=== PATIENT | female | born 1990 | race Caucasian/White ===

== ENCOUNTER 2022-05-01 10:31 | Outpatient (CLI) | payer OTHER, SELFPAY ==
--- OUTSIDE RECORDS SUMMARY | 2022-05-01 10:33 | XMS_ITS | Clinical Summary ---
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 Pulse 77 05/08/2019 2:26 PM [employer]CH[employer] ENGINEERING SPECIALIST Temperature 36.7 ??C (98 ??F) 05/08/2019 2:00 PM MECH[employer]ICAL ENGINEERING SPECIALIST Respiratory Rate 18 05/08/2019 2:00 PM MECHANICAL ENGINEERING SPECIALIST Oxygen Saturation 99% 05/08/2019 2:26 PM MECHANICAL ENGINEERING SPECIALIST Inhaled Oxygen Concentration - - Weight 66.5 kg (146 lb 11.2 oz) 05/08/2019 2:00 PM MECHANICAL ENGINEERING SPECIALIST Height 162.6 cm (5' 4) 05/08/2019 2:00 PM MECHANICAL ENGINEERING SPECIALIST Body Mass Index 25.18 05/08/2019 2:00 PM MECHANICAL ENGINEERING SPECIALIST Plan of Treatment Not on file Results Not on filefrom Last 3 Months Insurance Payer Benefit Plan / Subscriber ID Effective Dates Phone Addre ss Type Group FOR LIFE [id number] 2019-Present [address] [place] [address] Care Teams Junior Linux Systems Administrator Relationship Specialty Start Date End Date Clayton Bee MD PCP - General Obstetrics and Gynecology 05/08/19 [address] [place] [id number]
--- OUTSIDE RECORDS SUMMARY | 2022-05-01 10:33 | XMS_ITS | Continuity of Care Document ---
:1990 Author Organization [facility] Care Team Providers Name Role Phone [facility] Unavailable Unavailable Problems Combined list of problems from Department of Defense and Veterans Affairs facilities. It does not include entries that were removed or entered in error. 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 19 Pain in unspecified Active 01/18/20 Condition DoD hip 19 Pain in unspecified Active 01/18/20 Condition DoD shoulder 19 Pain in right Active 11/13/19 Condition DoD shoulder 19 Generalized anxiety Active 10/02/19 Condition DoD disorder 19 Encounter for Inactive 08/25/19 Condition DoD examination and 19 observation for other specified reasons Migraine, Inactive 08/17/19 Condition DoD unspecified, not 19 intractable, without status migrainosus Other sprain of Active 06/16/20 Condition DoD right shoulder 18 joint Anxiety (SCT Active Condition RUDI MARIBELL [id number]) [facility] Cancer cervix Active Condition Feb 20 NEAL screening status 2021 Entered [facility] By: ANITA HARVEY Comment: No hx KATELYNN 2-3 Feb 20, 2022 Entered By: ANITA HARVEY Comment: 03/03/21 Colposcopy KATELYNN 1/ECC neg Feb 20, 2022 Entered By: ANITA HARVEY Comment: 02/13/2022 NILM/HPV neg. Next co-test due in 3 years (02/2025). Closed fracture of Active Condition [place] [facility] clavicle [facility] Constipation Active Condition [place] [facility] Depression (SCT Active Condition ALBE RT MARIBELL [id number]) [facility] Headache (SCT Active Condition RUDI MARIBELL [id number]) [facility] Hip pain Active Condition [facility] Recurrent Active Condition [place] depression [facility] Diagnosis: Active Diagnosis [place] ICD-10-CM F33.8 [facility] Other recurrent depressive disorderswith Provider Comments: Recurrent depression (SCT [id number]) Diagnosis: Active Diagnosis [place] ICD-10-CM F41.9 [facility] Anxiety disorder, unspecifiedwith Provider Comments: Anxiety ([facility] [id number]) Diagnosis: Active Diagnosis [place] ICD-10-CM F32.9 [facility] Major depressive disorder, single episode, unspecifiedwith Provider Comments: Depression ([facility] [id number]) Diagnosis: Active Diagnosis [place] ICD-10-CM Z71.3 [facility] Dietary counseling and surveillancewith Provider Comments: Dietary counseling and surveillance Diagnosis: Active Diagnosis [place] ICD-10-CM K59.09 [facility] Other constipationwith Provider Comments: Other Constipation Diagnosis: Active Diagnosis [place] ICD-10-CM Z71.89 [facility] Other specified counselingwith Provider Comments: Other specified counseling Diagnosis: Active Diagnosis [place] ICD-10-CM F33.8 [facility] Other recurrent depressive disorderswith Provider Comments: Other Recurrent Depressive Disorders Diagnosis: Active Diagnosis [place] ICD-10-CM R53.83 [facility] Other fatiguewith Provider Comments: Other Fatigue Diagnosis: Active Diagnosis [place] ICD-10-CM R87.612 [facility] Low grade intrepith lesion cyto smr crvx (LGSIL)with Provider Comments: Low Grade Squamous Intraepithelial Lesion on Cytologic Smear of Cervix (LGSIL) Diagnosis: Active Diagnosis [place] ICD-10-CM Z71.9 [facility] Counseling, unspecifiedwith Provider Comments: Counseling, unspecified Diagnosis: Active Diagnosis [place] ICD-10-CM S42.002A [facility] Fracture of unsp part of left clavicle, init for clos fxwith Provider Comments: Closed fracture of left clavicle ([facility] [id number]) Medications Combined list of outpatient medications from Department of Defense and Veterans Affairs facilities. Medications provided include 1) outpatient medications from the last 15 months, and 2) patient-reported medications. Medication Details Route Status Patient Prescription Prescription Last Ordering Order Source Instructions Expires Number Dispense Provider Date Date CYMBALTA TAKE ONE Active 06/19/2022 [id number] TRAKALO , 07/18/ [place] (BRAND) 30 CAPSULE 2 KEN A 2021 [place] MG ORAL BY MOUTH [facility] CPDR EVERY DAY FOR MOOD AND ANXIETY CYMBALTA TAKE ONE Discont 03/25/2022 [id number] BROCKB ANK 06/25/ [place] (BRAND) 30 CAPSULE inued 1 , OXANA 2020 [place] MG ORAL BY MOUTH M [facility] CPDR EVERY DAY FOR MOOD AND ANXIETY DOXYCYCLINE Active [id number] CARMELO GÓMEZ / Pharmac MONOHYDRATE 2 D 2021 y Data (DOXYCYCLIN Transac E tion MONOHYDRATE Service ), 100MG, Facilit TABLET, y ORAL, [employer], 250 ea. BOTTLE DULoxetine TAKE ONE Discont 10/18/2022 [id number] TRAK BELKYS, 11/18/ [place] 20 MG ORAL CAPSULE inued 2 KEN A 2021 [place] CPDR BY MOUTH [facility] EVERY DAY FOR MOOD AND ANXIETY DULOXETINE TAKE ONE ORALLY DISCONT 10/18/2022 [id number] T RAKALO,A 10/21/ [place] H[facility] 20MG CAPSULE INUED 2 NDRA A 2021 [place] [facility] CAP,EC BY MOUTH HCS EVERY DAY FOR MOOD AND ANXIETY DULOXETINE TAKE ONE ORALLY DISCONT 06/19/2022 [id number] TRAKALO,A 07/12/ [place] HCL 30MG CAPSULE INUED 2 NDRA A 2021 [place] [facility] CAP,EC BY MOUTH (EDIT) HCS EVERY DAY FOR MOOD AND ANXIETY DULOXETINE TAKE ONE ORALLY DISCONT 03/25/2022 [id number] B ROCKBANK 03/24/ [place] HCL 30MG CAPSULE INUE 1 OXANA 2020 [place] [facility] CAP,EC BY MOUTH HCS EVERY DAY FOR MOOD AND ANXIETY FLUoxetine TAKE ONE Discont 11/06/2022 [id number] TRAK BELKYS, 11/30/ [place] (U/D) 10 MG CAPSULE inued 2 KEN A 2021 [place] ORAL CAP BY MOUTH [facility] EVERY DAY FOR MOOD AND ANXIETY FLUOXETINE TAKE ONE ORALLY DISCONT 11/06/2022 [id number] T RAKALO,A 11/05/ [place] H[facility] 10MG CAPSULE INUED 2 NDRA A 2021 [facility] [facility] CAP BY MOUTH HCS EVERY DAY FOR MOOD AND ANXIETY GABAPENTIN TAKE ONE Discont 11/06/2022 [id number] TRAK BELKYS, 11/30/ [place] (U/D) 100 CAPSULE inued 2 KEN A 2021 [place] MG ORAL CAP BY MOUTH [facility] THREE TIMES A DAY NEEDED FOR ANXIETY AND ANTIDEPR ESSANT DISCONTI NUATION EFFECTS GABAPENTIN TAKE ONE ORALLY DISCONT 11/06/2022 [id number] T RATAMMYLO,A 11/05/ [place] 100MG CAP CAPSULE INUED 2 NDRA A 2021 [facility] BY [facility]OUTH HCS THREE TIMES A DAY NEEDED FOR ANXIETY AND ANTIDEPR ESSANT DISCONTI NUATION EFFECTS hydrOXYzine TAKE ONE Discont 02/19/2022 [id number] DUR AN, 03/26/ [place] pamoate TO TWO inued 1 ANITA 2020 [place] (U/D) 25 MG CAPSULE( [facility] ORAL CAP S) BY MOUTH AT BEDTIME FOR SLEEP/AN XIETY HYDROXYZINE TAKE ONE ORALLY DISCONT 02/19/2022 [id number] HARVEY,ALI 02/18/ [place] PAMOATE TO TWO INUE 1 SA 2020 [place] [facility] 25MG CAP CAPSULE( HCS S) BY MOUTH AT BEDTIME FOR SLEEP/AN XIETY MAGNESIUM TAKE 1 ORALLY 02/01/2022 [id number] MADDAL I,S 01/02/ [place] CITRATE BOTTLE 2 [facility] 2021 [facility] LIQUID,ORAL BY MOUTH HCS ONCE TODAY POLYETHYLEN TAKE 17 ORALLY 02/01/2022 [id number] M ADDALI,S 01/02/ [place] E GLYCOL GRAMS BY 2 [facility] 2021 [facility] 3350 MOUTH [facility] PWDR,ORAL TWICE A DAY FOR 2 DAYS, THEN TAKE 17 GRAMS EVERY MORNING FOR 28 DAYS *MIX IN 4 TO 8 OUNCES OF LIQUID DIRECTED *USE COVER TO MEASURE POWDER* SO-PEG TAKE 17 02/01/2022 [id number] MADDALI, 01/16/ [place] 3350-BOWEL GRAMS BY 2 CALVIN 2021 [place] 2,TWO PART MOUTH [facility] PREP--PO SO TWICE A DAY FOR 2 DAYS, THEN TAKE 17 GRAMS EVERY MORNING FOR 28 DAYS *MIX IN 4 TO 8 OUNCES OF LIQUID DIRECTED *USE COVER TO MEASURE POWDER* TRAZODONE TAKE ORALLY DISCONT 07/31/2022 [id number] TRAPAUL ,A 07/31/ [place] HCL 50MG ONE-HALF INUED 2 NDRA A 2021 [place] [facility] TAB TO ONE HCS TABLET(S ) BY MOUTH AT BEDTIME NEEDED FOR SLEEP Allergies, Adverse Reactions, Alerts Combined list of allergies from Department of Defense and Veterans Affairs facilities. It does not include entries that were removed or entered in error. Substance Category Reaction Severity Reaction Status Date Comments S ource type Reported DOXYCYCLINE Drug Generalize Drug active [place] allergy d aches allergy 2 lis [facility] and pains LATEX GLOVES Propensity Eruption Propensity active [place] to adverse to adverse 9 LI S [facility] reactions reactions HCS to drug to drug (finding) (finding) Immunizations Combined list of available immunizations from the Department of Defense and Veterans Affairs facilities. Immunization Series Date Administered Site Reaction Lot CVX Drug St atus Comments Source Given By Number Code Senior Cytotechnologist INFLUENZA, complet [place] UNSPECIFIED 2020 ed [place] [facility] FORMULATION [facility] S COVID-19 2 complet [place] (MODERNA), 2020 ed [place] [facility] MRNA, LNP-S, H CS PF, 100 MCG OR 50 MCG DOSE COVID-19 1 complet [place] (MODERNA), 2020 ed [place] [facility] MRNA, LNP-S, H CS PF, 100 MCG/0.5 ML DOSE INFLUENZA, complet [employer] SE[employer]ONAL, 2019 ed INJECTABLE anthrax 2 08/27/ [id number] Emergent complet anth rax DoD vaccine 2019 [employer] ed vaccine Operations Dewey (MIP) typhoid Vi 1 03/28/ [id number] Sanofi complet typ hoid DoD capsular 2018 Pasteur (PMC) ed Vi polysaccharid capsul ar e vaccine polysacch aride vaccine anthrax 1 03/28/ [id number] Emergent complet anth rax DoD vaccine 2018 [employer] ed vaccine Operations Toño (MIP) hepatitis A 3 03/28/ [id number] SmithKline complet hepatitis DoD vaccine, 2018 (SKB) ed A adult dosage vaccine , adult dosage Influenza, 1 03/27/ [id number] 150 Seqirus (SEQ) comp let Influenza DoD injectable, 2018 ed , quadrivalent, inject abl preservative e, free quadrival ent, preservat magui free measles, 2 07/24/ [id number] 03 Unknown (UNK) comple t measles, DoD mumps and 2018 ed mumps and rubella virus rubell a vaccine virus vaccine measles, 2 07/23/ [id number] 03 Unknown (UNK) comple t measles, DoD mumps and 2018 ed mumps and rubella virus rubell a vaccine virus vaccine hepatitis A 2 07/10/ [id number] [employer]Kline complet hepatitis DoD and hepatitis 2018 (SKB) ed A and B vaccine hepatitis B vaccine TDAP 01/14/ 115 complet [place] 2017 ed [facility] HEP B, ADULT complet [place] 2016 ed [facility] Influenza, 1 05/09/ [id number] 150 Unknown (UNK) comp let Influenza DoD injectable, 2016 ed , quadrivalent, inject abl preservative e, free quadrival ent, preservat magiu free Adenovirus, 1 09/19/ Unknown, [id number] 143 Cornelius complet Adenoviru DoD type 4 and 2016 Provider 2 Laboratories ed s, type 4 type 7, live, (BRR) and ty pe oral 7, live, oral hepatitis A 1 09/19/ Unknown, [id number] 52 [employer]Kline compl et hepatitis DoD vaccine, 2016 Provider (SKB) ed A adult dosage vaccine , adult dosage Influenza, 1 09/19/ Unknown, [id number] 150 CSL complet In fluenza DoD injectable, 2016 Provider Biotherapies, ed , quadrivalent, Inc. (CSL) i njectabl preservative e, free quadrival ent, preservat magui free poliovirus 1 09/19/ Unknown, [id number] 10 Sanofi complet polioviru DoD vaccine, 2016 Provider Pasteur (PMC) ed s inactivated vaccine, inactivat ed meningococcal 1 09/19/ Unknown, [id number] 32 Sanofi compl et meningoco DoD polysaccharid 2016 Provider Pasteur (PMC) e d ccal e vaccine polysacch (MPSV4) aride vaccine (MPSV4) measles, 1 09/19/ Unknown, [id number] 03 Merck (MSD) compl et measles, DoD mumps and 2016 Provider ed mumps a nd rubella virus rubell a vaccine virus vaccine varicella 1 09/18/ UNK 21 Unknown (UNK) Not v aricella DoD virus vaccine 2016 Given virus vaccine hepatitis B 1 09/18/ UNK 43 Unknown (UNK) Not hepatitis DoD vaccine, 2016 Given B adult dosage vaccine , adult dosage Influenza, 1 05/26/ [id number] 141 Unknown (UNK) comp let Influenza DoD seasonal, 2015 1A ed , injectable seasonal, injectabl e human 3 UNK 62 Unknown (UNK) complet hum an DoD papilloma 2013 ed papilloma virus virus vaccine, vaccine, quadrivalent quadriv al ent HPV, 3 complet [place] QUADRIVALENT 2013 ed [facility] tetanus 1 UNK 115 Unknown (UNK) complet t etanus DoD toxoid, 2010 ed toxoid, reduced reduced diphtheria diphtheri toxoid, and a toxoid , acellular and pertu is acellular vaccine, pertussis adsorbed vaccine, adsorbed human 2 UNK 62 Unknown (UNK) complet hum an DoD papilloma 2009 ed papilloma virus virus vaccine, vaccine, quadrivalent quadriv al ent HPV, 2 complet [place] QUADRIVALENT 2009 ed [facility] human 1 UNK 62 Unknown (UNK) complet hum an DoD papilloma 2008 ed papilloma virus virus vaccine, vaccine, quadrivalent quadriv al ent HPV, 1 complet [place] QUADRIVALENT 2008 ed [facility] Results Combined list of recent chemistry, hematology and other laboratory results from Department of Defense and Veterans Affairs, ranging from 15 months to all on record, depending upon the facility. Order Results Value Reference Date Interpretation Specimen Commen ts Source Name Range HUMAN HUMAN NEGATIVE 02/13 Specimen Type: CERVICAL VAGINAL CYTOLOGIC MATERIAL [place] PAPILLOM PAPILLOMA /2021 Comment: [id number] [facility] A VIRUS 16 Ordering Provi devan: HARVEY,ANITA VIRUS,DN DNA Report Release d Date/Time: Feb 19, 2022 11:51 AM A HIGH [PRESENCE] Reporting La b: [facility]CS RISK IN [address] [place] [address] SPECIMEN Performing Lab : [facility] BY [place] [address] [place] [address] WITH PROBE DETECTION HUMAN HUMAN NEGATIVE 02/13 Specimen Type: CERVICAL VAGINAL CYTOLOGIC MATERIAL [place] PAPILLOM [place] /2021 Comment: [id number] [facility] A VIRUS 18 Ordering Provi devan: HARVEY,ANITA VIRUS,DN DNA Report Release d Date/Time: Feb 19, 2022 11:51 AM A HIGH [PRESENCE] Reporting La b: [facility]CS RISK IN [address] [place] [address] SPECIMEN Performing Lab : [facility] BY [place] [address] [facility] [address] WITH PROBE DETECTION HUMAN HUMAN NEGATIVE 02/13 Specimen Type: CERVICAL VAGINAL CYTOLOGIC MATERIAL [place] PAPILLOM [place] /2021 Comment: C2 IS [facility] A VIRUS Ordering Provid er: ANITA HARVEY VIRUS,DN 16+18+31+3 Report Rele ased Date/Time: Feb 19, 2022 11:51 AM A HIGH 3+35+45+51 Reporting La b: [facility] RISK +52+[address] [facility] [address] [PRESENCE] Performing L ab: [facility] IN [place] [address] [facility] [address] BY PROBE HUMAN INTERPRETA HR-HPV 02/13 Specimen Type : CERVICAL VAGINAL CYTOLOGIC MATERIAL [place] PAPILLOM TION AND is /2021 Comment: [id number] IS [facility] A REVIEW OF undetect Ordering Pro vider: ANITA HARVEY VIRUS,DN LABORATORY able or Report Rele ased Date/Time: Feb 19, 2022 11:51 AM A HIGH RESULTS below Reporting Lab: [facility] RISK preset [address] [facility] [address] threshol Performing Lab : [facility] d. ONE [facility] [address] [facility] [address] HCG, CHORIOGONA NEGATIVE 01/02 Specimen Typ e: URINE [place] QUAL DOTROPIN.B No comment en tered. IS [facility] ETA Ordering Provid er: CALVIN HARRIS SUBUNIT Report Released Date/Time: Jan 02, 2022 09:09 AM ( Reporting La b: [facility] TEST) [address] [facility] [address] [PRESENCE] Performing L ab: [facility] IN URINE [address] [facility] [address] TSH THYROTROPI 1.03 0.35 - 07/23 Specimen Type : PLASMA [place] W/REFLEX N 4.94 No comment ente red. IS [facility] TO FREE [UNITS/VOL Ordering Pro vider: HARVEYANITA T4 UME] IN Report Released Date/Time: Jul 23, 2021 03:00 PM SERUM OR Reporting Lab: [facility] PLASMA [place] [address] Performing Lab: [facility] [place] [address] BASIC CREATININE 0.8 0.5 - 1.0 07/23 Specimen Ty pe: PLASMA [place] METABOLI [MASS/VOLU /2021 No comment e ntered. IS [facility] C ME] IN Ordering Provid er: HARVEY,ANITA PANEL+MG SERUM OR Report Releas ed Date/Time: Jul 23, 2021 03:00 PM PLASMA Reporting Lab: [facility] [place] [address] Performing Lab: [facility] [place] [address] BASIC UREA 20 7 - 20 07/23 Specimen Type: P LASMA [place] METABOLI No comment ent ered. IS [facility] C [MASS/VOLU Ordering Pro vider: HARVEY,ANITA PANEL+MG ME] IN Report Release d Date/Time: Jul 23, 2021 03:00 PM SERUM OR Reporting Lab: [facility] PLASMA [address] [facility] [address] Performing Lab: [facility] [address] [facility] [address] BASIC GLUCOSE 69 74 - 100 07/23 L Specimen Type: PLASMA [place] METABOLI [MASS/VOLU /2021 No comment e ntered. IS [facility] C ME] IN Ordering Provid er: HARVEY,ANITA PANEL+MG SERUM OR Report Releas ed Date/Time: Jul 23, 2021 03:00 PM PLASMA Reporting Lab: [facility] [place] [address] Performing Lab: [facility] [place] [address] BASIC SODIUM 141 136 - 145 07/23 Specimen Type: PLASMA [place] METABOLI [MOLES/VOL /2021 No comment e ntered. IS [facility] C UME] IN Ordering Provid er: HARVEY,ANITA PANEL+MG SERUM OR Report Releas ed Date/Time: Jul 23, 2021 03:00 PM PLASMA Reporting Lab: [facility] [address] [facility] [address] Performing Lab: [facility] [address] [facility] [address] BASIC POTASSIUM 3.9 3.5 - 5.1 07/23 Specimen Typ e: PLASMA [place] METABOLI [MOLES/VOL /2021 No comment e ntered. IS [facility] C UME] IN Ordering Provid er: HARVEY,ANITA PANEL+MG SERUM OR Report Releas ed Date/Time: Jul 23, 2021 03:00 PM PLASMA Reporting Lab: [facility] [address] [place] [address] Performing Lab: [facility] [address] [place] [address] BASIC CHLORIDE 107 98 - 107 07/23 Specimen Type: PLASMA [place] METABOLI [MOLES/VOL /2021 No comment e ntered. IS [facility] C UME] IN Ordering Provid er: HARVEY,ANITA PANEL+MG SERUM OR Report Releas ed Date/Time: Jul 23, 2021 03:00 PM PLASMA Reporting Lab: [facility] [address] [place] [address] Performing Lab: [facility] [address] [place] [address] BASIC CARBON 26 22 - 29 07/23 Specimen Type: P LASMA [place] METABOLI DIOXIDE, /2021 No comment ent ered. IS [facility] C TOTAL Ordering Provid er: HARVEY,ANITA PANEL+MG [MOLES/VOL Report Rele ased Date/Time: Jul 23, 2021 03:00 PM UME] IN Reporting Lab: [facility] SERUM OR [address] [facility] [address] PLASMA Performing Lab: [facility] [place] [address] BASIC CALCIUM 9.2 8.4 - 10.2 07/23 Specimen Type : PLASMA [place] METABOLI [MASS/VOLU /2021 No comment e ntered. IS [facility] C ME] IN Ordering Provid er: HARVEY,ANITA PANEL+MG SERUM OR Report Releas ed Date/Time: Jul 23, 2021 03:00 PM PLASMA Reporting Lab: [facility] [address] [facility] [address] Performing Lab: [facility] [address] [facility] [address] BASIC MAGNESIUM 2.0 1.6 - 2.6 07/23 Specimen Typ e: PLASMA [place] METABOLI [MASS/VOLU /2021 No comment e ntered. IS [facility] C ME] IN Ordering Provid er: HARVEY,ANITA PANEL+MG SERUM OR Report Releas ed Date/Time: Jul 23, 2021 03:00 PM PLASMA Reporting Lab: [facility] [place] [address] Performing Lab: [facility] [address] [facility] [address] BASIC ANION GAP 8 5 - 15 07/23 Specimen Type: PLASMA [place] METABOLI IN SERUM /2021 No comment ent ered. IS [facility] C OR PLASMA Ordering Prov ider: ANITA HARVEY PANEL+MG Report Release d Date/Time: Jul 23, 2021 03:00 PM Reporting Lab: [facility] [address] [facility] [address] Performing Lab: [facility] [address] [facility] [address] BASIC GLOMERULAR 84 60 07/23 Specimen Type : PLASMA [place] METABOLI FILTRATION /2021 No comment e ntered. IS [facility] C RATE/1.73 Ordering Prov ider: ANITA HARVEY PANEL+MG SQ Report Release d Date/Time: Jul 23, 2021 03:00 PM M.PREDICTE Reporting La b: [facility] D [VOLUME [address] [employer] [facility] [address] RATE/AREA] Performing L ab: [facility] IN SERUM, [address] [employer] [facility] [address] PLASMA OR BLOOD BY CREATININE -BASED FORMULA (CKD-EPI) IRON IRON 83 50 - 170 07/23 Specimen Type: SERUM [place] GROUP [MASS/VOLU /2021 No comment en tered. IS [facility] ME] IN Ordering Provid er: ANITA HARVEY SERUM OR Report Release d Date/Time: Jul 23, 2021 03:00 PM PLASMA Reporting Lab: [facility] [address] [facility] [address] Performing Lab: [facility] [address] [facility] [address] IRON IRON 284 250 - 425 07/23 Specimen Type: SERUM [place] GROUP BINDING /2021 No comment enter ed. IS [facility] CAPACITY Ordering Provi devan: ANITA HARVEY [MASS/VOLU Report Relea sed Date/Time: Jul 23, 2021 03:00 PM ME] IN Reporting Lab: [facility] SERUM OR [address] [facility] [address] PLASMA Performing Lab: [facility] [address] [facility] [address] IRON FERRITIN 52.2 4.6 - 07/23 Specimen Type: SERUM [place] GROUP [MASS/VOLU 204.0 /2021 No comment en tered. IS [facility] ME] IN Ordering Provid er: ANITA HARVEY SERUM OR Report Release d Date/Time: Jul 23, 2021 03:00 PM PLASMA Reporting Lab: [facility] [address] [place] [address] Performing Lab: [facility] [address] [place] [address] IRON IRON 29 15 - 50 07/23 Specimen Type: S MAGDA [place] GROUP SATURATION No comment en tered. IS [facility] Ordering Provid er: ANITA HARVEY Report Released Date/Time: Jul 23, 2021 03:00 PM Reporting Lab: [facility] [address] [place] [address] Performing Lab: [facility] [place] [address] IRON TRANSFERRI 227 163 - 382 07/23 Specimen Ty pe: SERUM [place] GROUP N No comment enter ed. IS [facility] [MASS/VOLU Ordering Pro vider: ANITA HARVEY ME] IN Report Released Date/Time: Jul 23, 2021 03:00 PM SERUM OR Reporting Lab: [facility] PLASMA [place] [address] Performing Lab: [facility] [place] [address] CBC LEUKOCYTES 8.15 4.0 - 11.0 07/23 Specimen T ype: BLOOD [place] [#/VOLUME] /2021 No comment en tered. IS [facility] IN BLOOD Ordering Provi devan: ANITA HARVEY BY Report Released Date/Time: Jul 23, 2021 03:00 PM AUTOMATED Reporting Lab : [facility] COUNT [place] [address] Performing Lab: [facility] [address] [facility] [address] CBC ERYTHROCYT 4.15 4.0 - 5.4 07/23 Specimen Ty pe: BLOOD [place] ES No comment enter ed. IS [facility] [#/VOLUME] Ordering Pro vider: ANITA HARVEY IN BLOOD Report Release d Date/Time: Jul 23, 2021 03:00 PM BY Reporting Lab: [facility] AUTOMATED [address] [facility] [address] COUNT Performing Lab: [facility] [address] [facility] [address] CBC HEMOGLOBIN 12.5 11.5 - 16 07/23 Specimen Ty pe: BLOOD [place] [MASS/VOLU /2021 No comment en tered. IS [facility] ME] IN Ordering Provid er: ANITA HARVEY BLOOD Report Released Date/Time: Jul 23, 2021 03:00 PM Reporting Lab: [facility] [place] [address] Performing Lab: [facility] [address] [place] [address] CBC HEMATOCRIT 38.5 34.5 - 48 07/23 Specimen Ty pe: BLOOD [place] [VOLUME /2021 No comment enter ed. [facility] FRACTION] Ordering Prov ider: ANITA HARVEY OF BLOOD Report Release d Date/Time: Jul 23, 2021 03:00 PM BY Reporting Lab: [facility] AUTOMATED [address] [facility] [address] COUNT Performing Lab: [facility] [address] [place] [address] CBC MCV 92.8 80 - 100 07/23 Specimen Type: BLOOD [place] [ENTITIC /2021 No comment ente red. [facility] VOLUME] BY Ordering Pro vider: ANITA HARVEY AUTOMATED Report Releas ed Date/Time: Jul 23, 2021 03:00 PM COUNT Reporting Lab: [facility] [place] [address] Performing Lab: [facility] [address] [place] [address] CBC MCH 30.1 27 - 33 07/23 Specimen Type: B LOOD [place] [ENTITIC /2021 No comment ente red. [facility] MASS] BY Ordering Provi devan: ANITA HARVEY AUTOMATED Report Releas ed Date/Time: Jul 23, 2021 03:00 PM COUNT Reporting Lab: [facility] [address] [place] [address] Performing Lab: [facility] [address] [place] [address] CBC MCHC 32.5 32.0 - 07/23 Specimen Type: B LOOD [place] [MASS/VOLU 37.5 /2021 No comment en tered. [facility] ME] BY Ordering Provid er: ANITA HARVEY AUTOMATED Report Releas ed Date/Time: Jul 23, 2021 03:00 PM COUNT Reporting Lab: [facility] [address] [place] [address] Performing Lab: [facility] [address] [place] [address] CBC PLATELETS 355 150 - 400 07/23 Specimen Typ e: BLOOD [place] [#/VOLUME] /2021 No comment en tered. [facility] IN BLOOD Ordering Provi devan: ANITA HARVEY BY Report Released Date/Time: Jul 23, 2021 03:00 PM AUTOMATED Reporting Lab : [facility] [address] [place] [address] Performing Lab: [facility] [address] [place] [address] CBC PLATELET 10.2 7.4 - 10.4 07/23 Specimen Typ e: BLOOD [place] MEAN /2021 No comment enter ed. [facility] VOLUME Ordering Provid er: ANITA HARVEY [ENTITIC Report Release d Date/Time: Jul 23, 2021 03:00 PM VOLUME] IN Reporting La b: [facility] [place] [address] AUTOMATED Performing La b: [facility] COUNT [address] [place] [address] CBC ERYTHROCYT 13.0 11.5 - 07/23 Specimen Type : BLOOD [place] E 14.5 /2021 No comment enter ed. [facility] DISTRIBUTI Ordering Pro vider: ANITA HARVEY ON WIDTH Report Release d Date/Time: Jul 23, 2021 03:00 PM [RATIO] BY Reporting La b: [facility] [place] [address] COUNT Performing Lab: [facility] [address] [place] [address] C.TRACHO CHLAMYDIA NOT 02/25 Specimen Type : VAGINA [place] MATIS/N. TRACHOMATI DETECTED /2020 No comment entered. [facility] GONORRHE S DNA Ordering Provi devan: ANITA HARVEY A DNA [PRESENCE] Report Relea sed Date/Time: Feb 24, 2021 11:36 AM IN VAGINAL Reporting La b: [facility] [place] [address] FOZIA WITH Performing Lab : [facility] PROBE [address] [place] [address] DETECTION C.TRACHO NEISSERIA NOT 02/25 Specimen Type : VAGINA [place] MATIS/N. GONORRHOEA DETECTED /2020 No comment entered. [facility] GONORRHE E DNA Ordering Provi devan: ANITA HARVEY A DNA [PRESENCE] Report Relea sed Date/Time: Feb 24, 2021 11:36 AM IN VAGINAL Reporting La b: [facility] FLUID BY [address] [place] [address] FOZIA WITH Performing Lab : [facility] PROBE [address] [place] [address] DETECTION C.TRACHO INTERPRETA Infectio 02/25 Specimen Ty pe: VAGINA [place] MATIS/N. TION AND us agent /2020 No comment en tered. [facility] GONORRHE REVIEW OF DNA is Ordering Pro vider: ANITA HARVEY A DNA LABORATORY not Report Relea sed Date/Time: Feb 24, 2021 11:36 AM RESULTS detected Reporting Lab: [facility] by this [address] [place] [address] assay Performing Lab: [facility] [address] [place] [address] T TRICHOMONA NOT 02/25 Specimen Type : VAGINA [place] VAGINALI S DETECTED /2020 No comment ent ered. [facility] S(PCR) VAGINALIS Ordering Prov ider: ANITA HARVEY RRNA Report Released Date/Time: Feb 24, 2021 11:36 AM [PRESENCE] Reporting La b: [facility] IN [address] [place] [address] SPECIMEN Performing Lab : [facility] BY [place] [address] [place] [address] WITH PROBE DETECTION HUMAN HUMAN NEGATIVE 02/18 Specimen Type: CERVICAL VAGINAL CYTOLOGIC MATERIAL [place] PAPILLOM PAPILLOMA /2020 Comment: [id number] [facility] A VIRUS 16 Ordering Provi devan: HARVEYLIANITA VIRUS,DN DNA Report Release d Date/Time: Feb 20, 2021 12:49 PM A HIGH [PRESENCE] Reporting La b: [facility] RISK IN [address] [place] [address] SPECIMEN Performing Lab : [facility] [address] [place] [address] WITH PROBE DETECTION HUMAN HUMAN NEGATIVE 02/18 Specimen Type: CERVICAL VAGINAL CYTOLOGIC MATERIAL [place] PAPILLOM PAPILLOMA /2020 Comment: [id number] [facility] A VIRUS 18 Ordering Provi devan: HARVEYLIANITA VIRUS,DN DNA Report Release d Date/Time: Feb 20, 2021 12:49 PM A HIGH [PRESENCE] Reporting La b: [facility] RISK IN [address] [place] [address] SPECIMEN Performing Lab : [facility] [place] [address] WITH PROBE DETECTION HUMAN HUMAN POSITIVE 02/18 H Specimen Type: CERVICAL VAGINAL CYTOLOGIC MATERIAL [place] PAPILLOM PAPILLOMA /2020 Comment: [facility] A VIRUS Ordering Provid er: ANITA HARVEY VIRUS,DN 16+18+31+3 Report Rele ased Date/Time: Feb 20, 2021 12:49 PM A HIGH 3+35+45+51 Reporting La b: [facility] RISK +52+56 DNA ONE [employer] [facility] [address] [PRESENCE] Performing L ab: [facility] IN CERVIX ONE [facility] [address] BY PROBE HUMAN INTERPRETA Specimen 02/18 Specimen Typ e: CERVICAL VAGINAL CYTOLOGIC MATERIAL [place] PAPILLOM TION AND is /2020 Comment: [id number] [facility] A REVIEW OF positive Ordering Pro vider: ANITA HARVEY VIRUS,DN LABORATORY for the Report Rele ased Date/Time: Feb 20, 2021 12:49 PM A HIGH RESULTS HPV Reporting Lab: [facility] RISK types [place] [address] indicate Performing Lab : [facility] [address] [place] [address] TSH THYROTROPI 1.51 0.35 - 02/18 Specimen Type : PLASMA [place] W/REFLEX N 4.94 /2020 No comment ente red. [facility] TO FREE [UNITS/VOL Ordering Pro vider: HARVEY,ANITA T4 UME] IN Report Released Date/Time: Feb 18, 2021 10:36 AM SERUM OR Reporting Lab: [facility] [place]ASMA [place] [address] Performing Lab: [facility] [place] [address] Vital Signs Combined list of inpatient and outpatient Vital Signs from Department of Defense and Veterans Affairs, ranging from 12 months to all on record, depending upon the facility. Vital Sign Value Date Comments Source SYSTOLIC BLOOD PRESSURE 107 02/13/2022 11:28:41 [facility] DIASTOLIC BLOOD PRESSURE 67 02/13/2022 11:28:41 [facility] PULSE OXIMETRY 99% 02/13/2022 11:28:41 [facility] WEIGHT 123.2 02/13/2022 11:28:41 [place] [facility] BMI 21kg/m2 02/13/2022 11:28:41 [facility] PAIN 0 02/13/2022 11:28:41 [place] [facility] PULSE 88 02/13/2022 11:28:41 [place] [facility] RESPIRATION 18 02/13/2022 11:28:41 [place] [facility] WEIGHT 124.9 01/16/2022 07:48:55 [place] BMI 21kg/m2 01/16/2022 07:48:55 [place] [facility] SYSTOLIC BLOOD PRESSURE 113 01/02/2022 08:42:00 [facility] DIASTOLIC BLOOD PRESSURE 56 01/02/2022 08:42:00 [facility] TEMPERATURE 97.5 01/02/2022 08:42:00 [place] [facility] PULSE 83 01/02/2022 08:42:00 [place] [facility] RESPIRATION 20 01/02/2022 08:42:00 [place] [facility] SYSTOLIC BLOOD PRESSURE 99 07/23/2021 14:28:04 [facility] DIASTOLIC BLOOD PRESSURE 60 07/23/2021 14:28:04 [facility] PULSE OXIMETRY 98% 07/23/2021 14:28:04 [facility] WEIGHT 121 07/23/2021 14:28:04 [facility] [facility] BMI 21kg/m2 07/23/2021 14:28:04 [facility] PAIN 1 07/23/2021 14:28:04 [facility] HEIGHT 64 07/23/2021 14:28:04 [place] [facility] PULSE 90 07/23/2021 14:28:04 [place] [facility] RESPIRATION 17 07/23/2021 14:28:04 [place] [facility] Encounters Combined list of: 1) Encounters from Department of Veterans Affairs facilities going back up to the last 18 months. 2) Encounters from the Department of Defense facilities going back up to 280 months. Location Location Encounter Encounter Reason Attending ADM DC Stat us Disposition Source Details Type Number For Provider Date Date Visit OUTPATIENT [id number] IET PPD MOLLY, 09/19 Rel eased w/o 20th KHOA Limitations Medi clarisa Group(M [facility] Immuniz ations (Post)) OUTPATIENT [id number] iet JIMMY, 09/19 Released w /o immuniz SUKUMAR Limitations Med ical ations Group(Joseph [facility] Immuniz ations (Post)) OUTPATIENT [id number] Notes , 09/29 Released w/o Entered Limitations Me dical by: Group(Kevin MCALLISTER DOUG Ambulat D 28 ory) Sep 2015 0558 ------- ------- ------- ------- -- Blister s OUTPATIENT [id number] Notes MARY CAREMN10/27 Entered with Medical by: [employer](Kyra GREEN DOUG Ambulat D or) Oct 2015 0811 ------- ------- ------- ------- -- Hip pain OUTPATIENT [id number] Brittany BLAIR, 10/27 Immedia te Entered Referral Medical by: Group(AVERY MAURICIO [facility] Oct 2016 Therapy 1024 ) ------- ------- ------- ------- -- Bilat Knee/Hi p OUTPATIENT [id number] Brittany HENDERSON10/29 Entered with Medical by: [employer](Kyra GREEN DOUG Ambulat D ory) Oct 2015 0534 ------- ------- ------- ------- -- F/U OUTPATIENT [id number] Brittany NEVILLE, 10/29 Entered with Medical by: [employer](Kevin Rae ,[place] Physica l Oct BAS) 0602 ------- ------- ------- ------- -- hip and knee pain OUTPATIENT [id number] Nadege SKY, 12/03 12/03 Release d Thigh-- SILKE with Medical -(ref: [employer](T kim Limitations MC e) Physica l Therapy ) OUTPATIENT [id number] Brittany WILKINSON, 12/12 Releas ed w/o Entered Limitations Med ical by: Group(Kevin TOVAR,SHAISTA Physica INE 10 l Dec ) 1545 ------- ------- ------- ------- -- right hip and knee pain OUTPATIENT [id number] Brittany LAL, 12/29 Released w /o Entered Limitations Med ical by: Group(Kevin WU, Ambulat ELIUD boss) 30 Dec 2015 0608 ------- ------- ------- ------- -- Headach e OUTPATIENT [id number] Brittany WILKINSON, 01/20 Releas ed w/o Entered Limitations Med ical by: Group(SHAISTA TOPETE Physica INE 19 l Jan ) 1525 ------- ------- ------- ------- -- Right Hip ST irritia tion - rehab pt OUTPATIENT [id number] Brittany WILKINSON, 01/23 Immedi ate Entered Referral Medica l by: Group(SHAISTA TOPETE Physica INE 22 l Jan ) 1605 ------- ------- ------- ------- -- right hip pain - antalgi c gait OUTPATIENT [id number] Follow MARTA, 01/26 Rele ased w/o up--(Dr BOOTHE C Limitations Medi clarisa . Group(Kevin Sky [facility] ) Physica l Therapy ) OUTPATIENT [id number] Notes KATIE, 03/29 Relea sed w/o Hebert Lakhani Entered [facility] Limitations Mauri garner by: Tonya Henry [place](SRP 0934 Bldg ------- [address]374) ------- ------- ------- -- MOB/KUW AIT OUTPATIENT [id number] Notes [place], 03/29 Release d w/o Hebert Lakhani Entered Limitations Mauri alvinkodi by: [facility] [place] 2017 Bldg [phone]) ------- ------- ------- ------- -- NCM OUTPATIENT [id number] Notes [place], 03/29 Release d w/o Hebert Lakhani Entered Limitations Da rnall by: [facility] [place]([facility] 2017 Bldg [phone]) ------- ------- ------- ------- -- NCM OUTPATIENT [id number] Theater 06/16 Released Theater 4 Provider with Facilit Work/Duty y Limitations OUTPATIENT [id number] Theater 08/18 Released w/o Theater 6 Provider /2019 Limitations Facil it y OUTPATIENT [id number] Theater 08/25 Released w/o Theater 8 Provider /2019 Limitations Facil it y OUTPATIENT [id number] Theater 09/01 Released w/o Theater 7 Provider /2019 Limitations Facil it y OUTPATIENT [id number] Theater 09/07 Released w/o Theater 5 Provider /2019 Limitations Facil it y OUTPATIENT [id number] Theater 09/13 Released w/o Theater 9 Provider /2019 Limitations Facil it y OUTPATIENT [id number] Theater 09/29 Released w/o Theater 1 Provider /2019 Limitations Facil it y OUTPATIENT [id number] Theater 10/06 Released w/o Theater 5 Provider /2019 Limitations Facil it y OUTPATIENT [id number] Theater 10/13 Released w/o Theater 8 Provider /2019 Limitations Facil it y OUTPATIENT [id number] Theater 10/20 Released w/o Theater 7 Provider /2019 Limitations Facil it y OUTPATIENT [id number] Theater 11/12 Released w/o Theater 3 Provider /2019 Limitations Facil it y OUTPATIENT [id number] Brittany CHOPRA01/16 Released w/o Hebert Gonzales Entered Limitations Reji casas by: [facility] [place](SRP 1629 Bldg ------- 79862) ------- ------- ------- -- DEMOB/K UWAIT OUTPATIENT [id number] Brittany TOLBERT, 01/17 Release d w/o Hebert R 0 Entered Limitations Ayush ll by: [facility] Jan [place](SRP 1008 Hearing ------- Conserv ------- ation) ------- ------- -- post OUTPATIENT [id number] Notes RUBI, 01/17 Releas ed w/o Hebert R 6 Entered OLGA M Limitations Maur[facility], Jan([facility] 2018 Physica 1453 l Exam ------- Clinic) ------- ------- ------- -- SHPE-34 [place] [address]-1.61 Diagnos BARBARA OLEARY 11/07 [place] 45 MINUTES [id number] is: [place] ICD-10- HCS CM F41.9 Anxiety disorde r, unspeci fied
with Provide r Comment s: Anxiety (SCT 0025009 2) [place] [address]-2.61 BARBARA Vazquez 12/05 [place] 45 MINUTES [id number] is: [place] ICD-10- HCS CM F41.9 Anxiety disorde r, unspeci fied
with Provide r Comment s: Anxiety (SCT [id number] 2) OFFICE O/P 95225-4.61 Diagnos TOMASZ SHANKS 12/06 [place] EST LOW [id number] is: MAKENZIE [facility] 20-29 MIN ICD-10- HCS CM S42.002 A Fractur e of unsp part of left clavicl e, init for clos fx
with Provide r Comment s: Closed fractur e of left clavicl e (SCT [id number] 105) [place] [address]-2.61 Diagnos BARBARA OLEARY 01/02 [place] 45 MINUTES [id number] is: TIE [place] ICD-10- HCS CM F41.9 Anxiety disorde r, unspeci fied
with Provide r Comment s: Anxiety (SCT [id number] 2) [place] [address]-2.61 Diagnos BARBARA OLEARY 02/13 [place] 45 MINUTES [id number] is: TIE [place] ICD-10- HCS CM F41.9 Anxiety disorde r, unspeci fied
with Provide r Comment s: Anxiety (SCT [id number] 2) OFFICE O/P 52239-7 Diagnos JASON HARVEY 02/18 [place] EST MOD [id number] is: A [place] 30-39 MIN ICD-10- HCS CM F41.9 Anxiety disorde r, unspeci fied
with Provide r Comment s: Anxiety (SCT 2805276 2) Outpatient [id number] SAMANTHA VIVAR 02/21 [place] Encounter [id number] AN C [facility] HC PRO 22306-161 Diagnos KAY VALLADARES 02/24 [place] PHONE CALL [id number] is: RA R [facility] 11-20 MIN ICD-10- HCS CM Z71.89 Other specifi ed direct care counselor ing<br/ >with Provide r Comment s: Other specifi ed direct care counselor ing OFFICE O/P 89132-261 Diagnos TRUJILLO-K 02/25 [place] EST [id number] is: LINGSPORN, [place] MINIMAL ICD-10- IS[facility]EL[facility] L HCS PROB CM Z71.9 Cryptologist ing, unspeci fied
with Provide r Comment s: Cryptologist ing, unspeci fied OFFICE O/P 52393-6.61 Diagnos JAVAN MCCOY 03/03 [place] EST MOD [id number] is: NI [place] 30-39 MIN ICD-10- HCS CM R87.612 Low grade intrepi th lesion cyto smr crvx (LGSIL)
wi Provide r Comment s: Low Grade Squamou s Intraep ithelia l Lesion on Cytolog ic Smear of Cervix (LGSIL) Outpatient 18865-7/ [place] Encounter [id number] [facility] Outpatient 68876-003/03 [place] Encounter [id number] /2020 [facility] Outpatient 16077-0.61 MANSAMANTHA KIRBY 03/05 [place] Encounter [id number] AN C [facility] [place] [address]-4 Diagnos [facility] 03/06 [place] 45 MINUTES [id number] [facility] CM F41.9 Anxiety disorde r, unspeci fied
with Provide r Comment s: Anxiety (SCT 8085669 2) Outpatient 41464-703/06 [place] Encounter [id number] [facility] Outpatient 33520-9 Diagnos JAVAN MCCOY 03/06 [place] Encounter [id number] is: [facility] CM R87.612 Low grade intrepi th lesion cyto smr crvx (LGSIL)
wi th Provide r Comment s: Low Grade Squamou s Intraep ithelia l Lesion on Cytolog ic Smear of Cervix ([place]IL) [place] [address]-8 Diagnos [facility] 03/20 [place] 45 MINUTES [id number] is: [facility] H[facility] CM F33.8 Other recurre nt depress magui disorde rs
with Provide r Comment s: Recurre nt depress ion (SCT 8544173 06) Outpatient 08491-803/20 [place] Encounter [id number] [facility] MTMS BY Pavel DONG, 03/24 [place] PHARM ADDL [id number] is: OXANA O [facility] 15 MIN ICD-10- HCS CM F32.9 Major depress magui disorde r, single episode , unspeci fied
with Provide r Comment s: Depress ion (SCT 0834836 7) [place] [address]-8.61 Diagnos BARBARA OLEARY 03/25 [place] 45 MINUTES [id number] is: [place] ICD-10- HCS CM F33.8 Other recurre nt depress magui disorde rs
with Provide r Comment s: Recurre nt depress ion ([facility] 1026925 06) PSYTX W PT BARBARA Vazquez 04/03 [place] 45 MINUTES [id number] is: TIE [place] ICD-10- HCS CM F41.9 Anxiety disorde r, unspeci fied
with Provide r Comment s: Anxiety ([facility] [id number] 2) PSYTX W PT Diagnos BARBARA OLEARY 04/10 [place] 45 MINUTES 8.90015945 is: [place] ICD-10- HCS CM F33.8 Other recurre nt depress magui disorde rs
with Provide r Comment s: Recurre nt depress ion ([facility] 0968338 06) QNHP OL Diagnos [facility], 04/23 [place] DIG [id number] is: OXANA M [facility] A ASSMT&MGMT ICD-10- HCS 5-10 CM F32.9 Major depress magui disorde r, single episode , unspeci fied
with Provide r Comment s: Depress ion ([facility] 5806310 7) Outpatient 04/23 [place] Encounter [id number] /2020 [facility] MTMS BY Diagnos TRAKALO,AN 04/30 [place] PHARM ADDL [id number] is: A /2020 [facility] 15 MIN ICD-10- HCS CM F32.9 Major depress magui disorde r, single episode , unspeci fied
with Provide r Comment s: Depress ion ([facility] 3701767 7) PSYTX W PT Diagnos BARBARA OLEARY 05/01 [place] 45 MINUTES 8.27509563 is: TIE [place] ICD-10- HCS CM F32.9 Major depress magui disorde r, single episode , unspeci fied
with Provide r Comment s: Depress ion (SCT 2562910 7) Outpatient 05/10 [place] Encounter [id number] [place] [address]-5 Diagnos BARBARA OLEARY 06/05 [place] 45 MINUTES 8.98033627 is: TIE [place] ICD-10- HCS CM F33.8 Other recurre nt depress magui disorde rs
with Provide r Comment s: Recurre nt depress ion (SCT [id number] 06) MTMS BY Diagnos TRATAMMYLO,AN 06/18 [place] PHARM ADDL [id number] is: [facility] 15 MIN ICD-10- HCS CM F32.9 Major depress magui disorde r, single episode , unspeci fied
with Provide r Comment s: Depress ion ([facility] 0923142 7) HC PRO Diagnos Kar RESTREPO 07/07 [place] PHONE CALL [id number] is: ACHEL R [facility] [place] 5-10 MIN ICD-10- HCS CM Z71.89 Other specifi ed direct care counselor ing<br/ >with Provide r Comment s: Other specifi ed direct care counselor ing PSYTX W PT Diagnos BARBARA OLEARY 07/10 [place] 45 MINUTES 8.38549489 is: [facility] ICD-10- HCS CM F33.8 Other recurre nt depress magui disorde rs
with Provide r Comment s: Recurre nt depress ion (SCT 0668515 06) OFFICE O/P Diagnos JASON HARVEY 07/23 [place] EST MOD [id number] is: A [facility] [place] 30-39 MIN ICD-10- HCS CM R53.83 Other fatigue
wi Provide r Comment s: Other Fatigue Outpatient 07/24 [place] Encounter [id number] [facility] MTMS BY Diagnos TRAKALO,AN 07/30 [place] PHARM EST 8.20330583 is: [facility] [place] 15 MIN ICD-10- HCS CM F41.9 Anxiety disorde r, unspeci fied
with Provide r Comment s: Anxiety (SCT 5769015 2) MEDICAL 06200-2.61 Diagnos GILDANA 08/08 [place] NUTRITION 8.78095362 is: MEHRDAD BALDO S [place] INDIV IN ICD-10- HCS CM Z71.3 Dietary direct care counselor ing and surveil jennifer<b r/>with Provide r Comment s: Dietary direct care counselor ing [place] [address]-0.61 Diagnos BARBARA OLEARY 08/21 [place] 45 MINUTES [id number] is: [place] ICD-10- HCS CM F41.9 Anxiety disorde r, unspeci fied
with Provide r Comment s: Anxiety (SCT 0200251 2) MTMS BY Diagnos KATELYNASHLEY 08/29 [place] PHARM EST 8.65733634 is: [place] 15 MIN ICD-10- HCS CM F32.9 Major depress magui disorde r, single episode , unspeci fied
with Provide r Comment s: Depress ion (SCT 6436672 7) [place] [address]-5 Diagnos KINGBARBARA 09/04 [place] 45 MINUTES 8.03223160 is: [place] ICD-10- HCS CM F41.9 Anxiety disorde r, unspeci fied
with Provide r Comment s: Anxiety (SCT 8176572 2) [place] [address]-8.61 Diagnos KINGBARBARA 10/09 [place] 45 MINUTES [id number] is: [place] ICD-10- HCS CM F33.8 Other recurre nt depress magui disorde rs
with Provide r Comment s: Recurre nt depress ion (SCT 2334032 06) HC PRO 33237-8.61 Pavel QUINONESTAMMYASHLEY GUERRERO 10/17 [place] PHONE CALL [id number] is: DRA Castaneda [facility] 11-20 MIN ICD-10- HCS CM F32.9 Major depress magui disorde r, single episode , unspeci fied
with Provide r Comment s: Depress ion (SCT 0700739 7) HC PRO 79198-4 Diagnos JACY ESTRADA 10/28 [place] PHONE CALL [phone] is: RLES T BALDO S [place] 11-20 MIN ICD-10- HCS CM Z71.89 Other specifi ed direct care counselor ing<br/ >with Provide r Comment s: Other specifi ed direct care counselor ing HC PRO Diagnos IKER, 10/29 [place] PHONE CALL [phone] is: OXANA M [place] 11-20 MIN ICD-10- HCS CM F33.8 Other recurre nt depress magui disorde rs
with Provide r Comment s: Other Recurre nt Depress magui Disorde rs Outpatient 10/30 [place] Encounter [id number] /2021 [facility] PRO Diagnos BARBARA OLEARY 10/31 [place] PHONE CALL [id number] is: TIE [place] 21-30 MIN ICD-10- HCS CM F33.8 Other recurre nt depress magui disorde rs
with Provide r Comment s: Recurre nt depress ion (SCT [id number] 06) PRO Diagnos TRATAMMYLO,AN 11/03 [place] PHONE CALL [id number] is: A [place] 11-20 MIN ICD-10- HCS CM F32.9 Major depress magui disorde r, single episode , unspeci fied
with Provide r Comment s: Depress ion (SCT 2554764 7) Outpatient / [place] Encounter [id number] /2021 [facility] PRO Diagnos TRAKALO,AN 11/05 [place] PHONE CALL [id number] is: A [facility] 21-30 MIN ICD-10- HCS CM F32.9 Major depress magui disorde r, single episode , unspeci fied
with Provide r Comment s: Depress ion (SCT [id number] 7) HC PRO Pavel ASHLEY ZEPEDA 11/14 [place] PHONE CALL [phone] is: DRA Castaneda [facility] 11-20 MIN ICD-10- HCS CM F41.9 Anxiety disorde r, unspeci fied
with Provide r Comment s: Anxiety (SCT 6946448 2) PSYTX W PT Diagnos KINGBARBARA 11/20 [place] 45 MINUTES [id number] is: [facility] ICD-10- HCS CM F33.8 Other recurre nt depress magui disorde rs
with Provide r Comment s: Recurre nt depress ion (SCT [id number] 06) Outpatient [id number] [facility] Encounter [id number] /2021 [facility] BY Pavel QUINONESASHLEY MILLER 11/28 [place] PHARM EST [phone] is: DRA Castaneda [facility] 15 MIN ICD-10- HCS CM F41.9 Anxiety disorde r, unspeci fied
with Provide r Comment s: Anxiety (SCT [id number] 2) [place] [id number] [facility] [place] 45 [facility] [id number] is: [facility] ICD-10- HCS CM F33.8 Other recurre nt depress magui disorde rs
with Provide r Comment s: Recurre nt depress ion (SCT [id number] 06) PSYTX W PT Diagnos MAMTA,BARBARA 12/11 [place] 45 MINUTES [id number] is: [facility] ICD-10- HCS CM F33.8 Other recurre nt depress magui disorde rs
with Provide r Comment s: Recurre nt depress ion (SCT [id number] 06) [place] [id number] Diagnos MAMTA,BARBARA 01/01 [place] 45 MINUTES [phone] is: [facility] ICD-10- HCS CM F32.9 Major depress magui disorde r, single episode , unspeci fied
with Provide r Comment s: Depress ion (SCT [id number] 7) HC PRO [id number] Diagnos LEONARDASH 01/02 [place] PHONE CALL [phone] is: EILA [facility]DO [facility] 11-20 MIN ICD-10- HCS CM Z71.89 Other specifi ed direct care counselor ing<br/ >with Provide r Comment s: Other specifi ed direct care counselor ing EMERGENCY [id number] Diagnos MADDALI,SE 01/02 [place] DEPT VISIT [id number] is: [place] ICD-10- HCS CM K59.09 Other constip ation<b r/>with Provide r Comment s: Other Constip ation Outpatient 27310-7.61 01/02 [place] Encounter [id number] /2021 [facility] HCS Outpatient 32455-9.61 01/07 [place] En[place] [id number] /2022 [facility] MED 93403-8.61 Diagnos CHARITY GRAFF 01/15 [place] NUTRITION [id number] is: AN E [facility] INDIV ICD-10- HCS SUBSEQ CM Z71.3 Dietary direct care counselor ing and surveil jennifer<b r/>with Provide r Comment s: Dietary direct care counselor ing [place] [address]-4.61 Diagnos BARBARA OLEARY 02/05 [place] 45 MINUTES [id number] is: [place] ICD-10- HCS CM F32.9 Major depress magui disorde r, single episode , unspeci fied
with Provide r Comment s: Depress ion (SCT 2780108 7) OBTAINING 66152-6.61 Diagnos JASON HARVEY 02/13 [place] SCREEN PAP [id number] is: A [place] SMEAR ICD-10- HCS CM F41.9 Anxiety disorde r, unspeci fied
with Provide r Comment s: Anxiety (SCT 6685340 2) Outpatient 24855-9. TRINA OCASIO 02/20 [place] [id number] [facility] 18183-0.61 CAROLINE, 02/20 [place] Encounter [id number] ASHLEY /[facility] 21233-8.61 CAROLINE, 02/23 [place] Encounter [id number] ASHLEY /[place] [address]-1.61 BARBARA Vazquez 03/26 [place] 45 MINUTES [id number] is: [place] ICD-10- HCS CM F33.8 Other recurre nt depress magui disorde rs
with Provide r Comment s: Recurre nt depress ion (SCT [id number] 06) Outpatient 97293-2.61 TEJAS GAMEZ 04/21 [place] En[id number] [place] [address]-2.61 BARBARA Vazquez 04/30 [place] 60 MINUTES [id number] is: [facility] ICD-10- HCS CM F33.8 Other recurre nt depress magui disorde rs
with Provide r Comment s: Recurre nt depress ion (SCT 7027451 06) Procedures Combined list of: 1) Procedures from Department of Veterans Affairs facilities going back up to the last 18 months, not all VA non-surgical procedures are included; 2) All procedures from the Department of Defense facilities. Procedure Procedure Type Code Date Perfomer Comments Sourc e Prev Medicine Prev Medicine 40150 Do Sue VENEGAS Admin Of Health Admin Of Health 019 OLGA M Risk Questionnaire Risk Questionnaire Patient-Focused Patient-Focused Threshold Threshold 0208T Wallace ZAIDI Audiogram (Pure Audiogram (Pure 019 PHU I Tone) Automated Tone) Automated Patient education, Sue ZAIDI oD not otherwise cla 019 PHU I ified, non-physician provider, group, per se [place] [address] Wallace CHOPRA Visual Acuity, Visual Acuity, 019 [place] Quantitative, Quantitative, MCGEEVER Bilateral Bilateral Psychiatric Psychiatric 59024 Wallace MONTALVO Diagnostic Diagnostic 018 ANA John Evaluation Evaluation Prev Medicine Prev Medicine 78474 Sue WILSON oD Admin Of [facility] Admin Of [facility] 018 [place] N Risk Questionnaire Risk Questionnaire Patient-Focused Patient-Focused Physical Therapy Do Sue LOZANO Service 016 TL C Re-Evaluation Modalities Modalities 47356 WILKINSON, [facility] Cryotherapy Cold Cryotherapy Cold 016 CAITIE Packs Packs Physical Medicine Physical Medicine 61127 WILKINSON [facility] - Group Physical - Group Physical 016 CAITIE Therapy Se ion Therapy Session Physical Therapy Physical Therapy 73481 [place], [facility] Neuromuscular Neuromuscular 016 CAITIE Re-education Re-education Modalities Modalities 83128 [place], [facility] Cryotherapy Cold Cryotherapy Cold 016 CAITIE Packs Packs Physical Therapy Physical Therapy 51381 [place], [facility] Neuromuscular Neuromuscular 016 CAITIE Re-education Re-education Physical Medicine Physical Medicine 28728 WILKINSON, [facility] - Group Physical - Group Physical 016 CAITIE Therapy Se ion Therapy Session Modalities Modalities 02786 WILKINSON, [facility] Cryotherapy Cold Cryotherapy Cold 016 CAITIE Packs Packs A isted Exercises Assisted Exercises 59771 WILKINSON [facility] For ROM For ROM 016 CAITIE Physical Therapy Physical Therapy 44174 WILKINSON, [facility] Neuromuscular Neuromuscular 016 CAITIE Re-education Re-education Athletic Training Do Sue WILKINSON Evaluation 016 CAITIE A isted Exercises Assisted Exercises 29938 Wallace SKY For ROM For ROM 016 SILKE B Physical Therapy Wallace SKY Service Evaluation 016 SILKE B Osteopathic Manip Osteopathic Manip 72768 GREG NEVILLE [facility] Treatment (OMT) Treatment (OMT) 016 A 1-2 Body Regions 1-2 Body Regions Involved Involved Physical Therapy: Physical Therapy: 92760 GREG NEVILLE ___ Se ion ___ Session 016 A Segments, 15 Segments, 15 Minutes Each Minutes Each Physical Therapy GREG NEVILLE oD Service Evaluation 016 A Athletic Training Do Sue BLAIR Evaluation 016 AVERY Meningococcal [place] Conjugate Vaccine 016 SUKUMAR L Quadrivalent Serogroups A, C, Y, W-135 Influenza Split PEEL, Influenza DoD Virus Vaccine IM 016 SUKUMAR L Seasonal, Preserv Free 0.5mL injectable Dosage quadrivalent - Quadrivalent preservative free; Series #: 1; .5 mL; IM; Left Arm; [facility]: [employer].; Lot: [id number]; VIS given (Hayley: 02/08/2015). Immunization Immunization 60112 PEEL, DoD Administration By Administration By 016 SUKUMAR L Injection, One Injection, One Vaccine Vaccine Immunization Immunization 10511 PEEL, DoD Administration By Administration By 016 SUKUMAR L Injection, Each Injection, Each Additional Vaccine Additional Vaccine Immunization Admin Immunization Admin 62841 PEEL, DoD By Intranasal / By Intranasal / 016 SUKUMAR L Oral Route One Oral Route One Vaccine Vaccine Hepatitis A Hepatitis A 84463 PEEL, Hep A (Adult); D oD Vaccine Adult Vaccine Adult 016 SUKUMAR L Series #: 1; 1.0 Dosage Dosage mL; IM; Left (Intramuscular (Intramuscular Arm; Mfg: Use) Use) [employer]; Lot: [id number]; VIS given (Hayley: 04/28/11). Vaccines Vaccines 70981 PEEL, Adenovirus Type DoD 016 SUKUMAR L 4 and 7; Series #: 1; 2 caps; PO; Oral; [facility]: [employer]; Lot: [id number]; VIS given (Hayley: 12/13/13). Vaccines Viral Vaccines Viral 59576 PEEL, IPV; Serie s #: DoD Polio, Inactivated Polio, Inactivated 016 SUKUMAR L 1; .5 mL; IM; Left Arm; Mfg: [email or web address]; Lot: [id number]; VIS given (Hayley: 05/12/11). Meningococcal Meningococcal 85502 PEEL, Meningococca l DoD Polysaccharide Polysaccharide 016 SUKUMAR L MPSV4; Ser ies #: Vaccine Vaccine 1; .5 mL; IM; Left Arm; Mfg: [email or web address]; Lot: [id number]; VIS given (Hayley: 04/17/11). Vaccines Viral Vaccines Viral 36860 PEEL, MMR; Serie s #: DoD Measles, Mumps and Measles, Mumps and 016 SUKUMAR L 1; .5 mL; SC; Rubella, Live Rubella, Live Left Arm; Mf g: [employer]; Lot: [id number]; VIS given (Hayley: 10/23/11). ADMINISTRATION OF Do D PATIENT-FOCUSED 019 HEALTH RISK ASSESSMENT INSTRUMENT (EG, HEALTH HAZARD APPRAISAL) WITH SCORING AND DOCUMENTATION, PER STANDARDIZED INSTRUMENT PATIENT EDUCATION, D oD NOT OTHERWISE 019 CLASSIFIED, NON-PHYSICIAN PROVIDER, GROUP, PER SESSION SCREENING TEST OF Do D VISUAL ACUITY, 019 QUANTITATIVE, BILATERAL PSYCHIATRIC DoD DIAGNOSTIC 018 EVALUATION ADMINISTRATION OF Do D PATIENT-FOCUSED 018 HEALTH RISK ASSESSMENT INSTRUMENT (EG, HEALTH HAZARD APPRAISAL) WITH SCORING AND DOCUMENTATION, PER STANDARDIZED INSTRUMENT IMMUNIZATION DoD ADMINISTRATION 018 (INCLUDES PERCUTANEOUS, INTRADERMAL, SUBCUTANEOUS, OR INTRAMUSCULAR INJECTIONS); EACH ADDITIONAL VACCINE (SINGLE OR COMBINATION VACCINE/TOXOID) PHYSICAL THERAPY DoD RE-EVALUATION 016 APPLICATION OF A DoD MODALITY TO 1 OR 016 MORE AREAS; HOT OR COLD PACKS APPLICATION OF A DoD MODALITY TO 1 OR 016 MORE AREAS; HOT OR COLD PACKS APPLICATION OF A DoD MODALITY TO 1 OR 016 MORE AREAS; HOT OR COLD PACKS THERAPEUTIC DoD PROCEDURE, 1 OR 016 MORE AREAS, EACH 15 MINUTES; THERAPEUTIC EXERCISES TO DEVELOP STRENGTH AND ENDURANCE, RANGE OF MOTION AND FLEXIBILITY OSTEOPATHIC DoD MANIPULATIVE 016 TREATMENT (OMT); 1-2 BODY REGIONS INVOLVED ATHLETIC TRAINING Do D EVALUATION 016 IMMUNIZATION DoD ADMINISTRATION BY 016 INTRANASAL OR ORAL ROUTE; 1 VACCINE (SINGLE OR COMBINATION VACCINE/TOXOID) EAR MOLD/INSERT, DoD NOT DISPOSABLE, 016 ANY TYPE Social History Combined list of available smoking, tobacco, and other social history 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 Social History Type Response Date Comment Source Tobacco smoking status LIFETIME NON-SMOKER 02/23/2022 [facility] History of tobacco use LIFETIME NON-SMOKER 02/20/2022 [facility] History of tobacco use VA-TOBACCO NEVER USED 07/23/2021 [facility] History of tobacco use AR-TOBACCO NEVER USED 06/19/2019 RUDI STEARNS This section is an DoD empty social history section. 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 Additional future care activities may be listed in the Assessment and Plan section. Date/Time Care Activity Care Activity Detail Facility 05/06/2022 AMBULATORY - SURGERY AMBULATORY - SURGERY [facility]
--- OUTSIDE RECORDS SUMMARY | 2022-05-01 10:35 | XMS_ITS | Encounter Summary ---
:1990 Author Organization [facility] Address [address] [place] [address] Support Name Relationship Address Phone BELLE COVINGTON Unavailable [address] [place] [address] BELLE COVINGTON Unavailable [address] [place] [address] Insurance Providers: All historical and current Section Date Range: From patient's date of to the date document was created.This section includes the names of all active insurance providers for the patient. Insurance Type of Plan Start of End of Group Member Insurance Policy P atient's Provider Coverage Name Policy Policy Number ID Provider's Dick's Relationship Coverage Coverage Telephone Name to Policy Number Dick HEALTH HEALTH FED Jan 05, 3052 [id number] JELENA COVINGTON PATIENT PARTNERS [place] EMP 2021 1 7 [place] CE OPEN ORGANIZAT ACCES ION W/OUT S OF NETWORK BENEFITS MEDIMPACT PRESCRIPT HEALT Jan 04 [id number] [phone] JELENA WILLETT PATIENT RX ION H 2021 1 9 [place] PARTN ERS Selected Encounter This section includes the information on record at [place] for the Encounter. Date/Time Encounter Type Encounter Description Reason Provider Source Jul 24, 2021 09:30 [facility]patient [facility] Encounter Template Text not used by [place] Plan of Treatment: Future Appointments (+ 6 months) and Future Tests (+/- 45 days) The Plan of Treatment section includes future care activities for the patient from all [place] treatmentfacilities. This section includes future appointments and future orders which are active, pending orscheduled.Future Appointments This section includes appointments that were scheduled to occur 6 months from the date of the Encounter, up to a maximum of 20 appointments. The data comes from all [place] treatment facilities. Appointment Date/Time Appointment Type Appointment Facili ty Name Jul 30, 2021 01:00 PM AMBULATORY - PSYCHIATRY [facility] Aug 08, 2021 11:00 AM AMBULATORY - NONE [facility] Aug 21, 2021 10:00 AM AMBULATORY - PSYCHIATRY [facility] Aug 29, 2021 10:30 AM AMBULATORY - PSYCHIATRY [facility] Sep 04, 2021 10:00 AM AMBULATORY - PSYCHIATRY [facility] Oct 09, 2021 09:00 AM AMBULATORY - PSYCHIATRY [facility] November 14, 2021 03:00 PM AMBULATORY - PSYCHIATRY [facility] November 20, 2021 09:00 AM AMBULATORY - PSYCHIATRY [facility] November 28, 2021 11:00 AM AMBULATORY - PSYCHIATRY [facility] Dec 04, 2021 09:00 AM AMBULATORY PSYCHIATRY [facility] Dec 11, 2021 09:00 AM AMBULATORY - PSYCHIATRY [facility] Jan 01, 2022 09:00 AM AMBULATORY - PSYCHIATRY [facility] Jan 02, 2022 08:22 AM AMBULATORY - MEDICINE [facility] Jan 15, 2022 02:00 PM AMBULATORY - NONE [facility] Lab Results: +/- 30 days of the encounter This section includes the Chemistry and Hematology Lab Results on record with [place] for the patient. Radiology Reports and Pathology Reports are provided separately, in subsequent sections.Lab Results This section contains the Chemistry/Hematology Results that were resulted 30 days before or 30 daysafter the date of the Encounter. Date/Time Source Result Type Result - Unit Interpretation Reference Range Comment Jul 23, 2021 03:09 [facility] BASIC METABOLIC Specimen Type: PLASMA PM PANEL+MG No comment enter ed. Ordering Provid er: ANITA HARVEY Report Released Date/Time: Jul 23, 2021 03:00 PM Reporting Lab: [facility] [address] [facility] [id number] Performing Lab: [facility] [address] [facility] [address] CREATININE 0.8 0.5-1.0 UREA NITROGEN 20 7-20 GLUCOSE 69 L 74-100 SODIUM 141 136-145 POTASSIUM 3.9 3.5-5.1 CHLORIDE 107 98-107 CO2 26 22-29 CALCIUM 9.2 8.4-10.2 MAGNESIUM 2.0 1.6-2.6 ANION GAP 8 5-15 ESTIMATED GFR(eGFR) 84 >60 Jul 23, 2021 03:09 [facility] TSH W/REFLEX TO FREE Spec imen Type: PLASMA PM T4 No comment enter ed. Ordering Provid er: ANITA HARVEY Report Released Date/Time: Jul 23, 2021 03:00 PM Reporting Lab: [facility] [address] [facility] [id number] Performing Lab: [facility] [address] [facility] [address] TSH 1.03 0.35-4.94 Jul 23, 2021 03:09 PM [facility] CBC Specim en Type: BLOOD No comment enter ed. Ordering Provid er: ANITA HARVEY Report Released Date/Time: Jul 23, 2021 03:00 PM Reporting Lab: [facility] [address] [facility] [address] Performing Lab: [facility] [address] [facility] [address] WBC 8.15 4.0-11.0 RBC 4.15 4.0-5.4 HGB 12.5 11.5-16 HCT 38.5 34.5-48 MCV 92.8 80-100 MCH 30.1 27-33 MCHC 32.5 32.0-37.5 PLT 355 150-400 MPV 10.2 7.4-10.4 RDW 13.0 11.5-14.5 Jul 23, 2021 03:09 PM [facility] IRON GROUP Specim en Type: SERUM No comment enter ed. Ordering Provid er: ANITA HARVEY Report Released Date/Time: Jul 23, 2021 03:00 PM Reporting Lab: [facility] [address] [facility] [address] Performing Lab: [facility] [address] [facility] [address] IRON 83 50-170 TIBC,CALCULATED 284 250-425 FERRITIN 52.2 4.6-204.0 IRON SATURATION 29 15-50 TRANSFERRIN 227 163-382 Social History: Smoking Status (Most current) and Tobacco Use (All prior to encounter date) This section includes the most current, and the historical, smoking and tobacco-related health factors from the [place] facility where the Encounter took place.Current Smoking Status This section includes the most current smoking, or tobacco-related health factor, from the [place] facility where the Encounter took place. Date/Time Current Smoking Status Comment Facility Jul 23, 2021 02:30 PM VA-TOBACCO NEVER USED [facility] Encounter Notes: All associated encounter notes This section contains the clinical notes associated to the Encounter. Date/Time Encounter Note(s) Provider Source Jul 24, 2021 01:42 PM NO SHOW [facility] TITLE: NO SHOW/CANCELLATION CLINIC NOTE STANDARD TITLE: NO SHOW NOTE DATE OF NOTE: JUL 24, 2021@13:42 ENTRY DATE: JUL 24, 2021@13:43:21 AUTHOR: MAAME VALLADARES EXP COSIGNER: URGENCY: STATUS: COMPLETED NO SHOW/CANCELLATION CLINIC NOTE Has ADDEND A not seen for scheduled appointment due t o: Other CX BY CLINIC Appointment Rescheduled: No Please review patient chart and medications for renewal needs (if appropriate). Appointment cancelled by clinic due to provider being out ill. Please call to reschedule. 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 Offered several dates and times, chose 07/30/21 @ 1300 30 min via VVC. Appointment scheduled. alerting provider /wally/ DOC ZAMAN TELEHEALTH CLINICAL HEDGE FUND MANAGER Signed: 07/24/2021 15:45 Receipt Acknowledged By: * AWAITING SIGNATURE * KEN ZEPEDA
--- OUTSIDE RECORDS SUMMARY | 2022-05-01 10:35 | XMS_ITS | Encounter Summary ---
:1990 Author Organization [facility] rs Address [address] [place] [address] Support Name Relationship Address Phone BELLE COVINGTON Unavailable [address] [place] [address] BELLE COVINGTON Unavailable [address] [place] [address] Insurance Providers: All historical and current Section [...] Dick HEALTH HEALTH FED Jan 05, 3052 [id number] [phone] ADRIAJELENA PATIENT PARTNERS [place] EMP 2021 1 7 [place] CE OPEN ORGANIZAT ACCES ION W/OUT S OF NETWORK BENEFITS MEDIMPACT PRESCRIPT HEALT Jan 04 [id number] [phone] KAITY PremJELENA PATIENT RX ION H 2021 1 9 [place] [employer] ERS Selected Encounter This section includes the information on record at [place] for the Encounter. Date/Time Encounter Type Encounter Description Reason Provider Source Jan 02, 2022 10:26 Outpatient Encounter CLINICAL PHARMACY [facility] Encounter Template Text not used by [place] Plan of Treatment: Future Appointments (+ 6 months) and Future Tests (+/- 45 days) The Plan of Treatment section includes future care activities for the patient from all [place] treatmentfacilities. This section includes future appointments and future orders which are active, pending orscheduled.Future Appointments This section includes appointments that were scheduled to occur 6 months from the date of the Encounter, up to a maximum of 20 appointments. The data comes from all [place] treatment facilities. Appointment Date/Time Appointment Type Appointment Facili ty Name Jan 15, 2022 02:00 PM AMBULATORY - NONE [facility] Feb 05, 2022 11:00 AM AMBULATORY - PSYCHIATRY [facility] Feb 13, 2022 11:00 AM AMBULATORY - MEDICINE [facility] Mar 26, 2022 10:00 AM AMBULATORY - PSYCHIATRY [facility] Apr 30, 2022 11:00 AM AMBULATORY - PSYCHIATRY [facility] May 06, 2022 10:00 AM AMBULATORY - SURGERY [facility] Lab Results: +/- 30 days of the encounter This section includes the Chemistry and Hematology Lab Results on record with [place] for the patient. Radiology Reports and Pathology Reports are provided separately, in subsequent sections.Lab Results This section contains the Chemistry/Hematology Results that were resulted 30 days before or 30 daysafter the date of the Encounter. Date/Time Source Result Type Result - Unit Interpretation Reference Range Comment Jan 02, 2022 09:25 AM [facility] HCG, QUAL Specim en Type: URINE No comment enter ed. Ordering Provid er: CALVIN HARRIS Report Released Date/Time: Jan 02, 2022 09:09 AM Reporting Lab: [facility] [address] Performing Lab: [facility] [address] HCG, QUAL NEGATIVE -neg Vital Signs: All taken on the encounter date This section contains inpatient and outpatient Vital Signs collected on the date of the Encounter. Date/Time Temperature Pulse Blood Respiratory SP02 Pain Height Weight Kendall dy Source Pressure Rate Mass Index Jan 02, 97.5 F 83 113/56 20 /min [place] 2021 08:42 /min mm[Hg] IS [facility] Social History: Smoking Status (Most current) and Tobacco Use (All prior to encounter date) This section includes the most current, and the historical, smoking and tobacco-related health factors from the [facility] where the Encounter took place.Current Smoking Status This section includes the most current smoking, or tobacco-related health factor, from the [place] facility where the Encounter took place. Date/Time Current Smoking Status Comment Facility Jul 23, 2021 02:30 PM [place]-TOBACCO NEVER USED [facility] Radiology Reports: +/- 30 days of the encounter Radiology Reports For cases when an order for radiology services may have been completed prior to the date of the Encounter, the report list includes the Radiology Reports that were completed up to 30 days before date of the Encounter. For cases when an order for radiology services may have been completed after the date of the Encounter, the report list also includes the Radiology Reports that were completed up to 30days after date of the Encounter. The data comes from all [place] treatment facilities. Date/Time Radiology Report Provider Source Jan 02, 2022 09:42 AM ABDOMEN 2 VIEWS FLAT & UPRIGHT/DECUB: TRINA GALICIA [facility] JASMIN COVINGTON [id number] -1990 F Exm Date: JAN 02, 2022@09:42 Req Phys: MADDALI,CALVIN Pat Loc: [facility] EMERGENCY D EPT WALK-IN (Re Img Loc: MAIN X-RAY Service: Unknown Screen: Patient answered no (Case [id number] COMPLETE) ABDOMEN 2 VIEWS FLA T & UPRIGHT/DE(RAD Detailed) CPT:62553 Proc Modifiers : 1-Covid Precautions, 2-Non-Cov id Precautions Reason for Study: Lower abdominal pain and cons tipation Clinical History: [place] IS NOT under investigation for COVID-19 or is COVID-19 negative Constipation into 1 week Responsible provider n ethan and phone number to notify for critical findings if other than user placing the order and pager listed below: User placing orders pager: LAST CREATININE 0.8 (07/23/21) Report Status: Verified Date Reported: JAN 02, 2022 Date Verified: JAN 02, 2022 Pen Or Pencil Assembly Machine Operator E-Sig:/ES/TRINA TRINIDAD MD, FACR, C CD Report: EXAMINATION: ABDOMEN 2 VIEWS FLAT & UPRIGHT/DEC UB 01/02/2022 9:42 AM INDICATION: Lower abdominal pain and constipati on COMPARISON: None. FINDINGS: The bowel gas pattern appears unremar kable. A moderate amount of stool is seen within the colon. No fr ee air visualized underneath the hemidiaphragms. A small calcific ation is seen projecting over the right upper quadrant. The l ocation of the small calcification is uncertain. Impression: Moderate amount of stool within the colon. Small calcification projecting over the right u pper quadrant of uncertain significance. This could represent a small calcification within the rib cartilage. A small gallstone or right renal calculus cannot be excluded. Primary Interpreting Staff: TRINA TRINIDAD MD, FACR, STAFF RADIOLOGIST (V erifier) /BSF Encounter Notes: All associated encounter notes This section contains the clinical notes associated to the Encounter. Date/Time Encounter Note(s) Provider Source Jan 02, 2022 10:26 AM EDUCATION NOTE: TRINA HASSAN Aníbal [facility] LOCAL TITLE: EDUCATION MEDICATION INSTRUCTION STANDARD TITLE: EDUCATION NOTE DATE OF NOTE: JAN 02, 2022@10:26 ENTRY DATE: JAN 02, 2022@10:26:58 AUTHOR: TRINA HASSAN EXP COSIGNER: URGENCY: STATUS: COMPLETED MEDICATION EDUCATION PARTICIPANTS: Patient TEACHING STRATEGY: Face to Face READINESS TO LEARN: No barriers identified LEARNING NEEDS/OBJECTIVES Participant(s) indicates readiness to learn and has been instructed on indications, side effects, and di rections for use. Participant(s) will receive medication informat ion sheets for medications filled. Education included discussion of the following: New medication(s): mag citrate, miralax PATIENT/FAMILY RESPONSE (OUTCOME): Verbalizes cr itical information about the topic FOLLOW-UP RECOMMENDED: None needed Active Outpatient Medications (including Supplie s): Outpatient Medications Status 1) MAGNESIUM CITRATE LIQUID TAKE 1 BOTTLE BY [place] ONCE ACTIVE TODAY 2) POLYETHYLENE GLYCOL 3350 ORAL PWDR TAKE 17 GR AMS BY ACTIVE MOUTH TWICE A DAY FOR 2 DAYS, THEN TAKE 17 GRAM S EVERY MORNING FOR 28 DAYS *MIX IN 4 TO 8 OUNCES OF LIQUID DIRECTED*USE COVER TO MEASURE POWDER* /wally/ TRINA HASSAN Pharmacist Signed: 01/02/2022 10:27
--- OUTSIDE RECORDS SUMMARY | 2022-05-01 10:36 | XMS_ITS | Encounter Summary ---
:1990 Author Organization [facility] Address [address] [place] [address] Support Name Relationship Address Phone BELLE COVINGTON Unavailable [address] [place] [address] BELLE COVINGTON Unavailable [address] [place] [address] Insurance Providers: All historical and current Section [...] Dick HEALTH HEALTH FED Jan 05, 3052 [id number] [phone] JELENA COVINGTON PATIENT PARTNERS [facility] EMP 2021 1 7 [place] CE OPEN ORGANIZAT ACCES ION W/OUT S OF NETWORK BENEFITS MEDIMPACT PRESCRIPT HEALT Jan 04 [id number] [phone] JELENA WILLETT PATIENT RX ION H 2021 1 9 [place] Selected Encounter This section includes the information on record at [place] for the Encounter. Date/Time Encounter Type Encounter Reason Provider Source Description Feb 13, 2022 OBTAINING SCREEN COMP [facility] ICD-10-CM F41.9 ANITA HARVEY 11:00 AM PAP SMEAR Anxiety disorder, unspecified with Provider Comments: Anxiety ([facility] [id number]) IHE Encounter Template Text not used by [facility] Assessments - Encounter Diagnoses This section includes the primary and secondary diagnoses documented for the Encounter. Date/Time Primary/Secondary Diagnosis Name Provider Source Diagnosis Feb 13, 2022 [facility] Feb 13, 2022 SECONDARY Constipation, ANITA HARVEY [facility] 01:11 PM unspecified HCS Feb 13, 2022 SECONDARY Encounter for ANITA HARVEY [facility] 01:11 PM screening for [facility] malignant neoplasm of cervix Plan of Treatment: Future Appointments (+ 6 months) and Future Tests (+/- 45 days) The Plan of Treatment section includes future care activities for the patient from all [place] treatmentfacilities. This section includes future appointments and future orders which are active, pending orscheduled.Future Appointments This section includes appointments that were scheduled to occur 6 months from the date of the Encounter, up to a maximum of 20 appointments. The data comes from all [place] treatment facilities. Appointment Date/Time Appointment Type Appointment Facili ty Name Mar 26, 2022 10:00 AM AMBULATORY - PSYCHIATRY [facility] Apr 30, 2022 11:00 AM AMBULATORY - PSYCHIATRY [facility] May 06, 2022 10:00 AM AMBULATORY - SURGERY [facility] S Lab Results: +/- 30 days of the encounter This section includes the Chemistry and Hematology Lab Results on record with [place] for the patient. Radiology Reports and Pathology Reports are provided separately, in subsequent sections.Lab Results This section contains the Chemistry/Hematology Results that were resulted 30 days before or 30 daysafter the date of the Encounter. Date/Time Source Result Type Result - Unit Interpretation Reference Range Comment Feb 13, 2022 12:00 [facility] HUMAN PAPILLOMA Specimen Type: CERVICAL VAGINAL CYTOLOGIC MATERIAL PM VIRUS,DNA HIGH RISK Comment: [id number] Ordering Provid er: ANITA HARVEY Report Released Date/Time: Feb 19, 2022 11:51 AM Reporting Lab: [facility] [id number] Performing Lab: [facility] [id number] HPV 16 NEGATIVE Negative HPV 18 NEGATIVE Negative OTHER HIGH RISK HPV NEGATIVE Negative HPV INTERPRETATION HR-HPV is undetectable or below preset threshold. Vital Signs: All taken on the encounter date This section contains inpatient and outpatient Vital Signs collected on the date of the Encounter. Date/Time Temperature Pulse Blood Respiratory SP02 Pain Height Weight Kendall dy Source Pressure Rate Mass Index Feb 13 107/67 18 /min 99 % 0 123.2 21 [place] 2021 11:28 /min mm[Hg] lb [place] AM [facility] Social History: Smoking Status (Most current) and Tobacco Use (All prior to encounter date) This section includes the most current, and the historical, smoking and tobacco-related health factors from the [place] facility where the Encounter took place.Current Smoking Status This section includes the most current smoking, or tobacco-related health factor, from the [place] facility where the Encounter took place. Date/Time Current Smoking Status Comment Facility Jul 23, 2021 02:30 PM VA-TOBACCO NEVER USED [facility] Pathology Reports: +/- 30 days of the encounter Pathology Reports For cases when an order for pathology services may have been completed prior to the date of the Encounter, the report list includes the Pathology Reports that were completed up to 30 days before date of the Encounter. For cases when an order for pathology services may have been completed after the date of the Encounter, the report list also includes the Pathology Reports that were completed up to 30days after date of the Encounter. The data comes from all [place] treatment facilities. Date/Time Pathology Report Provider Source Feb 20, 2022 01:27 PM LR CYTOPATHOLOGY REPORT: TRINA OCASIO [facility] LOCAL TITLE: LR CYTOPATHOLOGY REPORT STANDARD TITLE: PATHOLOGY REPORT DATE OF NOTE: FEB 20, 2022@13:27:37 ENTRY DATE: FEB 20, 2022@13:27:37 AUTHOR: TRINA OCASIO EXP COSIGNER: URGENCY: STATUS: COMPLETED $APHDR Reporting Lab: [facility] [CLIA# [id number]] [place] [address] - - - - - - - - - - - - - - - - - - - - - - - - - - - - - - - - - - - - - - - - MEDICAL RECORD CYTOPATHOLOGY - - - - - - - - - - - - - - - - - - - - - - - - - - - - - - - - - - - - - - - - PATHOLOGY REPORT Accession No. [id number] - - - - - - - - - - - - - - - - - - - - - - - - - - - - - - - - - - - - - - - - $TEXT Submitted by: ANITA HARVEY Date obtained: Feb 13, 2022 - - - - - - - - - - - - - - - - - - - - - - - - - - - - - - - - - - - - - - - - Specimen (Received Feb 16, 2022 09:53): PAP SMEAR-CYTOLOGY - - - - - - - - - - - - - - - - - - - - - - - - - - - - - - - - - - - - - - - - BRIEF CLINICAL HISTORY: Source: Endo/Exocervical. LMP/Menstrual status: 02/02/22. Previous abnormal Pap/Biopsy: Yes, 2020, LSIL. Previous HPV resul t: Positive, 2020. HPV co-testing: Yes. - - - - - - - - - - - - - - - - - - - - - - - - - - - - - - - - - - - - - - - - PREOPERATIVE DIAGNOSIS: - - - - - - - - - - - - - - - - - - - - - - - - - - - - - - - - - - - - - - - - OPERATIVE FINDINGS: - - - - - - - - - - - - - - - - - - - - - - - - - - - - - - - - - - - - - - - - POSTOPERATIVE DIAGNOSIS: Surgeon/physician: ANITA HARVEY MD =-=-=-=-=-=-=-=-=-=-=-=-=-=- =-=-=-=-=-=-=-=-=-=-=-=-=-=-=-=-=-=-=-=-=-=-=-=-=-= - - - - - - - - - - - - - - - - - - - - - - - - - - - - - - - - - - - - - - - - PATHOLOGY REPORT Accession No. [id number] - - - - - - - - - - - - - - - - - - - - - - - - - - - - - - - - - - - - - - - - Screened by: KANDACE WINTERS Description: THINPREP VIAL; One ThinPrep slide prepared. Educational Note: Cervical cytology is a screen ing test with limited sensitivity; regular screening is critical for cancer prevention; and PAP tests are primarily effective for the diagn osis/prevention of squamous cell carcinoma, not adenocarcinomas or other cancers. Microscopic: Microscopic examination performed. BB Diagnosis: Specimen adequacy: SATISFACTORY FOR EVALUATION. ENDOCERVICAL/TRANSFORMATION ZONE COMPONENT IDEN TIFIED. Interpretation: NEGATIVE FOR INTRAEPITHELIAL LE CATHRYN OR MALIGNANCY. Performing Lab...: [facility] [CLIA# [id number]] [place] [address] HPV 16 NEGATIVE Ref: negative HPV 18 NEGATIVE Ref: negative OTHER HIGH RISK HPV NEGATIVE Ref: negative HPV INTERPRETATION HR-HPV is undetectable or be low preset threshold. Other high risk HPV are any one of, or combin ation of, the following human papillomavirus types 31, 33, 35, 39, 45, 51, 52, 56, 58, 59, 66 and 68. Performance of the assay is not establi shed for non-cervical specimens. A negative result does not preclude the presence of HPV infection or high grade cervical disease, becau se results depend on pre-set assay threshold, adequate specimen yesenia ection, HPV copy number, absence of inhibitors. Pre-set threshold is bas ed on a clinical cut-off to detect high grade cervical disease with jose antonio red sensitivity in the PARMJIT study ASC-US population (Am J Clin Patho l. 2011 Sep; 135(3):468-75). This test does not detect DNA o f HPV low-risk types. Clinical interpretation of test result requires physician's assessment of cervical cancer screening history, other patien t parameters, and professional guidelines. Please call the lab at [phone] for questions regarding this test. JEANINE HPV test i s a US Food and Drug Administration approved in vitro diagnostic dev ice and uses PCR amplification with hydrolysis probe based real- time target detection. /es/ TRINA OCASIO MD STAFF PATHOLOGIST Signed Feb 20, 2022@13:27 Performing Laboratory: Cytology Report Performed By: [facility] [CLIA# [id number]] [place] [address] $FTR - - - - - - - - - - - - - - - - - - - - - - - - - - - - - - - - - - - - - - - - (End of report) TRINA OCASIO MD [facility] Date Feb 20, 2022 - - - - - - - - - - - - - - - - - - - - - - - - - - - - - - - - - - - - - - - - JASMIN COVINGTON STANDARD FORM 515 ID:[id number] SEX:F :1990 AGE: 31 LOC: [id number] PCP: Anita Harvey MD /wally/ TRINA OCASIO MD STAFF PATHOLOGIST Signed: 02/20/2022 13:27 Encounter Notes: All associated encounter notes This section contains the clinical notes associated to the Encounter. Date/Time Encounter Note(s) Provider Source Feb 13, 2022 11:31 AM [facility] OUTPATIENT E & M NOTE: ANITA HARVEY [facility] LOCAL TITLE: WOMEN'S CLINIC NOTE STANDARD TITLE: [facility] OUTPATIENT E & M N OTE DATE OF NOTE: FEB 13, 2022@11:31 ENTRY DATE: FEB 13, 2022@11:31:59 AUTHOR: ANITA HARVEY EXP COSIGNER: URGENCY: STATUS: COMPLETED Assessment/Plan: The patient is a 31 yo FEMALE w ho comes in for follow up. 1. HCM Reviewed with . h/o tubal ligation and iwth vasectomy. d eclined Sti testing. No contraceptive needs. 2. h/o LSIL on colposcopy 1 year ago. due for f/u pap and cotest today Collected 3. h/o anxiety d/o will cont to follow with MH team at this time. 4. Constipation imrpoved with use of miralax and diet changes. emphasize limiting caffeine (dehydrating) increa sing fluids, whole grains, fruits and vegetables. rtc 1 yr for annual. reports no intention. Discusse d need for effective contraception if applicable (pt had tubal). The was counseled on the potential teratogenic risk of the above medication and andie balized an understanding of the possible risk and benefits of use. Anita Harvey MD, [facility] Staff Physician [facility] ---- Nurse's Notes Reviewed. S: The patient is a 31 yo FEMALE who comes in to day for annual and f/u pap smear. Doing well. little anxiety about abnl pap from y ear ago. Hoping turns out ok. Notes some issues with lower abd pain an d constipaton. Seen in ED for this and started on miralax. has helped quite a bit. Stil l having BM almost daily. Tried to increse fluids and fiber in diet. no fe andie, weight loss, persistent abd pain or blood in stools. no other health con cerns at this time. Did go off anxiety medication due to s/e (twitch ing, paresthesias). cont to work with therapist and this is helping her. HCM pap LSIL on colposcopy 03/25 repeat cotesting 1 y ear Contraception tubal ligation and vasectomy Menses-regular. Immunizations COVID vaccine x 2 Medication and Allergies are reviewed and update d. Past medical history/Active Problems: Active Problems: Active problems - Computerized Problem List is t he source for the followin. Depression ([facility] [id number]) 2. Headache ([facility] [id number]) 3. Anxiety ([facility] [id number]) 4. Hip pain 5. Recurrent depression 6. Closed fracture of left clavicle 7. 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 Repeat pap smear/ cotesting per PICK UP recs 1 yr Family History: mom - alive 50's anxiety, depression, substance hx (? drug use when she was teenager) dad - alive age 57 low testosterone Maternal grandmother and materal great grandmot hers - breast cancer Paternal grandmother - brain aneurysm 2 half siblings - 1 half sister healthy 1 half sister - anemia, prediabetic, obesity, s he has a hole in her heart children - 2 sons healthy Social History: nonsmoker. Rare ETOH use. 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 He retired from . She is still active in [employer]. 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 less stress. Kids are now 11 a nd 5. Tobacco/ETOH Use: Physical Exams: Vitals: BP: 107/67 (02/13/2022 11:28) P: 88 (02/13/2022 11:28) R: 18 (02/13/2022 11:28) T: 97.5 F [36.4 C] (01/02/2022 08:42) WT: 123.2 lb [55.88 kg] (02/13/2022 11:28) O2 Sat: 99% (02/13/2022 11:28) BMI: 21.2 BMI > 25 Assessment General Well appearing and NAD HEENT NC/AT PERRL OP clear Neck supple. No thyroid enlargment or masses. CV RRR without m/g/r Pulm: clear without wheezes, rhonchi. Abd soft nt/nd bs+ no hsm or masses. Ext warm. no edema. Pulses DP 2+, PT 2+ Skin warm and dry. no rashes present : normal ext genitalia. vaginal mucosa moist. cervix healthy in apperaance. scant mucus present. Pap collected. /wally/ ANITA HARVEY M.D. STAFF PHYSICIAN Signed: 02/13/2022 13:11 Feb 13, 2022 11:30 AM [facility] NURSING OUTPATIENT NOTE: MATTHEW OSPINA [facility] LOCAL TITLE: WOMEN'S CLINIC NURSING NOTE [facility] TITLE: [facility] NURSING OUTPATIENT NOTE DATE OF NOTE: FEB 13, 2022@11:30 ENTRY DATE: FEB 13, 2022@11:31:02 AUTHOR: MATTHEW FRANCES MA EXP COSIGNER: URGENCY: STATUS: COMPLETED TYPE OF VISIT: Appointment Check In Type of appointment: In-person appointment REASON FOR VISIT: Repeat pap ALLERGIES: LATEX GLOVES (Jul 04, 2019) DOXYCYCLINE (Feb 13, 2022) VITAL SIGNS: Blood Pressure: 107/67 (02/13/2022 11:28) Pulse: 88 (02/13/2022 11:28) Respiration: 18 (02/13/2022 11:28) Temperature: 97.5 F [36.4 C] (01/02/2022 08:42) Weight: 123.2 lb [55.88 kg] (02/13/2022 11:28) Height: 64 in [162.6 cm] (07/23/2021 14:28) BMI: 21.2 O2 Sat: 99% (02/13/2022 11:28) Pain: 0 (02/13/2022 11:28) PAIN SCREEN: Patient is not having significant pain that the y wish to discuss with their provider today. MEDICATION Over the Counter/Herbal Medications: The patient states that they take some outside medications and/or herbals. 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 The has not already been diagnosed as h aving TBI during post 03/15 deployment. 1. The experienced the following events during deployment: Patient denies experiencing any TBI related albert nts during deployment. Negative Screen /es/ MATT FRANCES LPN LPN Signed: 02/13/2022 11:35 Feb 13, 2022 11:09 AM ADVANCE DIRECTIVE: JENNIFFER SUAREZ [facility] LOCAL TITLE: AD NOTIFICATION AND SCREENING STANDARD TITLE: ADVANCE DIRECTIVE DATE OF NOTE: FEB 13, 2022@11:09 ENTRY DATE: FEB 13, 2022@11:09:42 AUTHOR: JENNIFFER SUAREZ EXP COSIGNER: URGENCY: STATUS: COMPLETED ADVANCE DIRECTIVE NOTIFICATION: I was unable to give the patient written notifi cation of the following rights because: Comment: Denied ADVANCE DIRECTIVE SCREENING: Does patient have an Advance Directive? The patient does not have an Advance Directive. The patient does not wish to create an Advance Directive for health care. /wally/ JENNIFFER SUAREZ Advanced MSA Signed: 02/13/2022 11:10
--- OUTSIDE RECORDS SUMMARY | 2022-05-01 10:36 | XMS_ITS | Encounter Summary ---
:1990 Author Organization [facility] rs Address [address] [place] [address] Support Name Relationship Address Phone BELLE COVINGTON Unavailable [address] [place] [address] BELLE COVINGTON Unavailable [address] [place] [address] Insurance Providers: All historical and current Section [...] Dick HEALTH HEALTH FED Jan 05, 3052 [id number] [phone] MIRIAMJELENA JORDAN PATIENT PARTNERS [facility] EMP 2021 1 7 [place] CE OPEN ORGANIZAT ACCES ION W/OUT S OF NETWORK BENEFITS MEDIMPACT PRESCRIPT HEALT Jan 04 [id number] [phone] JELENA WILLETT PATIENT RX ION H 2021 1 9 [place] Selected Encounter This section includes the information on record at [place] for the Encounter. Date/Time Encounter Type Encounter Reason Provider Source Description Apr 21, 2022 10:19 Outpatient TELEPHONE TRIAGE NIKO GAMEZ AM Encounter IHE Encounter Template Text not used by [place] Plan of Treatment: Future Appointments (+ 6 months) and Future Tests (+/- 45 days) The Plan of Treatment section includes future care activities for the [place] from all [place]. This section includes future appointments and future orders which are active, pending orscheduled.Future Appointments This section includes appointments that were scheduled to occur 6 months from the date of the Encounter, up to a maximum of 20 appointments. The data comes from all [place] treatment facilities. Appointment Date/Time Appointment Type Appointment Facili ty Name Apr 30, 2022 11:00 AM AMBULATORY - PS[facility]IATRY [facility] May 06, 2022 10:00 AM AMBULATORY - SURGERY [facility] S Social History: Smoking Status (Most current) and Tobacco Use (All prior to encounter date) This section includes the most current, and the historical, smoking and tobacco-related health factors from the [facility] where the Encounter took place.Current Smoking Status This section includes the most current smoking, or tobacco-related health factor, from the [place] facility where the Encounter took place. Date/Time Current Smoking Status Comment Facility Feb 23, 2022 08:19 AM [facility] Tobacco Use History This section includes a history of the smoking, or tobacco- related health factors, that were collected on or before the date of the Encounter. The data comes from the [facility] where the Encounter took place. Date/Time Smoking Status/Tobacco Use Comment [facility] Feb 20, 2022 02:22 PM [facility] Jul 23, 2021 02:30 PM VA-TOBACCO NEVER USED [facility] Encounter Notes: All associated encounter notes This section contains the clinical notes associated to the Encounter. Date/Time Encounter Note(s) Provider Source Apr 21, 2022 10:19 AM RN PROGRESS NOTE: FOX GAMEZ [facility] LOCAL TITLE: CCC: CLINICAL TRIAGE STANDARD TITLE: RN PROGRESS NOTE DATE OF NOTE: APR 21, 2022@10:19:51 ENTRY DATE: APR 21, 2022@10:19:51 AUTHOR: FOX GAMEZ EXP COSIGNER: URGENCY: STATUS: COMPLETED CCC: CLINICAL TRIAGE Has ADDENDA Patient Demographics Patient Name: JASMIN COVINGTON Patient Primary Address: [address] [place] [address] <b r>[place] [address] Patient : 1990 SSN: [id number] Patient Age: 31 Caller/Recipient Relation to Patient: Self Emergency Contactx: BELLE COVINGTON Triage Summary Nurse Summary: NURSES NOTES PATIENT CONCERN/DURATION/ONSET: Woodruff c/o continued left clavicle pain since she broke it last year. Pain is 2/10 at rest but certain movements cause pain to increase up to 9/10- push ups or farmers carry. 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 She denies any signs of infectio n- no fever, redness, red streaks, swollen nodes in axilla or open sores/drainage. No bruising or ne w injury to the clavicle. WHAT HAS PATIENT TRIED TO TREAT THE SYMPTOMS: Tries to limit activities that cause pain. Was advised by drill staff to f/u with MD for appt- reevaluation of left clavi solo. HISTORY/PREVIOUS TREATMENT: fx left clavicle- last seen by ortho 12/06/20- se e note. Per note f/u PRN. WHAT IS PATIENT GOAL FOR THE CALL: appt with ortho DID YOU CONSIDER USING CCC LIP (TELE or VVC): no, chronic pain. BRAND COORDINATOR DISPOSITION: Recommended triage is appt when available for c hronic clavicle pain for over one year without any new trauma or signs of infection. Appt made for 05/29. Please call if x-ray is ordered eeded prior to appt. Best contact for is (Verifi ed). (Caller could accurately sum marize the agreed upon plan of care as discussed in the education log portion of this note.) Per policy, automated recommendations for an ?ap pointment? indicates an interaction (virtual or in-person) with the care team. Covid Screening No known exposure Screen is negative Summary of Actions Referred patient for in-person appt. Transferred patient to Sched & Admin-Apt Clinical Contact Center Codes Clinic/Location: [address] PHONE [facility] RN /wally/ SINGH GrayN RN 1100 VISN 23 Daytime rehabilitation services aide Signed: 04/21/2022 10:19 Receipt Acknowledged By: 04/22/2022 08:49 /tu Nobles Registered Nurse 04/22/2022 ADDENDUM STATUS: COMPLETED MSA please contact patient i f any sooner availability for non-urgent PA, UNIFORM ROOM ATTENDANT, or resident appt slot. /tu Nobles Registered Nurse Signed: 04/22/2022 08:50 Receipt Acknowledged By: * AWAITING SIGNATURE * DENIA SRINIVASAN
--- OUTSIDE RECORDS SUMMARY | 2022-05-01 10:36 | XMS_ITS | Encounter Summary ---
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 Date/Time Encounter Type Encounter Reason Provider Source Description Feb 23, 2022 08:19 Outpatient TELEPHONE/ANCILLARY VENKATA COLUNGA AM Encounter INE A IHE Encounter Template Text not used by OR Plan of Treatment: Future Appointments (+ 6 [...] 20 appointments. The data comes from all OR treatment facilities. Appointment Date/Time Appointment Type Appointment Facili ty Name Mar 26, 2022 10:00 AM AMBULATORY - PSYCHIATRY [facility] Apr 30, 2022 11:00 AM AMBULATORY - PSYCHIATRY [facility] May 06, 2022 10:00 AM AMBULATORY - SURGERY [facility] S Lab Results: +/- 30 days of the encounter This section includes the Chemistry and Hematology Lab Results on record with OR for the patient. Radiology Reports and Pathology Reports are provided separately, in subsequent sections.Lab Results This section contains the Chemistry/Hematology Results that were resulted 30 days before or 30 daysafter the date of the Encounter. Date/Time Source Result Type Result - Unit Interpretation Reference Range Comment Feb 13, 2022 12:00 [facility] HUMAN PAPILLOMA Specimen Type: CERVICAL VAGINAL CYTOLOGIC MATERIAL PM VIRUS,DNA HIGH RISK Comment: [id number] Ordering Provid er: ANITA HARVEY Report Released Date/Time: Feb 19, 2022 11:51 AM Reporting Lab: [facility] [id number] Performing Lab: [facility] [id number] HPV 16 NEGATIVE Negative HPV 18 NEGATIVE Negative OTHER HIGH RISK HPV NEGATIVE Negative HPV INTERPRETATION HR-HPV is undetectable or below preset threshold. Social History: Smoking Status (Most current) and Tobacco Use (All prior to encounter date) This section includes the most current, and the historical, smoking and tobacco-related health factors from the OR facility where the Encounter took place.Current Smoking Status This section includes the most current smoking, or tobacco-related health factor, from the OR facility where the Encounter took place. Date/Time Current Smoking Status Comment Facility Feb 23, 2022 08:19 AM [facility] Tobacco Use History This section includes a history of the smoking, or tobacco- related health factors, that were collected on or before the date of the Encounter. The data comes from the [place] facility where the Encounter took place. Date/Time Smoking Status/Tobacco Use Comment Yasmeen velázquez Feb 20, 2022 02:22 PM [facility] Jul 23, 2021 02:30 PM VA-TOBACCO NEVER USED TOSHA [facility] Pathology Reports: +/- 30 days of [...] the Encounter. The data comes from all [place] treatment facilities. Date/Time Pathology Report Provider Source Feb 20, 2022 01:27 PM LR CYTOPATHOLOGY REPORT: TRINA OCASIO [facility] LOCAL TITLE: LR CYTOPATHOLOGY REPORT STANDARD TITLE: PATHOLOGY REPORT DATE OF NOTE: FEB 20, 2022@13:27:37 ENTRY DATE: FEB 20, 2022@13:27:37 AUTHOR: TRINA OCASIO EXP COSIGNER: URGENCY: STATUS: COMPLETED $APHDR Reporting Lab: [facility] [CLIA# [id number]] [place] [address] - - - - - - - [...] - - - - Screened by: KANDACE ALTMAN BS Description: THINPREP VIAL; One ThinPrep slide prepared. [...] INTRAEPITHELIAL LE CATHRYN OR MALIGNANCY. Performing Lab...: [facility] [CLIA# [id number]] [place] [address] HPV 16 NEGATIVE Ref: negative HPV 18 [...] professional guidelines. Please call the lab at [phone] for questions regarding this test. JEANINE HPV test i s a US Food and Drug Administration approved in vitro diagnostic dev ice and uses PCR amplification with hydrolysis probe based real- time target detection. /wally/ TRINA OCASIO MD STAFF PATHOLOGIST Signed Feb 20, 2022@13:27 Performing Laboratory: Cytology Report Performed By: [facility] [CLIA# [id number]] [place] [address] $FTR - - - - - - - - - - - - - - - - - - - - - - - - - - - - - - - - - - - - - - - - (End of report) TRINA OCASIO MD [facility] Date Feb 20, 2022 - - - - - - - - - - - - - - - - - - - - - - - - - - - - - - - - - - - - - - - - JASMIN COVINGTON STANDARD FORM 515 ID:[id number] SEX:F :1990 AGE: 31 LOC: [address] PCP: Anita Harvey MD /wally/ TRINA OCASIO MD STAFF PATHOLOGIST Signed: 02/20/2022 13:27 Encounter Notes: All associated encounter notes This section contains the clinical notes associated to the Encounter. Date/Time Encounter Note(s) Provider Source Feb 23, 2022 08:19 [facility]NGELA VELAZQUEZ [facility] LOCAL TITLE: CERVICAL CANCER SCREENING HISTORY E A STANDARD TITLE: [facility]OMENS [facility]ALTH NOTE DATE OF NOTE: FEB 23, 2022@08:19 ENTRY DATE: FEB 23, 2022@08:19:32 AUTHOR: ASHLEY VELAZQUEZ COSIGNER: URGENCY: STATUS: COMPLETED CERVICAL CANCER SCREENING HISTORY Has ADDEN DA Cervical Cancer Screening History Patient eligible for cervical cancer screening Yes List in chronological order from most recent re sults: Normal: 02/13/2022 PAP NILM/HPV neg Abnormal: 02/18/2021 PAP LSIL/HPV pos other Normal: 05/24/2020 PAP NILM Normal: 03/01/2018 PAP NILM -Results of colposcopic biopsies based on each abnormal PAP: 03/03/2021 Colposcopy KATELYNN 1/Ecc neg Immunosuppression: No Present smoker: No Lifetime non-smoker HPV Vaccinations: 3 Prior Cervical Intraepithelial Neoplasia (KATELYNN) 2-3 treated No Diethylstilbestrol syndrome (KRISS) exposure No Completed child bearing Yes Recommended follow up: Next Pap test is due in 3 years Recommendations: Next due for co-test in 3 years (02/2025). /wally/ ASHLEY VELAZQUEZ RN RN Signed: 02/23/2022 08:23 03/10/2022 ADDENDUM STATUS: COMPLETED Correction to 05/24/2020 result: Abnormal: 05/24/2020 PAP NILM/HPV pos other (All jessica JLV) Corrected complete pap hx listed below: Normal: 02/13/2022 PAP NILM/HPV neg Abnormal: 02/18/2021 PAP LSIL/HPV pos other Normal: 05/24/2020 PAP NILM/HPV pos other Normal: 03/01/2018 PAP NILM -Results of colposcopic biopsies based on each abnormal PAP: 03/03/2021 Colposcopy KATELYNN 1/Ecc neg No change to recommended follow up. /wally/ ASHLEY VELAZQUEZ RN RN Signed: 03/10/2022 11:30 Receipt Acknowledged By: * AWAITING SIGNATURE * JAILENE BRANDT
--- OUTSIDE RECORDS SUMMARY | 2022-05-01 10:36 | XMS_ITS | Encounter Summary ---
:1990 Author Organization [facility] Address [address] [place] [address] Support Name Relationship Address Phone BELLE MADISON Unavailable [address] [place] [address] BELLE MADISON Unavailable [address] [place] [address] Insurance Providers: All historical and current Section [...] Dick HEALTH HEALTH FED Jan 05, 3052 [id number] [phone] JELENA MADISON PATIENT PARTNERS [place] EMP 2021 1 7 [place] OPEN ORGANIZAT ACCES ION W/OUT S OF NETWORK BENEFITS MEDIMPACT PRESCRIPT HEALT Jan 04 [id number] [phone] JELENA WILLETT PATIENT RX ION H 2021 1 9 [place] [employer] Selected Encounter This section includes the information on record at [place] for the Encounter. Date/Time Encounter Type Encounter Reason Provider Source Description Apr 30, 2022 PSYTX W PT 60 MENTAL HEALTH ICD-10-CM F33.8 BRIE GAMEZ 11:00 AM MINUTES CLINIC - IND Other recurrent depressive disorders with Provider Comments: Recurrent depression ([facility] [id number]) IHE Encounter Template Text not used by [facility] Assessments - Encounter Diagnoses This section includes the primary and secondary diagnoses documented for the Encounter. Date/Time Primary/Secondary Diagnosis Name Provider Source Diagnosis May 01, 2022 PRIMARY Other recurrent ROBLES GAMEZ [place] 07:13 AM depressive HCS disorders May 01, 2022 SECONDARY Anxiety disorder[facility] Plan of Treatment: Future Appointments (+ 6 months) and Future Tests (+/- 45 days) The Plan of Treatment section includes future care activities for the patient from all [place] [facility]. This section includes future appointments and future orders which are active, pending orscheduled.Future Appointments This section includes appointments that were scheduled to occur 6 months from the date of the Encounter, up to a maximum of 20 appointments. The data comes from all [place] treatment facilities. Appointment Date/Time Appointment Type Appointment Facili ty Name May 06, 2022 10:00 AM AMBULATORY - SURGERY [facility] S Social History: Smoking Status (Most current) and Tobacco Use (All prior to encounter date) This section includes the most current, and the historical, smoking and tobacco-related health factors from the [place] facility where the Encounter took place.Current Smoking Status This section includes the most current smoking, or tobacco-related health factor, from the [place] facility where the Encounter took place. Date/Time Current Smoking Status Comment Facility Feb 23, 2022 08:19 AM [facility] Tobacco Use History This section includes a history of the smoking, or tobacco- related health factors, that were collected on or before the date of the Encounter. The data comes from the [place] facility where the Encounter took place. Date/Time Smoking Status/Tobacco Use Comment [facility] Feb 20, 2022 02:22 PM [facility] Jul 23, 2021 02:30 PM VA-TOBACCO NEVER USED TOSHA [facility] Encounter Notes: All associated encounter notes This section contains the clinical notes associated to the Encounter. Date/Time Encounter Note(s) Provider Source Apr 30, 2022 11:00 AM SUICIDE PREVENTION NOTE[facility] LOCAL TITLE: SUICIDE PREVENTION SAFETY PLAN STANDARD TITLE: SUICIDE PREVENTION NOTE DATE OF NOTE: APR 30, 2022@11:00 ENTRY DATE: APR 30, 2022@11:40:32 AUTHOR: ROBLES GAMEZ COSIGNER: URGENCY: STATUS: COMPLETED SAFETY PLAN Please follow the steps described below on your Safety Plan. If you are experiencing a medical or mental heal th emergency, please call 911, at any time. If you are unable to reach your safety contacts or you are in crisis, please call the [employer] Crisis Line (Dial 985 then Press 1). Step 1: Triggers, Risk Factors and Warning Sign s How will you know when you are in crisis and franki t the Safety Plan should be used? What are your personal red flag s? 1. Thoughts are overwhelming: you're an awful m other/, 2. Angry Verbal Outburst Step 2: Internal Coping Strategies What can you do, on your own, to help you stay s afe and not act on your suicidal thoughts or urges in the future? What have you done in the past to stay safe? 1. Breathing techniques 2. Go outside - hike/walk 3. Use lightbox 4. Intentional Movement (e.g., gym in house) 5. bubble bath/shower Step 3: Social Contacts Who May Distract from t he Crisis Other than mental health providers and counselor s, who can you contact who helps take your mind off your problems or h elps you feel better? Name: Belle () Phone number: in your phone Name: Ann (friend) Phone number: in phone Name: Glory (aunt/co worker) Phone number: in phone What public places, groups, or social events hel p you feel better? Examples of social settings include community e vents, beaches, humphries, coffee shops, malls, churches, clubs, 12 step m eetings, aftercare groups, support groups, Veterans organizations, [facility] social events. 1. [facility] 2. [place] Step 4: Family Members or Friends Who May Offer Help Who are friends or family members who should be included in your plan? chooses not to disclose distress to fri ends or family. Step 5: Professionals and Agencies to Contact f or Help Who are the mental health professionals or profe ssional peer supports who should be included in your plan? Please list the numbers you would call in the or devan you would call them. Name: Robles Gamez Phone number: [phone] Veterans Crisis Line: Dial 746 then Press 1 Veterans Crisis Line Text Messaging Service: [phone] Veterans Crisis Line: https://www.veteranscrisis line.net/chat Call 911 in an emergency If you need to go to an urgent care center or em ergency room, where will you go? Facility name: [facility] Facility address: Near [facility] [address] [facility] phone number: Local [place] site-specific emergency numbers: Step 6: Making the Environment Safe Ways to make my environment safer and barriers I will use to protect myself from these potentially lethal means: Open to receiving gun locks. Ames has access to firearms in their home or elsewhere: Yes Ames indicated firearms are stored the follo wing way(s): Unlocked Unloaded and stored with ammunition Firearm safe storage discussed with : Jones gudino Gunlock offered to : Ames requests gu nlock(s) but they are not presently available Ames has access to opioids: No These are the people who will help me protect my self from having access to dangerous items: Name: Belle [place] Phone: Ames declines to share current physical addre ss. Ames's current phone number: [phone] Other Resources: - Virtual Hope Box smartphone application (crea te a hope box to remember good things in one's life) - [employer] (source of -rela raegan resources and information) - Safety Plan in PTSD Sod Farmer: www.ptsd.[place].gov/appvid/mobile/ptsdcoach_app.asp - Safety Plan in PTSD Sod Farmer Video: https://www.youtube.com/watch?v=PKr1onxfE0B I have received a copy of this Safety Plan. Family member/caregiver/friend was not given endoscopy support specialist y of this Safety Plan. Reason: none given Family member/caregiver/friend did not participa te in this safety planning session. Reason: at work // ROBLES GAMEZ, PHD, STAFF PSYCHOLOGIST Signed: 05/01/2022 07:13 Apr 30, 2022 11:00 AM MENTAL HEALTH NOTE: ROBLES GAMEZ [facility] LOCAL TITLE: MH PROGRESS NOTE STANDARD TITLE: MENTAL HEALTH NOTE DATE OF NOTE: APR 30, 2022@11:00 ENTRY DATE: MAY 01, 2022@07:16:12 AUTHOR: ROBLES GAMEZ EXP COSIGNER: URGENCY: STATUS: COMPLETED S: I met with for 75 minutes of psychoth erapy and assessment by [facility] to her workplace in [place]. Ames reports in creased depressed mood, anxiety, and suicidal thoughts. Reports urges to cut but has not engaged in any risky/self-harm behavior. Notes that she has some medical issues to be evaluated - tomorrow gets breast MRI for lump. 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 notes that she h as recurrent, fleeting SI and that she works to not give in to thoughts. 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 has weapons at home for safety as does her husba nd who is retired from [employer]. Discussed gunlocks for safety in light of 2 sons at home. Reviewed Virtual Hope box as option. Gave her option of letting m e know outcome of medical visti tomorrow and scheduling more frequent visi ts. Encouraged her to restart use of light box. Ames eating regularly, exer cising regularly, but not overdoing it. O: Appears depressed, tearful. Reports f eeling deeply depressed and overwelmed Suicide Risk is LOW: risk factors: fleeting SI, urges to cut, depression and anxiety, family history of depression (multiple) and schizophrenia (grandfather), family hx of suicide (grandfather ) distant hx of suicidal ideation, trauma hx, lack of social support . Pr otective factors: Denies SI intent, denies plan, no hx of suicide at tempts, treatment seeking, concern for family, children in home, future oriented, probl em solving ability.Speech was clear and fluent. Neatly dressed and groomed. go od eye contact. no AH/vh/delusions. Thought form was logical and go al directed. Insight and judgement are good. Denies excessive use of alcohol. Variable use of caffeine/energy drinks. Related to: Combat Ames Related Diagnoses: Recurrent depression (SCT [id number]) - Other rec urrent depressive disorders (ICD-10-CM F33.8) (Primary) Anxiety (SCT [id number]) - Anxiety disorder, unspe cified (ICD-10-CM F41.9) Procedures: 38-52 minutes P: F/U on May 07 at 9 a.m. via [facility] to home. Dickson vivar has my contact number, the [facility] and [facility] contact. Complete Safety Plan this session and emailed to . /wally/ ROBLES GAMEZ, PHD, LP STAFF PSYCHOLOGIST Signed: 05/01/2022 07:30 Apr 30, 2022 11:00 AM SUICIDE PREVENTION RISK ASSESSMENT SCR EENING NOTE: ROBLES GAMEZ [facility] LOCAL TITLE: [place] SCREENING NOTE STANDARD TITLE: SUICIDE PREVENTION RISK ASSESSME NT SCREENING NOT DATE OF NOTE: APR 30, 2022@11:00 ENTRY DATE: MAY 01, 2022@07:30:38 AUTHOR: ROBLES GAMEZ EXP COSIGNER: URGENCY: STATUS: COMPLETED C-SSRS Screening [place]-Suicide Severity Rating Scale (C-SSRS Screener) 1. Over the past month, have you wished you wer e or wished you could go to sleep and not wake up? Yes 2. Over the past month, have you had any actual thoughts of killing yourself? No 3. Over the past month, have you been thinking about how you might do this? Response not required due to responses to other questions. 4. Over the past month, have you had these thou ghts and had some intention of acting on them? Response not required due to responses to other questions. 5. Over the past month, have you started to wor k out or worked out the details of how to kill yourself? Response not required due to responses to other questions. 6. If yes, at any time in the past month did yo u intend to carry out this plan? Response not required due to responses to other questions. 7. In your lifetime, have you ever done anythin g, started to do anything, or prepared to do anything to end your life (fo r example, collected pills, obtained a gun, gave away valuables, went to th e roof but didn't jump)? No 8. If YES, was this within the past 3 months? Response not required due to responses to other questions. /wally/ ROBLES GAMEZ, PHD, LP STAFF PSYCHOLOGIST Signed: 05/01/2022 07:32
--- OUTSIDE RECORDS SUMMARY | 2022-05-01 10:36 | XMS_ITS | Encounter Summary ---
:1990 Author Organization Department [facility] rs Address [address] [place] [address] Support Name Relationship Address Phone BELLE COVINGTON Unavailable [address] [place] [address] BELLE COVINGTON Unavailable [address] [place] [address] Insurance Providers: All historical and current Section [...] Dick HEALTH HEALTH FED Jan 05, 3052 [id number] [phone] JELENA COVINGTON PATIENT PARTNERS [facility]BER[employer] EMP 2021 1 7 [place] CE OPEN ORGANIZAT ACCES ION W/OUT S OF NETWORK BENEFITS MEDIMPACT PRESCRIPT HEALT Jan 04 [id number] [phone] KAITY AmaroJELENA PATIENT RX ION H 2021 1 9 [place] [employer] ERS Selected Encounter This section includes the information on record at [place] for the Encounter. Date/Time Encounter Type Encounter Reason Provider Source Description Feb 20, 2022 01:27 Outpatient EVENT (HISTORICAL) ALETHA OCASIO PM Encounter IHE Encounter Template Text not used [...] 06, 2022 10:00 AM AMBULATORY - SURGERY [facility] S Lab Results: +/- 30 days [...] MATERIAL PM VIRUS,DNA HIGH RISK Comment: [id number] Ordering Provid er: ANITA HARVEY Report Released Date/Time: Feb 19, 2022 11:51 AM Reporting Lab: [facility] [id number] Performing Lab: [facility] [id number] HPV 16 NEGATIVE Negative HPV 18 NEGATIVE Negative OTHER HIGH RISK HPV NEGATIVE Negative HPV INTERPRETATION HR-HPV is undetectable or below preset threshold. Social History: Smoking Status (Most current) and Tobacco Use (All prior to encounter date) This section includes the most current, and the historical, smoking and tobacco-related health factors from the [place] facility where the Encounter took place.Current Smoking Status This section includes the most current smoking, or tobacco-related health factor, from the [place] facility where the Encounter took place. Date/Time Current Smoking Status Comment Facility Feb 20, 2022 02:22 PM LIFETIME NON-SMOKER GREGOR MESSINA [facility] Tobacco Use History This section includes a history of the smoking, or tobacco- related health factors, that were collected on or before the date of the Encounter. The data comes from the [place] facility where the Encounter took place. Date/Time Smoking Status/Tobacco Use Comment Yasmeen nazario Jul 23, 2021 02:30 PM [place]-TOBACCO NEVER USED TOSHA BECERRA [facility] Pathology Reports: +/- 30 days of [...] comes from all [place] treatment facilities. Date/Time Pathology Report Provider Source Feb 20, 2022 01:27 PM LR CYTOPATHOLOGY REPORT: TRINA OCASIO [facility] LOCAL TITLE: LR CYTOPATHOLOGY REPORT STANDARD TITLE: PATHOLOGY REPORT DATE OF NOTE: FEB 20, 2022@13:27:37 ENTRY DATE: FEB 20, 2022@13:27:37 AUTHOR: TRINA OCASIO EXP COSIGNER: URGENCY: STATUS: COMPLETED $APHDR Reporting Lab: [facility] [CLIA# [id number]] [place] [address] - - - - - - - [...] Lab...: [facility] [CLIA# [id number]] [place] [address] HPV 16 NEGATIVE Ref: negative HPV 18 [...] ASC-US population (Am J Clin Patho l. 2010; 135(3):468-75). This test does not detect DNA o f HPV low-risk types. Clinical interpretation of test result requires physician's assessment of cervical cancer screening history, other patien t parameters, and professional guidelines. Please call the lab at [phone] for questions regarding this test. JEANINE HPV test i s a US Food and Drug Administration approved in vitro diagnostic dev ice and uses PCR amplification with hydrolysis probe based real- time target detection. /wally/ TRINA OCASIO MD STAFF PATHOLOGIST Signed Feb 20, 2022@13:27 Performing Laboratory: Cytology Report Performed By: [facility] [CLIA# [id number]] [place] [address] $FTR - - - - - - - - - - - - - - - - - - - - - - - - - - - - - - - - - - - - - - - - (End of report) TRINA OCASIO MD [facility] Date Feb 20, 2022 - - - - - - - - - - - - - - - - - - - - - - - - - - - - - - - - - - - - - - - - JASMIN COVINGTON STANDARD FORM 515 ID:[id number] SEX:F :1990 AGE: 31 LOC: [address] PCP: Anita Harvey MD /wally/ TRINA OCASIO MD STAFF PATHOLOGIST Signed: 02/20/2022 13:27 Encounter Notes: All associated encounter notes This section contains the clinical notes associated to the Encounter. Date/Time Encounter Note(s) Provider Source Feb 20, 2022 01:27 PM PATHOLOGY REPORT: TRINA OCASIO [facility] LOCAL TITLE: LR CYTOPATHOLOGY REPORT STANDARD TITLE: PATHOLOGY REPORT DATE OF NOTE: FEB 20, 2022@13:27:37 ENTRY DATE: FEB 20, 2022@13:27:37 AUTHOR: TRINA OCASIO EXP COSIGNER: URGENCY: STATUS: COMPLETED $APHDR Reporting Lab: [facility] [CLIA# [id number]] [place] [address] - - - - - - - [...] - - - PATHOLOGY REPORT Accession No. -[id number] - - - - - [...] Lab...: [facility] [CLIA# [id number]] [place] [address] HPV 16 NEGATIVE Ref: negative HPV 18 [...] professional guidelines. Please call the lab at [phone] for questions regarding this test. JEANINE HPV test i s a US Food and Drug Administration approved in vitro diagnostic dev ice and uses PCR amplification with hydrolysis probe based real- time target detection. /wally/ TRINA OCASIO MD STAFF PATHOLOGIST Signed Feb 20, 2022@13:27 Performing Laboratory: Cytology Report Performed By: [facility] [CLIA# [id number]] [place] [address] $FTR - - - - - - - - - - - - - - - - - - - - - - - - - - - - - - - - - - - - - - - - (End of report) TRINA OCASIO MD [facility] Date Feb 20, 2022 - - - - - - - - - - - - - - - - - - - - - - - - - - - - - - - - - - - - - - - - JASMIN COVINGTON STANDARD FORM 515 ID:[id number] SEX:F :1990 AGE: 31 LOC: [address] PCP: Anita Harvey MD /wally/ TRINA OCASIO MD STAFF PATHOLOGIST Signed: 02/20/2022 13:27
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
--- OUTSIDE RECORDS SUMMARY | 2022-05-01 10:36 | XMS_ITS | Encounter Summary ---
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 Date/Time Encounter Type Encounter Reason Provider Source Description Feb 20, 2022 02:22 Outpatient TELEPHONE/ANCILLARY VENKATA COLUNGA PM Encounter INE A IHE Encounter Template Text not used by [facility] Plan of Treatment: Future Appointments (+ 6 [...] 20 appointments. The data comes from all [place] treatment facilities. Appointment Date/Time Appointment Type Appointment Facili ty Name Mar 26, 2022 10:00 AM AMBULATORY - PSYCHIATRY [facility] Apr 30, 2022 11:00 AM AMBULATORY - PSYCHIATRY [facility] May 06, 2022 10:00 AM AMBULATORY - SURGERY [facility] S Lab Results: +/- 30 days of the encounter This section includes the Chemistry and Hematology Lab Results on record with [facility] for the patient. Radiology Reports and Pathology Reports are provided separately, in subsequent sections.Lab Results This section contains the Chemistry/Hematology Results that were resulted 30 days before or 30 daysafter the date of the Encounter. Date/Time Source Result Type Result - Unit Interpretation Reference Range Comment Feb 13, 2022 12:00 [facility] HUMAN PAPILLOMA Specimen Type: CERVICAL VAGINAL CYTOLOGIC MATERIAL PM VIRUS,DNA HIGH RISK Comment: [id number] Ordering Provid er: ANITA HARVEY Report Released Date/Time: Feb 19, 2022 11:51 AM Reporting Lab: [facility] [id number] Performing Lab: [facility] [address] HPV 16 NEGATIVE Negative HPV 18 NEGATIVE Negative OTHER HIGH RISK HPV NEGATIVE Negative HPV INTERPRETATION HR-HPV is undetectable or below preset threshold. Social History: Smoking Status (Most current) and Tobacco Use (All prior to encounter date) This section includes the most current, and the historical, smoking and tobacco-related health factors from the [place] facility where the Encounter took place.Current Smoking Status This section includes the most current smoking, or tobacco-related health factor, from the [place] facility where the Encounter took place. Date/Time Current Smoking Status Comment Facility Feb 20, 2022 02:22 PM LIFETIME NON-SMOKER GREGOR MESSINA [facility] Tobacco Use History This section includes a history of the smoking, or tobacco- related health factors, that were collected on or before the date of the Encounter. The data comes from the [place] facility where the Encounter took place. Date/Time Smoking Status/Tobacco Use Comment Yasmeen nazario Jul 23, 2021 02:30 PM [place]-TOBACCO NEVER USED TOSHA BECERRA [facility] Pathology Reports: +/- 30 days of [...] the Encounter. The data comes from all [place] treatment facilities. Date/Time Pathology Report Provider Source Feb 20, 2022 01:27 PM LR CYTOPATHOLOGY REPORT: TRINA OCASIO [facility] LOCAL TITLE: LR CYTOPATHOLOGY REPORT STANDARD TITLE: PATHOLOGY REPORT DATE OF NOTE: FEB 20, 2022@13:27:37 ENTRY DATE: FEB 20, 2022@13:27:37 AUTHOR: TRINA OCASIO EXP COSIGNER: URGENCY: STATUS: COMPLETED $APHDR Reporting Lab: [facility] [CLIA# [id number]] [place] [address] - - - - - - - [...] - - - PATHOLOGY REPORT Accession No. [id number] - - - - - [...] INTRAEPITHELIAL LE CATHRYN OR MALIGNANCY. Performing Lab...: [facility] [CLIA# [id number]] [place] [address] HPV 16 NEGATIVE Ref: negative HPV 18 [...] professional guidelines. Please call the lab at [phone] for questions regarding this test. JEANINE HPV test i s a US Food and Drug Administration approved in vitro diagnostic dev ice and uses PCR amplification with hydrolysis probe based real- time target detection. /wally/ TRINA OCASIO MD STAFF PATHOLOGIST Signed Feb 20, 2022@13:27 Performing Laboratory: Cytology Report Performed By: [facility] [CLIA# [id number]] [place] [address] $FTR - - - - - - - - - - - - - - - - - - - - - - - - - - - - - - - - - - - - - - - - (End of report) TRINA OCASIO MD [facility] Date Feb 20, 2022 - - - - - - - - - - - - - - - - - - - - - - - - - - - - - - - - - - - - - - - - JASMIN COVINGTON STANDARD FORM 515 ID:[id number] SEX:F :1990 AGE: 31 LOC: [address]55 PCP: Anita Harvey MD /wally/ TRINA OCASIO MD STAFF PATHOLOGIST Signed: 02/20/2022 13:27 Encounter Notes: All associated encounter notes This section contains the clinical notes associated to the Encounter. Date/Time Encounter Note(s) Provider Source Feb 20, 2022 02:25 LETTERS: ÁNGELA VELAZQUEZ [facility] LOCAL TITLE: FOLLOW UP RESULTS LETTER E A STANDARD TITLE: LETTERS DATE OF NOTE: FEB 20, 2022@14:25 ENTRY DATE: FEB 20, 2022@14:25:09 AUTHOR: ASHLEY VELAZQUEZ EXP COSIGNER: URGENCY: STATUS: COMPLETED [facility] [address] [place] [address] Feb JASMIN CAMITeodoro COVINGTON [address] [facility] [place] [address] Dear [place]: I am writing to inform you of the results of the Pap test that you had done recently. Your pap test was normal Additional testing on your Pap test sample was done to look for the possible presence of HPV (human papillomavirus, a common cervical virus). This testing is now considered a routine part of Pap testing. Your HPV test was negative, and this ne gative result lowers your overall risk for developing cervical cancer We recommend that your next Pap test be done in 3 years. If you have any further questions about cervical cancer screening or your test results, please contact our [facility] staff at the following number: [phone]. Sincerely, ASHLEY VELAZQUEZ RN, RN Feb 20, 2022 02:22 [facility] NOTE: ÁNGELA VELAZQUEZ [facility] LOCAL TITLE: CERVICAL CANCER SCREENING HISTORY E A STANDARD TITLE: [facility] NOTE DATE OF NOTE: FEB 20, 2022@14:22 ENTRY DATE: FEB 20, 2022@14:22:35 AUTHOR: ASHLEY VELAZQUEZ EXP COSIGNER: URGENCY: STATUS: COMPLETED CERVICAL CANCER SCREENING HISTORY Has ADDEN DA Cervical Cancer Screening History Patient eligible for cervical cancer screening Yes List in chronological order from most recent re sults: Normal: 02/13/2022 PAP NILM/HPV neg Abnormal: 02/18/2021 PAP LSIL/HPV pos other Normal: 05/24/2020 PAP NILM Normal: 03/01/2018 PAP NILM -Results of colposcopic biopsies based on each abnormal PAP: 03/03/2001 Colposcopy KATELYNN 1/Ecc neg Immunosuppression: No Present smoker: No Lifetime non-smoker HPV Vaccinations: 3 Prior Cervical Intraepithelial Neoplasia (KATELYNN) 2-3 treated No Diethylstilbestrol syndrome (KRISS) exposure No Completed child bearing Yes Recommended follow up: Next Pap test is due in 3 years Recommendations: Next due for co-test in 3 years (02/2025). /wally/ ASHLEY VELAZQUEZ RN, RN Signed: 02/20/2022 14:24 02/20/2022 ADDENDUM STATUS: COMPLETED g.error submitted for note retraction due to typ ing incorrect year for colposcopy. /wally/ ASHLEY VELAZQUEZ RN RN Signed: 02/20/2022 15:35
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
--- OUTSIDE RECORDS SUMMARY | 2022-05-01 10:37 | XMS_ITS | Encounter Summary ---
:1990 Author Organization [facility] Address [address] [place] [address] Support Name Relationship Address Phone BELLE COVINGTON Unavailable [address] [place] [address] BELLE COVINGTON Unavailable [address] [place] [address] Insurance Providers: All historical and current Section [...] Dick HEALTH HEALTH FED Jan 05, 3052 [id number] [phone] MIRIAMJELENA JORDAN PATIENT [employer] EMP 2021 1 7 [place] CE OPEN ORGANIZAT ACCES ION W/OUT S OF NETWORK BENEFITS MEDIMPACT PRESCRIPT HEALT Jan 04 [id number] [phone] JELENA WILLETT PATIENT RX ION H 2021 1 9 [place] [employer] ERS Selected Encounter This section includes the information on record at [place] for the Encounter. Date/Time Encounter Type Encounter Reason Provider Source Description Jan 02, 2022 HC PRO PHONE TELEPHONE TRIAGE ICD-10-CM Z71.89 Aníbal BROWER 07:39 AM CALL 11-20 MIN Other specified M counseling with Provider Comments: Other specified counseling IHE Encounter Template Text not used by [place] Assessments - Encounter Diagnoses This section includes the primary and secondary diagnoses documented for the Encounter. Date/Time Primary/Secondary Diagnosis Name Provider Source Diagnosis Jan 02, 2022 PRIMARY Other specified YEE BROWER [place] 07:39 AM counseling M [facility] Plan of Treatment: Future Appointments (+ 6 months) and Future Tests (+/- 45 days) The Plan of Treatment section includes future care activities for the patient from all [place] treatmentfacilities. This section includes future appointments and future orders which are active, pending orscheduled.Future Appointments This section includes appointments that were scheduled to occur 6 months from the date of the Encounter, up to a maximum of 20 appointments. The data comes from all [place] treatment facilities. Appointment Date/Time Appointment Type Appointment Facili ty Name Jan 15, 2022 02:00 PM AMBULATORY - NONE [facility] Feb 05, 2022 11:00 AM AMBULATORY - PSYCHIATRY [facility] Feb 13, 2022 11:00 AM AMBULATORY - MEDICINE [facility] CS Mar 26, 2022 10:00 AM AMBULATORY - PSYCHIATRY [facility] Apr 30, 2022 11:00 AM AMBULATORY - PSYCHIATRY [facility] May 06, 2022 10:00 AM AMBULATORY - SURGERY [facility] S Lab Results: +/- 30 days of the encounter This section includes the Chemistry and Hematology Lab Results on record with [facility] for the patient. Radiology Reports and Pathology Reports are provided separately, in subsequent sections.Lab Results This section contains the Chemistry/Hematology Results that were resulted 30 days before or 30 daysafter the date of the Encounter. Date/Time Source Result Type Result - Unit Interpretation Reference Range Comment Jan 02, 2022 09:25 AM [facility] HCG, QUAL Specim en Type: URINE No comment enter ed. Ordering Provid er: CALVIN HARRIS Report Released Date/Time: Jan 02, 2022 09:09 AM Reporting Lab: [facility] [address] [facility] [id number] Performing Lab: [facility] [address] [facility] [address] [facility] [id number] HCG, QUAL NEGATIVE -neg Vital Signs: All taken on the encounter date This section contains inpatient and outpatient Vital Signs collected on the date of the Encounter. Date/Time Temperature Pulse Blood Respiratory SP02 Pain Height Weight Kendall dy Source Pressure Rate Mass Index Jan 02, 97.5 F 83 113/56 20 /min [place] 2021 08:42 /min mm[Hg] IS [facility] Social History: Smoking Status (Most current) and Tobacco Use (All prior to encounter date) This section includes the most current, and the historical, smoking and tobacco-related health factors from the [place] facility where the Encounter took place.Current Smoking Status This section includes the most current smoking, or tobacco-related health factor, from the [place] facility where the Encounter took place. Date/Time Current Smoking Status Comment Facility Jul 23, 2021 02:30 PM VA-TOBACCO NEVER USED TOSHA [facility] Radiology Reports: +/- 30 days of [...] the Encounter. The data comes from all [place] treatment facilities. Date/Time Radiology Report Provider Source Jan 02, 2022 09:42 AM ABDOMEN 2 VIEWS FLAT & UPRIGHT/DECUB: TRINA GALICIA [facility] JASMIN COVINGTON [id number] -1990 F Exm Date: JAN 02, 2022@09:42 Req Phys: IMELDADADONTRELLCALVIN Pat Loc: [facility] EMERGENCY D EPT WALK-IN (Re Img Loc: MAIN X-RAY Service: Unknown Screen: Patient answered no (Case [id number] COMPLETE) ABDOMEN 2 VIEWS FLA T & UPRIGHT/DE(RAD Detailed) CPT:01586 Proc Modifiers : 1-Covid Precautions, 2-Non-Cov id Precautions Reason for Study: Lower abdominal pain and cons tipation Clinical History: [place] IS NOT under investigation for COVID-19 or is COVID-19 negative Constipation into 1 week Responsible provider n ethan and phone number to notify for critical findings if other than user placing the order and pager listed below: User placing orders pager: LAST CREATININE [phone] (07/23/21) Report Status: Verified Date Reported: JAN 02, 2022 Date Verified: JAN 02, 2022 Structural Test Engineer E-Sig:/ES/TRINA TRINIDAD MD, FACR, C CD Report: [...] Encounter Note(s) Provider Source Jan 02, 2022 07:39 AM NURSING TELEPHONE ENCOUNTER NOTE: YEE BROWER [facility] LOCAL TITLE: TELEPHONE CARE NURSE TRIAGE STANDARD TITLE: NURSING TELEPHONE ENCOUNTER NOTE DATE OF NOTE: JAN 02, 2022@07:39:27 ENTRY DATE: JAN 02, 2022@07:57:27 AUTHOR: YEE BROWER EXP COSIGNER: URGENCY: STATUS: COMPLETED Chief Complaint: Abdominal Pain - Female The following identifiers were used to verify th is patient: . SSN. Comments: Clinical Contact/Call Center Coronavirus Disease 2019 (COVID-19) Screen, andie. November 2020 DIAGNOSIS AND TESTING STATUS: Has been diagnosed with COVID-19: () Yes* Date: (continue screening) (x) No (Continue Screening) Comment(s): Is waiting for COVID-19 test results: () Yes (Continue Screening) (x) No (Continue Screening) Comment: SCREEN: Signs and Symptoms: a. Fever or chills: () Yes Check all that apply: () Fever () Chills (x) No Comment(s): b. New or worsening cough or shortness of breat h: () Yes Check all that apply: () Cough () Shortness of breath (Dyspnea) (x) No Comment(s): c. Any cold or flu-like symptoms: () Yes Check all that apply: () Cold like symptoms () Runny Nose (Rhinorrhea) () Sore Throat () Flu-like symptoms () Fatigue () Muscle Pain (Myalgia) (x) No Comment(s): d. New onset diarrhea, nausea or vomiting: () Yes Check all that apply: () Diarrhea () Nausea () Vomiting (x) No Comment(s): e. New onset headache, loss of taste or loss of smell () Yes Check all that apply: () Headache () Loss of taste () Loss of smell (x) No Comment(s): EXPOSURE: Exposure (within 6 feet for more than 15 minute s) in the last two weeks (14 days) to someone with known or krishna pected case of COVID-19: () Yes (x) No Comment(s): SCREEN RESULT: Any symptom or exposure= positiv e screen () POSITIVE SCREEN: Patient has a Positive symp nicolette and/or exposure. Follow- up required. (x) Negative Screen NURSES NOTES PATIENT CONCERN/DURATION/ONSET: [place] c/o abdo ashley pain and bloating. reports several weeks ago she started with inter mittent sharp pain in low abdomen 'just above the pubic bone.' says this t ypically occurred before she had to have a bowel movement, and then resolved after BM. she reports she is passing small amounts of stool that is hard for the last couple of weeks and the pain is happening more often and is sharper than it had been. denies red blood or black tarry stools. no NVD. no vaginal or urinary symptoms 'although when my and I were i ntimate last night that did cause some discomfort.' she is feeling bloated. says after she eats she particulary feels bloated. says she has gained about five pounds in the last wed and is not sure why. 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 Caller could accurately summarize the agreed upo n plan of care vet directed on home cares as applicable and dir ections when to call back per nurses notes section of document. Per policy, automated recommendations for an emil ointment indicates an interaction (virtual or in-person) with the care team. Author: YEE BROWER Caller Area: *[facility] The patient, JASMIN COVINGTON ([id number]) called the call center. Caller Response: APPT LESS THAN 24 HOURS Class Code: Other specified counseling. Contact Advised to contact Telephone Care for any questions, concerns, new or worsening symptoms; services available 25/01. Evaluation/Management Code: HC PRO PHONE CALL 11 -20 MIN ([id number]). Starting at: 01/02/2022 @ 7:39:27 AM Ending at: 01/02/2022 @ 7:52:04 AM Length: 12 minutes. Nurse Notes: Protocol Used: Abdominal Pain - Female Protocol-Based Disposition: See PCP or Video Vis it within 24 Hours Video visit offer not recorded Positive Triage Question: * [1] MODERATE pain (e.g., interferes with raza l activities) AND [2] pain comes and goes (cramps) AND [3] present > 24 leandro rs (Exception: pain with Vomiting or Diarrhea - see that Guideline) Care Advice Discussed: * Diet - Drink adequate fluids. Eat a bland diet. * Reasons To Call Back - Severe pain lasts over 1 hour - Constant pain lasts over 2 hours - You become worse Patient's Email Address: [email or web address] Provider Info: [facility] ([phone] PACT: [facility] BOBO (Focus: Womens Health) Designated Pcp: ANITA HARVEY PHONE:[phone] PAGER:[phone] Liquified Natural Gas Specialist: JOSE MELISSA PHONE:[phone] Clinical Associate: MATTHEW FRANCES ELLI:[phone] Nuclear Waste Process Operator: CAROLINE VILLALBA E:[phone] PACT Clinical Pharmacist: KARLEE AGUIRRE PHONE:[phone] Clinical POC: Administrative POC: [facility] ([id number]) MH: WILIAM ALMENDAREZ V23 ([facility]) Psychologist ROBLES OLEARY PHONE: PAGER: Type of call: *TC SYMPTOM APPT. /wally/ YEE BROWER RN [facility] VISN 23 CALL CENTER ADJUNCT PROFESSOR OF ENGLISH Signed: 01/02/2022 07:57
--- OUTSIDE RECORDS SUMMARY | 2022-05-01 10:37 | XMS_ITS | Encounter Summary ---
:1990 Author Organization [facility] Address [address] [place] [address] Support Name Relationship Address Phone BELLE COVINGTON Unavailable [address] [place] [address] BELLE COVINGTON Unavailable [address] [place] [address] Insurance Providers: All historical and current Section [...] Dick HEALTH HEALTH FED Jan 05, 3052 [id number] [phone] JELENA COVINGTON PATIENT PARTNERS [place]O EMP 2021 1 7 [place] CE OPEN ORGANIZAT ACCES ION W/OUT S OF NETWORK BENEFITS MEDIMPACT PRESCRIPT HEALT Jan 04 [id number] [phone] JELENA WILLETT PATIENT RX ION H 2021 1 9 [place] [employer] ERS Selected Encounter This section includes the information on record at [place] for the Encounter. Date/Time Encounter Type Encounter Reason Provider Source Description Dec 11, 2021 PSYTX W PT 45 MENTAL HEALTH ICD-10-CM F33.8 BRIE OLEARY 09:00 AM [facility] - IND Other recurrent depressive disorders with Provider Comments: Recurrent depression ([facility] [id number]) IHE Encounter Template Text not used by [place] Assessments - Encounter Diagnoses This section includes the primary and secondary diagnoses documented for the Encounter. Date/Time Primary/Secondary Diagnosis Name Provider Source Diagnosis Dec 11, 2021 PRIMARY Other recurrent ROBLES OLEARY [place] 11:59 AM depressive HCS disorders Dec 11, 2021 SECONDARY Anxiety disorder, ROBLES OLEARY [facility] 11:59 AM unspecified [facility] Plan of Treatment: Future Appointments (+ 6 months) and Future Tests (+/- 45 days) The Plan of Treatment section includes future care activities for the patient [facility] [place] [facility] This section includes future appointments and future orders which are active, pending orscheduled.Future Appointments This section includes appointments that were scheduled to occur 6 months from the date of the Encounter, up to a maximum of 20 appointments. The data comes from all [place] treatment facilities. Appointment Date/Time Appointment Type Appointment Facili ty Name Jan 01, 2022 09:00 AM AMBULATORY - PSYCHIATRY [facility] Jan 02, 2022 08:22 AM AMBULATORY - MEDICINE [facility] Jan 15, 2022 02:00 PM AMBULATORY - NONE [facility] Feb 05, 2022 11:00 AM AMBULATORY - PSYCHIATRY [facility] Feb 13, 2022 11:00 AM AMBULATORY - MEDICINE [facility] Mar 26, 2022 10:00 AM AMBULATORY - PSYCHIATRY [facility] Apr 30, 2022 11:00 AM AMBULATORY - PSYCHIATRY [facility] May 06, 2022 10:00 AM AMBULATORY - SURGERY [facility] S Lab Results: +/- 30 days of the encounter This section includes the Chemistry and Hematology Lab Results on record with [place] for the patient. Radiology Reports and Pathology Reports are provided separately, in subsequent sections.Lab Results This section contains the Chemistry/Hematology Results that were resulted 30 days before or 30 daysafter the date of the Encounter. Date/Time Source Result Type Result - Unit Interpretation Reference Range Comment Jan 02, 2022 09:25 AM [facility] HCG, QUAL Specim en Type: URINE No comment enter ed. Ordering Provid er: CALVIN HARRIS Report Released Date/Time: Jan 02, 2022 09:09 AM Reporting Lab: [facility] [address] [facility] [id number] Performing Lab: [facility] [address] [facility] [id number] HCG, QUAL NEGATIVE -neg Social History: Smoking Status (Most current) and Tobacco Use (All prior to encounter date) This section includes the most current, and the historical, smoking and tobacco-related health factors from the [place] facility where the Encounter took place.Current Smoking Status This section includes the most current smoking, or tobacco-related health factor, from the [place] facility where the Encounter took place. Date/Time Current Smoking Status Comment Facility Jul 23, 2021 02:30 PM [place]-TOBACCO NEVER USED TOSHA [facility] Radiology Reports: +/- 30 days of [...] the Encounter. The data comes from all [place] treatment facilities. Date/Time Radiology Report Provider Source Jan 02, 2022 09:42 AM ABDOMEN 2 VIEWS FLAT & UPRIGHT/DECUB: TRINA GALICIA [facility] JASMIN COVINGTON [id number] -1990 F Exm Date: JAN 02, 2022@09:42 Req Phys: CALVIN HARRIS Loc: [facility] EMERGENCY D EPT WALK-IN (Re Img Loc: MAIN X-RAY Service: Unknown Screen: Patient answered no (Case [id number] COMPLETE) ABDOMEN 2 VIEWS FLA T & UPRIGHT/DE(RAD Detailed) CPT:80875 Proc Modifiers : 1-Covid Precautions, 2-Non-Cov id Precautions Reason for Study: Lower abdominal pain and cons tipation Clinical History: IS NOT under investigation for COVID-19 or is COVID-19 negative Constipation into 1 week Responsible provider n ethan and phone number to notify for critical findings if other than user placing the order and pager listed below: User placing orders pager: LAST CREATININE [phone] (07/23/21) Report Status: Verified Date Reported: JAN 02, 2022 Date Verified: JAN 02, 2022 Applications Tester E-Sig:/ES/TRINA TRINIDAD MD, FACR, C CD Report: [...] the Encounter. Date/Time Encounter Note(s) Provider Source Dec 11, 2021 09:00 AM MENTAL HEALTH NOTE: ROBLES OLEARY [facility] LOCAL TITLE: MH PROGRESS NOTE STANDARD TITLE: MENTAL HEALTH NOTE DATE OF NOTE: DEC 11, 2021@09:00 ENTRY DATE: DEC 11, 2021@11:51:15 AUTHOR: ROBLES OLEARY EXP COSIGNER: URGENCY: STATUS: COMPLETED ACT for Depression - Action Phase Time in session (in minutes): 60 SESSION FORMAT Video Telehealth Session DIAGNOSIS: Primary (focus of treatment): Recurrent Depress ion Secondary (if applicable): Anxiety The following Core Processes were facilitated i n this session: Defusion exercises employed in this session inc lude: Contact with the Present moment and mindfulness exercises employed in this session include: Clarifying Values exercises employed in this se ssion include: Exercises related to committed action employed in this session include: ADDITIONAL SESSION INFORMATION: [place] reports that she is doing somewhat meagan r this week. discussed reactions to recent criticisms/praise from ACT perspective . Discused recurrent thoughts of not good enough. Discussed Acceptance across i ssues related to work, parenting , body image, and values based actions . leaving for annual training at [employer]. 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 Discussed how others invalidated her in c ontext of work. O: Affect was congruent with session content. Mo od is mildly depressed and anxious. Appears mildly depressed. She denies SI /HI. 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 . P rotective factors: no SI, no hx of suicide attempts, treatment seeking, finn rn for family, children in home, future oriented, problem solving ability. was pleasant and cooperative. Speech was clear and fluent. Casual ly dressed and groomed. good eye contact. no AH/vh/delusions. Thought form wa s logical and goal directed. Insight and judgement are good. Denies excessive use of alcohol. Variable use of caffeine/energy drinks. States that she i s sleeping well. Reports withdrawal sx from tapering antidepressants truman ctric shocks in various body parts. Related to: Combat [place] Related Diagnoses: Recurrent depression (SCT 932956823) - Other rec urrent depressive disorders (ICD-10-CM F33.8) (Primary) Anxiety (SCT [id number]) - Anxiety disorder, unspe cified (ICD-10-CM F41.9) Procedures: 38-52 minutes P: F/U on January 01 at 9 a.m. via VVC. [place] has my contact number, the [place] number, and VCL. /wally/ ROBLES OLEARY, PHD, STAFF PSYCHOLOGIST Signed: 12/11/2021 11:59
--- OUTSIDE RECORDS SUMMARY | 2022-05-01 10:37 | XMS_ITS | Encounter Summary ---
:1990 Author Organization [facility] rs Address [address] [place] [address] Support Name Relationship Address Phone BELLE MADISON Unavailable [address] [place] [address] BELLE MADISON Unavailable [address] [place] [address] Insurance Providers: All historical and current Section [...] Dick HEALTH HEALTH FED Jan 05, 3052 [id number] [phone] ADRIAJELENA PATIENT PARTNERS [place] EMP 2021 1 7 [place] CE OPEN ORGANIZAT ACCES ION W/OUT S OF NETWORK BENEFITS MEDIMPACT PRESCRIPT HEALT Jan 04 [id number] [phone] KAITY PremJELENA PATIENT RX ION H 2021 1 9 [place] [employer] E[employer] Selected Encounter This section includes the information on record at [place] for the Encounter. Date/Time Encounter Type Encounter Description Reason Provider Source November 25, 2021 02:37 Outpatient Encounter TELEPHONE [facility] IHE Encounter Template Text not used by [place] Plan of Treatment: Future Appointments (+ 6 [...] 20 appointments. The data comes from all [place] treatment facilities. Appointment Date/Time Appointment Type Appointment Facili ty Name November 28, 2021 11:00 AM AMBULATORY - PSYCHIATRY [facility] Dec 04, 2021 09:00 AM AMBULATORY - PSYCHIATRY [facility] Dec 11, 2021 09:00 AM AMBULATORY - PSYCHIATRY [facility] Jan 01, 2022 09:00 AM AMBULATORY - PSYCHIATRY [facility] Jan 02, 2022 08:22 AM AMBULATORY - MEDICINE [facility] Jan 15, 2022 02:00 PM AMBULATORY - NONE [facility] Feb 05, 2022 11:00 AM AMBULATORY - PSYCHIATRY [facility] Feb 13, 2022 11:00 AM AMBULATORY - MEDICINE [facility] Mar 26, 2022 10:00 AM AMBULATORY - PSYCHIATRY [facility] Apr 30, 2022 11:00 AM AMBULATORY - PSYCHIATRY [facility] May 06, 2022 10:00 AM AMBULATORY - SURGERY [facility] S Social History: Smoking Status (Most current) and Tobacco Use (All prior to encounter date) This section includes the most current, and the historical, smoking and tobacco-related health factors from the [place] facility where the Encounter took place.Current Smoking Status This section includes the most current smoking, or tobacco-related health factor, from the [place] facility where the Encounter took place. Date/Time Current Smoking Status Comment Facility Jul 23, 2021 02:30 PM VA-TOBACCO NEVER USED REBELPrem MARIAM [facility] Encounter Notes: All associated encounter notes This section contains the clinical notes associated to the Encounter. Date/Time Encounter Note(s) Provider Source November 25, 2021 02:37 PM REPORT OF CONTACT: NIDHI TORRES [facility] LOCAL TITLE: PATIENT CONTACT NOTE STANDARD TITLE: REPORT OF CONTACT DATE OF NOTE: NOVEMBER 25, 2021@14:37 ENTRY DATE: NOVEMBER 25, 2021@14:38:02 AUTHOR: NIDHI TORRES EXP COSIGNER: URGENCY: STATUS: COMPLETED PATIENT CONTACT NOTE Has ADDENDA Patient contact Name of [place]: ADRIAJASMIN CAMI Name/Relationship of Contact if other than Veter an: Date & Time of Contact: November@14:38 Type of Contact: Telephone Reason for Contact: Check Embosser received email from sarmad aguilar stating her doctor told her about [facility] and she would like more information. Mike carrillo called , provided information on structure and content of the grou p. Bradgate expressed interest and desire to participate, however [facility] d/t work conflicts. She anticipates she would be able to participate in the future. Bradgate knows to request a referral to David terese Rohan from her MH provider when her schedule allows. /wally/ NIDHI TORRES Oleomargarine Maker Signed: 11/25/2021 14:43 Receipt Acknowledged By: 11/25/2021 15:00 /wally/ ROBLES OLEARY, PHD, STAFF PSYCHOLOGIST 11/25/2021 14:56 /wally/ KEN ZEPEDA Clinical Automatic Clipper And Stripper, Mental Health 11/27/2021 ADDENDUM STATUS: COMPLETED Addendum to let provider know that I spoke to Ms Tamia Madison, informed her of [facility], reviewed the flyer with her, and suggested that it would be a good fit for her. She agreed to reviewand reach out if interested. It appears that Bradgate did reach outand I am fully in support if provider deems her a good fit for current group. /wally/ ROBLES OLEARY, PHD, STAFF PSYCHOLOGIST Signed: 11/27/2021 16:38 Receipt Acknowledged By: * AWAITING SIGNATURE * NIDHI TORRES
--- OUTSIDE RECORDS SUMMARY | 2022-05-01 10:37 | XMS_ITS | Encounter Summary ---
:1990 Author Organization [facility] rs Address [address] [place] [id number] Support Name Relationship Address Phone BELLE COVINGTON Unavailable [address] [place] [address] BELLE COVINGTON Unavailable [address] [place] [address] Insurance Providers: All historical and current Section [...] Dick HEALTH HEALTH FED Jan 05, 3052 [id number] [phone] ADRIAJELENA PATIENT PARTNERS [place] EMP 2021 1 7 [place] CE OPEN ORGANIZAT ACCES ION W/OUT S OF NETWORK BENEFITS MEDIMPACT PRESCRIPT HEALT Jan 04 [id number] [phone] KAITY AmaroJELENA PATIENT RX ION H 2021 1 9 [place] [employer]N ERS Selected Encounter This section includes the information on record at [place] for the Encounter. Date/Time Encounter Type Encounter Description Reason Provider Source Jan 07, 2022 09:00 Outpatient Encounter TELEPHONE/ANCILLARY AM IHE Encounter Template Text not used by [place] Plan of Treatment: Future Appointments (+ 6 [...] 20 appointments. The data comes from all [place] treatment facilities. Appointment Date/Time Appointment Type Appointment Facili ty Name Jan 15, 2022 02:00 PM AMBULATORY - NONE [facility] Feb 05, 2022 11:00 AM AMBULATORY - PSYCHIATRY [facility] Feb 13, 2022 11:00 AM AMBULATORY - MEDICINE [facility] Mar 26, 2022 10:00 AM AMBULATORY - PSYCHIATRY [facility] Apr 30, 2022 11:00 AM AMBULATORY - PSYCHIATRY [facility] May 06, 2022 10:00 AM AMBULATORY - SURGERY [facility] S Lab Results: +/- 30 days of the encounter This section includes the Chemistry and Hematology Lab Results on record with [place] for the patient. Radiology Reports and Pathology Reports are provided separately, in subsequent sections.Lab Results This section contains the Chemistry/Hematology Results that were resulted 30 days before or 30 daysafter the date of the Encounter. Date/Time Source Result Type Result - Unit Interpretation Reference Range Comment Jan 02, 2022 09:25 AM [facility] HCG, QUAL Specim en Type: URINE No comment enter ed. Ordering Provid er: CALVIN HARRIS Report Released Date/Time: Jan 02, 2022 09:09 AM Reporting Lab: [facility] [id number] Performing Lab: [facility] [address] [facility] [id number] HCG, QUAL NEGATIVE -neg Social History: Smoking Status (Most current) and Tobacco Use (All prior to encounter date) This section includes the most current, and the historical, smoking and tobacco-related health factors from the [place] facility where the Encounter took place.Current Smoking Status This section includes the most current smoking, or tobacco-related health factor, from the [place] facility where the Encounter took place. Date/Time Current Smoking Status Comment Facility Jul 23, 2021 02:30 PM [place]-TOBACCO NEVER USED T[facility]HA [facility] Radiology Reports: +/- 30 days of the [...] the Encounter. The data comes from all [place] treatment facilities. Date/Time Radiology Report Provider Source Jan 02, 2022 09:42 AM ABDOMEN 2 VIEWS FLAT & UPRIGHT/DECUB: TRINA GALICIA [facility] JASMIN COVINGTON [id number] -1990 F Exm Date: JAN 02, 2022@09:42 Req Phys: CALVIN HARRIS Pat Loc: [facility] EMERGENCY D EPT WALK-IN (Re Img Loc: MAIN X-RAY Service: Unknown Screen: Patient answered no (Case [id number] COMPLETE) ABDOMEN 2 VIEWS FLA T & UPRIGHT/DE(RAD Detailed) CPT:48018 Proc Modifiers : 1-Covid Precautions, 2-Non-Cov id Precautions Reason for Study: Lower abdominal pain and cons tipation Clinical History: [place] IS NOT under investigation for COVID-19 or is COVID-19 negative Constipation into 1 week Responsible provider n ethan and phone number to notify for critical findings if other than user placing the order and pager listed below: User placing orders pager: LAST CREATININE 0.8 (07/23/21) Report Status: Verified Date Reported: JAN 02, 2022 Date Verified: JAN 02, 2022 Cook Cashier Food Prep E-Sig:/ES/TRINA TRINIDAD MD, FACR, C CD Report: [...] Encounter. Date/Time Encounter Note(s) Provider Source Jan 07, 2022 09:21 AM NO SHOW NOTE: LORA RUSSELL [facility] LOCAL TITLE: NO SHOW/CANCELLATION CLINIC NOTE STANDARD TITLE: NO SHOW NOTE DATE OF NOTE: JAN 07, 2022@09:21 ENTRY DATE: JAN 07, 2022@09:21:47 AUTHOR: LORA RUSSELL EXP COSIGNER: URGENCY: STATUS: COMPLETED SUBJECT: No show NO SHOW/CANCELLATION CLINIC NOTE Has ADDEND A [place] not seen for scheduled appointment due t o: No Show patient did not answer for scheduled Tyrone samaniego phone appointment on 01/07/2022 at 9AM. Two attempts to reach at 9AM an d 9:15 AM. No show letter sent. Appointment Rescheduled: No Patient provided number to call to r/s appointme nt as desires. Please review patient chart and medications for renewal needs (if appropriate). /wally/ LORA RUSSELL RD CD REGISTERED DIETITIAN Signed: 01/07/2022 09:23 01/07/2022 ADDENDUM STATUS: COMPLETED Dear : I am writing because you wer e a no show for your scheduled phone appointment. I attempted to reach you two times on the schedule d day at the phone numbers listed in your patient chart. At this time, I will not attempt to cont act you again regarding this nutrition education appointment. I am sending some basic information on nutrition for you to review. If you have any questions, please con tact me at the clinic. If you desire to re-schedule the appointment, pl ease call [phone] to schedule a dietitian appointment at your [facility]. Appointments can be Face to face at the clinic, VVC (video) appointment or phone appointment. All three are good options. In good health, Nova Rainey, [place], CD [facility] Dietitian /wally/ LORA RUSSELL RD CD REGISTERED DIETITIAN Signed: 01/07/2022 09:25 01/20/2022 ADDENDUM STATUS: COMPLETED Please No-show appt on 01/07. Thanks! /wally/ AMANDA JENSEN RD Clinical Glove Printer Signed: 01/20/2022 12:18 Receipt Acknowledged By: * AWAITING SIGNATURE * PHU DAILEY
--- OUTSIDE RECORDS SUMMARY | 2022-05-01 10:37 | XMS_ITS | Encounter Summary ---
:1990 Author Organization [facility] Address [address] [place] [id number] Support Name Relationship Address Phone BELLE MADISON Unavailable [address] [place] [address] BELLE MADISON Unavailable [address] [place] [address] Insurance Providers: All historical and current Section [...] Dick [employer] FED Jan 05, 3052 [id number] [phone] JELENA MADISON PATIENT PARTNERS [employer] EMP 2021 1 7 [place] CE OPEN ORGANIZAT ACCES ION W/OUT S OF NETWORK BENEFITS MEDIMPACT PRESCRIPT HEALT Jan 04 [id number] [phone] KAITY AmaroJELENA PATIENT RX ION H 2021 1 9 [place] PARTN ERS Selected Encounter This section includes the information on record at [place] for the Encounter. Date/Time Encounter Type Encounter Reason Provider Source Description Jan 02, 2022 EMERGENCY DEPT EMERGENCY DEPT ICD-10-CM K59.09 Aníbal STEVENS 08:22 AM VISIT Other constipation with Provider Comments: Other Constipation IHE Encounter Template Text not used by [place] Assessments - Encounter Diagnoses This section includes the primary and secondary diagnoses documented for the Encounter. Date/Time Primary/Secondary Diagnosis Name Provider Source Diagnosis Jan 02, 2022 PRIMARY Other constipation CALVIN STEVENS [place] 10:24 AM [facility] Plan of Treatment: Future Appointments (+ 6 [...] 15, 2022 02:00 PM AMBULATORY - NONE [facility] Feb 05, 2022 11:00 AM AMBULATORY - PSYCHIATRY [facility] Feb 13, 2022 11:00 AM AMBULATORY - MEDICINE [facility] Mar 26, 2022 10:00 AM AMBULATORY - PSYCHIATRY [facility] Apr 30, 2022 11:00 AM AMBULATORY - PSYCHIATRY [facility] May 06, 2022 10:00 AM AMBULATORY - SURGERY [facility] S Lab Results: +/- 30 days of the encounter This section includes the Chemistry and Hematology Lab Results on record with [place] for the patient. Radiology Reports and Pathology Reports are provided separately, in subsequent sections.Lab Results This section contains the Chemistry/Hematology Results that were resulted 30 days before or 30 daysafter the date of the Encounter. Date/Time Source Result Type Result - Unit Interpretation Reference Range Comment Jan 02, 2022 09:25 AM [facility] HCG, QUAL Specim en Type: URINE No comment enter ed. Ordering Provid er: CALVIN STEVENS Report Released Date/Time: Jan 02, 2022 09:09 AM Reporting Lab: [facility] [address] [facility] [id number] Performing Lab: [facility] [id number] HCG, QUAL NEGATIVE -neg Vital Signs: All taken on the encounter date This section contains inpatient and outpatient Vital Signs collected on the date of the Encounter. Date/Time Temperature Pulse Blood Respiratory SP02 Pain Height Weight Kendall dy Source Pressure Rate Mass Index Jan 02, 97.5 F 83 113/56 20 /min [place] 2021 08:42 /min mm[Hg] [facility] Social History: Smoking Status (Most current) [...] 02:30 PM VA-TOBACCO NEVER USED T[facility] Radiology Reports: +/- 30 days [...] 2 VIEWS FLAT & UPRIGHT/DECUB: TRINA GALICIA [facility] JASMIN MADISON [id number] -1990 F Exm Date: JAN 02, 2022@09:42 Req Phys: MADDALI,CALVIN Pat Loc: [facility] EMERGENCY D EPT WALK-IN (Re Img Loc: MAIN X-RAY Service: Unknown Screen: Patient answered no (Case [id number] COMPLETE) ABDOMEN 2 VIEWS FLA T & UPRIGHT/DE(RAD Detailed) CPT:20693 Proc Modifiers : 1-Covid Precautions, 2-Non-Cov id [...] 02, 2022 Date Verified: JAN 02, 2022 Senior Systems Engineer E-Sig:/ES/TRINA TRINIDAD MD, FACR, C CD [...] Encounter Note(s) Provider Source Jan 02, 2022 10:23 AM NURSING EMERGENCY DEPT NOTE: APARNA PEREIRA [facility] LOCAL TITLE: EMERGENCY DEPT NURSING NOTE STANDARD TITLE: NURSING EMERGENCY DEPT NOTE DATE OF NOTE: JAN 02, 2022@10:23 ENTRY DATE: JAN 02, 2022@10:23:11 AUTHOR: SHERRI PEREIRA EXP COSIGNER: URGENCY: STATUS: COMPLETED Discharge from Emergency Department to Home/Out side Facility Personal Protective Equipment (PPE): Patient wa s in mask on arrival, Patient was in mask on arrival, patient remaine d masked for entire visit, RN used PPE during every encounter with the pat surjit, /PA/COLLAR PACKER used PPE during every encounter with the patient The examination and treatment received in the [facility]/Emergency Room is a problem focused exam and is not intended to b e substituted for complete medical care. Please call your primary care pro vider (PCP) if the condition for which you were treated is getting worse, not improving, or unexpected problems develop. Your Primary Care Provider: ANITA HARVEY If you have questions and are unable to reach y our primary care provider, you may call: Primary Care Call Center (PCCC): Wednesday-Wednesday 8:00AM -4:00PM: [phone] or , Ext. 1100 After Hours/Weekend/Holiday: . Outpatient Pharmacy: [phone] IF YOU HAVE A LIFE THREATENING EMERGENCY: CALL 911 You have received urgent treatment by a MD/Nurs e Practitioner for: CONSTIPATION . HEALTHCARE INSTRUCTIONS: Patient was READY and RECEPTIVE to education. : denies learning needs at this time YOU HAVE BEEN GIVEN INSTRUCTIONS ON THE FOLLOWI NG: Other: CONSTIPATION MEDICATIONS: Take medications exactly as prescribed. Be sure to bring the medications with you when you see your physician. Medication Instruction Handouts provided. You have been sent to the Outpatient Pharmacy f or Medication Counseling. Carefully read all handouts. EDUCATIONAL LEVEL OF UNDERSTANDING: The instructions have been reviewed with Anayeli mireles and has had an opportunity to ask questions, has verbalized un derstanding, have received a copy of these instructions, Performs skills e ffectively. NEXT STEP IN CARE: The next step in your care is follow up with: Your primary care provider, ANITA HARVEY. /es/ SHERRI PEREIRA RN REGISTERED NURSE Signed: 01/02/2022 10:23 Jan 02, 2022 10:17 AM EMERGENCY DEPT EDUCATION NOTE: GENEVIEVE STEVENS [facility] LOCAL TITLE: EMERGENCY DEPT DISCHARGE INSTRUCTI ONS STANDARD TITLE: EMERGENCY DEPT EDUCATION NOTE DATE OF NOTE: JAN 02, 2022@10:17:22 ENTRY DATE: JAN 02, 2022@10:17:22 AUTHOR: CALVIN STEVENS EXP COSIGNER: URGENCY: STATUS: COMPLETED DISCHARGE INSTRUCTIONS IMPORTANT: We examined and treated you today on an emergency basis only. This was not a substitute for, or an effort t o provide, comprehensive medical care. In most cases, you must let your healthcare provider check you again. Tell your healthcare provider about any new or las ting problems. We cannot recognize and treat all injuries or illnesses in one Emergency Department visit. After you leave, you should follow the instructions below. You were treated today by Calvin Stevens MD. Special Information Please take the medications as prescribed to you pleasedrink at least 2-3 L of waterevery day you are going to have several bowel movementsbut this will help you feel better This Information Is About Your Follow Up Care Call your Primary Care Team if you have any prob lems or concerns. You can reach them by calling . Future Appointments 01/07/2022 at 9:00am KRYSTIN DIETITIAN TELE PACT 4E This Information Is About Your Illness and Diagn osis CONSTIPATION Constipation is a condition usually defined as a person having a bowel movement less than three times per week. It usually occur s because of stools that are too dry or large to pass easily. Typically there is pain while passing stools or the inability to have a bowel movement after straining or pushing for ten minutes or more. What causes constipation? -not enough fiber in the diet -lack of physical activity -not drinking enough water -stress and travel can also contribute to const ipation or other changes in bowel movements Less common causes of constipation include: -diseases of the bowel, such as irritable bowel syndrome -mental health disorders -nervous system disorders -certain medications -colon cancer -thyroid problems - Please follow these instructions: -Increase the fiber in your diet. This includes : fruits, vegetables, whole grain products. Commercial vegetable fiber prod ucts (like Metamucil) work well. -Drink extra liquids. Try to drink 8 la rge glasses of water or juice each day unless your health care provider has restricted your fluids. -Do not use laxatives regularly. They work on a n occasional basis. They do not correct what causes your constipation. -Exercise regularly (3 to 4 times per week). Contact your health care provider as soon as pos sible if you have any of the following: -continued constipation after eating more fiber and drinking more liquids. -increased abdominal pain or bloating of the ab domen. -blood in your stool (bright red or black). -any new problems or concerns. IMPORTANT MEDICATION INFORMATION -Your medication list includes any medications that were recently prescribed but not filled by the Pharmacy (PENDING Medicin es). -Included are any known ACTIVE Medicines. Susan umana review this list to make sure it is accurate, if this list does not matc h the current medications you are taking please follow-up with your Primary C are Team to have your Medication List reviewed. Pending Medications MAGNESIUM CITRATE LIQUID \ Sig: TAKE 1 BOTTLE BY MOUTH ONCE POLYETHYLENE GLYCOL 3350 ORAL PWDR \ Sig: TAKE 17 GRAMS BY MOUTH TWICE A DAY FOR 2 DAYS, THEN TAKE 17 GRAMS EVERY MORNING FOR 28 DAYS *MIX IN 4 TO 8 OUNCES OF LIQUID DIRECTED*USE COVER TO MEASURE POWDER* Active Medications [none] Medications Medications in the last 90 days [none] Discontinued Medications Medications discontinued in the last 90 days DULOXETINE HCL 20MG EC CAP TAKE ONE CAPSULE BY MOUTH EVERY DAY FOR MOOD AN D ANXIETY FLUOXETINE HCL 10MG CAP TAKE ONE CAPSULE BY MOUTH EVERY DAY FOR MOOD AN D ANXIETY GABAPENTIN 100MG CAP TAKE ONE CAPSULE BY MOUTH THREE TIMES A DAY NEEDED FOR ANXIETY AND ANTIDEPRESSANT DISCONTINUATION EFFECTS TRAZODONE HCL 50MG TAB TAKE ONE-HALF TO ONE TABLET(S) BY MOUTH AT BEDT SIRI NEEDED FOR SLEEP YOU ARE THE MOST IMPORTANT FACTOR IN YOUR RECOVE RY. Follow the above instructions carefully. Take your medicines as p rescribed. If you do not understand any of your medicines, please ask que stions. If you have any outstanding tests from the emergency department, please contact your provider to review them in the next 3-5 day s. If you have new symptoms, feel worse, or are not getting better as discussed, call to discuss your health quest ions and arrange for follow-up care, or return to the Emergency Room IF YOU ARE EXPERIENCING A MEDICAL EMERGENCY CALL 911 OR GO TO THE NEAREST EMERGENCY ROOM // CALVIN STEVENS M.D. STAFF PHYSICIAN Signed: 01/02/2022 10:17 Jan 02, 2022 10:01 AM NURSING EMERGENCY DEPT NOTE: APARNA PEREIRA [facility] LOCAL TITLE: EMERGENCY DEPT NURSING NOTE STANDARD TITLE: NURSING EMERGENCY DEPT NOTE DATE OF NOTE: JAN 02, 2022@10:01 ENTRY DATE: JAN 02, 2022@10:01:07 AUTHOR: SHERRI PEREIRA EXP COSIGNER: URGENCY: STATUS: COMPLETED Nursing Focused Assessment: CHIEF COMPLAINT: abd pain Allergies/ADR: LATEX GLOVES (Jul 04, 2019) Additional allergies not listed: Vital Signs * Blood Pressure: 113/56 (01/02/2022 08:42) Heart Rate: 83 (01/02/2022 08:42) Respirations: 20 (01/02/2022 08:42) Temperature: 97.5 F [36.4 C] (01/02/2022 08:42) Pain: 1 (07/23/2021 14:28) Weight: 121 lb [54.88 kg] (07/23/2021 14:28) O2 Sats: 98% (07/23/2021 14:28) Tobacco use: No Alcohol use: No Any drugs besides what is prescribed or over th e counter: No ABUSE/NEGLECT: No evidence of abuse/neglect 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 INTERVENTIONS: Oriented to room and bed controls Call light within reach of patient or family/fr trin[place] /wally/ SHERRI PEREIRA RN REGISTERED NURSE Signed: 01/02/2022 10:02 Jan 02, 2022 09:00 AM PHYSICIAN EMERGENCY DEPT NOTE: GINNY GLOVER [facility] LOCAL TITLE: EMERGENCY DEPT NOTE STANDARD TITLE: PHYSICIAN EMERGENCY DEPT NOTE DATE OF NOTE: JAN 02, 2022@09:00 ENTRY DATE: JAN 02, 2022@09:00:29 AUTHOR: PAUL GLOVER EXP COSIGNER: URGENCY: STATUS: COMPLETED EMERGENCY DEPT NOTE Has ADDENDA Personal Protective Equipment (PPE): Patient wa s in mask on arrival, patient remained masked for entire visit, RN us ed PPE during every encounter with the patient, MD/PA/COLLAR PACKER used PPE during ever y encounter with the patient Nurse's note reviewed. Chief Complaint: The patient is a 31 y/o FEMALE complaining of: Abdominal pain and bloating TDAP/TD Immunizations Immunization Series Date Facility Reaction Info TDAP 01/14/2017 [facility] Covid-19 Immunizations Immunization Series Date Facility Reaction Info COVID-19 (MODERNA), MRNA, LNP-S,* 1 08/29/2020 [place] [facility] COVID-19 (MODERNA), MRNA, LNP-S,* 2 09/26/2020 [facility] History of present illness: Ms Madison is a 31 y/o female who presented to [facility] ED with complains of lower abd pain, bloating and constipation that started several weeks ago. Yesterday her abd pain got worse which prompted her to [facility] e to the ED. She reports an intermittent sharp lower abd omen pain located below the umbilicus and above the pubis with occasioanl radiation to the r ight side. She also reports small hard stools in the last 3 weeks, weight gain of 5lbs and dyspareunia. She denies N/V/D, GALVAN, vaginal bleeding or vaginal discharge and urinary symptoms. She is currently sexually active with only. She reports tubal ligation performed 5 years ago and vesectomy for her husb and. She states that in 02/22 she had an abnormal pap smea r but underwent colposcopy. She also reports history of taking duloxetine which she recently discontined 6 weeks ago. Currenlty she is not taking any medications. Allergies: LATEX GLOVES (Jul 04, 2019) Review of Systems: 10 point ROS reviewed and otherwise negative un less stated in HPI. Past Medical History: Active problems - Computerized Problem List is the source for the followin. Depression ([facility] [id number]) 2. Headache ([facility] [id number]) 3. Anxiety ([facility] [id number]) 4. Hip pain 5. Recurrent depression 6. Closed fracture of left clavicle 7. 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 History: Abnl Pap:02/22 underwent colposcopy STD HX: No history of STD Sexual Hx: Currently sexually active with her h usband Date Last Menstrual Period:12/12 Medications: Active Outpatient Medications (excluding Suppli es): No Medications Found Physical Exam: BP: 113/56 (01/02/2022 08:42) P: 83 (01/02/2022 08:42) R: 20 (01/02/2022 08:42) T: 97.5 F [36.4 C] (01/02/2022 08:42) O2 Sats: 98% (07/23/2021 14:28) General: Appears well and in acute distress HEENT:Atraumatic, Normocephalic, EOM intact Resp: Lungs clear to Auscultation Cardiac: Normal S1 and S2 sounds; no Murmur GI: Mild discomfort with deep palpation below the umbilicus, soft,no guarding or rigidity, active bowel sounds : No suprapubic tenderness MSK:Full ROM in all extremities Neuro:AOx3 Skin:No rash or bruises Imaging Abdominal Series Flat and Upright Moderate amount of stool within the colon otherw ise unremarkable. ED Course/Medical Decision Making/Assessment: This is a 31 y/o sexually active female with PMH X of anxiety, depression and tubal ligation who presented to ED with complain s of abd pain, bloating and constipation. Physical Exam today was benign. hC G test was negative. Abd Xray showed moderate amount of stool but unde rwise unremarkable. The lower abd pain likely is due to moderate amount of stool in her abdomen. No concerns for given negative labs. We reccom end laxatives at this time to aid help with the bowel movements. Diagnosis and Plan: Constipation Start Miralax and Magnesium Citrate liquid Recommend limited outdoor activities and easy ac cess to the restroom while taking these medications Disposition: Pt stable to be discharged home /wally/ PAUL GLOVER RESIDENT PHYSICIAN Signed: 01/02/2022 11:19 Receipt Acknowledged By: 01/02/2022 12:54 /wally/ CALVIN STEVENS M.D. STAFF PHYSICIAN 01/02/2022 ADDENDUM STATUS: COMPLETED Patient seen and examined [facility] resident physician, please refer to detailed note by Dr. Glover. Briefly, 31-year-old lady presents to [facility] emergency department with a few days of lower abdominal pain without any associated f eatures with exception of constipation. Imaging revealed her to have evidence of moderat e to large amount of stool burden, prescribed magnesium citrate x1 as well as MiraLAX twice a day for the first 2 days and thereafter daily. Recommend lots of water and avoidance of constip ation moving forwards /wally/ CALVIN STEVENS M.D. STAFF PHYSICIAN Signed: 01/02/2022 12:55 Receipt Acknowledged By: * AWAITING SIGNATURE * ANITA HARVEY Jan 02, 2022 08:34 AM NURSING EMERGENCY DEPT TRIAGE NOTE: OLGA AMOR [facility] LOCAL TITLE: EMERGENCY DEPARTMENT NURSING TRI E NOTE GRETNA STANDARD TITLE: NURSING EMERGENCY DEPT TRIAGE NO TE DATE OF NOTE: JAN 02, 2022@08:34 ENTRY DATE: JAN 02, 2022@08:34:06 AUTHOR: OLGA IGLESIAS EXP COSIGNER: URGENCY: STATUS: COMPLETED Emergency Department/Urgent Care Center Triage Patient age:31 Sex: FEMALE On arrival patient was: AMBULATORY Patient phone number: Allergies: LATEX GLOVES (Jul 04, 2019) Subjective/Chief Complaint: Constipation/bloating/abd pain Objective: Pt c/o lower abd pain/bloating over past two weeks ascencion after eating a meal. No N/V. Reports having only hard small stools.Weigh t gain of 5lbs in last month and discomfort with intercourse. The patient is not a fall risk. Vital Signs * Temperature 97.5 F (36.4 C) Pulse 83 Respirations 20 Blood Pressure 113/56 Pulse Oximetry 100 Room Air Emergency Severity Index (ORAL) level Level 3 Current Medications: Active Outpatient Medications (including Supplie s): No Medications Found Current Problems: Depression ([facility] [id number]) Headache ([facility] [id number] ) Anxiety ([facility] [id number]) Hip pain ([facility] [id number]) Recurrent depression ([facility] [id number]) Closed frac ture of left clavicle ([facility] [id number]) LSIL with other HR HPV 02/2021 (ICD-10-CM Coronavirus Disease 2019 (COVID-19) Screen The patient was asked if in the last 14 days the y have had new onset of any COVID-19 symptoms. They report the following: No symptoms Within the past 14 days, the patient reports no exposure to someone with a febrile/respiratory illness or someone with a kn own or suspected case of COVID-19 (within 6 feet for > 15 minutes). Result: Screen is negative. Result: Screen is negative. Suicide Screen: [place] Suicide Severity Rating Scale (C-SSRS) screener 1. Over the past month, have you wished you wer e or wished you could go to sleep and not wake up? No 2. Over the past month, have you [...] to do anything to end your life (for e xample, collected pills, obtained a gun, gave away valuables, went to e roof but didn't jump)? No 8. If YES, was this within the past 3 months? Response not required due to responses to other questions. /wally/ OLGA IGLESIAS, RN, BSN REGISTERED NURSE Signed: 01/02/2022 08:43
--- OUTSIDE RECORDS SUMMARY | 2022-05-01 10:37 | XMS_ITS ---
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 Date/Time Encounter Type Encounter Reason Provider Source Description Jan 15, 2022 MED NUTRITION NUTRITION/DIETETI ICD-10-CM Z71.3 Joseph GRAFF 02:00 PM INDIV SUBSEQ CS-INDIVIDUAL Dietary counseling E and surveillance with Provider Comments: Dietary counseling and surveillance IHE Encounter Template Text not used by [facility] Assessments - Encounter Diagnoses This section includes the primary and secondary diagnoses documented for the Encounter. Date/Time Primary/Secondary Diagnosis Name Provider Source Diagnosis Jan 16, 2022 PRIMARY Dietary counseling JOLEEN GRAFF IS [facility] 02:16 PM and surveillance E [facility] Plan of Treatment: Future Appointments (+ 6 months) and Future Tests (+/- 45 days) The Plan of Treatment section includes future care activities for the patient from all [place] treatmentfacilities. This section includes future appointments and future orders which are active, pending orscheduled.Future Appointments This section includes appointments that were scheduled to occur 6 months from the date of the Encounter, up to a maximum of 20 appointments. The data comes from all [place] treatment facilities. Appointment Date/Time Appointment Type Appointment Facili ty Name Feb 05, 2022 11:00 AM AMBULATORY - PSYCHIATRY [facility] Feb 13, 2022 11:00 AM AMBULATORY - MEDICINE [facility] CS Mar 26, 2022 10:00 AM AMBULATORY PSYCHIATRY [facility] Apr 30, 2022 11:00 AM AMBULATORY - PSYCHIATRY [facility] May 06, 2022 10:00 AM AMBULATORY [...] Reference Range Comment Feb 13, 2022 12:00 [facility] HUMAN [place] Specimen Type: CERVICAL VAGINAL CYTOLOGIC MATERIAL PM VIRUS,DNA HIGH RISK Comment: [id number] Ordering Provid er: ANITA HARVEY Report Released Date/Time: Feb 19, 2022 11:51 AM Reporting Lab: [facility] [address] [facility] [id number] Performing Lab: [facility] [id number] HPV 16 NEGATIVE Negative HPV 18 NEGATIVE Negative OTHER HIGH RISK HPV NEGATIVE Negative HPV INTERPRETATION HR-HPV is undetectable or below preset threshold. Jan 02, 2022 09:25 AM [facility] HCG, QUAL Specim en Type: URINE No comment enter ed. Ordering Provid er: CALVIN HARRIS Report Released Date/Time: Jan 02, 2022 09:09 AM Reporting Lab: [facility] [address] [facility] [id number] Performing Lab: [facility] [address] [facility] [id number] HCG, QUAL NEGATIVE -neg Social History: Smoking Status (Most current) and Tobacco Use (All prior to encounter date) This section includes the most current, and the historical, smoking and tobacco-related health factors from the [place] facility where the Encounter took place.Current Smoking Status This section includes the most current smoking, or tobacco-related health factor, from the [place] facility where the Encounter took place. Date/Time Current Smoking Status Comment Facility Jul 23, 2021 02:30 PM VA-TOBACCO NEVER USED [facility] Radiology Reports: +/- 30 days of [...] the Encounter. The data comes from all [place] treatment facilities. Date/Time Radiology Report Provider Source Jan 02, 2022 09:42 AM ABDOMEN 2 VIEWS FLAT & UPRIGHT/DECUB: TRINA GALICIA [facility] JASMIN COVINGTON [id number] -1990 F Exm Date: JAN 02, 2022@09:42 Req Phys: IMELDADACALVIN JON Pat Loc: [facility] EMERGENCY D EPT WALK-IN (Re Img Loc: MAIN X-RAY Service: Unknown Screen: Patient answered no (Case [id number] COMPLETE) ABDOMEN 2 VIEWS FLA T & UPRIGHT/DE(RAD Detailed) CPT:26355 Proc Modifiers : 1-Covid Precautions, 2-Non-Cov id [...] 02, 2022 Date Verified: JAN 02, 2022 Cash Applications Coordinator E-Sig:/ES/TRINA TRINIDAD MD, FACR, C CD Report: [...] Encounter. Date/Time Encounter Note(s) Provider Source Jan 15, 2022 07:46 AM NUTRITION INITIAL EVALUATION NOTE: JOLEEN GRAFF [facility] LOCAL TITLE: NUTRITION EVALUATION STANDARD TITLE: NUTRITION INITIAL EVALUATION NOT E DATE OF NOTE: JAN 15, 2022@07:46 ENTRY DATE: JAN 16, 2022@07:46:46 AUTHOR: JOLEEN GRAFF EXP COSIGNER: URGENCY: STATUS: COMPLETED NUTRITION EDUCATION OUTPATIENT Initial, Face to face Time spent: 30 minutes Reason for visit: RTC for optimizing nutrition, elimination diet ASSESSMENT: Height: 64 in [162.6 cm] (07/23/2021 14:28) Weight: Measurement DT WEIGHT LB(KG)[BMI] 01/16/2022 124.9# 08/08/2021 117.0# -> last RD visit 02/18/2021 114.0# -> lowest weight 07/04/2019 144.0# BMI: 21.5 Weight change: Hx of 30# wt loss (21%) x ~ 1.5 yrs. from 06/2019-02/2021 (intentional, however pt states this was border line disordered in setting of obsessively tracking kcal and over-exercisin g to achieve the loss). [place] Body Weight: 108-132#. Per pt, she would like to stay at current weight and not gain or lose any more weight. Pertinent Past Medical History: Depression, Anx iety, Others reviewed. Nutrition Related Medications: Magnesium Citrat e, MiraLAX Pt stopped taking duloxetine 2 months ago, repo rts she is feeling more alert, feels it has been going well. 01/02/22 ER visit Imaging revealed her to have e vidence of moderate to large amount of stool burden. Star raegan on magnesium citrate x1 as well as MiraLAX twice a day for the first 2 days and thereafter daily. EDUCATION SCREENING PARTICIPANTS: Patient BARRIERS/SPECIAL NEEDS: no barriers identified READINESS TO LEARN: no barriers Patient subjective statements: Pt's main concer n this visit is to work on regulating her bowels. Recent ER visit (01/02) du e to constipation, abdominal pain, 3 weeks of small hard stools. Since ER, yuliana mireles has been taking MiraLAX as ordered and having daily BMs. However, would like to manage without laxatives and wondering how she can alter diet to promote more regular softer BMS. Also wondering about kcal/pro/CHO r ecommended ratio - was previously only doing about ~30% of calories fr om CHO but now trying to aim for more. Aims for ~1900 calories per day, but doesn't count kcals anymore. Eats every 2 hours or starts to feel f atigued. Diet Recall Meal 1: 1/2 cup dry oatmeal, yogurt with probio tics, ~1/8 cup premiere protein in oatmeal. Snack: Spinach salad Meal 2: Balsam roll sushi (rice/cucumber/ salmon/cream cheese) Snack: yogurt, broccoli & carrots Meal 3: Pizza last night, but usually chicken, vegetable, rice. Snack: premiere protein, banana or apple Snack: Skinny pop Fluid intake: 34 oz Water, ~4oz premiere protei n/day, 20 oz ice coffee, 12 oz Celsius water (10kcal, 200mg caffeine) Meal preparation: Self Food Allergies: None known. Food Sensitivities: Pt denies any known sensiti vities. However, reports she has increased abdomen pain associated with suga ry or greasy foods, pasta, unsure of others although says it does get wors e with certain foods. Problems related to food security: Vet denies n eed for assistance. Activity level (unchanged): works out 3-4 x/wk, Wow! Stufflifts 180# Malnutrition Assessment (Per AND/ASPEN Consensu s Statement, 2012) Dietitian does not suspect malnutrition at this time, therefore, physical assessment not conducted Pertinent lab results: No recent pertinent labs to review. Estimated nutrient needs based on actual weight : 3215-7555 calories/day 25 - 30 kcal/kg 57-86 grams protein/day 1 - 1.5 g/kg 1995 ml fluids/day 35 ml/kcal NUTRITION DIAGNOSIS: Food and nutrition related knowledge deficit r/t limited prior exposure to appropriate nutrient needs and nutr for balanced eating/satiety AEB vet subjective statements, complaints of constipatio n, and appointment request -- Problem active INTERVENTION: Provided nutrition education/counseling: -Reviewed diet recall, attempted to identify tri gger foods for abdominal pain and constipation -Discussed use of eliminatio n diet to identify if any foods are causing symptoms (Possibly gluten/wheat, dairy). Pt states it is possible gluten may be associated with symptoms and agreeable to try e limination diet: RD provided elimination diet journal template for pt to use to track dietary intake, focusing on dairy a nd gluten as challenge foods to eliminate, add back in and track symptoms. Will go over at next vis it. -Discussed fluid intake, recommend pt replace 1 caffeine containing drink (coffee, Celsius) with water for more adequate h ydration -Reviewed recommendations fo r constipation including fiber intake and hydration -Provided education about recommended ratio of m acro nutrients in diet Education provided using: Discussion, Printed Elimination Diet handout. PARTICIPANT(S) RESPONSE (OUTCOME): Able to communicate or demonstrate understandin g with no further questions. MONITORING/EVALUATION: Patient's nutrition/acti vity related goals: Goal 1: I will replace >1 source of protein/day with healthy fat. -MET, d/c as protein intake within recommended range. Goal 2: Wt maintenance ~117-121# - NOT MET, rev ise: >> Weight maintenance 124.9+/-3% FOLLOW UP: Follow up appointment will be scheduled: 1 alexander h for in-clinic visit (02/16) and elimination diet discussion /es/ CHARITY ABRAHAM GRAFF, LD REGISTERED DIETITIAN, 3F/OUTPATIENT ONCOLOGY Signed: 01/16/2022 14:15
--- OUTSIDE RECORDS SUMMARY | 2022-05-01 10:37 | XMS_ITS | Encounter Summary ---
:1990 Author Organization [facility] Address [address] [place] [address] Support Name Relationship Address Phone BELLE COVINGTON Unavailable [address] [place] [address] BELLE COVINGTON Unavailable [address] [place] [address] Insurance Providers: All historical and current Section [...] Dick HEALTH HEALTH FED Jan 05, 3052 [id number] [phone] JELENA COVINGTON PATIENT PARTNERS [place] EMP 2021 1 7 [place] CE OPEN ORGANIZAT ACCES ION W/OUT S OF NETWORK BENEFITS MEDIMPACT PRESCRIPT HEALT Jan 04 [id number] [phone] JELENA WILLETT PATIENT RX ION H 2021 1 9 [place] [employer] ERS Selected Encounter This section includes the information on record at [place] for the Encounter. Date/Time Encounter Type Encounter Reason Provider Source Description Jan 01, 2022 PSYTX W PT 45 MENTAL HEALTH ICD-10-CM F32.9 BRIE OLEARY 09:00 AM [facility] CL[facility]IC - IND Major depressive disorder, single episode, unspecified with Provider Comments: Depression ([facility] [id number]) IHE Encounter Template Text not used by [facility] Assessments - Encounter Diagnoses This section includes the primary and secondary diagnoses documented for the Encounter. Date/Time Primary/Secondary Diagnosis Name Provider Source Diagnosis Jan 01, 2022 PRIMARY Major depressive ROBLES OLEARY [place] 04:56 PM disorder, single HCS episode, unspecified Jan 01, 2022 SECONDARY Anxiety disorder, [facility]ES [facility] [place] 04:56 PM unspecified [facility] Plan of Treatment: Future Appointments (+ 6 months) and Future Tests (+/- 45 days) The Plan of Treatment section includes future care activities for the patient from all [place] [facility]. This section includes future appointments and future orders which are active, pending orscheduled.Future Appointments This section includes appointments that were scheduled to occur 6 months from the date of the Encounter, up to a maximum of 20 appointments. The data comes from all [place] treatment facilities. Appointment Date/Time Appointment Type Appointment Facili ty Name Jan 02, 2022 08:22 AM AMBULATORY - MEDICINE [facility] Jan 15, 2022 02:00 PM AMBULATORY - NONE [facility] Feb 05, 2022 11:00 AM AMBULATORY - PSYCHIATRY [facility] Feb 13, 2022 11:00 AM AMBULATORY - MEDICINE [facility] Mar 26, 2022 10:00 AM AMBULATORY - PSYCHIATRY [facility] Apr 30, 2022 11:00 AM AMBULATORY - PSYCHIATRY [facility] May 06, 2022 10:00 AM AMBULATORY - SURGERY [facility] S Lab Results: +/- 30 days of the encounter This section includes the Chemistry and Hematology Lab Results on record with [place] for the patient. Radiology Reports and Pathology Reports are provided separately, in subsequent sections.Lab Results This section contains the Chemistry/Hematology Results that were resulted 30 days before or 30 daysafter the date of the Encounter. Date/Time Source Result Type Result - Unit Interpretation Reference Range Comment Jan 02, 2022 09:25 AM [facility] HCG, QUAL Specim en Type: URINE No comment enter ed. Ordering Provid er: CALVIN HARRIS Report Released Date/Time: Jan 02, 2022 09:09 AM Reporting Lab: [facility] [address] [facility] [id number] Performing Lab: [facility] [address] [facility] [address] HCG, QUAL NEGATIVE -neg Social History: Smoking Status (Most current) and Tobacco Use (All prior to encounter date) This section includes the most current, and the historical, smoking and tobacco-related health factors from the [place] facility where the Encounter took place.Current Smoking Status This section includes the most current smoking, or tobacco-related health factor, from the [place] facility where the Encounter took place. Date/Time Current Smoking Status Comment Facility Jul 23, 2021 02:30 PM VA-TOBACCO NEVER USED [place] [facility] Radiology Reports: +/- 30 days of the [...] the Encounter. The data comes from all [place] treatment facilities. Date/Time Radiology Report Provider Source Jan 02, 2022 09:42 AM ABDOMEN 2 VIEWS FLAT & UPRIGHT/DECUB: TRINA GALICIA [facility] JASMIN COVINGTON [id number] -1990 F Exm Date: JAN 02, 2022@09:42 Req Phys: CALVIN HARRIS Pat Loc: [facility] EMERGENCY D EPT WALK-IN (Re Img Loc: MAIN X-RAY Service: Unknown Screen: Patient answered no (Case [id number] COMPLETE) ABDOMEN 2 VIEWS FLA T & UPRIGHT/DE(RAD Detailed) CPT:48516 Proc Modifiers : 1-Covid Precautions, 2-Non-Cov id [...] 02, 2022 Date Verified: JAN 02, 2022 Metal Engineering Process Worker E-Sig:/ES/TRINA TRINIDAD MD, FACR, C CD Report: [...] Encounter. Date/Time Encounter Note(s) Provider Source Jan 01, 2022 09:00 AM MENTAL [facility]ALTH [facility] T[facility]: MH PROGRESS NOTE STANDARD TITLE: MENTAL HEALTH NOTE DATE OF NOTE: JAN 01, 2022@09:00 ENTRY DATE: JAN 01, 2022@14:47:22 AUTHOR: ROBLES OLEARY EXP COSIGNER: URGENCY: STATUS: [...] in this session include: ADDITIONAL SESSION INFORMATION: continues to deal wi th mild physical symptoms due to discontinuation of antidepressant. She has gained 5 pounds and feel s self conscious. Discussed mood sx, and her selfquestio trever what am I doing with my life?. Dyer shares she is recognizing ongoing need to ahve more fir m boundaries with others, and her tendency to try to people-please. Sh juanjose chaotic aspects of childhood. How her father has blamed his stuggles on having to provide child-support to her mother, etc. Discussed her v alue around family and connection and how this makes it difficult at time to set boundaries. O: Affect was congruent with session content. Mo od is fluctuating Appears mildly depressed. She denies SI/HI. Suicide Risk is LOW: [...] in home, future oriented, problem solving ability. Dyer was pleasant and cooperative. Speech was clear [...] in various body parts. Related to: Combat Dyer Related Diagnoses: Recurrent depression (SCT [id number]) - Other rec urrent depressive disorders (ICD-10-CM F33.8) (Primary) Anxiety (SCT [id number]) - Anxiety disorder, unspe cified (ICD-10-CM F41.9) Procedures: 38-52 minutes P: F/U on February 05 at 11 a.m. via [facility]. Federica jeremiahamauri has my contact number, the [facility] number, and [facility]. /es/ ROBLES OLEARY, PHD, STAFF PSYCHOLOGIST Signed: 01/01/2022 16:57
--- OUTSIDE RECORDS SUMMARY | 2022-05-01 10:37 | XMS_ITS | Encounter Summary ---
:1990 Author Organization [facility] Address [address] [place] [address] Support Name Relationship Address Phone BELLE COVINGTON Unavailable [address] [place] [address] BELLE COVINGTON Unavailable [address] [place] [address] Insurance Providers: All historical and current Section [...] Dick HEALTH HEALTH FED Jan 05, 3052 [id number] [phone] JELENA COVINGTON PATIENT PARTNERS [place] EMP 2021 1 7 [place] OPEN ORGANIZAT ACCES ION W/OUT S OF NETWORK BENEFITS MEDIMPACT PRESCRIPT HEALT Jan 04 [id number] [phone] JELENA WILLETT PATIENT RX ION H 2021 1 9 [place] Selected Encounter This section includes the information on record at CT for the Encounter. Date/Time Encounter Type Encounter Reason Provider Source Description November 28, 2021 MTMS BY [facility] MENTAL HEALTH ICD-10-CM F41.9 TRAKALO,ANDR A 11:00 AM EST 15 MIN CLINIC - IND Anxiety disorder, A unspecified with Provider Comments: Anxiety ([facility] [id number]) IHE Encounter Template Text not used by [facility] Assessments - Encounter Diagnoses This section includes the primary and secondary diagnoses documented for the Encounter. Date/Time Primary/Secondary Diagnosis Name Provider Source Diagnosis November 28, 2021 PRIMARY Anxiety disorder, KEN ZEPEDAAPOL IS [place] 11:28 AM unspecified A HCS November 28, 2021 SECONDARY Major depressive KEN ZEPEDA An[place] CT 11:28 AM disorder, single A [facility] episode, unspecified Plan of Treatment: Future Appointments (+ 6 months) and Future Tests (+/- 45 days) The Plan of Treatment section includes future care activities for the patient [facility]. This section includes future appointments and future orders which are active, pending orscheduled.Future Appointments This section includes appointments that were scheduled to occur 6 months from the date of the Encounter, up to a maximum of 20 appointments. The data comes from all CT treatment facilities. Appointment Date/Time Appointment Type Appointment Facili ty Name Dec 04, 2021 09:00 AM AMBULATORY - PSYCHIATRY [facility] Dec 11, 2021 09:00 AM AMBULATORY PSYCHIATRY [facility] Jan 01, 2022 09:00 AM AMBULATORY PSYCHIATRY [facility] Jan 02, 2022 08:22 AM AMBULATORY - MEDICINE [facility] Jan 15, 2022 02:00 PM AMBULATORY - NONE [facility] Feb 05, 2022 11:00 AM AMBULATORY - PSYCHIATRY [facility] Feb 13, 2022 11:00 AM AMBULATORY - MEDICINE [facility] Mar 26, 2022 10:00 AM AMBULATORY - PSYCHIATRY [facility] Apr 30, 2022 11:00 AM AMBULATORY - PSYCHIATRY [facility] May 06, 2022 10:00 AM AMBULATORY - SURGERY [facility] S Social History: Smoking Status (Most current) and Tobacco Use (All prior to encounter date) This section includes the most current, and the historical, smoking and tobacco-related health factors from the CT facility where the Encounter took place.Current Smoking Status This section includes the most current smoking, or tobacco-related health factor, from the CT facility where the Encounter took place. Date/Time Current Smoking Status Comment Facility Jul 23, 2021 02:[address]-TOBACCO NEVER USED TOSHA BECERRA [facility] Encounter Notes: All associated encounter notes This section contains the clinical notes associated to the Encounter. Date/Time Encounter Note(s) Provider Source November 28, 2021 11:00 AM PSYCHIATRY E & M NOTE: KEN ZEPEDA [facility] LOCAL TITLE: MH PSYCHIATRIC EVALUATION & MANAGE MENT STANDARD TITLE: PSYCHIATRY E & M NOTE DATE OF NOTE: NOVEMBER 28, 2021@11:00 ENTRY DATE: NOVEMBER 28, 2021@09:57:52 AUTHOR: KEN ZEPEDA EXP COSIGNER: URGENCY: STATUS: COMPLETED PSYCHIATRIC EVALUATION & MANAGEMENT Has [facility] MENTAL HEALTH PHARMACY SERVICE CLINICAL PHARMACIST TELEPHONE CLINIC Type: VVC: Visit conducted b y clinical video telehealth. Patient verbal consent obtained. Location/emergency number confirmed. S: JASMIN COVINGTON is a 31-year-old female vet amauri seen for MH medication management follow-up. Mental Health Diagnoses per Dr. Gamez: -Other recurrent depressive disorders -Anxiety disorder, unspecified MH Medications: -Fluoxetine 10mg daily (no longer taking) -Gabapentin 100mg TID PRN (not taking) Side effects: [place] groggy after taking gabapenti n Other: -Melatonin 6mg PRN for sleep (Non-VA) [place] is of childbearing age but cannot have c hildren (tubal ligation) ------- CC: Physically and mentally feeling better. [place] reported that she is no longer taking fl uoxetine or gabapentin. She reported that she has been c ompletely off fluoxetine for 1 week, and was taking it every other day of the week prior. She descri bed mild tingling, but it is not too bad at all. She also noted that she is sleeping really well and felt that mood/anxiety has been more stable. She stat ed, I am really recovering from the gym better too. [place] expressed goal of continuing without psychiatric medications. She declined need for m edication follow-up at this time. 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 sons (4 and 10 yo), lifts weights Mental Status Exam: Orientation: Alert, oriented, cooperative, pleas ant Appearance: Difficult to assess due to poor VVC connection Speech: clear; normal rate, rhythm, tone - not p ressured Mood: Doing alright Affect: congruent with topics discussed, full-ra nge Thought process: coherent, relevant, logical, an d goal-directed Suicidal ideations: None reported Homicidal ideations: None reported Hallucinations: None reported Delusions: None noted Insight/judgment: Adequate for safety History of Side Effects/ADRs per Patient and CPR S: LATEX GLOVES (Jul 04, 2019) Active Outpatient Medications (excluding Supplie s): Outpatient Medications Status 1) FLUOXETINE HCL 10MG CAP TAKE ONE CAPSULE BY M OUTH ACTIVE EVERY DAY FOR MOOD AND ANXIETY 2) GABAPENTIN 100MG CAP TAKE ONE CAPSULE BY MOUT H THREE ACTIVE TIMES A DAY NEEDED FOR ANXIETY AND ANTIDEPRESSANT DISCONTINUATION EFFECTS ASSESSMENT: [place] is a 31-year-old fem vu with anxiety and depression who is currently prescribed fluoxetine and gabapentin. [place] is not taking gabapentin and recently discontinued fluoxetine, which were prescribed to support duloxetine discontinuation. Steffany garrett's goal continues to not align with psychiatric medication (declined need for altern ate medications today with strong preference to remain off medication long- term). Given stability of MH symptoms and 's goals, will discontinue f luoxetine and gabapentin as requested. Additionally, Terrence baugh declined need for medication related follow-up at this time. She will contact production underwriter if needed in the future. No acute safety concerns. SUICIDE RISK ASSESSMENT Risk factors/Warning Signs: History of psychiatr ic diagnosis; Anxiety Mitigating factors: Future-oriented; Care-seekin g; Sense of responsibility to family; Children in the home (I'd never do that to my kids); Life satisfaction Reality testing ability; Positive coping skills; Positive problem-solving skills Overall Assessment. Based on risk and protective factors, the patient is considered to be at low ACUTE and low CHRONIC ri sk for committing suicidal acts/self-harm. Discussed risks, benefits, s raoul effects and alternatives to treatment (including no treatment) and is agreeable t o the plan. VETERANS CURRENT QUESTIONS AND NEEDS REGARDING MENTAL HEALTH SERVICES ADDRE SSED. PLAN: #Medications -Discontinue fluoxetine and gabapentin #FOLLOW UP: -None with pharmacist. Time Spent: 20 min /wally/ KEN ZEPEDA Clinical Ict Analyst, Mental Health Signed: 11/28/2021 11:28 11/28/2021 ADDENDUM STATUS: COMPLETED Additionally, remains connected with ind ividual therapist, Dr. Gamez. Next appointment is 12/04/21. /tu ZEPEDA Clinical Ict Analyst, Mental Health Signed: 11/28/2021 11:29
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
--- OUTSIDE RECORDS SUMMARY | 2022-05-01 10:38 | XMS_ITS | Encounter Summary ---
:1990 Author Organization [facility] Address [address] [place] [address] Support Name Relationship Address Phone BELLE MADISON Unavailable [address] [place] [address] BELLE MADISON Unavailable [address] [place] [address] Insurance Providers: All historical and current Section [...] Dick HEALTH HEALTH FED Jan 05, 3052 [id number] [phone] JELENA MADISON PATIENT PARTNERS [place] EMP 2021 1 7 [place] CE OPEN ORGANIZAT ACCES ION W/OUT S OF NETWORK BENEFITS MEDIMPACT PRESCRIPT HEALT Jan 04 [id number] [phone] JELENA WILLETT PATIENT RX ION H 2021 1 9 [place] [employer] Selected Encounter This section includes the information on record at [place] for the Encounter. Date/Time Encounter Type Encounter Reason Provider Source Description November 20, 2021 PSYTX W PT 45 MENTAL HEALTH ICD-10-CM F33.8 BRIE OLEARY 09:00 AM MINUTES CLINIC - IND Other recurrent depressive disorders with Provider Comments: Recurrent depression ([facility] [id number]) IHE Encounter Template Text not used by VA Assessments - Encounter Diagnoses This section includes the primary and secondary diagnoses documented for the Encounter. Date/Time Primary/Secondary Diagnosis Name Provider Source Diagnosis November 21, 2021 PRIMARY Other recurrent [facility] 11:58 AM depressive HCS disorders November 21, 2021 SECONDARY Anxiety disorder, [facility]LE[facility] 11:58 AM unspecified [facility] Plan of Treatment: Future Appointments (+ 6 months) and Future Tests (+/- 45 days) The Plan of Treatment section includes future care activities for the patient from [facility] [place] [facility] This section includes future appointments and future orders which are active, pending orscheduled.Future Appointments This section includes appointments that were scheduled to occur 6 months from the date of the Encounter, up to a maximum of 20 appointments. The data comes from all [place] treatment facilities. Appointment Date/Time Appointment Type Appointment Facili ty Name November 28, 2021 11:00 AM AMBULATORY - PSYCH[facility]ATRY [facility] Dec 04, 2021 09:00 AM AMBULATORY - PSYCHIATRY [facility] Dec 11, 2021 09:00 AM AMBULATORY PSYCHIATRY [facility] Jan 01, 2022 09:00 AM AMBULATORY - PSYCHIATRY [facility] Jan 02, 2022 08:22 AM AMBULATORY - MEDICINE [facility] Jan 15, 2022 02:00 PM AMBULATORY - NONE [facility] Feb 05, 2022 11:00 AM AMBULATORY - PSYCHIATRY [facility] Feb 13, 2022 11:00 AM AMBULATORY - MEDICINE [facility] Mar 26, 2022 10:00 AM AMBULATORY - PSYCHIATRY [facility] Apr 30, 2022 11:00 AM AMBULATORY - PSYCHIATRY [facility] May 06, 2022 10:00 AM AMBULATORY - SURGERY [facility] S Social History: Smoking Status (Most current) and Tobacco Use (All prior to encounter date) This section includes the most current, and the historical, smoking and tobacco-related health factors from the [place] facility where the Encounter took place.Current Smoking Status This section includes the most current smoking, or tobacco-related health factor, from the [place] facility where the Encounter took place. Date/Time Current Smoking Status Comment Facility Jul 23, 2021 02:30 PM VA-TOBACCO NEVER USED TOSHA BECERRA [facility] Encounter Notes: All associated encounter notes This section contains the clinical notes associated to the Encounter. Date/Time Encounter Note(s) Provider Source November 20, 2021 09:00 AM MENTAL HEALTH NOTE: [facility]BLES OLE[facility] LOCAL TITLE: MH PROGRESS NOTE STANDARD TITLE: MENTAL HEALTH NOTE DATE OF NOTE: NOVEMBER 20, 2021@09:00 ENTRY DATE: NOVEMBER 21, 2021@11:52:02 AUTHOR: ROBLES OLEARY EXP COSIGNER: URGENCY: STATUS: COMPLETED S: I met with Ms. Madison for 55 minutes of psycho therapy via VVC to to home. [place] is working from home today. Rep orts that coming off of medication has been difficult. States she has ti mes where she has really negative self-thoughtss, wo rst person in the world Still feels that coming off medication is good for physi clarisa health but hard emotionally. Shares that prozac seesm to be hleping. Reports recurent thoughts o f not being good enough. discussed thoughts from ACT perspective. Noticing the problem solving brain and engaging in defusion with th oughts. Validated struggle to create social network with AMANDA knox, spouse bethanie y for deployment, school (grad in ). Encouraged her to continue efforts to e ngage with community in [employer] and being patient with process as difficult to establish good frie nds in [facility]. S: Affect was congruent with session co ntent. Mood is depressed and irritable at times. Appears depressed. She denies SI/HI. 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 . P rotective factors: no SI, no hx of suicide attempts, treatment seeking, concern for family, children in home, future oriented, problem solving ability. was pleasant an d cooperative. Speech was clear and fluent. Casually dressed and groomed. good eye contact. no AH/vh/delusions. Thought form was logical and go al directed. Insight and judgement are good. Denies excessive use of alco hol. Variable use of caffeine/energy drinks.States that she is sleepi ng like a rock. Related to: Combat Related Diagnoses: Recurrent depression (SCT [id number]) - Other rec urrent depressive disorders (ICD-10-CM F33.8) (Primary) Anxiety (SCT [id number]) - Anxiety disorder, unspe cified (ICD-10-CM F41.9) Procedures: 38-52 minutes P: F/U by vvc on December 04 at 9 a.m. via VVC. Steffany garrett has my contact number, the [facility] [place] and [facility]. /wally/ ROBLES OLEARY, PHD, STAFF PSYCHOLOGIST Signed: 11/21/2021 11:58
--- OUTSIDE RECORDS SUMMARY | 2022-05-01 10:38 | XMS_ITS | Encounter Summary ---
:1990 Author Organization [facility] rs Address [address] [place] [id number] Support Name Relationship Address Phone BELLE COVINGTON Unavailable [address] [place] [address] BELLE COVINGTON Unavailable [address] [place] [address] Insurance Providers: All historical and current Section [...] Dick HEALTH HEALTH FED Jan 05, 3052 [id number] [phone] ADRIAJELENA PATIENT PARTNERS MAINTENAN EMP 2021 1 7 [place] OPEN ORGANIZAT ACCES ION W/OUT S OF NETWORK BENEFITS MEDIMPACT PRESCRIPT HEALT Jan 04 [id number] [phone] KAITY NJELENA PATIENT RX ION H 2021 1 9 [place] ERS Selected Encounter This section includes the information on record at [place] for the Encounter. Date/Time Encounter Type Encounter Reason Provider Source Description Oct 17, 2021 PRO PHONE TELEPHONE ICD-10-CM F32.9 KEN ZEPEDA 10:30 AM CALL 11-20 MIN Major depressive A disorder, single episode, unspecified with Provider Comments: Depression ([facility] [id number]) IHE Encounter Template Text not used by [place] Assessments - Encounter Diagnoses This section includes the primary and secondary diagnoses documented for the Encounter. Date/Time Primary/Secondary Diagnosis Name Provider Source Diagnosis Oct 17, 2021 PRIMARY Major depressive HUSSEINSOPHIETeodoro DAN IS [facility] 10:30 AM disorder, single TTE D HCS episode, unspecified Oct 17, 2021 SECONDARY Anxiety disorder, HUSSEINSOPHIE ZAMORASHAMEKAGiovana ZUCKER [facility] 10:30 AM unspecified TTE D [facility] Plan of Treatment: Future Appointments (+ 6 months) and Future Tests (+/- 45 days) The Plan of Treatment section includes future care activities for the patient from all [place] [facility]. This section includes future appointments and future orders which are active, pending orscheduled.Future Appointments This section includes appointments that were scheduled to occur 6 months from the date of the Encounter, up to a maximum of 20 appointments. The data comes from all [facility]. Appointment Date/Time Appointment Type Appointment Facili ty Name November 14, 2021 03:00 PM AMBULATORY - PSYCHIATRY [facility] November 20, 2021 09:00 AM AMBULATORY - PSYCHIATRY [facility] November 28, 2021 11:00 AM AMBULATORY PSYCHIATRY [facility] Dec 04, 2021 09:00 AM AMBULATORY PSYCHIATRY [facility] Dec 11, 2021 09:00 AM AMBULATORY PSYCHIATRY [facility] Jan 01, 2022 09:00 AM AMBULATORY PSYCHIATRY [facility] Jan 02, 2022 08:22 AM AMBULATORY - MEDICINE [facility] Jan 15, 2022 02:00 PM AMBULATORY - NONE [facility] Feb 05, 2022 11:00 AM AMBULATORY - PSYCHIATRY [facility] Feb 13, 2022 11:00 AM AMBULATORY - MEDICINE [facility] Mar 26, 2022 10:00 AM AMBULATORY PSYCHIATRY [facility] Social History: Smoking Status (Most current) [...] Comment Facility Jul 23, 2021 02:30 PM [place]-TOBACCO NEVER USED TOSHA BECERRA [facility] Encounter Notes: All associated encounter notes This section contains the clinical notes associated to the Encounter. Date/Time Encounter Note(s) Provider Source Oct 17, 2021 10:30 AM PSYCHIATRY E & M NOTE: CHANCE SAVAGE [facility] LOCAL TITLE: MH PSYCHIATRIC EVALUATION & MANAGE MENT STANDARD TITLE: PSYCHIATRY E & M NOTE DATE OF NOTE: OCT 17, 2021@10:30 ENTRY DATE: OCT 17, 2021@10:55:45 AUTHOR: CHANCE SAVAGE EXP COSIGNER: URGENCY: STATUS: COMPLETED MH PSYCHIATRIC EVALUATION & MANAGEMENT Has ADDENDA [facility] SERVICE CLINICAL PHARMACIST TELEMEDICINE CLINIC Date of service: OCT 17, 2021 VV-->phone ([place] was unable to connect) Medication changes at last appointment (08/29/21) : -Continue duloxetine and trazodone as prescribe d -Continue non-VA melatonin S: JASMIN COVINGTON is a contacted for MH medication management. Mental Health Diagnoses per Dr. Gamez: -Other recurrent depressive disorders -Anxiety disorder, unspecified MH Medications: -Trazodone 25-50mg PO at bedtime PRN (Has not tr ied yet) -Duloxetine 30mg PO QDAY (taking as prescribed) -Melatonin 6mg PRN for sleep (Non-VA) Side effects: denied [place] is of childbearing age but cannot have c nacho (tubal ligation) Goal: Be off medications ------- [place] reports that her moo d remains better controlled on duloxetine; however, she reports that she would prefer not to take medication. 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 [place] reports that she has noticed some muscle weaknes s recently and wonders if it could be the medication. Dis cussed that there is a small risk of weakness as an adverse effect; however, it is more likely that other lifestyle factors are contributing. reports that she is very s ensitive to medications and requests a duloxetine dose decrease today to min imize the effects of this potential side effect. has yet to take a tr azodone dose. She feels her sleep is well maintained on melatonin and she would prefer to take as few medications as possible. [place] was agreeable to discontinuing this medi cation today. 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 (4 and 10 yo), lifts weights Mental Status Exam: Orientation: Alert, oriented to person, place an d time, cooperative, pleasant General Motor: sits still for duration of appoin tment Appearance: appropriately groomed/dressed and no urished, no apparent distress Speech: clear; normal rate, rhythm, tone - not p ressured Mood: better controlled Affect: congruent with topics discussed, full-ra sarina Thought process: coherent, relevant, logical, an d goal-directed Suicidal ideations: Denied Homicidal ideations: Denied Hallucinations: None reported Delusions: None noted Insight: good Judgement: good History of Side Effects/ADRs per Patient and CPR S: LATEX GLOVES (Jul 04, 2019) Active Outpatient Medications (including Supplie s): Active Outpatient Medications Status 1) DULOXETINE HCL 30MG EC CAP TAKE ONE CAPSULE B Y MOUTH ACTIVE EVERY DAY FOR MOOD AND ANXIETY 2) TRAZODONE HCL 50MG TAB TAKE ONE-HALF TO ONE T ABLET(S) ACTIVE BY MOUTH AT BEDTIME NEEDED FOR SLEEP No Active Remote Medications for this patient Pertinent Labs/Vitals: Wt: 121 lb [54.88 kg] (07/23/2021 14:28) Ht: 64 in [162.6 cm] (07/23/2021 14:28) BP: 99/60 (07/23/2021 14:28) HR: 90 (07/23/2021 14:28) BMI: 20.8 ASSESSMENT: [place] is a 31 yo female with anxiety and depression whose mood is currently well controlled on current medications . is concerned that duloxetine is contributing to muscle weakness an d would like to trial a dose decrease to assess changes i n weakness. Reasonable to decrease duloxetine today, per [place] preference, as her ultimate goal is to taper off of medications. continues to take OTC melatonin for slee p which remains effective. is not taking trazodone and is no longer interested in taking this medication, so will discontinue today. No acute safety concerns. SUICIDE RISK ASSESSMENT Risk factors/Warning Signs: History of psychiatr ic diagnosis; Anxiety Access to firearms (removed from home) Mitigating factors: Future-oriented; Care-seekin g; Sense of responsibility to family; Children in the home (I'd never do that to my kids); Life satisfaction Reality testing ability; Positive coping skills; Positive problem-solving skills Overall Assessment. Based on risk and protective factors, the patient is considered to be at low ACUTE and intermediate C HRONIC risk for committing suicidal acts/self-harm. Discussed risks, benefits, s raoul effects and alternatives to treatment (including no treatment) and [place] is agreeable t o the plan. VETERANS CURRENT QUESTIONS AND NEEDS REGARDING MENTAL HEALTH SERVICES ADDRE SSED. PLAN: #Medications o Decrease duloxetine to 20mg daily o Discontinue trazodone o Continue non-VA melatonin #FOLLOW UP: o In 6 weeks with pharmacist FUTURE APPOINTMENTS: 11/20/2021 09:00 [facility] Time Spent: 15 min /wally/ CHANCE SAVAGE Billiard Table Mechanic Signed: 10/17/2021 15:02 Receipt Acknowledged By: 10/17/2021 15:18 /tu ZEPEDA Clinical Team Psychologist, Mental Health 10/17/2021 ADDENDUM STATUS: COMPLETED TYPE OF SUPERVISION: Available Scrap Baller precepted the above t rainee for this encounter, including supervision and review of documentation. Pertinent history and l ab results were reviewed and verified. Assessment and plan reflects our discu ssion. Clinician Summary: is a 31-year- old female who is currently prescribed duloxetine and trazodone. Given veterans goals/p reference, agree with medication plan implemented. No acute safety con cerns. Follow-up in 6 weeks. /tu ZEPEDA Clinical Team Psychologist, Mental Health Signed: 10/17/2021 15:21
--- OUTSIDE RECORDS SUMMARY | 2022-05-01 10:38 | XMS_ITS | Encounter Summary ---
:1990 Author Organization [facility] Address [address] [place] [address] Support Name Relationship Address Phone BELLE COVINGTON Unavailable [address] [place] [address] BELLE COVINGTON Unavailable [address] [place] [address] Insurance Providers: All historical and current Section [...] Dick HEALTH HEALTH FED Jan 05, 3052 [id number] [phone] ADRIAJELENA PATIENT PARTNERS MAINBERNARDO EMP 2021 1 7 [place] CE OPEN ORGANIZAT ACCES ION W/OUT S OF NETWORK BENEFITS MEDIMPACT PRESCRIPT HEALT Jan 04 [id number] [phone] KAITY AmaroJELENA PATIENT RX ION H 2021 1 9 [place] ERS Selected Encounter This section includes the information on record at [place] for the Encounter. Date/Time Encounter Type Encounter Reason Provider Source Description Oct 31, 2021 PRO PHONE TELEPHONE ICD-10-CM F33.8 ROBLES OLEARY 08:00 AM CALL 21-30 MIN Other recurrent depressive disorders with Provider Comments: Recurrent depression ([facility] [id number]) IHE Encounter Template Text not used by [place] Assessments - Encounter Diagnoses This section includes the primary and secondary diagnoses documented for the Encounter. Date/Time Primary/Secondary Diagnosis Name Provider Source Diagnosis Oct 31, 2021 PRIMARY Other recurrent ROBLES OLEARY [facility] 08:00 AM depressive HCS disorders Plan of Treatment: Future Appointments (+ 6 months) and Future Tests (+/- 45 days) The Plan of Treatment section includes future care activities for the patient from all [place] [facility]. This section includes future appointments and future orders which are active, pending orscheduled.Future Appointments This section includes appointments that were scheduled to occur 6 months from the date of the Encounter, up to a maximum of 20 appointments. The data comes from all [place] treatment facilities. Appointment Date/Time Appointment Type Appointment Facili ty Name November 14, 2021 03:00 PM AMBULATORY PSYCHIATRY [facility] November 20, 2021 09:00 AM AMBULATORY PSYCHIATRY [facility] November 28, 2021 11:00 AM AMBULATORY PSYCHIATRY [facility] Dec 04, 2021 09:00 AM AMBULATORY PSYCHIATRY [facility] Dec 11, 2021 09:00 AM AMBULATORY PSYCHIATRY [facility] Jan 01, 2022 09:00 AM AMBULATORY PSYCHIATRY [facility] Jan 02, 2022 08:22 AM AMBULATORY MEDICINE [facility] Jan 15, 2022 02:00 PM AMBULATORY - NONE [facility] Feb 05, 2022 11:00 AM AMBULATORY PSYCHIATRY [facility] Feb 13, 2022 11:00 AM AMBULATORY MEDICINE [facility] Mar 26, 2022 10:00 AM AMBULATORY PSYCHIATRY [facility] Apr 30, 2022 11:00 AM AMBULATORY PSYCHIATRY [facility] Social History: Smoking Status (Most current) and [...] 02:30 PM VA-TOBACCO NEVER USED TOSHA BECERRA [facility] Encounter Notes: All associated encounter notes This section contains the clinical notes associated to the Encounter. Date/Time Encounter Note(s) Provider Source Oct 31, 2021 08:00 AM MENTAL HEALTH NOTE: ROBLES OLEARY [facility] LOCAL TITLE: MH PROGRESS NOTE STANDARD TITLE: MENTAL HEALTH NOTE DATE OF NOTE: OCT 31, 2021@08:00 ENTRY DATE: OCT 31, 2021@08:29:30 AUTHOR: ROBLES OLEARY EXP COSIGNER: URGENCY: STATUS: COMPLETED S:[facility] [place] [facility] cuss increased anxiety/distress in light of reducing medication and stressful sit uation with mother. Discussed from ACt perspectives - standing in values and susan ng flexible about options with mother. [place] feels a bit more stable in current dose of medication but is concerned about withdrawal. she wanted to reduce medication due to barriers with fitness/strength she thinks may be due to SE of duloxetine. O: By voice, calm, ongoing distress/hurt/frustra tion in rel. with mother. No SI/HI. Related to: MST, [place] Related Diagnoses: Recurrent depression ([facility] [id number]) - Other rec urrent depressive disorders (ICD-10-CM F33.8) (Primary) Procedures: Phone call 21-30 min Document time in note Phone call 21-30 min Document time in note P: F/u already scheduled or 11/20. has my number, the VCL and the MSP number. Including Dr. Barrera as may be interested in medication switch sooner rather than later. /wally/ ROBLES OLEARY, PHD, STAFF PSYCHOLOGIST Signed: 10/31/2021 08:34 Receipt Acknowledged By: * AWAITING SIGNATURE * KEN BARRERA
--- OUTSIDE RECORDS SUMMARY | 2022-05-01 10:38 | XMS_ITS | Encounter Summary ---
:1990 Author Organization [facility] rs Address [address] [place] [address] Support Name Relationship Address Phone BELLE COVINGTON Unavailable [address] [place] [address] BELLE COVINGTON Unavailable [address] [place] [address] Insurance Providers: All historical and current Section [...] Dick HEALTH HEALTH FED Jan 05, 3052 [id number] [phone] ADRIAJELENA PATIENT PARTNERS MAINTENAN EMP 2021 1 7 [place] CE OPEN ORGANIZAT ACCES ION W/OUT S OF NETWORK BENEFITS MEDIMPACT PRESCRIPT HEALT Jan 04 [id number] [phone] KAITY NJELENA PATIENT RX ION H 2021 1 9 [place] ERS Selected Encounter This section includes the information on record at [place] for the Encounter. Date/Time Encounter Type Encounter Reason Provider Source Description Oct 29, 2021 PRO PHONE TELEPHONE ICD-10-CM F33.8 ZACARIAS DONG 12:38 PM CALL 11-20 MIN Other recurrent UA M depressive disorders with Provider Comments: Other Recurrent Depressive Disorders IHE Encounter Template Text not used by [place] Assessments - Encounter Diagnoses This section includes the primary and secondary diagnoses documented for the Encounter. Date/Time Primary/Secondary Diagnosis Name Provider Source Diagnosis Oct 29, 2021 PRIMARY Other recurrent ZACARIAS DONG S [place] 12:38 PM depressive UA M HCS disorders Oct 29, 2021 SECONDARY Anxiety disorder, ZACARIAS DONG LIS [place] 12:[address] [facility] Plan of Treatment: Future Appointments (+ 6 months) and Future Tests (+/- 45 days) The Plan of Treatment section includes future care activities for the patient from all [place] [facility]. This section includes future appointments and future orders which are active, pending orscheduled.Future Appointments This section includes appointments that were scheduled to occur 6 months from the date of the Encounter, up to a maximum of 20 appointments. The data comes from all [place] treatment facilities. Appointment Date/Time Appointment Type Appointment Facili ty Name November 14, 2021 03:00 PM AMBULATORY - PSYCHIATRY [facility] November 20, 2021 09:00 [address]ORY [address] [facility] November 28, 2021 11:00 AM [address]ULATORY [address] [facility] Dec 04, 2021 09:[address] [facility] Dec 11, 2021 09:00 [address] [facility] Jan 01, 2022 09:[address] [facility] Jan 02, 2022 08:22 AM AMBULATORY - MEDICINE [facility] Jan 15, 2022 02:00 PM AMBULATORY - NONE [facility] Feb 05, 2022 11:00 [address] [facility] Feb 13, 2022 11:[address] [facility] Mar 26, 2022 10:00 [address] [facility] Apr 30, 2022 11:[address] [facility] Social History: Smoking Status (Most current) and [...] Comment Facility Jul 23, 2021 02:30 PM [place]-TOBACCO NEVER USED TOSHA BECERRA [facility] Encounter Notes: All associated encounter notes This section contains the clinical notes associated to the Encounter. Date/Time Encounter Note(s) Provider Source Oct 29, 2021 12:38 PM PSYCHIATRY E & M NOTE: OXANA DONG [facility] LOCAL TITLE: MH PSYCHIATRIC EVALUATION & MANAGE MENT STANDARD TITLE: PSYCHIATRY E & M NOTE DATE OF NOTE: OCT 29, 2021@12:38 ENTRY DATE: OCT 29, 2021@12:38:41 AUTHOR: OXANA DONG COSIGNER: URGENCY: STATUS: COMPLETED MENTAL HEALTH PHARMACY SERVICE CLINICAL PHARMACIST TELEPHONE CLINIC Date of service: OCT 29, 2021 Medication changes at last appointment (OCT 17): o Decrease duloxetine to 20mg daily o Discontinue trazodone o Continue non-VA melatonin S: MIRIAMJULIANJASMIN CAMI is a contacted for MH medication management. Mental Health Diagnoses per Dr. Gamez: -Other recurrent depressive disorders -Anxiety disorder, unspecified MH Medications: -Duloxetine 20mg PO QDAY ---> Takes at bedtime. ---> Has taken two doses of 20mg (previously ta marvin 30mg) -Melatonin 6mg PRN for sleep (Non-VA) Side effects: discontinuation syndrome with decr ease [place] is of childbearing age but cannot have c hildren (tubal ligation) Goal: Be off medications ------- Rug Cutter contacted as clinical coverage for Dr. Barrera (out of the office) to address side effect concern (see nurse triage no te). She has taken two doses of duloxetine 20mg. Similar to when she missed one dose of duloxetin e 30mg in July, she is experiencing head fog, fuzz iness, general feeling of illness, drowsiness, and paranesthesia (especially wi th movement). She reports a history of a complicated discontinuation of citalopram in the past, even involving an emergency department visit. reports she is feeling better today than she did yesterday (after the initial drop in dose), but she is still having the symptoms above. She wonders if there is anything that can be done to ease th is transition. Discussed discontinuation syndrome cause and rhoda atment. Discussed option to return to previous dose of duloxetine. Discussed option to directly switch to fluoxetine and use that as time-limited bridging to discontinuation, or maintaining the current dose and continuing to monitor discontinuation symptoms. [place] prefers to maintain the current dose for now, but will also consider the other options. She agrees to call the clinic back if symptoms have not resolved after 1 week. 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; with two sons (4 and 10 yo), lifts weights Mental Status Exam: Orientation: Alert, oriented to person, place an d time, cooperative, pleasant General Motor: N/A Appearance: N/A Speech: clear; normal rate, rhythm, tone - not p ressured Mood: not good Affect: congruent with topics discussed, radha branch Thought process: coherent, relevant, logical, an d goal-directed Suicidal ideations: Denied Homicidal ideations: Denied Hallucinations: None reported Delusions: None noted Insight: good Judgement: good History of Side Effects/ADRs per Patient and CPR S: LATEX GLOVES (Jul 04, 2019) Active Outpatient Medications (excluding Supplie s): Outpatient Medications Status 1) DULOXETINE HCL 20MG EC CAP TAKE ONE CAPSULE B Y MOUTH ACTIVE EVERY DAY FOR MOOD AND ANXIETY Pertinent Labs/Vitals: Wt: 121 lb [54.88 kg] (07/23/2021 14:28) Ht: 64 in [162.6 cm] (07/23/2021 14:28) BP: 99/60 (07/23/2021 14:28) HR: 90 (07/23/2021 14:28) BMI: 20.8 ASSESSMENT: is a 31-year-old fem vu with anxiety and depression who is experiencing discontinuation syndrome following small dose reduction in duloxetine. Would expect the se symptoms to improve with more time on duloxetine 20mg, but no symptomatic treatment options avail able to support this without resuming previous dose or switching to another, longer-acting antidepressant. Unable to further slow titration with duloxetine given no smaller capsule strength commercially availa ble. Discussed concept of fluoxetine bridging, which will consider and discuss with Dr. Steve chirinos at next follow-up. [place] will call back in one week i f she is still experiencing discontinuation symptoms with plan at this time to continue 20mg nightly. SUICIDE RISK ASSESSMENT Risk factors/Warning Signs: History [...] HEALTH SERVICES ADDRE SSED. PLAN: #Medications o CONTINUE duloxetine 20mg daily. If symptoms p ersist after 1 week of this dose, call clinic back. o Discussed option for FLUOXETINE bridge to red uce risk of discontinuation syndrome. She will consider thi s and discuss with Dr. Barrera at next appointment. #FOLLOW UP: o In [address] Barrera (as scheduled), v et will call prn for interim needs. FUTURE APPOINTMENTS: 11/20/2021 09:00 [facility] 11/28/2021 11:00 [facility] Time Spent: 11 min /wally/ ZACARIAS DONG PHARMD, BCPP PHARMACIST Signed: 10/29/2021 14:20 Receipt Acknowledged By: * AWAITING SIGNATURE * KEN BARRERA
--- OUTSIDE RECORDS SUMMARY | 2022-05-01 10:38 | XMS_ITS | Encounter Summary ---
:1990 [facility] Address [address] [place] [address] Support Name Relationship Address Phone BELLE COVINGTON Unavailable [address] [place] [address] BELLE COVINGTON Unavailable [address] [place] [address] Insurance Providers: All historical and current Section [...] Dick HEALTH HEALTH FED Jan 05, 3052 [id number] [phone] JELENA COVINGTON PATIENT PARTNERS MAINBERNARDO EMP 2021 1 7 [place] OPEN ORGANIZAT ACCES ION W/OUT S OF NETWORK BENEFITS MEDIMPACT PRESCRIPT HEALT Jan 04 [id number] [phone] JELENA WILLETT PATIENT RX ION H 2021 1 9 [place] Selected Encounter This section includes the information on record at [place] for the Encounter. Date/Time Encounter Type Encounter Reason Provider Source Description Aug 29, 2021 MTMS BY PHARM MENTAL HEALTH ICD-10-CM F32.9 KATELYNANDR A 10:30 AM EST 15 MIN CLINIC - IND Major depressive A disorder, single episode, unspecified with Provider Comments: Depression ([facility] [id number]) IHE Encounter Template Text not used by [facility] Assessments - Encounter Diagnoses This section includes the primary and secondary diagnoses documented for the Encounter. Date/Time Primary/Secondary Diagnosis Name Provider Source Diagnosis Aug 29, 2021 PRIMARY Major depressive KEN ZEPEDA [place] 10:51 AM disorder, single A HCS episode, unspecified Aug 29, 2021 SECONDARY Anxiety disorder, KEN ZEPEDA IS [facility] 10:51 AM unspecified A [facility] Plan of Treatment: Future Appointments (+ 6 months) and Future Tests (+/- 45 days) The Plan of Treatment section includes future care activities for the patient [facility] This section includes future appointments and future orders which are active, pending orscheduled.Future Appointments This section includes appointments that were scheduled to occur 6 months from the date of the Encounter, up to a maximum of 20 appointments. The data comes from all [place] treatment facilities. Appointment Date/Time Appointment Type Appointment Facili ty Name Sep 04, 2021 10:00 AM AMBULATORY - PSYCHIATRY [facility] Oct 09, 2021 09:00 AM AMBULATORY PSYCHIATRY [facility] November 14, 2021 03:00 PM AMBULATORY PSYCHIATRY [facility] November 20, 2021 09:00 AM AMBULATORY PSYCHIATRY [facility] November 28, 2021 11:00 AM AMBULATORY PSYCHIATRY [facility] Dec 04, 2021 09:00 AM AMBULATORY PSYCHIATRY [facility] Dec 11, 2021 09:00 AM AMBULATORY PSYCHIATRY [facility] Jan 01, 2022 09:00 AM AMBULATORY PSYCHIATRY [facility] Jan 02, 2022 08:22 AM AMBULATORY - MEDICINE [facility] Jan 15, 2022 02:00 PM AMBULATORY - NONE [facility] Feb 05, 2022 11:00 AM AMBULATORY PSYCHIATRY [facility] Feb 13, 2022 11:00 AM AMBULATORY MEDICINE [facility] Social History: Smoking Status (Most current) and Tobacco Use (All prior to encounter date) This section includes the most current, and the historical, smoking and tobacco-related health factors from the [place] facility where the Encounter took place.Current Smoking Status This section includes the most current smoking, or tobacco-related health factor, from the [place] facility where the Encounter took place. Date/Time Current Smoking Status Comment Facility Jul 23, 2021 02:30 PM VA-TOBACCO NEVER USED TOSHA [facility] Encounter Notes: All associated encounter notes This section contains the clinical notes associated to the Encounter. Date/Time Encounter Note(s) Provider Source Aug 29, 2021 10:25 AM PSYCHIATRY E & M NOTE: KATELYNKENRA Tonya LUQUE [facility] LOCAL TITLE: MH PSYCHIATRIC EVALUATION & MANAGE MENT STANDARD TITLE: PSYCHIATRY E & M NOTE DATE OF NOTE: AUG 29, 2021@10:25 ENTRY DATE: AUG 29, 2021@08:17:34 AUTHOR: KEN ZEPEDA COSIGNER: URGENCY: STATUS: COMPLETED MENTAL HEALTH PHARMACY SERVICE CLINICAL PHARMACIST TELEHEALTH CLINIC Type: VVC: Visit conducted b y clinical video telehealth. Patient verbal consent obtained. Location/emergency number confirmed. S: JASMIN COVINGTON is a 30 y/o FEMALE called f or medication management follow-up. Trazodone was started at l ast appointment. Mental Health Diagnoses per Dr. Gamez: -Other recurrent depressive disorders -Anxiety disorder, unspecified MH Medications: -Trazodone 25-50mg PO at bedtime PRN (Has not tr ied yet) -Duloxetine 30mg PO QDAY (taking as prescribed) -Melatonin 6mg PRN for sleep (Non-VA) Side effects: denied CC: I'm feeling overwhelmed right now. reported that she has been feeling anxio us and stressed now that her is back home. She st ated, It has been a big adjustment. I kind of feel like I am taking care of 3 kids. She re ported that duloxetine continues to be helpful for mood, though she does notice some mo od fluctuations around her period. She reported that sleep has impr staci lately with melatonin, though she would like to keep trazodone has an option. They also got a new puppy and have been enjoying some more time outside. 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; They have two sons (4 and 10 yo) O: Orientation: Alert, oriented, cooperative, pleas ant General Motor: Sitting comfortably, no abnormal movements Appearance: appropriately groomed/dressed and no urished no apparent distress Speech: clear; normal rate, rhythm, tone - not p ressured Mood: Overwhelmed Affect: congruent with topics discussed, full ra nge, upbeat Thought process: coherent, relevant, logical, an d goal-directed Suicidal ideations: None reported Homicidal ideations: None reported Hallucinations: None reported Delusions: None noted Insight: good Judgement: good History of Side Effects/ADRs per Patient and CPR S: LATEX GLOVES (Jul 04, 2019) Active Outpatient Medications (excluding Supplie s): Outpatient Medications Status 1) DULOXETINE HCL 30MG EC CAP TAKE ONE CAPSULE B Y MOUTH ACTIVE EVERY DAY FOR MOOD AND ANXIETY 2) SUMATRIPTAN SUCCINATE 50MG TAB TAKE ONE TABLE T BY ACTIVE MOUTH EVERY DAY NEEDED FOR MIGRAINE, MAY REP EAT AFTER 2 HOURS IF NEEDED. MAXIMUM OF 200 MG IN 2 4 HOURS. 3) TRAZODONE HCL 50MG TAB TAKE ONE-HALF TO ONE T ABLET(S) ACTIVE BY MOUTH AT BEDTIME NEEDED FOR SLEEP ASSESSMENT: [place] is a 30-year-old female who is prescribe d duloxetine for anxiety and depressive symptoms and trazodone PRN for sleep. Duloxetine continues to be helpful for mood. Anxiety has increased lately d ue to 's return from deployment. She declined nee d for medication adjustments today, with the plan to focus on stress/anxiety in therapy. Sleep has im proved with melatonin. Will continue trazodone PRN since she expressed interest of possibly trying it on the weekend in the future. No side effects or acute safety concerns. is of childbearing age but cannot have c hildren (tubal ligation). SUICIDE RISK ASSESSMENT Risk factors/Warning Signs: History of psychiatr ic diagnosis; Anxiety Access to firearms (removed from home) Mitigating factors: Future-oriented; Care-seekin g; Sense of responsibility to family; Children in the home (I'd never do that to my kids); Life satisfaction Reality testing ability; Positive coping skills; Positive problem-solving skills; Care-seeking Overall Assessment. Based on risk and protective factors, the patient is considered to be at low ACUTE and intermediate C HRONIC risk for committing suicidal acts/self-harm. Discussed risks, benefits, s raoul effects and alternatives to treatment (including no treatment) and [place] is agreeable t o the plan. VETERANS CURRENT QUESTIONS AND NEEDS REGARDING MENTAL HEALTH SERVICES ADDRE SSED. PLAN: #Medications -Continue duloxetine and trazodone as prescribed -Continue non-VA melatonin #Non-Pharm -Continue individual therapy #FOLLOW UP: -In 2 months with MH pharmacist via vvc, sooner PRN Time: 15 min [place] acknowledges underst anding of their medication regimen including common side effects and what to exp ect from pharmacotherapy. [place] agrees to contact this clinic with any concerns prior to next appo intment. agrees with plan detailed below and will access crisis se rvices as needed. -[place] was educated on ability to walk in to [facility] for non-urgent mental health and/or medical assistance. -[place] directed to report to the nearest emerg ency room for urgent mental health or medical issues. - educated on the V[facility] - [facility] Crisis [facility] for assistance with triaging mental health concerns and educated on safety an d risk and use of [facility] Emergency Room for crisis situations. -[place] provided with [facility] numb er at (TALK). Press 1 to talk with someone right away. /wally/ KEN ZEPEDA Clinical Dry Boss, Mental Health Signed: 08/29/2021 10:51
--- OUTSIDE RECORDS SUMMARY | 2022-05-01 10:38 | XMS_ITS | Encounter Summary ---
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 Date/Time Encounter Type Encounter Reason Provider Source Description November 05, 2021 PRO PHONE TELEPHONE ICD-10-CM F32.9 KEN ZEPEDA 09:30 AM CALL 21-30 MIN Major depressive A disorder, single episode, unspecified with Provider Comments: Depression ([facility] [id number]) IHE Encounter Template Text not used by [place] Assessments - Encounter Diagnoses This section includes the primary and secondary diagnoses documented for the Encounter. Date/Time Primary/Secondary Diagnosis Name Provider Source Diagnosis November 05, 2021 PRIMARY [facility] disorder, single A HCS episode, unspecified November 05, 2021 SECONDARY Anxiety disorder, TRAKALO,KEN NI IS [place] 09:30 AM unspecified [facility] Plan of Treatment: Future Appointments (+ 6 months) and Future Tests (+/- 45 days) The Plan of Treatment section includes future care activities for the patient [facility] [place] [facility] This section includes future appointments and future orders which are active, pending orscheduled.Future Appointments This section includes appointments that were scheduled to occur 6 months from the date of the Encounter, up to a maximum of 20 appointments. The data comes from all [place] treatment facilities. Appointment Date/Time Appointment Type Appointment Facili ty Name November 14, 2021 03:00 PM AMBULATORY - PSYCHIATRY [facility] November 20, 2021 09:00 AM AMBULATORY - PSYCHIATRY [facility] November 28, 2021 11:00 AM AMBULATORY - PSYCHIATRY [facility] Dec 04, 2021 09:00 AM AMBULATORY PSYCHIATRY [facility] Dec 11, 2021 09:00 AM AMBULATORY PSYCHIATRY [facility] Jan 01, 2022 09:00 AM AMBULATORY PSYCHIATRY [facility] Jan 02, 2022 08:22 AM AMBULATORY - MEDICINE [facility] Jan 15, 2022 02:00 PM AMBULATORY - NONE [facility] Feb 05, 2022 11:00 AM AMBULATORY - PSYCHIATRY [facility] Feb 13, 2022 11:00 AM AMBULATORY - MEDICINE [facility] Mar 26, 2022 10:00 AM AMBULATORY - PSYCHIATRY [facility] Apr 30, 2022 11:00 AM AMBULATORY - PSYCHIATRY [facility] May 06, 2022 10:00 AM AMBULATORY - SURGERY [facility] Social History: Smoking Status (Most current) and Tobacco Use (All prior to encounter date) This section includes the most current, and the historical, smoking and tobacco-related health factors from the [facility] where the Encounter took place.Current Smoking Status This section includes the most current smoking, or tobacco-related health factor, from the [place] facility where the Encounter took place. Date/Time Current Smoking Status Comment Facility Jul 23, 2021 02:30 PM [place]-TOBACCO NEVER USED TOSHA [facility] Encounter Notes: All associated encounter notes This section contains the clinical notes associated to the Encounter. Date/Time Encounter Note(s) Provider Source November 05, 2021 09:49 AM PSYCHIATRY E & M NOTE: KEN ZEPEDA [facility] LOCAL TITLE: MH PSYCHIATRIC EVALUATION & MANAGE MENT STANDARD TITLE: PSYCHIATRY E & M NOTE DATE OF NOTE: NOVEMBER 05, 2021@09:49 ENTRY DATE: NOVEMBER 05, 2021@09:49:39 AUTHOR: KEN ZEPEDA COSIGNER: URGENCY: STATUS: COMPLETED MENTAL HEALTH PHARMACY SERVICE CLINICAL PHARMACIST TELEPHONE CLINIC S: JASMIN COVINGTON is a contacted for unscheduled MH medication management to discuss discontinuation symptoms r elated to duloxetine dose reduction. called call center on and requested follow-up. Mental Health Diagnoses per Dr. Gamez: -Other recurrent depressive disorders -Anxiety disorder, unspecified MH Medications: -Duloxetine 20mg PO QDAY (taking as prescribed) -Melatonin 6mg PRN for sleep (Non-VA-not discuss ed today) is of childbearing age but cannot have c hildren (tubal ligation) ------- CC: I really want to be off the duloxetine as s oon as possible! reported ongoing issues with ti ngling in my feet. She noted that the sensations tend to appear in the afternoons. She felt that the tingling has somewhat improved since last week, though contin ues to find it bothersome. [place] requested discontinu ation of duloxetine. She was interested in trial of fluoxetine and PRN gabapentin. 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 weights Mental Status Exam: Orientation: Alert, oriented, cooperative, pleas ant Speech: clear; normal rate, rhythm, tone - not p ressured Mood: Hanging in Affect: congruent with topics discussed, full-ra branch Thought process: coherent, relevant, logical, an d goal-directed Suicidal ideations: Denied Homicidal ideations: None reported Hallucinations: None reported Delusions: None noted Insight: good Judgement: good History of Side Effects/ADRs per Patient and CPR S: LATEX GLOVES (Jul 04, 2019) Active Outpatient Medications (excluding Supplie s): Outpatient Medications Status 1) DULOXETINE HCL 20MG EC CAP TAKE ONE CAPSULE B Y MOUTH ACTIVE EVERY DAY FOR MOOD AND ANXIETY ASSESSMENT: is a 31- year-old female with anxiety and depression who was called to discuss ongoing discontinuatio n syndrome symptoms related to a small duloxetine dose decrease. Norma thakur strongly prefers to discontinue duloxetine at this time. Discussed adding fluoxetine, though Federica aguilar preferred to switch to fluoxetine (she preferred 10mg dose give n that she took this previously). Also offered gabapentin as needed to help with anxiet y during the transition, and possibly help with additional discontinuation sy mptoms (neuropathy). Educated on use and side effects/risks. Follow-up in 1 we luis angel. No acute safety concerns. SUICIDE RISK ASSESSMENT [...] MENTAL HEALTH SERVICES ADDRE SSED. PLAN: #Medications -Stop duloxetine -Start fluoxetine 10 mg daily -Start gabapentin 100 mg 3 times daily as needed for anxiety/discontinuation symptoms #FOLLOW UP: -In 1 week with pharmacist, sooner PRN Time Spent: 22 min /wally/ KEN ZEPEDA Clinical Forest Management Teacher, Mental Health Signed: 11/05/2021 16:44
--- OUTSIDE RECORDS SUMMARY | 2022-05-01 10:38 | XMS_ITS | Encounter Summary ---
:1990 Author Organization [facility] Address [address] [place] [id number] Support Name Relationship Address Phone BELLE COVINGTON Unavailable [address] [place] [address] BELLE COVINGTON Unavailable [address] [place] [address] Insurance Providers: All historical and current Section [...] Dick HEALTH HEALTH FED Jan 05, 3052 [id number] [phone] ADRIAJELENA PATIENT PARTNERS [employer]INBER[employer]ARDO EMP 2021 1 7 [place] CE OPEN ORGANIZAT ACCES ION W/OUT S OF NETWORK BENEFITS MEDIMPACT PRESCRIPT HEALT Jan 04 [id number] [phone] KAITY PremJELENA PATIENT RX ION H 2021 1 9 [place] [employer] Selected Encounter This section includes the information on record at [place] for the Encounter. Date/Time Encounter Type Encounter Reason Provider Source Description November 03, 2021 PRO PHONE TELEPHONE ICD-10-CM F32.9 KEN ZEPEDA 11:22 AM CALL 11-20 MIN Major depressive A disorder, single episode, unspecified with Provider Comments: Depression ([facility] [id number]) IHE Encounter Template Text not used by [place] Assessments - Encounter Diagnoses This section includes the primary and secondary diagnoses documented for the Encounter. Date/Time Primary/Secondary Diagnosis Name Provider Source Diagnosis November 03, 2021 PRIMARY Major depressive KEN ZEPEDA S [place] 11:22 AM disorder, single A HCS episode, unspecified Plan of Treatment: Future Appointments (+ 6 months) and Future Tests (+/- 45 days) The Plan of Treatment section includes future care activities for the patient [facility] [place] [facility] This section includes future appointments and future orders which are active, pending orscheduled.Future Appointments This section includes appointments that were scheduled to occur 6 months from the date of the Encounter, up to a maximum of 20 appointments. The data comes from all [place] treatment facilities. Appointment Date/Time Appointment Type Appointment Facili ty Name November 14, 2021 03:00 PM AMBULATORY - PSYCHIATRY [facility] November 20, 2021 09:00 AM AMBULATORY - PSYCHIATRY [facility] November 28, 2021 11:00 AM AMBULATORY PSYCHIATRY [facility] Dec 04, 2021 09:00 AM AMBULATORY PSYCHIATRY [facility] Dec 11, 2021 09:00 AM AMBULATORY PSYCHIATRY [facility] Jan 01, 2022 09:00 AM AMBULATORY PSYCHIATRY [facility] Jan 02, 2022 08:22 AM AMBULATORY - MEDICINE [facility] Jan 15, 2022 02:00 PM AMBULATORY - NONE [facility] Feb 05, 2022 11:00 AM AMBULATORY PSYCHIATRY [facility] Feb 13, 2022 11:00 AM AMBULATORY - MEDICINE [facility] Mar 26, 2022 10:00 AM AMBULATORY - PSYCHIATRY [facility] Apr 30, 2022 11:00 AM AMBULATORY - PSYCHIATRY [facility] May 06, 2022 10:00 AM AMBULATORY - SURGERY [facility] Social History: Smoking Status (Most current) and Tobacco Use (All prior to encounter date) This section includes the most current, and the historical, smoking and tobacco-related health factors from the [facility] where the Encounter took place.Current Smoking Status This section includes the most current smoking, or tobacco-related health factor, from the [place] facility where the Encounter took place. Date/Time Current Smoking Status Comment Facility Jul 23, 2021 02:30 PM [place]-TOBACCO NEVER USED TOSHA [facility] Encounter Notes: All associated encounter notes This section contains the clinical notes associated to the Encounter. Date/Time Encounter Note(s) Provider Source November 03, 2021 11:22 AM PSYCHIATRY E & M NOTE: KEN ZEPEDA [facility] LOCAL TITLE: MH PSYCHIATRIC EVALUATION & MANAGE MENT STANDARD TITLE: PSYCHIATRY E & M NOTE DATE OF NOTE: NOVEMBER 03, 2021@11:22 ENTRY DATE: NOVEMBER 03, 2021@11:22:46 AUTHOR: KEN ZEPEDA COSIGNER: URGENCY: STATUS: COMPLETED MENTAL HEALTH PHARMACY SERVICE CLINICAL PHARMACIST TELEPHONE CLINIC S: JASMIN COVINGTON is a contacted for unscheduled MH medication management to discuss discontinuation symptoms r elated to duloxetine dose reduction. Manager Sterile contacted after being signed to a note from 's therapist. Mental Health Diagnoses per Dr. Gamez: -Other recurrent depressive disorders -Anxiety disorder, unspecified MH Medications: -Duloxetine 20mg PO QDAY (taking as prescribed) -Melatonin 6mg PRN for sleep (Non-VA-not discuss ed today) [place] is of childbearing age but cannot have c hildren (tubal ligation) ------- CC: I am feeling better than I have. reported that she is feeling better sinc e talking with Dr. Murray last week. She noted that she continues to exper ience some tingling in her fingers (consistent with what she previously exp erienced when tapering antidepressants), though not ed that the intensity and frequency is much reduced. She also felt that that her mood is stabilizing . Discussed options, including returning to duloxe eli 30 mg, continuing as prescribed, or utilizing fluoxetine to support t he taper. [place] requested continuation of duloxetine 20 mg daily for now. 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 felt that mood and discontinuation symptoms are improving. Offered duloxetine dose i ncrease (back to 30mg) or continuation as prescribed. We also discussed fluoxetine brid ging. [place] preferred to continue duloxetine 20 mg daily at this time. Fo llow-up in 3 weeks. SUICIDE RISK ASSESSMENT Risk factors/Warning Signs: History [...] SERVICES ADDRE SSED. PLAN: #Medications -Continue duloxetine 20 mg d aily ([place] will call prior to next appointment if discontinuation symptoms do not continue to impr ove) #FOLLOW UP: o In 3 weeks via phone with pharmacist, norm garrett will call prn for interim needs. Time Spent: 15 min /wally/ KEN ZEPEDA Clinical Chip Bin Operator, Mental Health Signed: 11/03/2021 11:54
--- OUTSIDE RECORDS SUMMARY | 2022-05-01 10:38 | XMS_ITS | Encounter Summary ---
:1990 Author Organization [facility] Address [address] [place] [address] Support Name Relationship Address Phone BELLE COVINGTON Unavailable [address] [place] [address] BELLE COVINGTON Unavailable [address] [place] [address] Insurance Providers: All historical and current Section [...] Dick HEALTH HEALTH FED Jan 05, 3052 [id number] [phone] JELENA COVINGTON PATIENT PARTNERS [place] EMP 2021 1 7 [place] OPEN ORGANIZAT ACCES ION W/OUT S OF NETWORK BENEFITS MEDIMPACT PRESCRIPT HEALT Jan 04 [id number] [phone] JELENA WILLETT PATIENT RX ION H 2021 1 9 [place] E[place] Selected Encounter This section includes the information on record at [place] for the Encounter. Date/Time Encounter Type Encounter Description Reason Provider Source Oct 30, 2021 11:31 Outpatient Encounter [facility] Encounter Template Text not used by ME Plan of Treatment: Future Appointments (+ 6 months) and Future Tests (+/- 45 days) The Plan of Treatment section includes future care activities for the patient from all [place] treatmentfacilities. This section includes future appointments and future orders which are active, pending orscheduled.Future Appointments This section includes appointments that were scheduled to occur 6 months from the date of the Encounter, up to a maximum of 20 appointments. The data comes from all [place] treatment facilities. Appointment Date/Time Appointment Type Appointment Facili ty Name November 14, 2021 03:00 PM AMBULATORY - PSYCHIATRY [facility] November 20, 2021 09:00 AM AMBULATORY - PSYCHIATRY [facility] November 28, 2021 11:00 AM AMBULATORY - PSYCHIATRY [facility] Dec 04, 2021 09:00 AM AMBULATORY - PSYCHIATRY [facility] Dec 11, 2021 09:00 AM AMBULATORY - PSYCHIATRY [facility] Jan 01, 2022 09:00 AM AMBULATORY - PSYCHIATRY [facility] Jan 02, 2022 08:22 AM AMBULATORY - MEDICINE [facility] CS Jan 15, 2022 02:00 PM AMBULATORY - NONE [facility] Feb 05, 2022 11:00 AM AMBULATORY - PSYCHIATRY [facility] Feb 13, 2022 11:00 AM AMBULATORY - MEDICINE [facility] Mar 26, 2022 10:00 AM AMBULATORY - PSYCHIATRY [facility] Apr 30, 2022 11:00 AM AMBULATORY - PSYCHIATRY [facility] Social History: Smoking Status (Most current) and Tobacco Use (All prior to encounter date) This section includes the most current, and the historical, smoking and tobacco-related health factors from the [place] facility where the Encounter took place.Current Smoking Status This section includes the most current smoking, or tobacco-related health factor, from the [place] facility where the Encounter took place. Date/Time Current Smoking Status Comment Facility Jul 23, 2021 02:30 PM VA-TOBACCO NEVER USED REBELPrem [facility] Encounter Notes: All associated encounter notes This section contains the clinical notes associated to the Encounter. Date/Time Encounter Note(s) Provider Source Oct 30, 2021 11:31 AM REPORT OF CONTACT: CARLITA MORRELL [facility] LOCAL TITLE: PATIENT CONTACT NOTE STANDARD TITLE: REPORT OF CONTACT DATE OF NOTE: OCT 30, 2021@11:31 ENTRY DATE: OCT 30, 2021@11:31:43 AUTHOR: CARLITA MORRELL EXP COSIGNER: URGENCY: STATUS: COMPLETED PATIENT CONTACT NOTE Has ADDENDA Patient contact Name of : JASMIN COVINGTON Name/Relationship of Contact if other than Veter an: Date & Time of Contact: Oct@11:32 Type of Contact: Telephone Reason for Contact: Would like to speak to Dr. King sharath rojas about some issues that came up this week and possibly meds change. /wally/ CARLITA MORRELL CHIEF RESOURCE OFFICER Signed: 10/30/2021 11:34 Receipt Acknowledged By: 10/30/2021 15:17 /wally/ ROBLES OLEARY, PHD, STAFF PSYCHOLOGIST 10/30/2021 ADDENDUM STATUS: COMPLETED Called and spoke to her briefly to asses s urgency. Agreed to f/u p/c tomorrow at 8 a.m. denies SI/HI. /wally/ ROBLES OLEARY, PHD, STAFF PSYCHOLOGIST Signed: 10/30/2021 15:18
--- OUTSIDE RECORDS SUMMARY | 2022-05-01 10:38 | XMS_ITS | Encounter Summary ---
:1990 Author Organization [facility] Address [address] [place] [id number] Support Name Relationship Address Phone BELLE COVINGTON Unavailable [address] [place] [address] BELLE COVINGTON Unavailable [address] [place] [address] Insurance Providers: All historical and current Section [...] Dick HEALTH HEALTH FED Jan 05, 3052 [id number] [phone] ADRIAJELENA PATIENT PARTNERS [place]IN[place] EMP 2021 1 7 [place] OPEN ORGANIZAT ACCES ION W/OUT S OF NETWORK BENEFITS MEDIMPACT PRESCRIPT HEALT Jan 04 [id number] [phone] KAITY AmaroJELENA PATIENT RX ION H 2021 1 9 [place] Selected Encounter This section includes the information on record at [place] for the Encounter. Date/Time Encounter Type Encounter Reason Provider Source Description November 14, 2021 PRO PHONE TELEPHONE ICD-10-CM F41.9 KEN ZEPEDA 03:00 PM CALL 11-20 MIN Anxiety disorder, A unspecified with Provider Comments: Anxiety ([facility] [id number]) IHE Encounter Template Text not used by [place] Assessments - Encounter Diagnoses This section includes the primary and secondary diagnoses documented for the Encounter. Date/Time Primary/Secondary Diagnosis Name Provider Source Diagnosis November 14, 2021 PRIMARY Anxiety disorder, KEN ZEPEDA [facility] 03:00 PM unspecified [facility] November 14, 2021 SECONDARY Major depressive KEN ZEPEDAI S [place] 03:00 PM disorder, single [facility] episode, unspecified Plan of Treatment: Future Appointments (+ 6 months) and Future Tests (+/- 45 days) The Plan of Treatment section includes future care activities for the patient [facility]. This section includes future appointments and future orders which are active, pending orscheduled.Future Appointments This section includes appointments that were scheduled to occur 6 months from the date of the Encounter, up to a maximum of 20 appointments. The data comes from all [place] treatment facilities. Appointment Date/Time Appointment Type Appointment Facili ty Name November 20, 2021 09:00 AM AMBULATORY - PSYCHIATRY [facility] November 28, 2021 11:00 AM AMBULATORY - PSYCHIATRY [facility] Dec 04, 2021 09:00 AM AMBULATORY PSYCHIATRY [facility] Dec 11, 2021 09:00 AM AMBULATORY PSYCHIATRY [facility] Jan 01, 2022 09:00 AM AMBULATORY PSYCHIATRY [facility] Jan 02, 2022 08:22 AM AMBULATORY - MEDICINE [facility] Jan 15, 2022 02:00 PM AMBULATORY - NONE [facility] Feb 05, 2022 11:00 AM AMBULATORY - PSYCHIATRY [facility] Feb 13, 2022 11:00 AM AMBULATORY - MEDICINE [facility] Mar 26, 2022 10:00 AM AMBULATORY - PSYCHIATRY [facility] Apr 30, 2022 11:00 AM AMBULATORY - PSYCHIATRY [facility] May 06, 2022 10:00 AM AMBULATORY - SURGERY [facility] S Social History: Smoking Status [...] 02:30 PM VA-TOBACCO NEVER USED TOSHA [facility] Encounter Notes: All associated encounter notes This section contains the clinical notes associated to the Encounter. Date/Time Encounter Note(s) Provider Source November 14, 2021 02:55 PM PSYCHIATRY E & M NOTE: KEN ZEPEDA 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 [place] has been experienc ing discontinuation symptoms from reducing/stopping dulox etine. Fluoxetine and gabapentin PRN was started at last appointment. Mental Health Diagnoses per Dr. Gamez: -Other recurrent depressive disorders -Anxiety disorder, unspecified MH Medications: -Fluoxetine 10mg daily -Gabapentin 100mg TID PRN Adherence: Taking fluoxetine daily; has not yet tried gabapentin Side effects: Denied Other: -Melatonin 6mg PRN for sleep (Non-VA) [place] is of childbearing age but cannot have c hildren (tubal ligation) ------- CC: I think we are on the right track. reported improvements in physical sympto ms, including neuropathy. [place] described some concern for emotional dy sregulation, which she described as mood fluctuations and anxie ty. noted that she experienced similar symptoms when she di scontinued citalopram in the past. [place] reported that she forgot about the gabapentin and plans t o try it this weekend. She reported that she would like to go week by week at this point, with plans to potentially discontinue fluoxetine in 1 to 2 wee ks. 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 Physical symptoms related to discontinuation of duloxetine (primarily neuropathy) are improvi ng. [place] is experiencing fluctuations in mood/anxiety, which is a consist ent experience with previous antidepressant discontinuati on. Discussed possibility that she may benefit from alternate MH medication for anxiety/mood, though [place] continues to express interest in discontinuation of all medications. We planned to continue fluoxetine for at least 1-2 more weeks, with potential discontinuation at that time. Encouraged trial of gabapentin to further assist with discontinuation symptoms and anxiety. Follow-up in 2 weeks. No a cute safety concerns. SUICIDE RISK ASSESSMENT Risk factors/Warning [...] HEALTH SERVICES ADDRE SSED. PLAN: #Medications -Continue fluoxetine 10 mg daily for at least 1 to 2 weeks, then discontinue -Continue gabapentin as prescribed #FOLLOW UP: -In 2 weeks with pharmacist, sooner PRN Time Spent: 15 min /wally/ KEN ZEPEDA Clinical Leasing Specialist, Mental Health Signed: 11/14/2021 15:22
--- OUTSIDE RECORDS SUMMARY | 2022-05-01 10:38 | XMS_ITS | Encounter Summary ---
:1990 Author Organization [facility] Address [address] [place] [address] Support Name Relationship Address Phone BELLE MADISON Unavailable [address] [place] [address] BELLE MADISON Unavailable [address] [place] [address] Insurance Providers: All historical and current Section [...] Dick HEALTH HEALTH FED Jan 05, 3052 [id number] [phone] JELENA MADISON PATIENT PARTNERS [place] EMP 2021 1 7 [place] CE OPEN ORGANIZAT ACCES ION W/OUT S OF NETWORK BENEFITS MEDIMPACT PRESCRIPT HEALT Jan 04 [id number] [phone] JELENA WILLETT PATIENT RX ION H 2021 1 9 [place] [employer] Selected Encounter This section includes the information on record at [place] for the Encounter. Date/Time Encounter Type Encounter Reason Provider Source Description Sep 04, 2021 PSYTX W PT 45 MENTAL HEALTH ICD-10-CM F41.9 BRIE OLEARY 10:00 AM MINUTES CLINIC - IND Anxiety disorder, unspecified with Provider Comments: Anxiety ([facility] [id number]) IHE Encounter Template Text not used by [facility] Assessments - Encounter Diagnoses This section includes the primary and secondary diagnoses documented for the Encounter. Date/Time Primary/Secondary Diagnosis Name Provider Source Diagnosis Sep 04, 2021 PRIMARY [facility] unspecified [facility] Sep 04, 2021 SECONDARY Other recurrent ROBLES OLEARY [place] 01:15 PM depressive [facility] disorders Plan of Treatment: Future Appointments (+ 6 months) and Future Tests (+/- 45 days) The Plan of Treatment section includes future care activities for the patient from all [place] [facility]. This section includes future appointments and future orders which are active, pending orscheduled.Future Appointments This section includes appointments that were scheduled to occur 6 months from the date of the Encounter, up to a maximum of 20 appointments. The data comes from all [place] treatment facilities. Appointment Date/Time Appointment Type Appointment Facili ty Name Oct 09, 2021 09:00 AM AMBULATORY - PSYCHIATRY [facility] November 14, 2021 03:00 PM AMBULATORY PSYCHIATRY [facility] November 20, 2021 09:00 AM AMBULATORY PSYCHIATRY [facility] November 28, 2021 11:00 AM AMBULATORY PSYCHIATRY [facility] Dec 04, 2021 09:00 AM AMBULATORY PSYCHIATRY [facility] Dec 11, 2021 09:00 AM AMBULATORY PSYCHIATRY [facility] Jan 01, 2022 09:00 AM AMBULATORY PSYCHIATRY [facility] Jan 02, 2022 08:22 AM AMBULATORY - MEDICINE [facility] Jan 15, 2022 02:00 PM AMBULATORY - NONE [facility] Feb 05, 2022 11:00 AM AMBULATORY PSYCHIATRY [facility] Feb 13, 2022 11:00 AM AMBULATORY MEDICINE [facility] Social History: Smoking Status (Most current) and Tobacco Use (All prior to encounter date) This section includes the most current, and the historical, smoking and tobacco-related health factors from the [place] facility where the Encounter took place.Current Smoking Status This section includes the most current smoking, or tobacco-related health factor, from the [place] facility where the Encounter took place. Date/Time Current Smoking Status Comment Facility Jul 23, 2021 02:30 PM VA-TOBACCO NEVER USED TOSHA BEC[facility] Encounter Notes: All associated encounter notes This section contains the clinical notes associated to the Encounter. Date/Time Encounter Note(s) Provider Source Sep 04, 2021 10:00 AM MENTAL HEALTH NOTE: ROBLES OLEARY [facility] LOCAL TITLE: MH PROGRESS NOTE STANDARD TITLE: MENTAL HEALTH NOTE DATE OF NOTE: SEP 04, 2021@10:00 ENTRY DATE: SEP 04, 2021@13:10:11 AUTHOR: ROBLES OLEARY EXP COSIGNER: URGENCY: STATUS: COMPLETED S: I met with Ms. Madison for 55 minutes of psycho therapy via VVC to to home. [place] at home with a cold. Shares franki t she and spouse have been doing better and working together as a team. S he notes that she had a meltdown and felt overwhelmed earlier in the week, but is improved. She will be out of town for training between september 02 ad and will appreciate time alone. will be home with kids and a lso he is returning to work. [place] engaging in more self-care, notes teodora allison acceptance of limits of control (broadly), taking this time between proj ects to appreciate her accomplishments and think about what is next for her. 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 [place] has been doing better with eating more regularly. Wilfredo umana values creativity and ongoing learning and is considering how to incor porate these into her life at this time. Discussed her value of family and rel ationships and that her 's return is also a time for growth in at [facility]. S: Affect was congruent with session content. M ood is generally good. Appears euthymic/calm. She denies SI/HI. 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 . Protective factors: no SI, no hx of suicide attempts, treatment seeking, concern for family, children in home, future oriented, problem solving ability. [place] was pleasant an d cooperative. Speech was clear and fluent. Casually dressed and groomed. good eye contact. no AH/vh/delusions. Thought form was logical and go al directed. Insight and judgement are good. Denies excessive use of alco hol. Variable use of caffeine/energy drinks. Related to: Combat Related Diagnoses: Recurrent depression (SCT [id number]) - Other rec urrent depressive disorders (ICD-10-CM F33.8) (Primary) Anxiety (SCT [id number]) - Anxiety disorder, unspe cified (ICD-10-CM F41.9) Procedures: 38-52 minutes P: F/U by vvc on october 09 at 9 a.m. via VVC. Terrence amauri has my contact number, the [facility] [place] and [facility]. /wally/ ROBLES OLEARY, PHD, STAFF PSYCHOLOGIST Signed: 09/04/2021 13:15
--- OUTSIDE RECORDS SUMMARY | 2022-05-01 10:38 | XMS_ITS | Encounter Summary ---
:1990 Author Organization [facility] Address [address] [place] [address] Support Name Relationship Address Phone BELLE MADISON Unavailable [address] [place] [address] BELLE MADISON Unavailable [address] [place] [address] Insurance Providers: All historical and current Section [...] Dick HEALTH HEALTH FED Jan 05, 3052 [id number] [phone] JELENA MADISON PATIENT PARTNERS [place] EMP 2021 1 7 [place] CE OPEN ORGANIZAT ACCES ION W/OUT S OF NETWORK BENEFITS MEDIMPACT PRESCRIPT HEALT Jan 04 [id number] [phone] JELENA WILLETT PATIENT RX ION H 2021 1 9 [place] [employer] E[place] Selected Encounter This section includes the information on record at [place] for the Encounter. Date/Time Encounter Type Encounter Reason Provider Source Description Oct 09, 2021 PSYTX W PT 45 MENTAL HEALTH ICD-10-CM F33.8 BRIE OLEARY 09:00 AM MINUTES CLINIC - IND Other recurrent depressive disorders with Provider Comments: Recurrent depression ([facility] [id number]) IHE Encounter Template Text not used by [facility] Assessments - Encounter Diagnoses This section includes the primary and secondary diagnoses documented for the Encounter. Date/Time Primary/Secondary Diagnosis Name Provider Source Diagnosis Oct 09, 2021 PRIMARY Other recurrent ROBLES OLEARY [place] 07:54 PM depressive HCS disorders Oct 09, 2021 SECONDARY Anxiety disorder, ROBLES OLEARY [facility] 07:54 PM unspecified [facility] Plan of Treatment: Future Appointments (+ 6 months) and Future Tests (+/- 45 days) The Plan of Treatment section includes future care activities for the patient [facility] [place] [facility]. This section includes future appointments and future orders which are active, pending orscheduled.Future Appointments This section includes appointments that were scheduled to occur 6 months from the date of the Encounter, up to a maximum of 20 appointments. The data comes from all [place] treatment facilities. Appointment Date/Time Appointment Type Appointment Facili ty Name November 14, 2021 03:00 PM AMBULATORY - PSYCHIATRY [facility] November 20, 2021 09:00 AM AMBULATORY PSYCHIATRY [facility] November 28, 2021 11:00 AM AMBULATORY PSYCHIATRY [facility] Dec 04, 2021 09:00 AM AMBULATORY PSYCHIATRY [facility] Dec 11, 2021 09:00 AM AMBULATORY PSYCHIATRY [facility] Jan 01, 2022 09:00 AM AMBULATORY PSYCHIATRY [facility] Jan 02, 2022 08:22 AM AMBULATORY - MEDICINE [facility] Jan 15, 2022 02:00 PM AMBULATORY - NONE [facility] Feb 05, 2022 11:00 AM AMBULATORY PSYCHIATRY [facility] Feb 13, 2022 11:00 AM AMBULATORY MEDICINE [facility] Mar 26, 2022 10:00 AM AMBULATORY PSYCHIATRY [facility] Social History: Smoking Status (Most current) and Tobacco Use (All prior to encounter date) This section includes the most current, and the historical, smoking and tobacco-related health factors from the [place] facility where the Encounter took place.Current Smoking Status This section includes the most current smoking, or tobacco-related health factor, from the [place] facility where the Encounter took place. Date/Time Current Smoking Status Comment Facility Jul 23, 2021 02:30 PM ID-TOBACCO NEVER USED REBELPrem [facility] Encounter Notes: All associated encounter notes This section contains the clinical notes associated to the Encounter. Date/Time Encounter Note(s) Provider Source Oct 09, 2021 09:00 AM MENTAL HEALTH NOTE: ROBLES OLEARY [facility] LOCAL TITLE: MH PROGRESS NOTE STANDARD TITLE: MENTAL HEALTH NOTE DATE OF NOTE: OCT 09, 2021@09:00 ENTRY DATE: OCT 09, 2021@19:41:36 AUTHOR: ROBLES OLEARY EXP COSIGNER: URGENCY: STATUS: COMPLETED S: I met with Ms. Madison for 55 minutes of psycho therapy via VVC to to home. [place] at work. States that training i n ARk. went well. 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 Shares that she is having l ots of financial anxiety, in part related to 's goal of opening own [employer]. Validated values around financial stability, her own growth in ca reer/knowledge. shares that commnication with spouse is generally improved. [place] reports that she shared with her mother her disappointmen t/hurt at limited support she provided as a child and now as an adult, especially cf. w ith that directed towards sisters. [place] continues to struggle with limi raegan social support from family and small social network. Validated impor tance of this and difficulty of creating network while working FT in [place] , moving 2 yr ago, and COVID. [place] notes that she has improved energy /focu s with eating 4 small meals/day. continues to engage in self-care with exercise and is planning to increase other self-care activities. discouraged her from getting a pt job at [employer]. S: Affect was congruent with session content. M ood is okay Appears euthymic/calm. She denies SI/HI. Suicide Risk [...] in home, future oriented, problem solving ability. [place] was pleasant an d cooperative. Speech was clear and fluent. Casually dressed and groomed. good eye contact. no AH/vh/delusions. Thought form was logical and go al directed. Insight and judgement are good. Denies excessive use of alco hol. Variable use of caffeine/energy drinks. Related to: Combat [place] Related Diagnoses: Recurrent depression (SCT [id number]) - Other rec urrent depressive disorders (ICD-10-CM F33.8) (Primary) Anxiety (SCT [id number]) - Anxiety disorder, unspe cified (ICD-10-CM F41.9) Procedures: 38-52 minutes P: F/U by vvc on November 20 at 9 a.m. via VVC. Steffany garrett has my contact number, the [facility] and [facility]. /wally/ ROBLES OLEARY, PHD, STAFF PSYCHOLOGIST Signed: 10/09/2021 19:54
--- OUTSIDE RECORDS SUMMARY | 2022-05-01 10:38 | XMS_ITS | Encounter Summary ---
:1990 Author Organization [facility] rs Address [address] [place] [address] Support Name Relationship Address Phone BELLE COVINGTON Unavailable [address] [place] [address] BELLE COVINGTON Unavailable [address] [place] [address] Insurance Providers: All historical and current Section [...] Dick HEALTH HEALTH FED Jan 05, 3052 [id number] [phone] ADRIAJELENA PATIENT PARTNERS MAINBERNARDO EMP 2021 1 7 [place] CE OPEN ORGANIZAT ACCES ION W/OUT S OF NETWORK BENEFITS MEDIMPACT PRESCRIPT HEALT Jan 04 [id number] [phone] KAITY PremJELENA PATIENT RX ION H 2021 1 9 [place] PART[place] ERS Selected Encounter This section includes the information on record at [place] for the Encounter. Date/Time Encounter Type Encounter Description Reason Provider Source November 04, 2021 12:08 Outpatient Encounter TELEPHONE TRIAGE PM IHE Encounter Template Text not used by [place] Plan of Treatment: Future Appointments (+ 6 [...] 14, 2021 03:00 PM AMBULATORY - PS[facility]ATRY [facility] November 20, 2021 09:00 AM AMBULATORY - PS[facility]IATRY [facility] November 28, 2021 11:00 AM AMBULATORY - PSYCHIATRY [facility] Dec 04, 2021 09:00 AM AMBULATORY - PSYCHIATRY [facility] Dec 11, 2021 09:00 AM AMBULATORY - PSYCHIATRY [facility] Jan 01, 2022 09:00 AM AMBULATORY - PSYCHIATRY [facility] Jan 02, 2022 08:22 AM [facility] - [facility] Jan 15, 2022 02:00 PM AMBULATORY - NONE [facility] Feb 05, 2022 11:00 AM AMBULATORY - PSYCHIATRY [facility] Feb 13, 2022 11:00 AM [facility] - [facility] Mar 26, 2022 10:00 AM AMBULATORY - PSYCHIATRY [facility] Apr 30, 2022 11:00 AM AMBULATORY - PSYCHIATRY [facility] May 06, 2022 10:00 AM AMBULATORY - SURGERY [facility] Social History: Smoking Status [...] 02:30 PM VA-TOBACCO NEVER USED TOSHA BECERRA [facility] Encounter Notes: All associated encounter notes This section contains the clinical notes associated to the Encounter. Date/Time Encounter Note(s) Provider Source November 04, 2021 12:08 PM REPORT OF CONTACT: JOLEEN LING [facility] LOCAL TITLE: PATIENT CONTACT NOTE - PHARMACY STANDARD TITLE: REPORT OF CONTACT DATE OF NOTE: NOVEMBER 04, 2021@12:08 ENTRY DATE: NOVEMBER 04, 2021@12:08:28 AUTHOR: JOLEEN LING EXP COSIGNER: URGENCY: STATUS: COMPLETED Patient Contact Date & Time of Contact: November@12:08 Type of Contact: Action: Message to provider: Pt is having withdrawl sym ptoms and is struggling with the lower dosage of DULOXETINE HCL 20MG. Pt requ esting a call back. /wally/ BRIAN LIRA 23 CALL CENTER ETL BI DEVELOPER Signed: 11/04/2021 12:10 Receipt Acknowledged By: * AWAITING SIGNATURE * KEN ZEPEDA
--- OUTSIDE RECORDS SUMMARY | 2022-05-01 10:38 | XMS_ITS | Encounter Summary ---
:1990 Author Organization [facility] Address [address] [place] [address] Support Name Relationship Address Phone BELLE COVINGTON Unavailable [address] [place] [address] BELLE COVINGTON Unavailable [address] [place] [address] Insurance Providers: All historical and current Section [...] Dick HEALTH HEALTH FED Jan 05, [birth year]2 [id number] [phone] MIRIAMJELENA JORDAN PATIENT PARTNERS MAINTENASHLEY EMP 2021 1 7 [place] OPEN ORGANIZAT ACCES ION W/OUT S OF NETWORK BENEFITS MEDIMPACT PRESCRIPT HEALT Jan 04 [id number] [phone] JELENA WILLETT PATIENT RX ION H 2021 1 9 [place] Selected Encounter This section includes the information on record at [place] for the Encounter. Date/Time Encounter Type Encounter Reason Provider Source Description Oct 28, 2021 HC PRO PHONE TELEPHONE TRIAGE ICD-10-CM Z71.89 BECCA ESTRADA 04:07 PM CALL 11-20 MIN Other specified T counseling with Provider Comments: Other specified counseling IHE Encounter Template Text not used by [place] Assessments - Encounter Diagnoses This section includes the primary and secondary diagnoses documented for the Encounter. Date/Time Primary/Secondary Diagnosis Name Provider Source Diagnosis Oct 28, 2021 PRIMARY Other specified KAILA ESTRADA [place] 04:07 PM counseling T [facility] Plan of Treatment: Future Appointments (+ 6 months) and Future Tests (+/- 45 days) The Plan of Treatment section includes future care activities for the patient from all [place] [facility]. This section includes future appointments and future orders which are active, pending orscheduled.Future Appointments This section includes appointments that were scheduled to occur 6 months from the date of the Encounter, up to a maximum of 20 appointments. The data comes from all [place] treatment facilities. Appointment Date/Time Appointment Type Appointment Facili ty Name November 14, 2021 03:00 PM AMBULATORY [facility] November 20, 2021 09:00 AM [facility] November 28, 2021 11:00 AM AMBULATORY [facility] Dec 04, 2021 09:00 AM AMBULATORY [facility] Dec 11, 2021 09:00 AM [facility] Jan 01, 2022 09:00 AM [facility] Jan 02, 2022 08:22 AM [facility] Jan 15, 2022 02:00 PM AMBULATORY NONE [facility] Feb 05, 2022 11:00 AM [facility] Feb 13, 2022 11:00 AM [facility] Mar 26, 2022 10:00 AM [facility] Social History: Smoking Status (Most current) and Tobacco Use (All prior to encounter date) This section includes the most current, and the historical, smoking and tobacco-related health factors from the [place] facility where the Encounter took place.Current Smoking Status This section includes the most current smoking, or tobacco-related health factor, from the [place] facility where the Encounter took place. Date/Time Current Smoking Status Comment Facility Jul 23, 2021 02:30 PM [place]-TOBACCO NEVER USED TOSHA BECERRA [facility] Encounter Notes: All associated encounter notes This section contains the clinical notes associated to the Encounter. Date/Time Encounter Note(s) Provider Source Oct 28, 2021 04:07 PM NURSING TELEPHONE ENCOUNTER NOTE: Simon ESTRADA [facility] LOCAL TITLE: TELEPHONE CARE NURSE TRIAGE STANDARD TITLE: NURSING TELEPHONE ENCOUNTER NOTE DATE OF NOTE: OCT 28, 2021@16:07:10 ENTRY DATE: OCT 28, 2021@16:23:58 AUTHOR: KAILA ESTRADA EXP COSIGNER: URGENCY: STATUS: COMPLETED Chief Complaint: Not applicable to call. The following identifiers were used to verify th is patient: . SSN. Comments: Wendell calling about her decreasing her Duloxetine medication. Wendell states I feel like crap. Has only taken one decreased dose last night 10/27/21 @ 2200 and doesn't like the way it makes her feel. C/o's motion sickness type feeling with nausea. Is experiencing physical ma nifestations of lower dose. Wendell doesn't c/o mental aspect of decreasing dose. Very pleasant on phone and able hold conversation. Warm transferred to Michael, pharmacist V23, for medication questions. Alerting psychiatrist for further interaction. Best call back # is [phone] Author: KAILA ESTRADA Caller Area: *[facility] The patient, JASMIN COVINGTON ([id number]) called the call center. Caller Response: OTHER Class Code: Other specified counseling. Contact Advised to contact Telephone Care for any questions, concerns, new or worsening symptoms; services available 25/01. Evaluation/Management Code: HC PRO PHONE CALL 11 -20 MIN ([phone]). Starting at: 10/28/2021 @ 4:07:10 PM Ending at: 10/28/2021 @ 4:22:39 PM Length: 15 minutes. Patient's Email Address: [email or web address] Provider Info: [facility] ([id number]) PACT: KRYSTIN *ALLY* BOBO (Focus: Womens Health) Designated Pcp: ANITA HARVEY PHONE:[phone] PAGER:[phone] Director Of Learning: JOSE MELISSA PHONE:[phone] Clinical Associate: MATTHEW FRANCES ELLI:89-1920 Search Marketing Specialist: CAROLINE VILLALBA E:[phone] PACT Clinical Pharmacist: KARLEE AGUIRRE PHONE:[phone] Clinical POC: Administrative POC: [facility] TANESHA CB (830OX) MH: WILIAM ALMENDAREZ V23 ([facility]) Psychologist ROBLES OLEARY PHONE: PAGER:[phone] Type of call: TC PRESCRIPTION QUESTION. /es/ KAILA ESTRADA VISPrem 23 TELEPHONE PHYSICIANS ASSISTANT Signed: 10/28/2021 16:23 Receipt Acknowledged By: * AWAITING SIGNATURE * [facility]BLES O[facility] * AWAITING SIGNATURE * KEN ZEPEDA
--- OUTSIDE RECORDS SUMMARY | 2022-05-01 10:39 | XMS_ITS | Encounter Summary ---
:1990 Author Organization [facility] Address [address] [place] [address] Support Name Relationship Address Phone BELLE MADISON Unavailable [address] [place] [address] BELLE MADISON Unavailable [address] [place] [address] Insurance Providers: All historical and current Section [...] Dick HEALTH HEALTH FED Jan 05, 3052 [id number] [phone] JELENA MADISON PATIENT PARTNERS MAINBERNARDO EMP 2021 1 7 [place] CE OPEN ORGANIZAT ACCES ION W/OUT S OF NETWORK BENEFITS MEDIMPACT PRESCRIPT HEALT Jan 04 [id number] [phone] JELENA WILLETT PATIENT RX ION H 2021 1 9 [place] ERS Selected Encounter This section includes the information on record at [place] for the Encounter. Date/Time Encounter Type Encounter Reason Provider Source Description Aug 21, 2021 PSYTX W PT 45 MENTAL HEALTH ICD-10-CM F41.9 BRIE OLEARY 10:00 AM [facility]UTES CLINIC - IND Anxiety disorder, unspecified with Provider Comments: Anxiety ([facility] [id number]) IHE Encounter Template Text not used by [place] Assessments - Encounter Diagnoses This section includes the primary and secondary diagnoses documented for the Encounter. Date/Time Primary/Secondary Diagnosis Name Provider Source Diagnosis Aug 22, 2021 PRIMARY [facility]21 PM unspecified [facility] Aug 22, 2021 SECONDARY Other recurrent ROBLES OLEARY [place] 05:21 PM depressive [facility] disorders Plan of Treatment: Future Appointments (+ [...] Date/Time Appointment Type Appointment Facili ty Name Aug 29, 2021 10:30 AM AMBULATORY - PSYCHIATRY [facility] Sep 04, 2021 10:00 AM AMBULATORY PSYCHIATRY [facility] Oct 09, 2021 09:00 AM AMBULATORY [facility] November 14, 2021 03:00 PM AMBULATORY [facility] November 20, 2021 09:00 AM AMBULATORY PSYCHIATRY [facility] November 28, 2021 11:00 AM AMBULATORY PSYCHIATRY [facility] Dec 04, 2021 09:00 AM AMBULATORY PSYCHIATRY [facility] Dec 11, 2021 09:00 AM AMBULATORY PSYCHIATRY [facility] Jan 01, 2022 09:00 AM AMBULATORY PSYCHIATRY [facility] Jan 02, 2022 08:22 AM AMBULATORY - MEDICINE [facility] Jan 15, 2022 02:00 PM AMBULATORY - NONE [facility] Feb 05, 2022 11:00 AM AMBULATORY PSYCHIATRY [facility] Feb 13, 2022 11:00 AM AMBULATORY MEDICINE [facility] CS Lab Results: +/- 30 days of the [...] Reference Range Comment Jul 23, 2021 03:09 [facility] TSH W/REFLEX TO FREE Spec imen Type: PLASMA PM T4 No comment enter ed. Ordering Provid er: ANITA HARVEY Report Released Date/Time: Jul 23, 2021 03:00 PM Reporting Lab: [facility] [address] [facility] [id number] Performing Lab: [facility] ONE [facility] [address] [facility] [address] TSH 1.03 0.35-4.94 Jul 23, 2021 03:09 [facility] BASIC METABOLIC Specimen Type: PLASMA PM PANEL+MG No comment enter ed. Ordering Provid er: ANITA HARVEY Report Released Date/Time: Jul 23, 2021 03:00 PM Reporting Lab: [facility] [address] Performing Lab: [facility] [id number] CREATININE 0.8 0.5-1.0 UREA NITROGEN 20 7-20 GLUCOSE 69 L 74-100 SODIUM 141 136-145 POTASSIUM 3.9 3.5-5.1 CHLORIDE 107 98-107 CO2 26 22-29 CALCIUM 9.2 8.4-10.2 MAGNESIUM 2.0 1.6-2.6 ANION GAP 8 5-15 ESTIMATED GFR(eGFR) 84 >60 Jul 23, 2021 03:09 PM [facility] CBC Specim en Type: BLOOD No comment enter ed. Ordering Provid er: ANITA HARVEY Report Released Date/Time: Jul 23, 2021 03:00 PM Reporting Lab: [facility] [id number] Performing Lab: [facility] [address] WBC 8.15 4.0-11.0 RBC 4.15 4.0-5.4 HGB 12.5 11.5-16 HCT 38.5 34.5-48 MCV 92.8 80-100 MCH 30.1 27-33 MCHC 32.5 32.0-37.5 PLT 355 150-400 MPV 10.2 7.4-10.4 RDW 13.0 11.5-14.5 Jul 23, 2021 03:09 PM [facility] IRON GROUP Specim en Type: SERUM No comment enter ed. Ordering Provid er: ANITA HARVEY Report Released Date/Time: Jul 23, 2021 03:00 PM Reporting Lab: [facility] [id number] Performing Lab: [facility] [address] IRON 83 50-170 TIBC,CALCULATED 284 250-425 FERRITIN [...] 02:30 PM VA-TOBACCO NEVER USED TOSHA BECERRA [facility] Encounter Notes: All associated encounter notes This section contains the clinical notes associated to the Encounter. Date/Time Encounter Note(s) Provider Source Aug 21, 2021 10:00 AM MENTAL HEALTH NOTE: ROBLES OLEARY [facility] LOCAL TITLE: MH PROGRESS NOTE STANDARD TITLE: MENTAL HEALTH NOTE DATE OF NOTE: AUG 21, 2021@10:00 ENTRY DATE: AUG 22, 2021@17:15:27 AUTHOR: ROBLES OLEARY EXP COSIGNER: URGENCY: STATUS: COMPLETED S: I met with Ms. Madison for 55 minutes of psycho therapy via VVC to to work. 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 Both are in process of readjusting to home life. she reports that after doing everything herself for 11 months, it is hard to tolerate eloisa antoine's clutter, doing things differently (inefficiently) and that her control issues are aggravating her. She reports lots of frustration with the adjustm ent process and the lack of effective communicatin between them. Shares that in this process, she has noticed that her focus on body image/exercise/di et issues have gotten worse again. She feels distress by small amounts of we ight gain. Validated the challenge of dealing with weight issues when hayden lincoln is against us. She intellectually knows her value is not in her lazaro ght/appearance, but she notices that she is more anxious about food/exer cise with small weight changes. Discussed acceptance strategies. Discus sed increasing variety of food/nutrients to avoid low blood sugar which gi ves her the shakes. Encouraged her to notice her body's responses to subtle changes in nutrition such as healthy fats in nuts/fish, and different sources of protein. [facility] shares that a household accident resulted in bro roger bulb to light box. I will see if prosthetic will replace. S: Affect was congruent with session content. M ood is irritable and stressed Appears anxious. She denies SI/HI. Suicide Risk is LOW: [...] to: Combat Related Diagnoses: Recurrent depression (SCT [id number]) - Other rec urrent depressive disorders (ICD-10-CM F33.8) (Primary) Anxiety (SCT [id number]) - Anxiety disorder, unspe cified (ICD-10-CM F41.9) Procedures: 38-52 minutes P: F/U by vvc on September 04 at 10 a.m. via VVC. Norma peralesan has my contact number, the [facility] and [facility]. /wally/ ROBLES OLEARY, PHD, STAFF PSYCHOLOGIST Signed: 08/22/2021 17:21
--- OUTSIDE RECORDS SUMMARY | 2022-05-01 10:39 | XMS_ITS | Encounter Summary ---
:1990 Author Organization [facility] Address [address] [place] [address] Support Name Relationship Address Phone BELLE MADISON Unavailable [address] [place] [address] BELLE MADISON Unavailable [address] [place] [address] Insurance Providers: All historical and current Section [...] Dick HEALTH HEALTH FED Jan 05, 3052 [id number] [phone] JELENA MADISON PATIENT PARTNERS MAINBERNARDO EMP 2021 1 7 [place] CE OPEN ORGANIZAT ACCES ION W/OUT S OF NETWORK BENEFITS MEDIMPACT PRESCRIPT HEALT Jan 04 [id number] [phone] JELENA WILLETT PATIENT RX ION H 2021 1 9 [place] ERS Selected Encounter This section includes the information on record at [place] for the Encounter. Date/Time Encounter Type Encounter Reason Provider Source Description Jul 10, 2021 PSYTX W PT 45 MENTAL HEALTH ICD-10-CM F33.8 BRIE OLEARY 11:00 AM MINUTES CLINIC - IND Other recurrent depressive disorders with Provider Comments: Recurrent depression ([facility] [id number]) IHE Encounter Template Text not used by [facility] Assessments - Encounter Diagnoses This section includes the primary and secondary diagnoses documented for the Encounter. Date/Time Primary/Secondary Diagnosis Name Provider Source Diagnosis Jul 11, 2021 PRIMARY Other recurrent ROBLES OLEARY [place] 01:29 PM depressive [facility] disorders Jul 11, 2021 SECONDARY An[facility] 01[facility] PM unspecified [facility] Plan of Treatment: Future Appointments (+ 6 months) and Future Tests (+/- 45 days) The Plan of Treatment section includes future care activities for the patient from all [place] [facility]. This section includes future appointments and future orders which are active, pending orscheduled.Future Appointments This section includes appointments that were scheduled to occur 6 months from the date of the Encounter, up to a maximum of 20 appointments. The data comes from all [place] treatment facilities. Appointment Date/Time Appointment Type Appointment Facili ty Name Jul 23, 2021 02:30 PM AMBULATORY - MEDICINE [facility] Jul 23, 2021 03:15 PM AMBULATORY - NONE [facility] Jul 30, 2021 01:00 PM AMBULATORY PSYCHIATRY [facility] Aug 08, 2021 11:00 AM AMBULATORY - NONE [facility] Aug 21, 2021 10:00 AM AMBULATORY [facility] Aug 29, 2021 10:30 AM AMBULATORY [facility] Sep 04, 2021 10:00 AM AMBULATORY PSYCHIATRY [facility] Oct 09, 2021 09:00 AM AMBULATORY PSYCHIATRY [facility] November 14, 2021 03:00 PM AMBULATORY [facility] November 20, 2021 09:00 AM AMBULATORY PSYCHIATRY [facility] November 28, 2021 11:00 AM AMBULATORY - PSYCHIATRY [facility] Dec 04, 2021 09:00 AM AMBULATORY PSYCHIATRY [facility] Dec 11, 2021 09:00 AM AMBULATORY [facility] Jan 01, 2022 09:00 AM AMBULATORY PSYCHIATRY [facility] Jan 02, 2022 08:22 AM AMBULATORY - MEDICINE [facility] Lab Results: +/- 30 days of the encounter This section includes the Chemistry and Hematology Lab Results on record with [place] for the patient. Radiology Reports and Pathology Reports are provided separately, in subsequent sections.Lab Results This section contains the Chemistry/Hematology Results that were resulted 30 days before or 30 daysafter the date of the Encounter. Date/Time Source Result Type Result - Unit Interpretation Reference Range Comment Jul 23, 2021 03:09 [facility] TSH W/REFLEX TO FREE Spec imen Type: PLASMA PM T4 No comment enter ed. Ordering Provid er: ANITA HARVEY Report Released Date/Time: Jul 23, 2021 03:00 PM Reporting Lab: [facility] [address] Performing Lab: [facility] [address] TSH 1.03 0.35-4.94 Jul 23, 2021 03:09 [facility] BASIC METABOLIC Specimen Type: PLASMA PM PANEL+MG No comment enter ed. Ordering Provid er: ANITA HARVEY Report Released Date/Time: Jul 23, 2021 03:00 PM Reporting Lab: [facility] [id number] Performing Lab: [facility] [address] CREATININE 0.8 0.5-1.0 UREA NITROGEN 20 7-20 GLUCOSE 69 L 74-100 SODIUM 141 136-145 POTASSIUM 3.9 3.5-5.1 CHLORIDE 107 98-107 CO2 26 22-29 CALCIUM 9.2 8.4-10.2 MAGNESIUM 2.0 1.6-2.6 ANION GAP 8 5-15 ESTIMATED GFR(eGFR) 84 >60 Jul 23, 2021 03:09 PM [facility] IRON GROUP Specim en Type: SERUM No comment enter ed. Ordering Provid er: ANITA HARVEY Report Released Date/Time: Jul 23, 2021 03:00 PM Reporting Lab: [facility] [id number] Performing Lab: [facility] [address] IRON 83 50-170 TIBC,CALCULATED 284 250-425 FERRITIN 52.2 4.6-204.0 IRON SATURATION 29 15-50 TRANSFERRIN 227 163-382 Jul 23, 2021 03:09 PM [facility] CBC Specim en Type: BLOOD No comment enter ed. Ordering Provid er: ANITA HARVEY Report Released Date/Time: Jul 23, 2021 03:00 PM Reporting Lab: [facility] [address] Performing Lab: [facility] [address] WBC 8.15 4.0-11.0 RBC 4.15 4.0-5.4 HGB 12.5 11.5-16 HCT 38.5 34.5-48 MCV 92.8 80-100 MCH 30.1 27-33 MCHC 32.5 32.0-37.5 PLT 355 150-400 MPV 10.2 7.4-10.4 RDW 13.0 11.5-14.5 Encounter Notes: All associated encounter notes This section contains the clinical notes associated to the Encounter. Date/Time Encounter Note(s) Provider Source Jul 10, 2021 11:00 AM MENTAL HEALTH NOTE: ROBLES OLEARY [facility] LOCAL TITLE: MH PROGRESS NOTE STANDARD TITLE: MENTAL HEALTH NOTE DATE OF NOTE: JUL 10, 2021@11:00 ENTRY DATE: JUL 11, 2021@13:20:03 AUTHOR: ROBLES OLEARY EXP COSIGNER: URGENCY: STATUS: COMPLETED S: I met with Ms. Madison for 55 minutes of psycho therapy via VVC to to home. Son had COVID exposure at school so nee ds to be home. 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 She indicates that her weight is stabl e, but that she is experiencing fluctuations in motivation, fatigue/low energy, and night sweats. She has reported nightmares when she missed a do se of medication. Hartwick has scheduled f/u with her PCP. Encouraged her to co ntact Dr. Barrera for consultation arounse psychiatric medications. We also discussed using a SAD lamp which she was open to. She acknowledges franki t she does better when she takes a sun- vacation in the winter but unable t o distinguish between impact of light and being on vacation. She does use a f ood emil to monitor nutrition and protein. She has difficulty forgetting to eat at times. She is open to working with a group worker who is familiar with go als of muscle building etc. She expressed concern that whey protein causes u pper back acne for her. Encouraged her to discuss with PCP. S: Affect was congruent with session content. [...] to: Combat Related Diagnoses: Recurrent depression (SCT [id number]) - Other rec urrent depressive disorders (ICD-10-CM F33.8) (Primary) Anxiety (SCT 95392564) - Anxiety disorder, unspe cified (ICD-10-CM F41.9) Procedures: 38-52 minutes P: F/U by vvc on Aug 21 at 10 a.m. via VVC. Terrence baugh has my contact number, the [facility] and [facility]. I will place consult for Sue jim. Encuraged her to contactDr. Barrera and discussed group worker consu lt with PCP. /wally/ ROBLES OLEARY, PHD, STAFF PSYCHOLOGIST Signed: 07/11/2021 13:29
--- OUTSIDE RECORDS SUMMARY | 2022-05-01 10:39 | XMS_ITS | Encounter Summary ---
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 Date/Time Encounter Type Encounter Reason Provider Source Description Jul 07, 2021 HC PRO PHONE TELEPHONE TRIAGE ICD-10-CM Z71.89 JOSELITO RESTREPO 09:28 AM CALL 5-10 MIN Other specified L R counseling with Provider Comments: Other specified counseling IHE Encounter Template Text not used by [place] Assessments - Encounter Diagnoses This section includes the primary and secondary diagnoses documented for the Encounter. Date/Time Primary/Secondary Diagnosis Name Provider Source Diagnosis Jul 07, 2021 PRIMARY Other specified JOSELITO RESTREPOI S [place] 09:28 AM counseling L R HCS Plan of Treatment: Future Appointments (+ 6 months) and Future Tests (+/- 45 days) The Plan of Treatment section includes future care activities for the patient from all [place] [facility]. This section includes future appointments and future orders which are active, pending orscheduled.Future Appointments This section includes appointments that were scheduled to occur 6 months from the date of the Encounter, up to a maximum of 20 appointments. The data comes from all [place] treatment facilities. Appointment Date/Time Appointment Type Appointment Facili ty Name Jul 10, 2021 11:00 AM AMBULATORY - PSYCHIATRY [facility] Jul 23, 2021 02:30 PM AMBULATORY - MEDICINE [facility] CS Jul 23, 2021 03:15 PM AMBULATORY - NONE [facility] Jul 30, 2021 01:00 PM AMBULATORY - PSYCHIATRY [facility] Aug 08, 2021 11:00 AM AMBULATORY - NONE [facility] Aug 21, 2021 10:00 AM AMBULATORY PSYCHIATRY [facility] Aug 29, 2021 10:30 AM AMBULATORY PSYCHIATRY [facility] Sep 04, 2021 10:00 AM AMBULATORY PSYCHIATRY [facility] Oct 09, 2021 09:00 AM AMBULATORY PSYCHIATRY [facility] November 14, 2021 03:00 PM AMBULATORY PSYCHIATRY [facility] November 20, 2021 09:00 AM AMBULATORY PSYCHIATRY [facility] November 28, 2021 11:00 AM AMBULATORY - PSYCHIATRY [facility] Dec 04, 2021 09:00 AM AMBULATORY - PSYCHIATRY [facility] Dec 11, 2021 09:00 AM AMBULATORY PSYCHIATRY [facility] Jan 01, 2022 09:00 AM AMBULATORY - PSYCHIATRY [facility] Jan 02, 2022 08:22 AM AMBULATORY - MEDICINE [facility] Lab Results: +/- 30 days of the encounter This section includes the Chemistry and Hematology Lab Results on record with [place] for the patient. Radiology Reports and Pathology Reports are provided separately, in subsequent sections.Lab Results This section contains the Chemistry/Hematology Results that were resulted 30 days before or 30 daysafter the date of the Encounter. Date/Time Source Result Type Result - Unit Interpretation Reference Range Comment Jul 23, 2021 03:09 [facility] TSH W/REFLEX TO FREE Spec imen Type: PLASMA PM T4 No comment enter ed. Ordering Provid er: ANITA HARVEY Report Released Date/Time: Jul 23, 2021 03:00 PM Reporting Lab: [facility] [id number] Performing Lab: [facility] I [facility] [id number] TSH 1.03 0.35-4.94 Jul 23, 2021 03:09 [facility] BASIC METABOLIC Specimen Type: PLASMA PM PANEL+MG No comment enter ed. Ordering Provid er: ANITA HARVEY Report Released Date/Time: Jul 23, 2021 03:00 PM Reporting Lab: [facility] [id number] Performing Lab: [facility] [id number] CREATININE 0.8 0.5-1.0 UREA NITROGEN 20 7-20 GLUCOSE 69 L 74-100 SODIUM 141 136-145 POTASSIUM 3.9 3.5-5.1 CHLORIDE 107 98-107 CO2 26 22-29 CALCIUM 9.2 8.4-10.2 MAGNESIUM 2.0 1.6-2.6 ANION GAP 8 5-15 ESTIMATED GFR(eGFR) 84 >60 Jul 23, 2021 03:09 PM [facility] CBC Specim en Type: BLOOD No comment enter ed. Ordering Provid er: ANITA HARVEY Report Released Date/Time: Jul 23, 2021 03:00 PM Reporting Lab: [facility] [id number] Performing Lab: [facility] [id number] WBC 8.15 4.0-11.0 RBC 4.15 4.0-5.4 HGB 12.5 11.5-16 HCT 38.5 34.5-48 MCV 92.8 80-100 MCH 30.1 27-33 MCHC 32.5 32.0-37.5 PLT 355 150-400 MPV 10.2 7.4-10.4 RDW 13.0 11.5-14.5 Jul 23, 2021 03:09 PM [facility] IRON GROUP Specim en Type: SERUM No comment enter ed. Ordering Provid er: ANITA HARVEY Report Released Date/Time: Jul 23, 2021 03:00 PM Reporting Lab: [facility] [id number] Performing Lab: [facility] [address] IRON 83 50-170 TIBC,CALCULATED 284 250-425 FERRITIN 52.2 4.6-204.0 IRON SATURATION 29 15-50 TRANSFERRIN 227 163-382 Encounter Notes: All associated encounter notes This section contains the clinical notes associated to the Encounter. Date/Time Encounter Note(s) Provider Source Jul 07, 2021 09:28 AM NURSING TELEPHONE ENCOUNTER NOTE: MYRNA RESTREPO [facility] LOCAL TITLE: TELEPHONE CARE NURSE TRIAGE STANDARD TITLE: NURSING TELEPHONE ENCOUNTER NOTE DATE OF NOTE: JUL 07, 2021@09:28:27 ENTRY DATE: JUL 07, 2021@09:40:28 AUTHOR: MYRNA RESTREPO EXP COSIGNER: URGENCY: STATUS: COMPLETED TELEPHONE CARE NURSE TRIAGE Has ADDENDA Chief Complaint: Diabetes - Low Blood Sugar The following identifiers were used to verify th is patient: RUDY. SSN. Comments: Clinical Contact/Call Center Coronaviru s Disease 2019 (COVID-19) Screen, andie. November 2020 DIAGNOSIS AND TESTING STATUS: Has Kotlik been diagnosed with COVID-19: () Yes* Date: (continue screening) (x) No (Continue Screening) Comment(s): Is Kotlik waiting for COVID-19 test results: () Yes [...] (x) Negative Screen NURSES NOTES PATIENT CONCERN/DURATION/ONSET: I have been hav ing frequent spells where I feel my blood sugar is getting low. If I don't e at every 3-4 hours, I get the shakes, dizzy, lightheaded, weak, hangry; she can identify when it is about to happen. She thinks it may be her bloo d sugar or her thyroid. Vet states she forgets to eat, especially w hen she is home. She is hungry more frequently. She also lifts weight. If she gets busy and forgets to eat, she starts to feel sick. Symptoms have been worsening over the last two months. Vet states she has been sweating more at ght - the last 3 out of 7 nights - and the sweating will wake vet up. Intermittent nausea wh en she forgets to eat. Vet also states she has been more forgetful lately. is not diabetic. Last A1C is 4.9 on 12/3 07/2018. Vet also wondering if these symptoms are r/t her medication she takes. DENIES: fever, chills, vomiting, heart palpitati ons, confusion, WHAT HAS PATIENT TRIED TO TREAT THE SYMPTOMS: HISTORY/PREVIOUS TREATMENT: None noted. WHAT IS PATIENT GOAL FOR THE CALL: appt with PCP DID YOU CONSIDER USING CCC LIP (TELE or VVC): no t available; TEACHER INSTRUMENTAL DISPOSITION: Recommended triage is 2-3 days secondary to hypoglycemic reactions. Limited access. Will for candelario to PACT for further management of 's concerns as per [facility] Pandemic SOP. expecting a call back to schedule. Best contact for is [phone] ([facility] ed). (Caller could accurately sum marize the agreed upon plan of care as discussed in the education log portion of this note.) Per sissy cruz, automated recommendations for an appointment indicates an interaction (virtual or in- person) with the care team. Author: MYRNA RESTREPO Caller Area: *[facility] The patient, JASMIN COVINGTON IE ([id number]) called the call center. Caller Response: APPT GREATER THAN 24 HOURS Class Code: Other specified counseling. Contact By not following the recomme nded advice could make your symptoms worse, or even life threatening. Advised to contact Telephone Care for any questions, concerns, new or worsening symptoms; services available 25/01. Evaluation/Management Code: HC PRO PHONE CALL 5- 10 MIN ([phone]). Starting at: 07/07/2021 @ 9:28:27 AM Ending at: 07/07/2021 @ 9:37:42 AM Length: 9 minutes. Nurse Notes: low blood sugar x 2 months Protocol Used: Diabetes - Low Blood Sugar Protocol-Based Disposition: Home Care Override (Final) Disposition: See PCP or Video V isit within 3 Days Override Reason: Nurse judgment Override Notes: Vet has hypoglycemic symptoms - vet would like these symptoms addressed. Positive Triage Question: * Low blood sugar definition and treatment, ques tions about Negative Triage Questions: * Unconscious or difficult to awaken * Seizure occurs * Acting confused (e.g., disoriented, slurred sp eech) * Very weak (e.g., can't stand) * Sounds like a life-threatening emergency to e triager * [1] Vomiting AND [2] signs of dehydration (e.g., very dry mouth, lightheaded, dark urine) * [1] Low blood sugar symptoms persist > 30 shirlene divine AND [2] using low blood sugar Care Advice * [1] Low blood glucose (< 70 mg/dL or 3.9 mmol/ L) persists > 30 minutes AND [2] using low blood sugar Care Advice * Patient sounds very sick or weak to the triage r * [1] Low blood sugar sympto ms with no other adult present AND [2] hasn't tried Care Advice * [1] Low blood glucose (< 70 mg/dL or 3 .9 mmol/L) with no other adult present AND [2] hasn't tried Care Advice * Diabetes drug error or overdose (e.g., insulin error or extra dose) * [1] Caller has URGENT medication or insulin pu mp question AND [2] triager unable to answer question * [1] Blood glucose < 70 mg/dL (3.9 mmol/L) or s ymptomatic, now improved with Care Advice AND [2] cause unknown * [1] Caller has NON-URGENT medication or insulin pump question AND [2] triager unable to answer question * [1] Morning (before breakfast) blood g lucose < 80 mg/dL (4.4 mmol/L) AND [2] more than once in past week * [1] Evening (after bedtime snack) bloo d glucose < 100 mg/dL (5.6 mmol/L) AND [2] more than once in past week * [1] Blood glucose < 70 mg/dL (3.9 mmol /L) or symptomatic AND [2] cause known Patient's Email Address: [email or web address] Provider Info: LOCAL - [facility] ([id number] PACT: [facility] (Focus: Womens Health) Designated Pcp: Anita Harvey PHONE:[phone] PAGER:[phone] Transfer Specialist: Jyothi Melissa PHONE:[phone] Clinical Associate: Theresa Tan ELLI:[phone] Real Estate Leasing Manager: Romelia Pelayo E:[phone] PACT Clinical Pharmacist: Farrukh Lindsey PHONE:[phone] Clinical POC: Administrative POC: [facility] RUDI REYNA [facility] ([id number]) MH: WILIAM REYNA V23 ([facility]) Registered Nurse Jeovanny Hyde NE:[phone] Type of call: *TC SYMPTOM APPT. /wally/ MYRNA RESTREPO RN BSN VISN 23 DAYTIME SWING FRAME GRINDER OPERATOR Signed: 07/07/2021 09:40 Receipt Acknowledged By: 07/07/2021 10:57 /wally/ ANITA HARVEY M.D. STAFF PHYSICIAN 07/07/2021 11:06 /wally/ NAINA MELISSA RN REGISTERED NURSE 07/07/2021 ADDENDUM STATUS: COMPLETED Recommend small frequent meals and set up appt w ith me. Ask her to keep hard candy on her person or in her purse with her unt il evaluation with me. /wally/ ANITA HARVEY M.D. 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 harvey /wally/ NAINA MELISSA RN REGISTERED NURSE Signed: 07/07/2021 11:14 Receipt Acknowledged By: 07/08/2021 08:58 /wally/ ANGELA PELAYO ADVANCED VULCANIZED FIBER UNIT OPERATOR 07/08/2021 ADDENDUM STATUS: COMPLETED Called and spoke with patient and agreed to appt with PCP for . /wally/ ANGELA PELAYO ADVANCED VULCANIZED FIBER UNIT OPERATOR Signed: 07/08/2021 08:59
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
--- OUTSIDE RECORDS SUMMARY | 2022-05-01 10:39 | XMS_ITS | Encounter Summary ---
:1990 Author Organization [facility] rs Address [address] [place] [address] Support Name Relationship Address Phone BELLE COVINGTON Unavailable [address] [place] [address] BELLE COVINGTON Unavailable [address] [place] [address] Insurance Providers: All historical and current Section [...] Dick HEALTH HEALTH FED Jan 05, 3052 [id number] [phone] JELENA COVINGTON PATIENT PARTNERS MAINTENAN EMP 2021 1 7 [place] CE OPEN ORGANIZAT ACCES ION W/OUT S OF NETWORK BENEFITS MEDIMPACT PRESCRIPT HEALT Jan 04 [id number] [phone] JELENA WILLETT PATIENT RX ION H 2021 1 9 [place] PARTN ERS Selected Encounter This section includes the information on record at [place] for the Encounter. Date/Time Encounter Type Encounter Reason Provider Source Description Jul 23, 2021 OFFICE O/P EST COMP [facility]OM[facility] ICD-10-CM ANITA HARVEY 02:30 PM MOD 30-39 MIN R53.83 Other fatigue with Provider Comments: Other Fatigue IHE Encounter Template Text not used by [place] Assessments - Encounter Diagnoses This section includes the primary and secondary diagnoses documented for the Encounter. Date/Time Primary/Secondary Diagnosis Name Provider Source Diagnosis Jul 25, 2021 PRIMARY Other fatigue ANITA HARVEY [facility] 05:17 PM Plan of Treatment: Future Appointments (+ 6 months) and Future Tests (+/- 45 days) The Plan of Treatment section includes future care activities for the patient from all [place] [facility]. This section includes future appointments and future orders which are active, pending orscheduled.Future Appointments This section includes appointments that were scheduled to occur 6 months from the date of the Encounter, up to a maximum of 20 appointments. The data comes from all [place] treatment facilities. Appointment Date/Time Appointment Type Appointment Facili ty Name Jul 30, 2021 01:00 PM AMBULATORY - PSYCHIATRY [facility] Aug 08, 2021 11:00 AM AMBULATORY - NONE [facility] Aug 21, 2021 10:00 AM AMBULATORY PSYCHIATRY [facility] Aug 29, 2021 10:30 AM AMBULATORY PSYCHIATRY [facility] Sep 04, 2021 10:00 AM AMBULATORY PSYCHIATRY [facility] Oct 09, 2021 09:00 AM AMBULATORY PSYCHIATRY [facility] November 14, 2021 03:00 PM AMBULATORY PSYCHIATRY [facility] November 20, 2021 09:00 AM AMBULATORY PSYCHIATRY [facility] November 28, 2021 11:00 AM AMBULATORY PSYCHIATRY [facility] Dec 04, 2021 09:00 AM AMBULATORY PSYCHIATRY [facility] Dec 11, 2021 09:00 AM AMBULATORY PSYCHIATRY [facility] Jan 01, 2022 09:00 AM AMBULATORY PSYCHIATRY [facility] Jan 02, 2022 08:22 AM AMBULATORY - MEDICINE [facility] Jan 15, 2022 02:00 PM AMBULATORY - NONE [facility] Lab Results: +/- 30 days of [...] Reference Range Comment Jul 23, 2021 03:09 [facility] TSH W/REFLEX TO FREE Spec imen Type: PLASMA PM T4 No comment enter ed. Ordering Provid er: ANITA HARVEY Report Released Date/Time: Jul 23, 2021 03:00 PM Reporting Lab: [facility] [id number] Performing Lab: [facility] [id number] TSH 1.03 0.35-4.94 Jul 23, 2021 03:09 [facility] BASIC METABOLIC Specimen Type: PLASMA PM PANEL+MG No comment enter ed. Ordering Provid er: ANITA HARVEY Report Released Date/Time: Jul 23, 2021 03:00 PM Reporting Lab: [facility] [id number] Performing Lab: [facility] [id number] CREATININE 0.8 0.5-1.0 UREA NITROGEN 20 7-20 GLUCOSE 69 L 74-100 SODIUM 141 136-145 POTASSIUM 3.9 3.5-5.1 CHLORIDE 107 98-107 CO2 26 22-29 CALCIUM 9.2 8.4-10.2 MAGNESIUM 2.0 1.6-2.6 ANION GAP 8 5-15 ESTIMATED GFR(eGFR) 84 >60 Jul 23, 2021 03:09 PM [facility] CBC Specim en Type: BLOOD No comment enter ed. Ordering Provid er: ANITA HARVEY Report Released Date/Time: Jul 23, 2021 03:00 PM Reporting Lab: [facility] [id number] Performing Lab: [facility] [id number] WBC 8.15 4.0-11.0 RBC 4.15 4.0-5.4 HGB 12.5 11.5-16 HCT 38.5 34.5-48 MCV 92.8 80-100 MCH 30.1 27-33 MCHC 32.5 32.0-37.5 PLT 355 150-400 MPV 10.2 7.4-10.4 RDW 13.0 11.5-14.5 Jul 23, 2021 03:09 PM [facility] IRON GROUP Specim en Type: SERUM No comment enter ed. Ordering Provid er: ANITA HARVEY Report Released Date/Time: Jul 23, 2021 03:00 PM Reporting Lab: [facility] [phone] Performing Lab: [facility] [id number] IRON 83 50-170 TIBC,CALCULATED 284 250-425 FERRITIN 52.2 4.6-204.0 IRON SATURATION 29 15-50 TRANSFERRIN 227 163-382 Vital Signs: All taken on the encounter date This section contains inpatient and outpatient Vital Signs collected on the date of the Encounter. Date/Time Temperature Pulse Blood Respiratory SP02 Pain Height Weight Kendall dy Source Pressure Rate Mass Index Jul 23 99/60 17 /min 98 % 1 64 in 121 lb 21 [place] 2021 02:28 /min mm[Hg] [facility] Social History: Smoking Status (Most current) [...] 02:30 PM VA-TOBACCO NEVER USED [facility] Encounter Notes: All associated encounter notes This section contains the clinical notes associated to the Encounter. Date/Time Encounter Note(s) Provider Source Jul 23, 2021 04:55 PM LETTERS: ANITA HARVEY [facility] LOCAL TITLE: FOLLOW UP RESULTS LETTER STANDARD TITLE: LETTERS DATE OF NOTE: JUL 23, 2021@16:55 ENTRY DATE: JUL 23, 2021@16:55:35 AUTHOR: ANITA HARVEY EXP COSIGNER: URGENCY: STATUS: COMPLETED [facility] [address] [place] [address] Jul JASMIN COVINGTON [address] [facility] [id number] Dear [place]: I am writing to inform you of the results of divine ting that you had done recently at the [facility] m. Your labs are all normal with the exception of y our blood sugar being mildly low at 69. I would recommend ongoing use of smal l frequent meals. Try to increase your intake of carbohydrates a bit. Inc rease your fluid intake to approx 48-64 ounces of water per day. There is n o evidence of low iron, anemia, kidney or thyroid problems. - Complete Blood Count (red/white blood cell cou nts and platelets) White count: WBC 8.15 (07/23/21) (normal is 4.0 -11.0) Hemoglobin: HGB 12.5 (07/23/21) (normal Male is 13.5-17.9; Female is 11.5-16) Hematocrit: HCT 38.5 (07/23/21) (normal Male is 41-54; Female is 34.5- 48) Platelets: PLT 355 (07/23/21) (normal is 150-40 0) - Electrolytes including sodium and potassium SODIUM 141 (07/23/21) (normal is 136-145) POTASSIUM 3.9 (07/23/21) (normal is 3.5-5.1) - Calcium CALCIUM 9.2 (07/23/21) (normal is 8.5-10.1) - Kidney function CREATININE 0.8 (07/23/21)(normal Male = less th an 1.2; normal Female = less than 1.0)) UREA NITROGEN 20 (07/23/21) (normal Male is 8-2 6; normal Female is 10- 20) - Blood Sugar GLUCOSE 69 L (07/23/21) (normal is 74 - 106 if fasting) - Thyroid Function: TSH 1.03 (07/23/21) (normal 0.3-5.0) Reporting Lab: [facility] [CLIA# [id number]] [place] [address] Report Released Date/Time: Jul 23, 2021@16:33 Provider: ANITA HARVEY Specimen: SERUM. [id number] Specimen Collection Date: Jul 23, 2021@15:09 Test name Result units Ref. range Site Code IRON 83 ug/dL 50 - 170 [618] TRANSFERRIN 227 mg/dL 163 - 382 [618] TIBC,CALCULATED 284 ug/dL 250 - 425 [618] IRON SATURATION 29 % 15 - 50 [618] FERRITIN 52.2 ng/mL 4.6 - 204.0 [618] Eval: Individual ferritin plasma concentration values may be approximately 10% Eval: higher than serum values. == If you have any further questions or problems, yuliana matta contact our nursing staff or provider at the following number: . Sincerely, ANITA HARVEY M.D. STAFF PHYSICIAN Jul 23, 2021 02:49 PM [facility] OUTPATIENT E & M NOTE: ANITA HARVEY [facility] LOCAL TITLE: WOMEN'S CLINIC NOTE STANDARD TITLE: [facility] OUTPATIENT E & M N OTE DATE OF NOTE: JUL 23, 2021@14:49 ENTRY DATE: JUL 23, 2021@14:49:56 AUTHOR: ANITA HARVEY EXP COSIGNER: URGENCY: STATUS: COMPLETED [facility] NOTE Has ADDENDA Assessment/Plan: The patient is a 30 yo FEMALE w ho comes in for follow up. 1. Ongoing fatigue normal examination today. Suspect lack of sleep and anxiety are playing a role checking CBC, thyroid studies and iron levels to day. Encouaraged pt to f/u with MH team to discuss re integration anxiety as well. will alert Dr. Gamez to note. 2. Lightheadedness no orthostaiss. nothign to suggest actual hypogl ycemic episodes. Improve hydration, cut back on caffeine. Glucose added to labs today. Anita Harvey MD, FACP Staff Physician [facility] ---- Nurse's Notes Reviewed. S: The patient is a 30 yo FEMALE who comes in to day for evaluatoin of ongoing fatigue. notes she feels tired all the time. Run down. 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 She is taking care of both kids on her own. On duloxetine for anxiety sxs and feels this is fairly well contro lled. She is unappy that she gained some weight on the duloxetine. Notes that she has episodes where she will sometimes feel lightheaded almost like her blood sugar is dropping (no shaking, sweating) and she tries to eat small fr quent meals as a result. no LOC, no racing in her heart. She drinks approx 32 oz of water once daily. she beltrán s use caffine. typically coffee in the am and an ener gy drink in the pm. she has been trying to cut back on this. ros negative for weight loss, fevers, sw ollen LN. nl chest pain/sob, abd pain. she did have a week where she was feeling sweaty at night but resolved. She notes sleeps about 6-7 hrs p er night. often woken up in the middle of the night by her 4 year old. does not feel rested in the a m. menses are regular. every 4-5 weeks. no heavy bl eeding. notes h/o iron deficiency in the past and wonders about this. denies any sxs of low mood or depression at this time. notes some anxidty about her coming home in the next month or so. notes relationship with him is goo d, but is always a tough reintegration with changes in schedules etc with kids. she does exercise regularly. typically weight ll ifting three days per week. Medication and Allergies are reviewed and update d. Past medical history/Active Problems: Active Problems: Active problems - Computerized Problem List is t he source for the followin. Depression ([facility] [id number]) 2. Headache ([facility] [id number]) 3. Anxiety ([facility] [id number]) 4. Hip pain 5. Recurrent depression 6. Closed fracture of left clavicle 7. 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 Repeat pap smear/ cotesting per [facility]PITAL[facility] RE[facility] recs 1 yr Physical Exams: Vitals: BP: 99/60 (07/23/2021 14:28) P: 90 (07/23/2021 14:28) R: 17 (07/23/2021 14:28) T: 98.2 F [36.8 C] (09/17/2020 12:44) WT: 121 lb [55.0 kg] (07/23/2021 14:28) O2 Sat: 98% (07/23/2021 14:28) BMI: 20.8 BMI > 25 Assessment General Well appearing and NAD HEENT NC/AT PERRL conjunctiva are nl. OP clear Neck supple. No thyroid enlargment or masses. no cervical, supraclavicular or axillary lad. CV RRR without m/g/r Pulm: clear without wheezes, rhonchi. Abd soft nt/nd bs+ no hsm or masses. Ext warm. no edema. Pulses DP 2+, PT 2+ Skin warm and dry. no rashes present. no ecchymo ses on extermities. COVID-19 Immunization: Moderna COVID-19 Vaccine given previously Patient received a prior dose of the Moderna CO VID-19 Vaccine. Date: September 26, 2020 Location: [facility] /wally/ ANITA HARVEY M.D. STAFF PHYSICIAN Signed: 07/25/2021 17:17 07/30/2021 ADDENDUM STATUS: COMPLETED requested a referral to see a dietitian/ironing pleater. Please call her if referral is not appropriate, thanks! 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 /wally/ NAINA MELISSA RN REGISTERED NURSE Signed: 07/30/2021 14:12 Jul 23, 2021 02:29 PM [facility]: LESLI ALMARAZ [facility] LOCAL TITLE: WOMEN'S CLINIC NURSING NOTE STANDARD TITLE: WOMENS HEALTH NURSING OUTPATIENT NOTE DATE OF NOTE: JUL 23, 2021@14:29 ENTRY DATE: JUL 23, 2021@14:30:03 AUTHOR: LESLI PORRAS EXP COSIGNER: URGENCY: STATUS: COMPLETED TYPE OF VISIT: Appointment Check In Type of appointment: In-person appointment REASON FOR VISIT: Restless/ tiredness, dizziness, foregetting to eat, anxiety level high, and forgetfulness ALLERGIES: LATEX GLOVES (Jul 04, 2019) VITAL SIGNS: Blood Pressure: 99/60 (07/23/2021 14:28) Pulse: 90 (07/23/2021 14:28) Respiration: 17 (07/23/2021 14:28) Temperature: 98.2 F [36.8 C] (09/17/2020 12:44) Weight: 121 lb [55.0 kg] (07/23/2021 14:28) Height: 64 in [162.6 cm] (07/23/2021 14:28) BMI: 20.8 O2 Sat: 98% (07/23/2021 14:28) Pain: 1 (07/23/2021 14:28) PAIN SCREEN: Patient is not having significant pain that the y wish to discuss with their provider today. MEDICATION Active Outpatient Medications (including Suppli es): DULOXETINE HCL 30MG EC CAP TAKE ONE CAPSULE BY MOUTH EVERY ACTIVE (S) DAY FOR MOOD AND ANXIETY SUMATRIPTAN SUCCINATE 50MG TAB TAKE ONE TABLET BY MOUTH ACTIVE EVERY DAY NEEDED FOR MIGRAINE, MAY REPEAT AF TER 2 HOURS IF NEEDED. MAXIMUM OF 200 MG IN 24 HOURS. Over the Counter/Herbal Medications: The patient states that they take some outside medications and/or herbals. FEMALE Last menstrual period (LMP): 07/01/2021 Contraception: Tubaligation : 4 Para: 2,0,2,2 Last Pap Smear: 02/18/2021 outside the [place] Last Mamogram:none Alcohol Use Screen (AUDIT-C): Alcohol Screen: SCREEN FOR ALCOHOL (AUDIT-C) An alcohol screening test (AUDIT-C) was negativ e (score=1). 1. How often did you have a drink containing al cohol in the past year? Monthly or less 2. How many drinks containing alcohol did you h ave on a typical day when you were drinking in the past year? One or two drinks 3. How often did you have 4 or more drinks on o ne occasion in the past year? Never PTSD Screening: PC-PTSD-5 A PTSD screening test (PC-PTSD-5) was negative (score=1). Have you ever had any experience that was so fr ightening, horrible or upsetting that, IN THE PAST MONTH, you: Have you ever experienced this kind of event? YES 1. Had nightmares about the event(s) or thought about the event(s) when you did not want to? NO 2. Tried hard not to think about the event(s) o r went out of your way to avoid situations that reminded you of the ev ent(s)? NO 3. Been constantly on guard, watchful, or easil y startled? YES 4. [place] numb or detached from people, activitie s, or your surroundings? NO 5. [place] guilty or unable to stop blaming yourse lf or others for the event(s) or any problems the event(s) may have caused? NO Tobacco Use Screening: The patient has never used tobacco. Homelessness/Food Insecurity Screen: In the past 2 months, have you been living in s table housing that you own, rent, or stay in as part of a household? Y es - Living in stable housing. Are you worried or concerned that in the next 2 months you may NOT have stable housing that you own, rent, or stay in a s part of a household? No - Not worried about housing near future The [place] reports the following: Within the past 12 months, you worried whether your food would run out before you got money to buy more. Never true Within the past 12 months, the food you bought just didn't last and you didn't have money to get more. Never true Influenza Immunization: The patient has received the seasonal influenza vaccine for the current season at another location. Date: May 10, 2021 Location: [facility] /wally/ LESLI PORRAS LPN LPN Signed: 07/23/2021 14:38
--- OUTSIDE RECORDS SUMMARY | 2022-05-01 10:39 | XMS_ITS | Encounter Summary ---
:1990 Author Organization [facility] rs Address [address] [place] [id number] Support Name Relationship Address Phone BELLE COVINGTON Unavailable [address] [place] [address] BELLE COVINGTON Unavailable [address] [place] [address] Insurance Providers: All historical and current Section [...] Dick HEALTH HEALTH FED Jan 05, 3052 [id number] [phone] JELENA COVINGTON PATIENT PARTNERS EVETTE EMP 2021 1 7 [place] CE OPEN ORGANIZAT ACCES ION W/OUT S OF NETWORK BENEFITS MEDIMPACT PRESCRIPT HEALT Jan 04 [id number] [phone] KAITY AmaroJELENA PATIENT RX ION H 2021 1 9 [place] PARTN ERS Selected Encounter This section includes the information on record at [place] for the Encounter. Date/Time Encounter Type Encounter Description Reason Provider Source May 10, 2021 12:00 Outpatient Encounter EVENT (HISTORICAL) AM IHE Encounter Template Text not used [...] Date/Time Appointment Type Appointment Facili ty Name Jun 05, 2021 10:00 AM AMBULATORY - PSYCHIATRY [facility] Jun 18, 2021 10:30 AM AMBULATORY - PSYCHIATRY [facility] Jul 10, 2021 11:00 AM AMBULATORY - PSYCHIATRY [facility] Jul 23, 2021 02:30 PM AMBULATORY - MEDICINE [facility] Jul 23, 2021 03:15 PM AMBULATORY - NONE [facility] Jul 30, 2021 01:00 PM AMBULATORY - PSYCHIATRY [facility] Aug 08, 2021 11:00 AM AMBULATORY - NONE [facility] Aug 21, 2021 10:00 AM AMBULATORY - PSYCHIATRY [facility] Aug 29, 2021 10:30 AM AMBULATORY - PSYCHIATRY [facility] Sep 04, 2021 10:00 AM AMBULATORY - PSYCHIATRY [facility] Oct 09, 2021 09:00 AM AMBULATORY - PSYCHIATRY [facility] Immunizations: All administered on the encounter date This section contains immunizations associated to the Encounter. Immunization Series Date Issued Reaction Comments INFLUENZA, UNSPECIFIED FORMULATION May 10, 2021
--- OUTSIDE RECORDS SUMMARY | 2022-05-01 10:39 | XMS_ITS | Encounter Summary ---
:1990 Author Organization [facility] Address [address] [place] [address] Support Name Relationship Address Phone BELLE MADISON Unavailable [address] [place] [address] BELLE MADISON Unavailable [address] [place] [address] Insurance Providers: All historical and current Section [...] Dick HEALTH HEALTH FED Jan 05, 3052 [id number] [phone] JELENA MADISON PATIENT PARTNERS MAINBERNARDO EMP 2021 1 7 [place] CE OPEN ORGANIZAT ACCES ION W/OUT S OF NETWORK BENEFITS MEDIMPACT PRESCRIPT HEALT Jan 04 [id number] [phone] JELENA WILLETT PATIENT RX ION H 2021 1 9 [place] PARTN ERS Selected Encounter This section includes the information on record at [place] for the Encounter. Date/Time Encounter Type Encounter Reason Provider Source Description Jun 05, 2021 PSYTX W PT 45 MENTAL HEALTH ICD-10-CM F33.8 BRIE OLEARY 10:00 AM MINUTES CLINIC - IND Other recurrent depressive disorders with Provider Comments: Recurrent depression ([facility] [id number]) IHE Encounter Template Text not used by [place] Assessments - Encounter Diagnoses This section includes the primary and secondary diagnoses documented for the Encounter. Date/Time Primary/Secondary Diagnosis Name Provider Source Diagnosis Jun 05, 2021 PRIMARY Other recurrent [facility] [place] 12:14 PM depressive HCS disorders Jun 05, 2021 SECONDARY Anxiety disorder, [facility] 12:14 PM unspecified [facility] Plan of Treatment: Future Appointments (+ 6 months) and Future Tests (+/- 45 days) The Plan of Treatment section includes future care activities for the patient from all [place] [facility]. This section includes future appointments and future orders which are active, pending orscheduled.Future Appointments This section includes appointments that were scheduled to occur 6 months from the date of the Encounter, up to a maximum of 20 appointments. The data comes from all [place] treatment facilities. Appointment Date/Time Appointment Type Appointment Facili ty Name Jun 18, 2021 10:30 AM AMBULATORY - PSYCHIATRY [facility] Jul 10, 2021 11:00 AM AMBULATORY - PSYCHIATRY [facility] Jul 23, 2021 02:30 PM AMBULATORY - MEDICINE [facility] Jul 23, 2021 03:15 PM AMBULATORY - NONE [facility] Jul 30, 2021 01:00 PM AMBULATORY - PSYCHIATRY [facility] Aug 08, 2021 11:00 AM AMBULATORY NONE [facility] Aug 21, 2021 10:00 AM AMBULATORY PSYCHIATRY [facility] Aug 29, 2021 10:30 AM AMBULATORY - PSYCHIATRY [facility] Sep 04, 2021 10:00 AM AMBULATORY - PSYCHIATRY [facility] Oct 09, 2021 09:00 AM AMBULATORY - PSYCHIATRY [facility] November 14, 2021 03:00 PM AMBULATORY - PSYCHIATRY [facility] November 20, 2021 09:00 AM AMBULATORY PSYCHIATRY [facility] November 28, 2021 11:00 AM AMBULATORY PSYCHIATRY [facility] Dec 04, 2021 09:00 AM AMBULATORY PSYCHIATRY [facility] Encounter Notes: All associated encounter notes This section contains the clinical notes associated to the Encounter. Date/Time Encounter Note(s) Provider Source Jun 05, 2021 10:00 AM MENTAL HEALTH [facility]: MH PROGRESS NOTE STANDARD TITLE: MENTAL HEALTH NOTE DATE OF NOTE: JUN 05, 2021@10:00 ENTRY DATE: JUN 05, 2021@12:11:09 AUTHOR: ROBLES OLEARY EXP COSIGNER: URGENCY: STATUS: COMPLETED S: I met with Ms. Madison for 55 minutes of psycho therapy via VVC to work. started her new job a few weeks ag o.[place] reports doing well overall. She is liking new job, enjoying house p rojects. Reports difficulty feeling unsupported by family and knows she migh t have to accept their limitations. Discussed her emotional needs and b roadening support network as long-term goal. She completes college in a few w eeks. Reports Thanksgiving was emotionally rough and she wonders if hormona l changes contributed. Discussed kids who are doing well. 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 S: Affect was congruent with session content. M ood is good. Appears euthymic/calm. She denies SI/HI. Suicide [...] in home, future oriented, problem solving ability. [place] was pleasant an d cooperative. Speech was clear and fluent. Casually dressed and groomed. good eye contact. no AH/vh/delusions. Thought form was logical and go al directed. Insight and judgement are good. Reports difficulty with slee p and currently gets about 5 to 6 hours. Denies excessive use of alcohol. Valente iable use of caffeine/energy drinks. Related to: Combat [place] Related Diagnoses: Recurrent depression (SCT [id number]) - Other rec urrent depressive disorders (ICD-10-CM F33.8) (Primary) Anxiety (SCT [id number]) - Anxiety disorder, unspe cified (ICD-10-CM F41.9) Procedures: 38-52 minutes P: F/U by vvc on Jul 10 at 11 a.m. via VVC. Steffany tami has my contact number, the [facility] and [facility]. /wally/ ROBLES OLEARY, PHD, LP STAFF PSYCHOLOGIST Signed: 06/05/2021 12:14
--- OUTSIDE RECORDS SUMMARY | 2022-05-01 10:39 | XMS_ITS | Encounter Summary ---
:1990 Author Organization [facility] Address [address] [place] [address] Support Name Relationship Address Phone BELLE COVINGTON Unavailable [address] [place] [address] BELLE COVINGTON Unavailable [address] [place] [address] Insurance Providers: All historical and current Section [...] Dick HEALTH HEALTH FED Jan 05, 3052 [id number] [phone] JELENA COVINGTON PATIENT PARTNERS [place] EMP 2021 1 7 [place] CE OPEN ORGANIZAT ACCES ION W/OUT S OF NETWORK BENEFITS MEDIMPACT PRESCRIPT HEALT Jan 04 [id number] [phone] JELENA WILLETT PATIENT RX ION H 2021 1 9 [place] Selected Encounter This section includes the information on record at DC for the Encounter. Date/Time Encounter Type Encounter Reason Provider Source Description Jul 30, 2021 MTMS BY PHARM MENTAL HEALTH ICD-10-CM F41.9 TRAKALO,ANDR A 01:00 PM EST 15 MIN CLINIC - IND Anxiety disorder, A unspecified with Provider Comments: Anxiety ([facility] [id number]) IHE Encounter Template Text not used by [facility] Assessments - Encounter Diagnoses This section includes the primary and secondary diagnoses documented for the Encounter. Date/Time Primary/Secondary Diagnosis Name Provider Source Diagnosis Jul 30, 2021 PRIMARY Anxiety disorder, KEN ZEPEDAAPOL IS [facility] 01:27 PM unspecified A [facility] Jul 30, 2021 SECONDARY Major depressive KEN ZEPDEA DC 01:27 PM disorder, single A HCS episode, unspecified Plan of Treatment: Future Appointments (+ 6 months) and Future Tests (+/- 45 days) The Plan of Treatment section includes future care activities for the patient from all DC treatmentfadorothea dix hospitalities. This section includes future appointments and future orders which are active, pending orscheduled.Future Appointments This section includes appointments that were scheduled to occur 6 months from the date of the Encounter, up to a maximum of 20 appointments. The data comes from all [place] treatment facilities. Appointment Date/Time Appointment Type Appointment Facili ty Name Aug 08, 2021 11:00 AM AMBULATORY - NONE [facility] Aug 21, 2021 10:00 AM AMBULATORY - PSYCHIATRY [facility] Aug 29, 2021 10:30 AM AMBULATORY - PSYCHIATRY [facility] Sep 04, 2021 10:00 AM AMBULATORY - PSYCHIATRY [facility] Oct 09, 2021 09:00 AM AMBULATORY - PSYCHIATRY [facility] November 14, 2021 03:00 PM AMBULATORY - PSYCHIATRY [facility] November 20, 2021 09:00 AM AMBULATORY - PSYCHIATRY [facility] November 28, 2021 11:00 AM AMBULATORY - PSYCHIATRY [facility] Dec 04, 2021 09:00 AM AMBULATORY - PSYCHIATRY [facility] Dec 11, 2021 09:00 AM AMBULATORY - PSYCHIATRY [facility] Jan 01, 2022 09:00 AM AMBULATORY - PSYCHIATRY [facility] Jan 02, 2022 08:22 AM AMBULATORY - MEDICINE [facility] Jan 15, 2022 02:00 PM AMBULATORY - [facility] Lab Results: +/- 30 days of the encounter This section includes the Chemistry and Hematology Lab Results on record with DC for the patient. Radiology Reports and Pathology Reports are provided separately, in subsequent sections.Lab Results This section contains the Chemistry/Hematology Results that were resulted 30 days before or 30 daysafter the date of the Encounter. Date/Time Source Result Type Result - Unit Interpretation Reference Range Comment Jul 23, 2021 03:09 [facility] BASIC METABOLIC Specimen Type: PLASMA PM PANEL+MG No comment enter ed. Ordering Provid er: ANITA HARVEY Report Released Date/Time: Jul 23, 2021 03:00 PM Reporting Lab: [facility] [id number] Performing Lab: [facility] [address] CREATININE 0.8 0.5-1.0 UREA NITROGEN 20 7-20 GLUCOSE 69 L 74-100 SODIUM 141 136-145 POTASSIUM 3.9 3.5-5.1 CHLORIDE 107 98-107 CO2 26 22-29 CALCIUM 9.2 8.4-10.2 MAGNESIUM 2.0 1.6-2.6 ANION GAP 8 5-15 ESTIMATED GFR(eGFR) 84 >60 Jul 23, 2021 03:09 [facility] TSH W/REFLEX TO FREE Spec imen Type: PLASMA PM T4 No comment enter ed. Ordering Provid er: ANITA HARVEY Report Released Date/Time: Jul 23, 2021 03:00 PM Reporting Lab: [facility] [address] Performing Lab: [facility] [address] TSH 1.03 0.35-4.94 Jul 23, 2021 03:09 PM [facility] IRON GROUP Specim en Type: SERUM No comment enter ed. Ordering Provid er: ANITA HARVEY Report Released Date/Time: Jul 23, 2021 03:00 PM Reporting Lab: [facility] [id number] Performing Lab: [facility] [id number] IRON 83 50-170 TIBC,CALCULATED 284 250-425 FERRITIN 52.2 4.6-204.0 IRON SATURATION 29 15-50 TRANSFERRIN 227 163-382 Jul 23, 2021 03:09 PM [facility] CBC Specim en Type: BLOOD No comment enter ed. Ordering Provid er: ANITA HARVEY Report Released Date/Time: Jul 23, 2021 03:00 PM Reporting Lab: [facility] [id number] Performing Lab: [facility] [address] WBC 8.15 4.0-11.0 RBC 4.15 4.0-5.4 HGB 12.5 11.5-16 HCT 38.5 34.5-48 MCV 92.8 80-100 MCH 30.1 27-33 MCHC 32.5 32.0-37.5 PLT 355 150-400 MPV 10.2 7.4-10.4 RDW 13.0 11.5-14.5 Social History: Smoking Status (Most current) and [...] 2021 02:30 PM VA-TOBACCO NEVER USED REBELPrem TESHAMAYURI [facility] Encounter Notes: All associated encounter notes This section contains the clinical notes associated to the Encounter. Date/Time Encounter Note(s) Provider Source Jul 30, 2021 12:55 PM PSYCHIATRY E & M NOTE: KEN ZEPEDA [facility] LOCAL TITLE: MH PSYCHIATRIC EVALUATION & MANAGE MENT STANDARD TITLE: PSYCHIATRY E & M NOTE DATE OF NOTE: JUL 30, 2021@12:55 ENTRY DATE: JUL 29, 2021@16:26:26 AUTHOR: KEN ZEPEDA EXP COSIGNER: URGENCY: STATUS: COMPLETED MENTAL HEALTH PHARMACY SERVICE CLINICAL PHARMACIST TELEHEALTH CLINIC Type: VVC: Visit conducted b y clinical video telehealth. Patient verbal consent obtained. Location/emergency number confirmed. *'s children present during appointment. S: JASMIN COVINGTON is a 30 y/o FEMALE called f or medication management follow-up. Mental Health Diagnoses per Dr. Gamez: -Other recurrent depressive disorders -Anxiety disorder, unspecified Medication changes at last appt: -Continue duloxetine 30mg PO QDAY Medications: -Duloxetine 30mg PO QDAY (taking as prescribed) Side effects: denied Past medication trials: -Fluoxetine + Bupropion (Stopped feeling things ) -Citalopram (Really bad withdrawals) CC: Lots of stress and I'm having a hard time s leeping. reported that she galvan s been working from home and taking care of her kids for almost 2 weeks now due to a Covid ex posure at daycare. Also, her 's plane home continues to be delayed, whic h is an additional stressor. She noted that anxiety has increased a nd she is feeling a bit more irritable. Her primary concern was difficulty falling and staying aslee p at night. She also reported that she has been having vivid dreams and nightm juanjose. Denied concerns for depressive symptoms. 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; They have two sons (4 and 10 yo) O: Orientation: Alert, oriented, cooperative, pleas ant General Motor: Sitting comfortably, no abnormal movements Appearance: appropriately groomed/dressed and no urished no apparent distress Speech: clear; normal rate, rhythm, tone - not p ressured Mood: Stressed Affect: congruent with topics discussed, full ra nge Thought process: coherent, relevant, logical, an d goal-directed Suicidal ideations: None reported Homicidal ideations: None reported Hallucinations: None reported Delusions: None noted Insight: good Judgement: good History of Side Effects/ADRs per Patient and CPR S: LATEX GLOVES (Jul 04, 2019) Active Outpatient Medications (excluding Supplie s): Outpatient Medications Status 1) DULOXETINE HCL 30MG EC CAP TAKE ONE CAPSULE B Y MOUTH ACTIVE (S) EVERY DAY FOR MOOD AND ANXIETY 2) SUMATRIPTAN SUCCINATE 50MG TAB TAKE ONE TABLE T BY ACTIVE MOUTH EVERY DAY NEEDED FOR MIGRAINE, MAY REP EAT AFTER 2 HOURS IF NEEDED. MAXIMUM OF 200 MG IN 2 4 HOURS. ASSESSMENT: Pillow is a 30-year-old female who is prescribe d duloxetine for anxiety and depressive symptoms. Anxiety has recently increa sed in the context of life stressors. Her primary finn rn today was difficulty falling and staying asleep. has a strong preference to not increase duloxetine dose and to avoid addition of another scheduled medications. She w as interested in short-term trial of trazodone PRN for sleep. Educated on us e/side effects. Will continue duloxetine as prescribed. No side effects or acu te safety concerns. SUICIDE RISK ASSESSMENT Risk factors/Warning [...] MENTAL HEALTH SERVICES ADDRE SSED. PLAN: #Medications -Start trazodone 25-50mg PO at bedtime PRN for s leep -Continue duloxetine 30mg PO QDAY #Non-Pharm -Continue individual therapy #FOLLOW UP: -In one month with pharmacist via vvc, sooner PRN Time: 20 min acknowledges underst anding of their medication regimen including common side effects and what to exp ect from pharmacotherapy. Pillow agrees to contact this clinic with any concerns prior to next appo intment. Pillow agrees with plan detailed below and will access crisis se rvices as needed. -Pillow was educated on ability to walk in to [facility] for non-urgent mental health and/or medical assistance. - directed to report to the nearest emerg ency room for urgent mental health or medical issues. - educated on the [facility] Crisis Line for assistance with triaging mental health concerns and educated on safety an d risk and use of [facility] for crisis situations. - provided with [facility] Crisis Line numb er at (TALK). Press 1 to talk with someone right away. /wally/ KEN ZEPEDA Clinical Kids Activities Coach, Mental Health Signed: 07/30/2021 13:28
--- OUTSIDE RECORDS SUMMARY | 2022-05-01 10:39 | XMS_ITS | Encounter Summary ---
:1990 Author Organization [facility] Address [address] [place] [id number] Support Name Relationship Address Phone BELLE COVINGTON Unavailable [address] [place] [address] BELEL COVINGTON Unavailable [address] [place] [address] Insurance Providers: All historical and current Section [...] Dick HEALTH HEALTH FED Jan 05, 3052 [id number] [phone] ADRIAJELENA PATIENT PARTNERS [employer] EMP 2021 1 7 [place] CE OPEN ORGANIZAT ACCES ION W/OUT S OF NETWORK BENEFITS MEDIMPACT PRESCRIPT HEALT Jan 04 [id number] [phone] KAITY AmaroJELENA PATIENT RX ION H 2021 1 9 [place] [employer] [employer] Selected Encounter This section includes the information on record at [place] for the Encounter. Date/Time Encounter Type Encounter Reason Provider Source Description Aug 08, 2021 MEDICAL TELEPHONE/ANCILLA ICD-10-CM Z71.3 TEJAS VO 11:00 AM NUTRITION INDIV RY Dietary counseling IE M IN and surveillance with Provider Comments: Dietary counseling and surveillance IHE Encounter Template Text not used by [place] Assessments - Encounter Diagnoses This section includes the primary and secondary diagnoses documented for the Encounter. Date/Time Primary/Secondary Diagnosis Name Provider Source Diagnosis Aug 08, 2021 PRIMARY Dietary counseling AIDAN VO [facility] 11:00 AM and surveillance IE M [facility] Aug 08, 2021 SECONDARY Body mass index AIDAN VO [place] 11:00 AM [BMI] 20.0-20.9, IE M [facility] adult Plan of Treatment: Future Appointments (+ 6 months) and Future Tests (+/- 45 days) The Plan of Treatment section includes future care activities for the patient from all [place] treatmentfacentral harnett hospitalities. This section includes future appointments and future orders which are active, pending orscheduled.Future Appointments This section includes appointments that were scheduled to occur 6 months from the date of the Encounter, up to a maximum of 20 appointments. The data comes from all [place] treatment facilities. Appointment Date/Time Appointment Type Appointment Facili ty Name Aug 21, 2021 10:00 AM AMBULATORY - PSYCHIATRY [facility] Aug 29, 2021 10:30 AM AMBULATORY - PSYCHIATRY [facility] Sep 04, 2021 10:00 AM AMBULATORY - PSYCHIATRY [facility] Oct 09, 2021 09:00 AM AMBULATORY - PSYCHIATRY [facility] November 14, 2021 03:00 PM AMBULATORY - PSYCHIATRY [facility] November 20, 2021 09:00 AM AMBULATORY - PSYCHIATRY [facility] November 28, 2021 11:00 AM AMBULATORY - PSYCHIATRY [facility] Dec 04, 2021 09:00 AM AMBULATORY - PSYCHIATRY [facility] Dec 11, 2021 09:00 AM AMBULATORY - PSYCHIATRY [facility] Jan 01, 2022 09:00 AM AMBULATORY - PSYCHIATRY [facility] Jan 02, 2022 08:22 AM AMBULATORY - MEDICINE [facility] Jan 15, 2022 02:00 PM AMBULATORY - NONE [facility] Feb 05, 2022 11:00 AM AMBULATORY - PSYCHIATRY [facility] Lab Results: +/- 30 days of the encounter This section includes the Chemistry and Hematology Lab Results on record with CO for the patient. Radiology Reports and Pathology Reports are provided separately, in subsequent sections.Lab Results This section contains the Chemistry/Hematology Results that were resulted 30 days before or 30 daysafter the date of the Encounter. Date/Time Source Result Type Result - Unit Interpretation Reference Range Comment Jul 23, 2021 03:09 [facility] TSH W/REFLEX TO FREE Spec imen Type: PLASMA PM T4 No comment enter ed. Ordering Provid er: ANITA HARVEY Report Released Date/Time: Jul 23, 2021 03:00 PM Reporting Lab: [facility] [address] Performing Lab: [facility] [address] TSH 1.03 0.35-4.94 Jul 23, 2021 03:09 [facility] BASIC METABOLIC Specimen Type: PLASMA PM PANEL+MG No comment enter ed. Ordering Provid er: ANITA HARVEY Report Released Date/Time: Jul 23, 2021 03:00 PM Reporting Lab: [facility] [address] Performing Lab: [facility] [address] CREATININE 0.8 0.5-1.0 UREA NITROGEN 20 7-20 GLUCOSE 69 L 74-100 SODIUM 141 136-145 POTASSIUM 3.9 3.5-5.1 CHLORIDE 107 98-107 CO2 26 22-29 CALCIUM 9.2 8.4-10.2 MAGNESIUM 2.0 1.6-2.6 ANION GAP 8 5-15 ESTIMATED GFR(eGFR) 84 >60 Jul 23, 2021 03:09 PM [facility] CBC Specim en Type: BLOOD No comment enter ed. Ordering Provid er: ANITA HARVEY Report Released Date/Time: Jul 23, 2021 03:00 PM Reporting Lab: [facility] [id number] Performing Lab: [facility] [address] WBC 8.15 4.0-11.0 RBC 4.15 4.0-5.4 HGB 12.5 11.5-16 HCT 38.5 34.5-48 MCV 92.8 80-100 MCH 30.1 27-33 MCHC 32.5 32.0-37.5 PLT 355 150-400 MPV 10.2 7.4-10.4 RDW 13.0 11.5-14.5 Jul 23, 2021 03:09 PM [facility] IRON GROUP Specim en Type: SERUM No comment enter ed. Ordering Provid er: ANITA HARVEY Report Released Date/Time: Jul 23, 2021 03:00 PM Reporting Lab: [facility] [address] Performing Lab: [facility] [address] IRON 83 50-170 TIBC,CALCULATED 284 250-425 FERRITIN [...] 02:30 PM VA-TOBACCO NEVER USED [facility] Encounter Notes: All associated encounter notes This section contains the clinical notes associated to the Encounter. Date/Time Encounter Note(s) Provider Source Aug 08, 2021 08:58 AM NUTRITION EDUCATION NOTE: L[place]IS VO [facility] LOCAL TITLE: EDUCATION NUTRITION STANDARD TITLE: NUTRITION EDUCATION NOTE DATE OF NOTE: AUG 08, 2021@08:58 ENTRY DATE: AUG 08, 2021@08:58:37 AUTHOR: LOUIS VO EXP COSIGNER: URGENCY: STATUS: COMPLETED SUBJECT: Nutrition initial NUTRITION EDUCATION OUTPATIENT Initial, Phone Time spent: 30 minutes Reason for visit: RTC for optimizing nutrition, promoting satiety ASSESSMENT: Height: 64 in [162.6 cm] (07/23/2021 14:28) Weight: Measurement DT WEIGHT LB(KG)[BMI] 08/08/2021 117# per vet report 07/23/2021 14:28 121(54.88)[21] 03/03/2021 13:49 117(53.07)[20] 02/18/2021 10:15 114(51.71)[20] BMI: 20.8 Weight change: between 114-122# in the past ~1 yr, hx of 30# wt loss (21%) x ~ 1.5 yrs. from 06/2019-02/2021 (desired). [place]mm[place] Body Weight: 120# Pertinent Past Medical History: Depression, Anx iety, Others reviewed. Nutrition Related Medications: duloxetine, MVI, magnesium EDUCATION SCREENING PARTICIPANTS: Patient BARRIERS/SPECIAL NEEDS: no barriers identified READINESS TO LEARN: no barriers Patient subjective statements: Per MD note 07/23, gala reports ongoing fatigue wh ich may be contributed to by lack of sleep and anxiety - vet is working with . Today vet reports she is comfortable with current wt but does not want to gain more. For months she has been aiming to eat small frequent meals, reports weakness if she skips a meal. She wants to optimize nutrit ion w/o overeating. Tracks kcal/pro (1900 kcal and ~ 130 g pro/day) but trying to move away from this . Diet Recall Meal 1: 1 piece toast Meal 2: bowl of oatmeal, fruit, protein shake Snack: protein bar or yogurt Meal 3: tries to balance with pro/CHO Snack: protein source Meal 4: Fish or chicken, vegetable, rice Snack: bowl of popcorn Fluid intake: Water Meal preparation: Self Food Allergies: None Problems related to food security: Vet denies n eed for assistance. Activity level: works out 3-4 x/wk, [employer] 1 80# Malnutrition Assessment (Per AND/ASPEN Consensu s Statement, 2012) Dietitian does not suspect malnutrition at this time, therefore, physical assessment not conducted No digestive issues reported. Pertinent lab results: GLUCOSE 69 L (07/23/21) IRON 83 (07/23/21) Estimated nutrient ne eds based on actual weigh t 53 k - 1590 calories/day 25 - 30 kcal/kg 53 - 80 grams protein/day 1 - 1.5 g/kg 1855 ml fluids/day 35 ml/kcal NUTRITION DIAGNOSIS: Food and nutrition related knowledge deficit r/t limited prior exposure to appropriate nutrient needs and nutr for balanced eating/satiety AEB vet subjective statements, diet recall, and appointm ent request. INTERVENTION: Provided nutrition education/counseling: -Encouraged to continue smal l frequent meals and have pro + fiber + fat at each meal to promote satiety and boost energy levels. Also encouraged to dedicate time each week to meal prep snacks to have readi ly available while at work. -Discussed recommended protein needs, 13 0 g/day is excessive - recommended vet cut back slowly (start with 80-100 g/day - still increased as vet works out/lifts often), can replace with source of hea lthy fat for satiety. -Encouraged to practice mindfulness to avoid ove reating. Recommended apps Nourishly and Wholesome which can help to track vitamins/minerals (encouraged adequate fruit/veg intake) and feelings around f ood. -Reviewed recent labs (iron, glucose) per vet re quest. Education provided using: Discussion PARTICIPANT(S) RESPONSE (OUTCOME): Able to communicate or demonstrate understandin g with no further questions. MONITORING/EVALUATION: Patient's nutrition/acti vity related goals: Goal 1: I will replace >1 source of protein/day with healthy fat. Goal 2: Wt maintenance ~117-121# FOLLOW UP: Follow up appointment will be scheduled: 3 alexander h via phone recall /wally/ PAULA TEMPLETON DIETITIAN Signed: 08/11/2021 16:21
--- OUTSIDE RECORDS SUMMARY | 2022-05-01 10:40 | XMS_ITS | Encounter Summary ---
:1990 Author Organization [facility] Address [address] [place] [address] Support Name Relationship Address Phone BELLE MADISON Unavailable [address] [place] [address] BELLE MADISON Unavailable [address] [place] [address] Insurance Providers: All historical and current Section [...] Dick [employer] HE[employer] FED Jan 05, 3052 [id number] [phone] JELENA MADISON PATIENT [employer] [facility] 2021 1 7 [place] OPEN ORGANIZAT ACCES ION W/OUT S OF NETWORK BENEFITS MEDIMPACT PRESCRIPT HEALT Jan 04 [id number] [phone] JELENA WILLETT PATIENT RX ION H 2021 1 9 [place] [facility] Selected Encounter This section includes the information on record at [facility] for the Encounter. Date/Time Encounter Type Encounter Reason Provider Source Description May 01, 2021 PSYTX W PT 45 MENTAL HEALTH ICD-10-CM F32.9 BRIE OLEARY 01:00 PM [facility]UT[facility] CL[facility]IC - IND Major depressive disorder, single episode, unspecified with Provider Comments: Depression ([facility] [id number]) IHE Encounter Template Text not used by [facility] Assessments - Encounter Diagnoses This section includes the primary and secondary diagnoses documented for the Encounter. Date/Time Primary/Secondary Diagnosis Name Provider Source Diagnosis May 03, 2021 PRIMARY Major depressive ROBLES OLEARY [place] 09:44 AM disorder, single HCS episode, unspecified May 03, 2021 SECONDARY Anxiety disorder, ROBLES OLEARY [place] 09:44 AM unspecified [facility] Plan of Treatment: Future Appointments (+ 6 months) and Future Tests (+/- 45 days) The Plan of Treatment section includes future care activities for the patient [facility]. This section includes future appointments and future orders which are active, pending orscheduled.Future Appointments This section includes appointments that were scheduled to occur 6 months from the date of the Encounter, up to a maximum of 20 appointments. The data comes from all [facility] treatment facilities. Appointment Date/Time Appointment Type Appointment Facili ty Name Jun 05, 2021 10:00 AM AMBULATORY - PSYCHIATRY [facility] Jun 18, 2021 10:30 AM AMBULATORY PSYCHIATRY [facility] Jul 10, 2021 11:00 AM AMBULATORY PSYCHIATRY [facility] Jul 23, 2021 02:30 PM AMBULATORY - MEDICINE [facility] Jul 23, 2021 03:15 PM AMBULATORY - NONE [facility] Jul 30, 2021 01:00 PM AMBULATORY PSYCHIATRY [facility] Aug 08, 2021 11:00 AM AMBULATORY NONE [facility] Aug 21, 2021 10:00 AM AMBULATORY PSYCHIATRY [facility] Aug 29, 2021 10:30 AM AMBULATORY PSYCHIATRY [facility] Sep 04, 2021 10:00 AM AMBULATORY - PSYCHIATRY [facility] Oct 09, 2021 09:00 AM AMBULATORY - PSYCHIATRY [facility] Encounter Notes: All associated encounter notes This section contains the clinical notes associated to the Encounter. Date/Time Encounter Note(s) Provider Source May 01, 2021 01:00 PM MENTAL HEALTH NOTE: ROBLES OLEARY [facility] LOCAL TITLE: MH PROGRESS NOTE STANDARD TITLE: MENTAL HEALTH NOTE DATE OF NOTE: MAY 01, 2021@13:00 ENTRY DATE: MAY 03, 2021@09:37:56 AUTHOR: ROBLES OLEARY EXP COSIGNER: URGENCY: STATUS: COMPLETED S: I met with Ms. Madison for 50 minutes of psycho therapy via [facility] to work. Jal started her new job a few weeks ago. 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 She is liking this position much better. She feels medication is helping a lot with mood. 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 She is doing some self care with home gym and yoga. She is parenting alone which is tiring. She is isolated socially in part due to her work demands, relati vely new school, COVID, etc. Validated the challenge of many working parents/mothers to meet similar people for friendships due limited time. Vetera yaritza will complete her degree in June and will have more time. Discussed patte rns in past of coping with stress - hx of maladaptive strategies wu ch as increased self-criticism, doing more and more. S: Affect was congruent with session content. [...] in home, future oriented, problem solving ability. Jal was pleasant an d cooperative. Speech was [...] to: Combat Related Diagnoses: Recurrent depression ([facility] [id number]) - Other rec urrent depressive disorders (ICD-10-CM F33.8) (Primary) Anxiety ([facility]CT [id number]) - Anxiety disorder, unspe cified (ICD-10-CM F41.9) Procedures: 38-52 minutes P: F/U by vvc on Jun 05 at 10 a.m. via [facility]. Steffany garrett has my contact number, the [facility] and [facility]. /wally/ ROBLES OLEARY, PHD, STAFF PSYCHOLOGIST Signed: 05/03/2021 09:44
--- NOTE | 2022-05-01 10:45 | CRLHL7_ITS ---
For Patients: As a result of the Cures Act, medical imaging exams and procedure reports are released immediately into your electronic medical record. You may view this report before your referring provider. If you have questions, please contact your health care provider. DIGITAL DIAGNOSTIC RIGHT MAMMOGRAM USING TOMOSYNTHESIS AND COMPUTER-AIDED DETECTION RIGHT BREAST ULTRASOUND CLINICAL HISTORY: RIGHT breast lump. COMPARISON: None. TECHNIQUE: Digital RIGHT mammogram in four projections. Tomosynthesis and CAD utilized. Real-time ultrasound imaging of RIGHT breast with imaging documentation. BREAST COMPOSITION: The breast is extremely dense, which lowers the sensitivity of mammography. FINDINGS: 3D /[facility] breast mammogram submitted. Normal dense fibroglandular tissue is present. No suspicious mass or architectural distortion. No adenopathy or suspicious calcifications. Targeted RIGHT breast ultrasound performed in the area of concern at 11 o`clock 3 cm from the nipple. In this location there is normal fibroglandular tissue with incidental fat lobule. No fibrocystic changes or suspicious masses. IMPRESSION: Normal breast tissue and normal fat lobule RIGHT breast 11 o`clock 3 cm from the nipple. No evidence of malignancy. RECOMMENDATIONS: Age-appropriate screening mammography. Results and recommendations discussed with the patient. BI-RADS Category 2: Benign A lay language report of this examination will be provided to the patient. Dictated by Curt Jacobsen MD @ 05/01/2022 11:52:07 AM /Dictated by: Curt Jacobsen MD @ 05/01/2022 11:52:00 AM (Electronically Signed)
--- NOTE | 2022-05-01 11:15 | CRLHL7_ITS ---
For Patients: As a result of the Cures Act, medical imaging exams and procedure reports are released immediately into your electronic medical record. You may view this report before your referring provider. If you have questions, please contact your health care provider. PLEASE SEE DIGITAL DIAGNOSTIC RIGHT MAMMOGRAM PERFORMED SAME DAY CRL:karyna troncoso/Dictated by: Curt Jacobsen MD @ 05/01/2022 11:52:00 AM (Electronically Signed)
== END 2022-05-01 10:32 | disposition home or self-care (01) ==
LOC: MAMMO 10:31
PROVIDERS: Visit Provider Physician Assistant
DX: N63.10 Unspecified lump in the right breast, unspecified quadrant (principal); R92.2 Inconclusive mammogram
CPT/HCPCS: 76642; 77065; G0279

== ENCOUNTER 2022-10-13 10:16 | Outpatient (CLI) | payer OTHER, SELFPAY | END 2022-10-13 10:17 | disposition home or self-care (01) | PROVIDERS: Visit Provider Family Medicine | DX: Z01.419 Encounter for gynecological examination (general) (routine) without abnormal findings (principal); E55.9 Vitamin D deficiency, unspecified; D64.9 Anemia, unspecified; Z86.2 Personal history of diseases of the blood and blood-forming organs and certain disorders involving the immune mechanism | CPT/HCPCS: 82306; 82607; 82728; 84443 ==

== ENCOUNTER 2023-03-30 19:21 | Emergency (ER) | payer OTHER, SELFPAY ==
[2023-03-30 19:25] VITALS: BP 105/70; PULSE 74; RESP 16; TEMP 36.8; O2SAT 99; BMI 20.8
--- NOTE | 2023-03-30 19:36 | CRLHL7_ITS ---
For Patients: As a result of the Century Cures Act, medical imaging exams and procedure reports are released immediately into your electronic medical record. You may view this report before your referring provider. If you have questions, please contact your health care provider. INDICATION: Blunt trauma. TECHNIQUE: CT abdomen and pelvis acquired with 100 cc Isovue 370 IV contrast. COMPARISON: None. FINDINGS: Lower chest: Scattered atelectasis. Liver: Unremarkable. Normal in size and attenuation. No suspicious masses. Gallbladder and bile ducts: Unremarkable. No stones or inflammation. No biliary dilatation. Pancreas: Unremarkable. No mass or inflammation. Spleen: Unremarkable. Normal in size. No masses. Adrenal glands: Unremarkable. No nodules. Kidneys: Unremarkable. No suspicious masses, stones, or hydronephrosis. GI tract: Unremarkable. Normal in caliber. No sign of mass or inflammation. Normal appendix. Vasculature: Abdominal aorta is normal in caliber. Mesenteric arteries are patent. Lymph nodes: No lymphadenopathy. Peritoneum/Abdominal Wall: Tiny fat containing umbilical hernia. No sign of mass or infiltration. No free air or significant free fluid. Pelvis: Trace free fluid in the pelvis, likely physiologic. Bones: Unremarkable for age. IMPRESSION: No acute intra-abdominal/pelvic abnormality. Please note that all CT scans at this facility use dose modulation, iterative reconstruction, and/or weight-based dosing when appropriate to reduce radiation dose to as low as reasonably achievable. Dictated by Dimitri Trevino MD @ 03/30/2023 10:13:19 PM (Electronically Signed)
--- NOTE | 2023-03-30 20:01 | ED_ITS ---
HPI - General Adult General Date Seen: 03/30/23 Chief complaint: Abdominal Pain Stated complaint: Plywood hit abdomen at high speed with power tool Time Seen by Provider: 03/30/23 19:36 History of Present Illness HPI narrative: This is a 32-year-old female who presents to the ER today with her . She is generally healthy. She does have a past medical history of anxiety, migraine, mental health issues. She presents to the ER today with concern for epigastric and left upper quadrant abdominal pain after she suffered blunt trauma. She was learning how to use a table saw today. A piece of wood she was cutting was forcefully projected back from the table saw and struck her in the abdomen. Injury occurred about 1-2 hours prior to arrival. She would initially struck forcefully. She became nauseous. She has been having abdominal pain. He is not dizzy lightheaded. No flank pain or back pain. No trouble breathing. No rib pain. She is not coagulopathic or anticoagulated. No other injuries. No head or neck trauma. No injuries to her extremities. Related Data Home Medications Medication Instructions Recorded Confirmed cholecalciferol (vitamin D3) 25 25 mcg PO QDAY 10/13/22 03/30/23 mcg (1,000 unit) capsule multivitamin 1 tab PO QAM 10/13/22 03/30/23 omega 1-yed-mzd-fish oil 100 cap PO 10/13/22 12/01/22 mg-160 mg-1,000 mg capsule (Fish Oil) Allergies Allergy/AdvReac Type Severity Reaction Status Date / Time citalopram Allergy Intermediate discontinuation Verified 03/30/23 19:25 syndrome doxycycline Allergy Intermediate gum pain Verified 03/30/23 19:25 Latex, Natural Rubber Allergy Mild Rash Verified 03/30/23 19:25 [facility] Medical History (Updated 03/30/23 @ 22:24 by Sanchez Smalls MD) Anxiety ?F41.9 - Anxiety disorder, unspecified (ICD-10) Medication management ?Z79.899 - Other longterm (current) drug therapy (ICD-10) History of suicide attempt ?Z91.51 - Personal history of suicidal behavior (ICD-10) Suicidal ideation ?R45.851 - Suicidal ideations (ICD-10) Depression ?F32.A - Depression, unspecified (ICD-10) Stress incontinence in female ?N39.3 - Stress incontinence (female) (male) (ICD-10) History of abnormal cervical Papanicolaou smear ?Z87.42 - Personal history of other diseases of the female genital tract (ICD-10) Fracture of clavicle (09/13/20) ?S42.009A - Fracture of unspecified part of unspecified clavicle, initial encounter for closed fracture (ICD-10) Surgical History (Updated 10/13/22 @ 11:58 by Esme Miles MD) History of colposcopy with cervical biopsy (03/04/21) ?Z98.890 - Other specified postprocedural states (ICD-10) History of wisdom tooth extraction ?K08.409 - Partial loss of teeth, unspecified cause, unspecified class (ICD- 10) History of tubal ligation (2016) ?Z98.51 - Tubal ligation status (ICD-10) Family History (Updated 10/13/22 @ 12:01 by Esme Miles MD) Maternal Grandfather Alcohol dependence Maternal Grandmother Diabetes Heart disease Breast cancer, Onset Age: 50 Depression Aunt Heart disease Paternal Grandmother Breast cancer, Onset Age: 50 Mother Depression Paternal Grandfather Schizophrenia Social History (Updated 10/13/22 @ 12:02 by Esme Miles MD) Narrative: , works in [employer] at [employer], 2 kids Exercise 3 times a week lifting weights 45 minutes plus walking Nonsmoker 2 alcoholic drinks a month Smoking Status: Never smoker Non-prescribed substance use: denies use Little interest or pleasure in doing things: several days Feeling down, depressed, or hopeless: several days Exam Narrative: Exam Narrative: Constitutional: Appears well-developed and well-nourished. Alert. Conversant. Non toxic. HENT: Head: Atraumatic. Nose: Nose normal. Mouth/Throat: Oral mucosa is clear and moist. no trismus. Pharynx normal. Tonsils symmetric. No tonsillar enlargement, erythema, or exudate. Eyes: Conjunctivae normal. EOM normal. Pupils equal, round, and reactive to light. No scleral icterus. Neck: Normal range of motion. Neck supple. No tracheal deviation present. Cardiovascular: Normal rate, regular rhythm. No gallop. No friction rub. No murmur heard. Symmetric radial artery pulses Pulmonary/Chest: Effort normal. No stridor. No respiratory distress. No wheezes. No rales. No rhonchi . No rib or costal cartilage tenderness. Abdominal: Soft. Bowel sounds normal. No distension. No mass. Epigastric and left upper tenderness. She does have an and erythematous linear elvira (from the impact of the wood projectile) on her central and left upper abdomen. No ecchymosis. No abrasion. No penetrating injury. No rebound. No guarding. No CVA tenderness. No lower abdominal tenderness. Musculoskeletal: RUE: Normal range of motion. No tenderness. No deformity LUE: Normal range of motion. No tenderness. No deformity RLE: Normal range of motion. No edema. No tenderness. No deformity LLE: Normal range of motion. No edema. No tenderness. No deformity Lymph: No cervical adenopathy. Neurological: Alert and oriented to person, place, and time. Normal strength. CN II-VII intact. No sensory deficit. GCS eye subscore is 4. GCS verbal subscore is 5. GCS motor subscore is 6. Normal coordination Skin: Skin is warm and dry. No rash noted. No pallor. Normal capillary refill. Psychiatric: Normal mood. Normal affect. Const: Vital Signs, click to edit/add: Vital Signs - 24 hr 03/30/23 19:25 Temperature 98.3 F Pulse Rate [Right Pulse Oximeter] 74 Respiratory Rate 16 Blood Pressure [Ri ght Upper Arm] 105/70 Pulse Oximetry 99 Oxygen Delivery Me thod Room Air Course Vital Signs Vital signs: Initial Vital Signs Temperature 98.3 F 03/30/23 19:25 Temperature Source Temporal Artery Scan 03/30/23 19:25 Pulse Rate 74 03/30/23 19:25 Respiratory Rate 16 03/30/23 19:25 Blood Pressure 105/70 03/30/23 19:25 Blood Pressure Mean 81 03/30/23 19:25 Blood Pressure Position Sitting 03/30/23 19:25 Pulse Oximetry 99 03/30/23 19:25 Oxygen Delivery Method Room Air 03/30/23 19:25 Vital Signs Temperature 98.3 F 03/30/23 19:25 Pulse Rate 74 03/30/23 19:25 Respiratory Rate 16 03/30/23 19:25 Blood Pressure 105/70 03/30/23 19:25 Pulse Oximetry 99 03/30/23 19:25 Oxygen Delivery Method Room Air 03/30/23 19:25 Temperature 98.3 F 03/30/23 19:25 Pulse Rate 74 03/30/23 19:25 Respiratory Rate 16 03/30/23 19:25 Blood Pressure 105/70 03/30/23 19:25 Pulse Oximetry 99 03/30/23 19:25 Oxygen Delivery Method Room Air 03/30/23 19:25 Medical Decision Making MDM Narrative Medical decision making narrative: This is a pleasant 32-year-old female who presents to the ER today with a blunt trauma to her left upper quadrant/epigastrium. She was struck in the abdomen by a high velocity with projectile when her home table sock back and through the piece of wood against her belly. Concern here is for possible internal injury such as splenic contusion or laceration, internal bleeding, versus other more superficial injuries such as abdominal wall hematoma, rectus hematoma, etc.. Fortunately she is hemodynamically stable. Laboratory workup showed mild anemia with hemoglobin 11.5. This is down from 12.5 on most recent measurement. She is not otherwise anticoagulated or coagulopathic. CT scan abdomen pelvis was obtained after discussion of risks/benefits of radiation. Fortunately CT scan shows no acute internal injury or bleeding. The radiologist mentions no Abdominal injury. By my read there may be a little bit of edema in the left rectus muscle. This would correspond to her abdominal wall elvira/bruising. At this point in clinic she is to be admitted for hemoglobin monitoring. Unlikely to have any expanding hematoma or other significant complication from this. Discussed the CT findings with the patient and her . They are agreeable to plan for discharge home. Supportive care with rest, ice. Tylenol or ibuprofen for pain. Precautions for return 2 the ER reviewed. Lab Data Labs: Lab Results 03/30/23 Range/Units 19:57 WBC 8.20 (4.50-11.00) K/uL RBC 3.84 L (4.00-5.20) m/uL Hgb 11.5 L (12.0-16.0) gm/dL Hct 34.5 (33.0-51.0) % MCV 90 (80-100) fL MCH 30 (26-34) pg MCHC 33 (32-36) gm/dL RDW Coeff of Valente 12.8 (11.5-15.5) % Plt Count 363 (140-440) K/uL Neut % (Auto) 72.7 H (42.0-72.0) % Lymph % (Auto) 18.7 L (20-44) % Peach % (Auto) 6.8 (0.0-11.0) % Eos % (Auto) 1.2 (0.0-7.0) % Baso % (Auto) 0.6 (0.0-3.0) % Neut # (Auto) 6.00 (1.7-7.0) K/uL Lymph # (Auto) 1.50 (0.90-2.90) K/uL Peach # (Auto) 0.60 (0.00-0.90) K/UL Eos # (Auto) 0.10 (0.00-0.50) K/uL Baso # (Auto) 0.05 (0.00-0.30) K/uL Abs Immat Gran (auto) 0.00 (0.00-0.30) K/uL Imm/Tot Granulo (auto) 0.0 % Sodium 140 (135-149) mmol/L Potassium 3.7 (3.6-5.1) mmol/L Chloride 104 (96-114) mmol/L Carbon Dioxide 26 (20-32) mmol/L Anion Gap 10 (7-15) mEq/L BUN 15 (5-24) mg/dL Creatinine 0.7 (0.5-1.5) mg/dL Estimated Creat Clear 99.63 Estimated GFR 118 ml/min Glucose 102 (60-115) mg/dL Calcium 9.5 (8.4-10.6) mg/dL HCG, Qual Negative (Negative) Imaging Data CT scan - abdomen: Attestation: I have reviewed the pertinent imaging results. My impression: Possible edema in the left rectus muscle. No obvious hematoma. No contrast extravasation. Radiologist's impression: IMPRESSION: No acute intra-abdominal/pelvic abnormality. Discharge Plan Discharge Clinical Impression: Blunt abdominal trauma Patient Disposition: Home, Self-Care Condition: Stable Instructions: Blunt Abdominal Injury (ED) Additional Instructions: Please come back to the ER right away if you have any concerns especially worsening pain, lightheadedness or dizziness or weakness, or if you have any problems. Rest her abdominal muscles for the next several days. Use Tylenol or ibuprofen if needed for pain. Prescriptions: No Action Fish Oil 100-160-1,000 mg capsule PO cholecalciferol (vitamin D3) 25 mcg (1,000 unit) capsule 25 mcg PO QDAY multivitamin Tablet 1 tab PO QAM Follow Up/Referrals: Esme Miles MD [Primary Care Provider] - Stand Alone Forms: [employer] Info Instructions
[2023-03-30 20:06] LABS: Basophils Absolute Auto 0.05 K/uL (0.00-0.30); Basophils Percent Auto 0.6 % (0.0-3.0); Eosinophils Percent Auto 1.2 % (0.0-7.0); Hematocrit 34.5 % (33.0-51.0); Hemoglobin* 11.5 gm/dL (12.0-16.0); Lymphocytes Percent Auto 18.7 % (20-44); Mean Corpuscular HGB Conc 33 gm/dL (32-36); Mean Corpuscular Hemoglobin 30 pg (26-34); Mean Corpuscular Volume 90 fL (80-100); Monocytes Percent Auto 6.8 % (0.0-11.0); Neutrophils Percent Auto 72.7 % (42.0-72.0); Platelet Count* 363 K/uL (140-440); RDW Coefficient of Variation % 12.8 % (11.5-15.5); Red Blood Count 3.84 m/uL (4.00-5.20)
[2023-03-30 20:08] LABS: Slide Review Reflex No
[2023-03-30 20:27] LABS: Chloride* 104 mmol/L (96-114); Potassium* 3.7 mmol/L (3.6-5.1); Sodium* 140 mmol/L (135-149)
[2023-03-30] MEDS: ONDANSETRON ODT 4 MG TAB PO (20:27)
[2023-03-30] MEDS: ACETAMINOPHEN 500 MG TABLET 1000 MG PO (20:27)
[2023-03-30 20:30] LABS: Anion Gap 10 mEq/L (7-15); Blood Urea Nitrogen* 15 mg/dL (5-24); Carbon Dioxide* 26 mmol/L (20-32); Creatinine* 0.7 mg/dL (0.5-1.5); Est. Creatinine Clearance* 99.63; Estimated Glomerular Filt Rate 118 ml/min
[2023-03-30 20:31] LABS: Calcium* 9.5 mg/dL (8.4-10.6); Glucose* 102 mg/dL (60-115)
[2023-03-30 20:43] LABS: HCG Qualitative Serum* Negative (Negative)
== END 2023-03-30 22:34 | disposition home or self-care (01) ==
PROVIDERS: Emergency Provider Emergency Medicine; PCP Family Medicine
DX: S39.81XA Other specified injuries of abdomen, initial encounter (principal); W20.8XXA Other cause of strike by thrown, projected or falling object, initial encounter; Y93.89 Activity, other specified; Y92.89 Other specified places as the place of occurrence of the external cause
CPT/HCPCS: 36415; 74177; 80048; 84703; 85025; 99283; 99284; 99285; A9270; Q9967

== ENCOUNTER 2023-06-17 14:52 | Outpatient (CLI) | payer OTHER, SELFPAY | END 2023-06-17 14:53 | disposition home or self-care (01) | LOC: RAD 14:53 | PROVIDERS: PCP Family Medicine; Visit Provider Internal Medicine | DX: R06.00 Dyspnea, unspecified (principal) | CPT/HCPCS: 93306 ==

== ENCOUNTER 2024-01-03 09:08 | Outpatient (CLI) | payer OTHER, SELFPAY ==
--- OUTSIDE RECORDS SUMMARY | 2024-01-03 09:13 | XMS_ITS | Continuity of Care Document ---
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 It does not include entries that were removed or entered in error. Problem Status Onset Date Problem Type Date of Resolution Comments Source Other headache syndrome Active 01/18/20 19 Condition DoD Pain in unspecified hip Active 01/18/20 19 Condition DoD Pain in unspecified shoulder Active 01/18/20 19 Condition DoD Pain in right shoulder Active 11/13/19 19 Condition DoD Generalized anxiety disorder Active 10/02/19 19 Condition DoD Encounter for examination and observation for other specified reasons Inactive 08/25/19 19 Condition DoD Migraine, unspecified, not intractable, without status migrainosus Inactive 08/17/19 19 Condition DoD Other sprain of right shoulder joint Active 06/16/20 18 Condition DoD Anxiety ([facility] [id number]) Active Condition [facility] Cancer cervix screening status Active Condition Feb 20 Entered By: ANITA HARVEY Comment: No hx KATELYNN 2-3Aug 2021 Entered By: ANITA HARVEY Comment: 03/03/21 Colposcopy KATELYNN 1/ECC negAug 2021 Entered By: ANITA HARVEY Comment: 02/13/2022 NILM/HPV neg. Next co-test due in 3 years (02/2025). [facility] Closed fracture of left clavicle Active Condition [facility] Constipation Active Condition [place] [facility] Depression ([facility] [id number]) Active Condition [facility] Headache ([facility] [id number]) Active Condition [facility] Hip pain Active Condition [facility] Recurrent depression Active Condition [facility] Diagnosis: ICD-10-CM Z73.3 Stress, not elsewhere classified Active Diagnosis [facility] Diagnosis: ICD-10-CM F33.8 Other recurrent depressive disorders Active Diagnosis [facility] Diagnosis: ICD-10-CM Z71.9 Counseling, unspecified Active Diagnosis [facility] Diagnosis: ICD-10-CM Z63.0 Problems in relationship with spouse or partner Active Diagnosis [facility] Diagnosis: ICD-10-CM F41.9 Anxiety disorder, unspecified Active Diagnosis [facility] Diagnosis: ICD-10-CM Z13.6 Encounter for screening for cardiovascular disorders Active Diagnosis [facility] Diagnosis: ICD-10-CM R06.00 Dyspnea, unspecified Active Diagnosis [facility] Diagnosis: ICD-10-CM Z71.89 Other specified counseling Active Diagnosis [facility] Diagnosis: ICD-10-CM Z73.2 Lack of relaxation and leisure Active Diagnosis [facility] Diagnosis: ICD-10-CM S42.025D Nondisp fx of shaft of l clavicle, subs for fx w routn heal Active Diagnosis [facility] Diagnosis: ICD-10-CM M25.512 Pain in left shoulder Active Diagnosis [facility] Diagnosis: ICD-10-CM M54.50 Low back pain, unspecified Active Diagnosis [facility] Diagnosis: ICD-10-CM S42.002A Fracture of unsp part of left clavicle, init for clos fx Active Diagnosis [facility] Medications Combined list of outpatient medications from Department of Defense and Veterans Affairs facilities.Medications provided include 1) outpatient medications from the last 15 months, and 2) patient-reported medications. Medication Details Route Status Patient Instructions Prescription Expires Prescription Number Last Dispense Date Ordering Provider Order Date Order Qty Source hydrOXYzine HCL (U/D) 25 MG ORAL TAB TAKE ONE TABLET BY MOUTH EVERY 8 HOURS FOR ANXIETY 12/03/2023 [id number] ANITA HARVEY 2023 60 [facility] HYDROXYZINE HCL 25MG TAB HYDROXYZ INE HCL 25MG TAB TAKE ONE TABLET BY MOUTH EVERY 8 HOURS FOR ANXIETY FOR ANXIETY December 02, 2022 60 December 03, 2023 [id number] December 02, 2022 MAY HARVEY [facility] ORAL 12/03/2023 [id number] LI HARVEY SA 2022 60 [facility] Allergies, Adverse Reactions, Alerts Combined list of allergies from Department of Defense and Veterans Affairs facilities. It does not include entries that were removed or entered in error. Substance Category Reaction Severity Reaction type Status Date Reported Comments Source DOXYCYCLINE Drug allergy (disorder) Generalized aches and pains active 2 [facility] doxycycline Propensity to adverse reactions to drug Generalized aches and pains Active 2 [facility] Propensity to adverse reactions to drug (finding) Eruption active 9 [facility] Immunizations Combined list of available immunizations from the Department of Defense and Veterans Affairs facilities. Immunization Series Date Given Administered By Site Reaction Lot Number CVX Code Drug Home Paraprofessional Status Comments Source influenza, injectable, quadrivalent- pf 2022 [id number] 150 Se[employer] complet ed influenza , injectabl e, quadrival ent-pf 03/28/23 Given Ambulat ory Pharmac y INFLUENZA, UNSPECIFIED FORMULATION 2021 88 complet ed [facility] influenza, injectable, quadrivalent- pf 2021 [id number] 150 [employer] comple t ed influenza , injectabl e, quadrival ent-pf 04/19/22 Given Ambulat ory Pharmac y INFLUENZA, UNSPECIFIED FORMULATION 2020 88 complet ed [facility] influenza virus vaccine, inactivated 2020 [id number] Unknown complet ed influenza virus vaccine, inactivat ed 05/09/21 Given Ambulat ory Pharmac y COVID Vaccine Moderna 2020 [id number] 207 complet ed COVID Vaccine Moderna 09/26/20 Given Ambulat ory Pharmac y COVID-19 (MODERNA), MRNA, LNP-S, PF, 100 MCG OR 50 MCG DOSE 2 2020 207 complet ed [facility] COVID Vaccine Moderna 2020 [id number] 207 complet ed COVID Vaccine Moderna 08/29/20 Given Ambulat ory Pharmac y COVID-19 (MODERNA), MRNA, LNP-S, PF, 100 MCG/0.5 ML DOSE 1 2020 207 complet ed [facility] influenza, injectable, quadrivalent- pf 2020 [id number] 150 [employer] complet ed influenza , injectabl e, quadrival ent-pf 07/13/20 Given Ambulat ory Pharmac y INFLUENZA, INJECTABLE, QUADRIVALENT, PRESERVATIVE FREE 2019 150 complet ed [facility] influenza, injectable, quadrivalent- pf 2018 [id number] 150 [employer] complet ed influenza , injectabl e, quadrival ent-pf 05/06/19 Given Ambulat ory Pharmac y INFLUENZA, SEASONAL, INJECTABLE 2018 141 complet ed [employer] anthrax vaccine 2018 [id number] [employer] complet ed anthrax vaccine 08/27/18 Given Ambulat ory Pharmac y anthrax vaccine 2 2018 [id number] [employer] [place] (MIP) complet ed anthrax vaccine DoD hepatitis A adult vaccine 2017 [id number] GlaxoSmithKli ne complet ed hepatitis A adult vaccine 03/28/18 Given Ambulat ory Pharmac y typhoid Vi capsular polysaccharid e vac 2017 [id number] sanofi pasteur complet ed typhoid Vi capsular polysacch aride vac 03/28/18 Given Ambulat ory Pharmac y anthrax vaccine 2017 [id number] 24 [employer] complet ed anthrax vaccine 03/28/18 Given Ambulat ory Pharmac y anthrax vaccine 1 2017 [id number] [employer] [place] (MIP) complet ed anthrax vaccine DoD hepatitis A vaccine, adult dosage 3 2017 [id number] [employer] (SKB) complet ed hepatitis A vaccine, adult dosage DoD typhoid Vi capsular polysaccharid e vaccine 1 2017 [id number] Sanofi Pasteur (PMC) complet ed typhoid Vi capsular polysacch aride vaccine DoD influenza, injectable, quadrivalent- pf 2017 [id number] 150 Se[employer]irus complet ed influenza , injectabl e, quadrival ent-pf 03/27/18 Given Ambulat ory Pharmac y Influenza, injectable, quadrivalent, preservative free 1 2017 [id number] 150 Se[employer] (SEQ) comple t ed Influenza , injectabl e, quadrival ent, preservat kylie free DoD measles/mumps /rubella virus vaccine 2017 [id number] 03 Unknown complet ed measles/m umps/rube lla virus vaccine 07/24/17 Given Ambulat ory Pharmac y measles, mumps and rubella virus vaccine 2 2017 [id number] 03 Unknown (UNK) comple t ed measles, mumps and rubella virus vaccine DoD measles/mumps /rubella virus vaccine 2017 [id number] 03 Unknown complet ed measles/m umps/rube lla virus vaccine 07/23/17 Given Ambulat ory Pharmac y measles, mumps and rubella virus vaccine 2 2017 [id number] 03 Unknown (UNK) comple t ed measles, mumps and rubella virus vaccine DoD hepatitis A-hepatitis B vaccine 2017 [id number] [facility] complet ed hepatitis A-hepatit is B vaccine 07/10/17 Given Ambulat ory Pharmac y hepatitis A and hepatitis B vaccine 2 2017 [id number] [facility] (SKB) complet ed hepatitis A and hepatitis B vaccine DoD INFLUENZA, INJECTABLE, QUADRIVALENT, PRESERVATIVE FREE 2016 150 complet ed [facility] tetanus-dipht h toxoids (Td) adult/adol 2016 [id number] 09 Unknown complet ed tetanus-d iphth toxoids (Td) adult/ado l 01/14/17 Given Ambulat ory Pharmac y TDAP 2016 115 complet ed [facility] HEP B, ADULT 2015 43 complet ed [facility] influenza, injectable, quadrivalent- pf 2015 [id number] 150 Unknown complet ed influenza , injectabl e, quadrival ent-pf 05/09/16 Given Ambulat ory Pharmac y Influenza, injectable, quadrivalent, preservative free 1 2015 [id number] 150 Unknown (UNK) comple t ed Influenza , injectabl e, quadrival ent, preservat kylie free DoD INFLUENZA, UNSPECIFIED FORMULATION 2015 88 complet ed [facility] adenovirus vaccine, live 2015 [id number] 143 Teva Pharm[employer]ica complet ed adenoviru s vaccine, live 09/20/15 Given Ambulat ory Pharmac y poliovirus vaccine, inactivated 2015 Left Arm [id number] 10 sanofi pasteur complet ed polioviru s vaccine, inactivat ed 09/20/15 Given Ambulat ory Pharmac y hepatitis A adult vaccine 2015 Left Arm [id number] [employer] nv complet ed hepatitis A adult vaccine 09/20/15 Given Ambulat ory Pharmac y meningococcal polysaccharid e (MPSV4) 2015 Left Arm [id number] sanofi pasteur complet ed meningoco ccal polysacch aride (MPSV4) 09/20/15 Given Ambulat ory Pharmac y influenza, injectable, quadrivalent- pf 2015 Left Arm [id number] 150 CSL Behring complet ed influenza , injectabl e, quadrival ent-pf 09/20/15 Given Ambulat ory Pharmac y measles/mumps /rubella virus vaccine 2015 Left Arm [id number] Merck & Company Inc complet ed measles/m umps/rube lla virus vaccine 09/20/15 Given Ambulat ory Pharmac y measles, mumps and rubella virus vaccine 1 2015 Unknown, Provider [id number] Merck (MSD) complet ed measles, mumps and rubella virus vaccine DoD poliovirus vaccine, inactivated 1 2015 Unknown, Provider [id number] 10 Sanofi Pasteur (PMC) complet ed polioviru s vaccine, inactivat ed DoD meningococcal polysaccharid e vaccine (MPSV4) 1 2015 Unknown, Provider [id number] 32 Sanofi Pasteur (PMC) complet ed meningoco ccal polysacch aride vaccine (MPSV4) DoD hepatitis A vaccine, adult dosage 1 2015 Unknown, Provider [id number] 52 [employer] (SKB) complet ed hepatitis A vaccine, adult dosage DoD Adenovirus, type 4 and type 7, live, oral 1 2015 Unknown, Provider [id number] 143 [employer] (BRR) complet ed Adenoviru s, type 4 and type 7, live, oral DoD Influenza, injectable, quadrivalent, preservative free 1 2015 Unknown, Provider [id number] 150 [employer] (CSL) complet ed Influenza , injectabl e, quadrival ent, preservat kylie free DoD varicella virus vaccine 1 2015 UNK 21 Unknown (UNK) Not Given varicella virus vaccine DoD hepatitis B vaccine, adult dosage 1 2015 UNK 43 Unknown (UNK) Not Given hepatitis B vaccine, adult dosage DoD influenza, seasonal, injectable 2014 [id number] 1A 141 Unknown complet ed influenza , seasonal, injectabl e 05/26/15 Given Ambulat ory Pharmac y Influenza, seasonal, injectable 1 2014 [id number] 1A 141 Unknown (UNK) complet ed Influenza , seasonal, injectabl e DoD Human Papillomaviru s,quadrivalen t(HPV4) 2013 UNK 62 Unknown complet ed Human Papilloma virus,babs drivalent (HPV4) 11/02/13 Given Ambulat ory Pharmac y human papilloma virus vaccine, quadrivalent 3 2013 UNK 62 Unknown (UNK) comple t ed human papilloma virus vaccine, quadrival ent DoD HPV, QUADRIVALENT 3 2013 62 complet ed [place] [facility] INFLUENZA, UNSPECIFIED FORMULATION 2012 88 complet ed [place] [facility] INFLUENZA, UNSPECIFIED FORMULATION 2010 88 [facility] tetanus, diphtheria, acellular pertu is 2010 UNK 115 Unknown complet ed tetanus, diphtheri a, acellular pertussis 02/17/11 Given Ambulat ory Pharmac y tetanus toxoid, reduced diphtheria toxoid, and acellular pertu is vaccine, adsorbed 1 2010 UNK 115 Unknown (UNK) comple t ed tetanus toxoid, reduced diphtheri a toxoid, and acellular pertussis vaccine, adsorbed DoD TDAP 2010 115 complet ed [facility] Human Papillomaviru s,quadrivalen t(HPV4) 2009 UNK 62 Unknown complet ed Human Papilloma virus,babs drivalent (HPV4) 08/07/09 Given Ambulat ory Pharmac y human papilloma virus vaccine, quadrivalent 2 2009 UNK 62 Unknown (UNK) comple t ed human papilloma virus vaccine, quadrival ent DoD HPV, QUADRIVALENT 2 2009 62 complet ed [place] [facility] Human Papillomaviru s,quadrivalen t(HPV4) 2008 UNK 62 Unknown complet ed Human Papilloma virus,babs drivalent (HPV4) 05/21/09 Given Ambulat ory Pharmac y human papilloma virus vaccine, quadrivalent 1 2008 UNK 62 Unknown (UNK) comple t ed human papilloma virus vaccine, quadrival ent DoD HPV, QUADRIVALENT 1 2008 62 complet ed [facility] Results Combined list of recent chemistry, hematology and other laboratory results from Department of Defense and Veterans Affairs, ranging from 15 months to all on record, depending upon the facility. Order Name Results Value Reference Range Date Interpretation Specimen Comments Source BNP NATRIURETI C PEPTIDE B [MASS/VOLU ME] IN SERUM OR PLASMA <10pg/mL <99 - 99 05/11 Specimen Type: PLASMA No comment entered. Ordering Provider: RELL BARRAGAN Report Released Date/Time: May 11, 2023 02:24 PM Reporting Lab: [facility] [phone] Performing Lab: [facility] [address] [facility] CBC LEUKOCYTES [#/VOLUME] IN BLOOD BY AUTOMATED COUNT 6.36 10*3/uL 4.0 - 11.0 05/11 Specimen Type: BLOOD No comment entered. Ordering Provider: RELL BARRAGAN Report Released Date/Time: May 11, 2023 02:24 PM Reporting Lab: [facility] [address] Performing Lab: [facility] [address] [facility] CBC ERYTHROCYT ES [#/VOLUME] IN BLOOD BY AUTOMATED COUNT 4.08 10*6/uL 4.0 - 5.4 05/11 Specimen Type: BLOOD No comment entered. Ordering Provider: RELL BARRAGAN Report Released Date/Time: May 11, 2023 02:24 PM Reporting Lab: [facility] [address] Performing Lab: [facility] [address] [facility] CBC HEMOGLOBIN [MASS/VOLU ME] IN BLOOD 12.3 g/dL 11.5 - 16 05/11 Specimen Type: BLOOD No comment entered. Ordering Provider: RELL BARRAGAN Report Released Date/Time: May 11, 2023 02:24 PM Reporting Lab: [facility] [address] Performing Lab: [facility] [address] [facility] CBC HEMATOCRIT [VOLUME FRACTION] OF BLOOD BY AUTOMATED COUNT 37.3 34.5 - 48 05/11 Specimen Type: BLOOD No comment entered. Ordering Provider: RELL BARRAGAN Report Released Date/Time: May 11, 2023 02:24 PM Reporting Lab: [facility] [address] Performing Lab: [facility] [address] [facility] CBC MCV [ENTITIC VOLUME] BY AUTOMATED COUNT 91.4 fL 80 - 100 05/11 Specimen Type: BLOOD No comment entered. Ordering Provider: RELL BARRAGAN Report Released Date/Time: May 11, 2023 02:24 PM Reporting Lab: [facility] [address] Performing Lab: [facility] [address] [place] CBC MCH [ENTITIC MASS] BY AUTOMATED COUNT 30.1 pg 27 - 33 05/11 Specimen Type: BLOOD No comment entered. Ordering Provider: RELL BARRAGAN Report Released Date/Time: May 11, 2023 02:24 PM Reporting Lab: [facility] [address] Performing Lab: [facility] [address] [facility] CBC MCHC [MASS/VOLU ME] BY AUTOMATED COUNT 33.0 g/dL 32.0 - 37.5 05/11 Specimen Type: BLOOD No comment entered. Ordering Provider: RELL BARRAGAN Report Released Date/Time: May 11, 2023 02:24 PM Reporting Lab: [facility] [address] Performing Lab: [facility] [address] [facility] CBC PLATELETS [#/VOLUME] IN BLOOD BY AUTOMATED COUNT 372 10*3/uL 150 - 400 05/11 Specimen Type: BLOOD No comment entered. Ordering Provider: RELL BARRAGAN Report Released Date/Time: May 11, 2023 02:24 PM Reporting Lab: [facility] [phone] Performing Lab: [facility] [address] [facility] CBC PLATELET MEAN VOLUME [ENTITIC VOLUME] IN BLOOD BY AUTOMATED COUNT 9.5 fL 7.4 - 10.4 05/11 Specimen Type: BLOOD No comment entered. Ordering Provider: RELL BARRAGAN Report Released Date/Time: May 11, 2023 02:24 PM Reporting Lab: [facility] [address] Performing Lab: [facility] [address] [facility] CBC ERYTHROCYT E DISTRIBUTI ON WIDTH [RATIO] BY AUTOMATED COUNT 13.0 11.5 - 14.5 05/11 Specimen Type: BLOOD No comment entered. Ordering Provider: RELL BARRAGAN Report Released Date/Time: May 11, 2023 02:24 PM Reporting Lab: [facility] [phone] Performing Lab: [facility] [address] [facility] COMPREHE NSIVE METABOLI C PANEL+MG CREATININE [MASS/VOLU ME] IN SERUM OR PLASMA 0.8 mg/dL 0.5 - 1.0 05/11 Specimen Type: PLASMA No comment entered. Ordering Provider: RELL BARRAGAN Report Released Date/Time: May 11, 2023 02:24 PM Reporting Lab: [facility] [address] Performing Lab: [facility] [address] [facility] COMPREHE NSIVE METABOLI C PANEL+MG UREA NITROGEN [MASS/VOLU ME] IN SERUM OR PLASMA 16 mg/dL 7 - 20 05/11 Specimen Type: PLASMA No comment entered. Ordering Provider: RELL BARRAGAN Report Released Date/Time: May 11, 2023 02:24 PM Reporting Lab: [facility] [address] Performing Lab: [facility] [address] [facility] COMPREHE NSIVE METABOLI C PANEL+MG GLUCOSE [MASS/VOLU ME] IN SERUM OR PLASMA 112 mg/dL 70 - 100 05/11 H Specimen Type: PLASMA No comment entered. Ordering Provider: RELL BARRAGAN Report Released Date/Time: May 11, 2023 02:24 PM Reporting Lab: [facility] [address] Performing Lab: [facility] [address] [place] [facility] COMPREHE NSIVE METABOLI C PANEL+MG SODIUM [MOLES/VOL UME] IN SERUM OR PLASMA 141 mmol/L 136 - 145 05/11 Specimen Type: PLASMA No comment entered. Ordering Provider: RELL BARRAGNA Report Released Date/Time: May 11, 2023 02:24 PM Reporting Lab: [facility] [address] Performing Lab: [facility] [address] [place] [facility] COMPREHE NSIVE METABOLI C PANEL+MG POTASSIUM [MOLES/VOL UME] IN SERUM OR PLASMA 3.7 mmol/L 3.5 - 5.1 05/11 Specimen Type: PLASMA No comment entered. Ordering Provider: RELL BARRAGAN Report Released Date/Time: May 11, 2023 02:24 PM Reporting Lab: [facility] [address] Performing Lab: [facility] [address] [facility] COMPREHE NSIVE METABOLI C PANEL+MG CHLORIDE [MOLES/VOL UME] IN SERUM OR PLASMA 107 mmol/L 98 - 107 05/11 Specimen Type: PLASMA No comment entered. Ordering Provider: RELL BARRAGAN Report Released Date/Time: May 11, 2023 02:24 PM Reporting Lab: [facility] [address] Performing Lab: [facility] [address] [facility] COMPREHE NSIVE METABOLI C PANEL+MG CARBON DIOXIDE, TOTAL [MOLES/VOL UME] IN SERUM OR PLASMA 26 mmol/L 22 - 29 05/11 Specimen Type: PLASMA No comment entered. Ordering Provider: RELL BARRAGAN Report Released Date/Time: May 11, 2023 02:24 PM Reporting Lab: [facility] [address] Performing Lab: [facility] [address] [facility] COMPREHE NSIVE METABOLI C PANEL+MG CALCIUM [MASS/VOLU ME] IN SERUM OR PLASMA 9.3 mg/dL 8.4 - 10.2 05/11 Specimen Type: PLASMA No comment entered. Ordering Provider: RELL BARRAGAN Report Released Date/Time: May 11, 2023 02:24 PM Reporting Lab: [facility] [address] Performing Lab: [facility] [address] [place] [facility] COMPREHE NSIVE METABOLI C PANEL+MG PROTEIN [MASS/VOLU ME] IN SERUM OR PLASMA 7.5 g/dL 6.0 - 8.3 05/11 Specimen Type: PLASMA No comment entered. Ordering Provider: RELL BARRAGAN Report Released Date/Time: May 11, 2023 02:24 PM Reporting Lab: [facility] [address] Performing Lab: [facility] [address] [place] [facility] COMPREHE NSIVE METABOLI C PANEL+MG ALBUMIN [MASS/VOLU ME] IN SERUM OR PLASMA 4.7 g/dL 3.5 - 5.2 05/11 Specimen Type: PLASMA No comment entered. Ordering Provider: RELL BARRAGAN Report Released Date/Time: May 11, 2023 02:24 PM Reporting Lab: [facility] [address] Performing Lab: [facility] [address] [facility] COMPREHE NSIVE METABOLI C PANEL+MG BILIRUBIN. TOTAL [MASS/VOLU ME] IN SERUM OR PLASMA 0.3 mg/dL 0.2 - 1.2 05/11 Specimen Type: PLASMA No comment entered. Ordering Provider: RELL BARRAGAN Report Released Date/Time: May 11, 2023 02:24 PM Reporting Lab: [facility] [address] Performing Lab: [facility] [address] [place] [facility] COMPREHE NSIVE METABOLI C PANEL+MG MAGNESIUM [MASS/VOLU ME] IN SERUM OR PLASMA 2.0 mg/dL 1.6 - 2.6 05/11 Specimen Type: PLASMA No comment entered. Ordering Provider: RELL BARRAGAN Report Released Date/Time: May 11, 2023 02:24 PM Reporting Lab: [facility] [address] Performing Lab: [facility] [address] [place] [facility] COMPREHE NSIVE METABOLI C PANEL+MG ANION GAP IN SERUM OR PLASMA 8 mmol/L 5 - 15 05/11 Specimen Type: PLASMA No comment entered. Ordering Provider: RELL BARRAGAN Report Released Date/Time: May 11, 2023 02:24 PM Reporting Lab: [facility] [phone] Performing Lab: [facility] [phone] [facility] COMPREHE NSIVE METABOLI C PANEL+MG ALKALINE PHOSPHATAS E [ENZYMATIC ACTIVITY/V OLUME] IN SERUM OR PLASMA 47 U/L 40 - 150 05/11 Specimen Type: PLASMA No comment entered. Ordering Provider: RELL BARRAGAN Report Released Date/Time: May 11, 2023 02:24 PM Reporting Lab: [facility] [address] Performing Lab: [facility] [address] [facility] COMPREHE NSIVE METABOLI C PANEL+MG ALANINE AMINOTRANS FERASE [ENZYMATIC ACTIVITY/V OLUME] IN SERUM OR PLASMA 21 U/L <55 - 55 05/11 Specimen Type: PLASMA No comment entered. Ordering Provider: RELL BARRAGAN Report Released Date/Time: May 11, 2023 02:24 PM Reporting Lab: [facility] [address] Performing Lab: [facility] [address] [facility] COMPREHE NSIVE METABOLI C PANEL+MG ASPARTATE AMINOTRANS FERASE [ENZYMATIC ACTIVITY/V OLUME] IN SERUM OR PLASMA 16 U/L <34 - 34 05/11 Specimen Type: PLASMA No comment entered. Ordering Provider: RELL BARRAGAN Report Released Date/Time: May 11, 2023 02:24 PM Reporting Lab: [facility] [address] Performing Lab: [facility] [address] [facility] COMPREHE NSIVE METABOLI C PANEL+MG GLOMERULAR FILTRATION RATE/1.73 SQ M.PREDICTE D [VOLUME RATE/AREA] IN SERUM, PLASMA OR BLOOD BY CREATININE -BASED FORMULA (CKD-EPI 2020) >90 60 05/11 Specimen Type: PLASMA No comment entered. Ordering Provider: RELL BARRAGAN Report Released Date/Time: May 11, 2023 02:24 PM Reporting Lab: [facility] [address] Performing Lab: [facility] [address] [place] [facility] D-DIMER FIBRIN D-DIMER FEU [MASS/VOLU ME] IN PLATELET POOR PLASMA <215 0 - 500 05/11 Specimen Type: PLASMA No comment entered. Ordering Provider: RELL BARRAGAN Report Released Date/Time: May 11, 2023 02:24 PM Reporting Lab: [facility] [address] Performing Lab: [facility] [address] [facility] [facility] TSH W/REFLEX TO FREE T4 THYROTROPI N [UNITS/VOL UME] IN SERUM OR PLASMA 1.15 u[IU]/mL 0.35 - 4.94 05/11 Specimen Type: PLASMA No comment entered. Ordering Provider: RELL BARRAGAN Report Released Date/Time: May 11, 2023 02:24 PM Reporting Lab: [facility] [address] Performing Lab: [facility] [address] [place] [facility] CBC LEUKOCYTES [#/VOLUME] IN BLOOD BY AUTOMATED COUNT 10.80 10*3/uL 4.0 - 11.0 12/02 Specimen Type: BLOOD No comment entered. Ordering Provider: ANITA HARVEY Report Released Date/Time: December 02, 2022 04:05 PM Reporting Lab: [facility] [address] Performing Lab: [facility] [address] [place] [facility] CBC ERYTHROCYT ES [#/VOLUME] IN BLOOD BY AUTOMATED COUNT 3.98 10*6/uL 4.0 - 5.4 12/02 L Specimen Type: BLOOD No comment entered. Ordering Provider: ANITA HARVEY Report Released Date/Time: December 02, 2022 04:05 PM Reporting Lab: [facility] [address] Performing Lab: [facility] [address] [place] [facility] CBC HEMOGLOBIN [MASS/VOLU ME] IN BLOOD 12.2 g/dL 11.5 - 16 12/02 Specimen Type: BLOOD No comment entered. Ordering Provider: ANITA HARVEY Report Released Date/Time: December 02, 2022 04:05 PM Reporting Lab: [facility] [address] Performing Lab: [facility] [address] [place] [facility] CBC HEMATOCRIT [VOLUME FRACTION] OF BLOOD BY AUTOMATED COUNT 36.4 34.5 - 48 12/02 Specimen Type: BLOOD No comment entered. Ordering Provider: ANITA HARVEY Report Released Date/Time: December 02, 2022 04:05 PM Reporting Lab: [facility] [address] Performing Lab: [facility] [address] [place] [facility] CBC MCV [ENTITIC VOLUME] BY AUTOMATED COUNT 91.5 fL 80 - 100 12/02 Specimen Type: BLOOD No comment entered. Ordering Provider: ANITA HARVEY Report Released Date/Time: December 02, 2022 04:05 PM Reporting Lab: [facility] [address] Performing Lab: [facility] [address] [place] [facility] CBC MCH [ENTITIC MASS] BY AUTOMATED COUNT 30.7 pg 27 - 33 12/02 Specimen Type: BLOOD No comment entered. Ordering Provider: ANITA HARVEY Report Released Date/Time: December 02, 2022 04:05 PM Reporting Lab: [facility] [address] Performing Lab: [facility] [address] [place] [facility] CBC MCHC [MASS/VOLU ME] BY AUTOMATED COUNT 33.5 g/dL 32.0 - 37.5 12/02 Specimen Type: BLOOD No comment entered. Ordering Provider: ANITA HARVEY Report Released Date/Time: December 02, 2022 04:05 PM Reporting Lab: [facility] [address] Performing Lab: [facility] [address] [place] [facility] CBC PLATELETS [#/VOLUME] IN BLOOD BY AUTOMATED COUNT 361 10*3/uL 150 - 400 12/02 Specimen Type: BLOOD No comment entered. Ordering Provider: ANITA HARVEY Report Released Date/Time: December 02, 2022 04:05 PM Reporting Lab: [facility] [address] Performing Lab: [facility] [address] [place] [facility] CBC PLATELET MEAN VOLUME [ENTITIC VOLUME] IN BLOOD BY AUTOMATED COUNT 10.1 fL 7.4 - 10.4 12/02 Specimen Type: BLOOD No comment entered. Ordering Provider: ANITA HARVEY Report Released Date/Time: December 02, 2022 04:05 PM Reporting Lab: [facility] [address] Performing Lab: [facility] [address] [facility] CBC ERYTHROCYT E DISTRIBUTI ON WIDTH [RATIO] BY AUTOMATED COUNT 13.2 11.5 - 14.5 12/02 Specimen Type: BLOOD No comment entered. Ordering Provider: ANITA HARVEY Report Released Date/Time: December 02, 2022 04:05 PM Reporting Lab: [facility] [address] Performing Lab: [facility] [address] [place] [facility] TSH W/REFLEX TO FREE T4 THYROTROPI N [UNITS/VOL UME] IN SERUM OR PLASMA 1.26 u[IU]/mL 0.35 - 4.94 12/02 Specimen Type: PLASMA No comment entered. Ordering Provider: ANITA HARVEY Report Released Date/Time: December 02, 2022 04:05 PM Reporting Lab: [facility] [address] Performing Lab: [facility] [address] [place] [facility] HUMAN PAPILLOM A VIRUS,DN A HIGH RISK HUMAN PAPILLOMA VIRUS 16 DNA [PRESENCE] IN SPECIMEN BY FOZIA WITH PROBE DETECTION NEGATIVE 02/13 Specimen Type: CERVICAL VAGINAL CYTOLOGIC MATERIAL Comment: [id number] Ordering Provider: ANITA HARVEY Report Released Date/Time: Feb 19, 2022 11:51 AM Reporting Lab: [facility] [address] Performing Lab: [facility] [address] [place] [facility] HUMAN PAPILLOM A VIRUS,DN A HIGH RISK HUMAN PAPILLOMA VIRUS 18 DNA [PRESENCE] IN SPECIMEN BY FOZIA WITH PROBE DETECTION NEGATIVE 02/13 Specimen Type: CERVICAL VAGINAL CYTOLOGIC MATERIAL Comment: [id number] Ordering Provider: ANITA HARVEY Report Released Date/Time: Feb 19, 2022 11:51 AM Reporting Lab: [facility] [address] Performing Lab: [facility] [address] [facility] HUMAN PAPILLOM A VIRUS,DN A HIGH RISK HUMAN PAPILLOMA VIRUS 16+18+31+3 3+35+45+51 +52+56 DNA [PRESENCE] IN CERVIX BY PROBE NEGATIVE 02/13 Specimen Type: CERVICAL VAGINAL CYTOLOGIC MATERIAL Comment: [id number] Ordering Provider: ANITA HARVEY Report Released Date/Time: Feb 19, 2022 11:51 AM Reporting Lab: [facility] [address] Performing Lab: [facility] [address] [facility] HUMAN PAPILLOM A VIRUS,DN A HIGH RISK INTERPRETA TION AND REVIEW OF LABORATORY RESULTS HR-HPV is undetect able or below preset threshol d. 02/13 Specimen Type: CERVICAL VAGINAL CYTOLOGIC MATERIAL Comment: [id number] Ordering Provider: ANITA HARVEY Report Released Date/Time: Feb 19, 2022 11:51 AM Reporting Lab: [facility] [address] Performing Lab: [facility] [address] [facility], QUAL CHORIOGONA DOTROPIN.B ETA SUBUNIT ( TEST) [PRESENCE] IN URINE NEGATIVE 01/02 Specimen Type: URINE No comment entered. Ordering Provider: GENEVIEVE HARRIS MA Report Released Date/Time: Jan 02, 2022 09:09 AM Reporting Lab: [facility] [address] Performing Lab: [facility] [address] [place] [facility] Vital Signs Combined list of inpatient and outpatient Vital Signs from Department of Defense and Veterans Affairs, ranging from 12 months to all on record, depending upon the facility. Vital Sign Value Date Comments Source Encounters Combined list of: 1) Encounters from Department of Veterans Affairs facilities going back up to thelast 18 months. 2) Encounters from the Department of Defense facilities going back up to 280 months. Location Location Details Encounter Type Encounter Number Reason For Visit Attending Provider ADM Date DC Date Status Disposition Source [facility] Immunizat ions (Post)) OUTPATIENT [id number] IET PPD KHOA BARNES Kevin 09/19 Released w/o Limitations [employer]([facility] Immuniz ations (Post)) [facility] Immunizat ions (Post)) OUTPATIENT [id number] iet immuniz ations SUKUMAR MARQUEZ Shamar 09/19 Released w/o Limitations [employer]([facility] Immuniz ations (Post)) [facility] Ambulator y) OUTPATIENT [id number] Notes Entered by: DOUG MCALLISTER 30 Sep 2015 0558 ------- ------- ------- ------- -- JAG Mae 09/29 Released w/o Limitations [facility] Ambulat ory) [facility] Ambulator y) OUTPATIENT [id number] Notes Entered by: DOUG MCALLISTER 28 Oct 2015 0811 ------- ------- ------- ------- -- Hip pain JAG LENTZ 10/27 Released with Work/Duty Limitations [facility] Ambulat ory) [facility] Physical Therapy) OUTPATIENT [id number] Notes Entered by: AVERY BLAIR 28 Oct 2015 1024 ------- ------- ------- ------- -- Bilat Knee/Hi p AVERY BLAIR 10/27 Immediate Referral [facility] Physica l Therapy ) [facility] Ambulator y) OUTPATIENT [id number] Notes Entered by: DOUG MCALLISTER 30 Oct 2015 0534 ------- ------- ------- ------- -- F/U JAG LENTZ 10/29 Released with Work/Duty Limitations [employer]([facility] Ambul[facility]y) [employer]([facility] Physical Therapy BAS) OUTPATIENT [id number] Notes Entered by: TEMITOPE BARNHART 30 Oct 2015 0602 ------- ------- ------- ------- -- hip and knee pain GREG NEVILLE 10/29 Released with Work/Duty Limitations [employer]([facility] Physica l Therapy BAS) [employer]([facility] Physical Therapy) OUTPATIENT [id number] Left Thigh-- -(ref: SILKE Morrissey 12/03 Released with Work/Duty Limitations [employer]([facility] Physica [facility] Therapy ) [facility] Physical Therapy) OUTPATIENT [id number] Notes Entered by: SHAISTA LAYTON 13 Dec 2015 1545 ------- ------- ------- ------- -- right hip and knee pain CAITIE WILKINSON 12/12 Released w/o Limitations [facility] Physica [facility] Therapy ) [facility] Ambulator y) OUTPATIENT [id number] Notes Entered by: ELIUD JACKSON 30 Dec 2015 0608 ------- ------- ------- ------- -- LANRE Mckeon 12/29 Released w/o Limitations [employer]([facility] Ambulat [facility]y) [facility] Physical Therapy) OUTPATIENT [id number] Notes Entered by: SHAISTA LAYTON 21 Jan 2016 1525 ------- ------- ------- ------- -- Right Hip ST irritia tion - rehab pt CAITIE WILKINSON 01/20 Released w/o Limitations [facility] Physica [facility] Therapy ) [facility] Physical Therapy) OUTPATIENT [id number] Notes Entered by: SHAISTA LAYTON 24 Jan 2016 1605 ------- ------- ------- ------- -- right hip pain - antalgi c CAITIE Patel 01/23 Immediate Referral [facility] Physica l Therapy ) [facility] Physical Therapy) OUTPATIENT [id number] Follow up--(Dr Tamia Sky ) TL LOZANO 01/26 Released w/o Limitations [facility] Medical [facility] Physica l Therapy ) [place] [address]) OUTPATIENT [id number] Notes Entered by: Tonya GREENBERG 29 Mar 2018 0934 ------- ------- ------- ------- -- TRINIDAD MERCADO 03/29 Released w/o Limitations [place]([facility] [address]) [place] [address]) OUTPATIENT [id number] Notes Entered by: JOSH MAR 29 Mar 2018 1242 ------- ------- ------- ------- -- KAILA IRAHETA 03/29 Released w/o Limitations [place] [address]) [place] [address]) OUTPATIENT [id number] Notes Entered by: JOSH MAR 29 Mar 2018 1336 ------- ------- ------- ------- -- KAILA IRAHETA 03/29 Released w/o Limitations [place]([facility] [address]) Theater Facility OUTPATIENT [id number] Theater Provider 06/16 Released with Work/Duty Limitations [facility] OUTPATIENT [id number] Theater Provider 08/18 Released w/o Limitations [facility] OUTPATIENT [id number] Theater Provider 08/25 Released w/o Limitations [facility] OUTPATIENT [id number] Theater Provider 09/01 Released w/o Limitations [facility] OUTPATIENT [id number] Theater Provider 09/07 Released w/o Limitations [facility] OUTPATIENT [id number] Theater Provider 09/13 Released w/o Limitations [facility] OUTPATIENT [id number] Theater Provider 09/29 Released w/o Limitations [facility] OUTPATIENT [id number] Theater Provider 10/06 Released w/o Limitations [facility] OUTPATIENT [id number] Theater Provider 10/13 Released w/o Limitations [facility] OUTPATIENT [id number] Theater Provider 10/20 Released w/o Limitations [facility] OUTPATIENT [id number] Theater Provider 11/12 Released w/o Limitations [facility] [place] [address]) OUTPATIENT [id number] Notes Entered by: GABBIE FONTENOT 16 Jan 2019 1629 ------- ------- ------- ------- -- AUGUSTA VILLALOBOS 01/16 Released w/o Limitations [place] Bldg [address]) [place] Hearing Conservat ion) OUTPATIENT [id number] Notes Entered by: YA TOLBERT 17 Jan 2019 1008 ------- ------- ------- ------- -- post YA TOLBERT 01/17 Released w/o Limitations [place] Hearing Conserv ation) [place] Physical Exam Clinic) OUTPATIENT [id number] Notes Entered by: Teodoro SULLIVAN 17 Jan 2019 1453 ------- ------- ------- ------- -- SHPE-34 TH OLGA VENEGAS 01/17 Released w/o Limitations [place] Physica l Exam Clinic) [place] [facility] PSYTX W PT 45 MINUTES [id number] [id number] Diagnos is: ICD-10- CM F33.8 Other recurre nt depress kylie disorde rs
BARBARA OLEARY TIE 07/09 [place] [facility] THERAPEUTI C EXERCISES [id number] [id number] Diagnos is: ICD-10- CM S42.002 A Fractur e of unsp part of left clavicl e, init for clos fx
[facility] MANUAL THERAPY / REGIONS 94256-8.61 [id number] Diagnos is: ICD-10- CM M25.512 Pain in left shoulde r
[facility]04 [facility] PSYTX W PT 45 MINUTES 90698-1.61 [id number] Diagnos is: ICD-10- CM F41.9 Anxiety disorde r, unspeci fied
BARBARA OLEARY ALICIA 08/06 [place] [facility] [place] [facility] PSYTX W PT 45 MINUTES [id number] [id number] Diagnos is: ICD-10- CM F33.8 Other recurre nt depress kylie disorde rs
BARBARA OLEARY ALICIA 08/13 [place] [facility] SELF CARE MNGMENT TRAINING [id number] [id number] Diagnos is: ICD-10- CM M54.50 Low back pain, unspeci fied
[facility] 08[facility]18 [facility] [place] [facility] PSYTX W PT 45 MINUTES [id number] [id number] Diagnos is: ICD-10- CM F33.8 Other recurre nt depress kylie disorde rs
BARBARA OLEARY TIE 08/27 [facility] [place] [facility] SELF CARE MNGMENT TRAINING [id number] [id number] Diagnos is: ICD-10- CM M25.512 Pain in left shoulde r
SA ARNALDO RA B 09/09 [facility] OFFICE O/P EST SF 10-19 MIN [id number] [id number] Diagnos is: ICD-10- CM S42.025 D Nondisp fx of shaft of l clavicl e, subs for fx w routn heal
OCTAVIO SERJIOZACHARY A 09/14 [facility] PSYTX W PT 45 MINUTES 96891-9.61 [id number] Diagnos is: ICD-10- CM F33.8 Other recurre nt depress kylie disorde rs
BARBARA OLEARY TIE 09/17 [facility] Outpatient Encounter [id number] 10/26 [facility] PSYTX W PT 45 MINUTES 23788-9.61 [id number] Diagnos is: ICD-10- CM F33.8 Other recurre nt depress kylie disorde rs
BARBARA OLEARY TIE 10/30 [facility] Outpatient Encounter [id number] [id number] 11/17 [facility] PT EDUCATION NOC GROUP [id number] [id number] Diagnos is: ICD-10- CM Z73.2 Lack of relaxat ion and leisure
BRIGETTE ISABEL 11/17 [facility] PT EDUCATION NOC GROUP 90975-7.61 [id number] Diagnos is: ICD-10- CM Z73.2 Lack of relaxat ion and leisure
BRIGETTE ISABEL 11/17 [facility] IS [facility] PRO PHONE CALL 11-20 MIN [id number] [id number] Diagnos is: ICD-10- CM Z71.9 Ring Sorter ing, unspeci fied
BRIGETTE ISABEL 11/27 [facility] IS [facility] OFFICE O/P EST HI 40-54 MIN 32457-8.61 [id number] Diagnos is: ICD-10- CM F41.9 Anxiety disorde r, unspeci fied
JASON HARVEY 12/02 [facility] IS [facility] Outpatient Encounter [id number] [id number] 12/04 [facility] IS [facility] OFF/OP EST MAY X REQ PHY/QHP [id number] [id number] Diagnos is: ICD-10- CM Z73.2 Lack of relaxat ion and leisure
CHELSEA BARKSDALE S 12/10 [facility] IS [facility] PSYTX W PT 45 MINUTES 28336-9.61 [id number] Diagnos is: ICD-10- CM F33.8 Other recurre nt depress kylie disorde rs
BARBARA OLEARY 12/11 [facility] IS [facility] Outpatient Encounter [id number] [id number] 12/14 [facility] IS [facility] OFF/OP EST MAY X REQ PHY/QHP 52535-3.61 [id number] Diagnos is: ICD-10- CM Z73.2 Lack of relaxat ion and leisure
BRIGETTE ISABEL 12/17 [facility] IS [facility] OFF/OP EST MAY X REQ PHY/QHP 79064-4.61 [id number] Diagnos is: ICD-10- CM Z73.2 Lack of relaxat ion and leisure
APOLONIACHELSEA N S 12/31 [place] [facility] [place] [facility] OFF/OP EST MAY X REQ PHY/QHP 15463-6.61 [id number] Diagnos is: ICD-10- CM Z73.2 Lack of relaxat ion and leisure
APOLONIA,CHELSEA N S 01/07 [place] [facility] [place] [facility] PSYTX W PT 45 MINUTES 90486-0.61 [id number] Diagnos is: ICD-10- CM F41.9 Anxiety disorde r, unspeci fied
BARBARA OLEARY 01/08 [place] [facility] [place] [facility] OFF/OP EST MAY X REQ PHY/QHP 81302-4.61 [id number] Diagnos is: ICD-10- CM Z73.2 Lack of relaxat ion and leisure
APOLONIA,CHELSEA [facility] S 01/14 [facility] [place] [facility] OFF/OP EST MAY X REQ PHY/QHP [id number] [id number] Diagnos is: ICD-10- CM Z73.2 Lack of relaxat ion and leisure
BRIGETTE ISABEL 01/21 [facility] [employer] 64962-2.61 [id number] Diagnos is: ICD-10- CM Z73.2 Lack of relaxat ion and leisure
CHELSEA BARKSDALE [facility] S 01/28 [place] [facility] [place] [facility] OFF/OP EST MAY X REQ PHY/QHP 61672-2.61 [id number] Diagnos is: ICD-10- CM Z73.2 Lack of relaxat ion and leisure
BRIGETTE ISABEL 02/04 [facility] [place] [facility] PSYTX W PT 45 MINUTES [id number] [id number] Diagnos is: ICD-10- CM F33.8 Other recurre nt depress kylie disorde rs
BARBARA OLEARY TIE 02/05 [facility] IS [facility] Outpatient Encounter [id number] Diagnos is: ICD-10- CM F41.9 Anxiety disorde r, unspeci fied
WESJASON A 02/09 [facility] IS [facility] Outpatient Encounter [id number] JASON HARVEY A 02/09 [facility] 73688-7 [id number] Diagnos is: ICD-10- CM Z73.2 Lack of relaxat ion and leisure
CHELSEA BARKSDALE 03/04 [facility] IS [facility] PSYTX W PT 45 MINUTES [id number] Diagnos is: ICD-10- CM F33.8 Other recurre nt depress kylie disorde rs
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
FAUSTINA VELASCO ICA D 03/16 [facility] IS [facility] Outpatient Encounter [id number] [id number] 03/25 [facility] OFF/OP EST MAY X REQ PHY/QHP 21016-1.61 [id number] Diagnos is: ICD-10- CM Z71.9 Ring Sorter ing, unspeci fied
FAUSTINA VELASCO ICA D 03/29 [facility] IS [facility] Outpatient Encounter [id number] [id number] JOHAN ASTORGA Prem M 03/31 [facility] IS [facility] PSYTX W PT 45 MINUTES 97448-7 [phone] Diagnos is: ICD-10- CM F33.8 Other recurre nt depress kylie disorde rs
MAMTABARBARA TIE 04/02 [facility] IS [facility] OFF/OP EST MAY X REQ PHY/QHP [id number] Diagnos is: ICD-10- CM Z71.9 Ring Sorter ing, unspeci fied
FAUSTINA VELASCO ICA D 04/13 [facility] IS [facility] PSYTX W PT 45 MINUTES 42194-5.61 [id number] Diagnos is: ICD-10- CM F33.8 Other recurre nt depress kylie disorde rs
MAMTABARBARA TIE 04/30 [facility] IS [facility] Outpatient Encounter [id number] [id number] ALETHA HYDE W 05/03 [facility] IS [facility] OFF/OP EST MAY X REQ PHY/QHP [phone] Diagnos is: ICD-10- CM Z71.9 Ring Sorter ing, unspeci fied
FAUSTINA VELASCO ICA D 05/04 [facility] IS [facility] ELECTROCAR DIOGRAM COMPLETE 91744-7.61 [id number] Diagnos is: ICD-10- CM Z13.6 Encount er for screeni ng for cardiov ascular disorde rs
Christa HUBBARD 05/11 [facility] IS [facility] OFFICE O/P EST HI 40-54 MIN 31390-3.61 [id number] Diagnos is: ICD-10- CM R06.00 Dyspnea , unspeci fied
RELL BARRAGAN 05/11 [facility] IS [facility] OFF/OP EST MAY X REQ PHY/QHP 89291-1.61 [id number] Diagnos is: ICD-10- CM Z71.9 Ring Sorter ing, unspeci fied
FAUSTINA VELASCO ICA D 05/18 [facility] Outpatient Encounter [id number] [id number] DONATO PHAN 05/21 [facility] PSYTX W PT 45 MINUTES 86183-7.61 [id number] Diagnos is: ICD-10- CM F33.8 Other recurre nt depress kylie disorde rs
BARBARA OLEARY 06/01 RUDI REYNA [facility] IS [facility] Outpatient Encounter [id number] [id number] CLEMENTE ALMAGUER 06/05 [facility] IS [facility] OFF/OP EST MAY X REQ PHY/QHP 12963-0.61 [id number] Diagnos is: ICD-10- CM Z71.9 Ring Sorter ing, unspeci fied
FAUSTINA VELASCO ICA D 06/07 [facility] PSYTX W PT 45 MINUTES [id number] [id number] Diagnos is: ICD-10- CM F33.8 Other recurre nt depress kylie disorde rs
BARBARA OLEARY 06/11 RUDI REYNA [facility] IS [facility] Outpatient Encounter [id number] 06/17 [facility] Outpatient Encounter [id number] 06/22 [facility] IS [facility] HLTH&WB COACHING INDIV F-UP [id number] Diagnos is: ICD-10- CM Z71.9 Ring Sorter ing, unspeci fied
FAUSTINA VELASCO ICA D 06/25 [facility] IS [facility] EXT ECG>48HR<7 D REV&INTERP J [id number] Diagnos is: ICD-10- CM Z13.6 Encount er for screeni ng for cardiov ascular disorde rs
Christa HUBBARD O 07/06 [facility] IS [facility] Outpatient Encounter [id number] 07/07 [facility] RUDI REYNA [facility] PSYTX W PT 45 MINUTES [id number] Diagnos is: ICD-10- CM F41.9 Anxiety disorde r, unspeci fied
BARBARA OLEARY TIE 07/09 RUDI YEBOAHA [facility] IS [facility] HLTH&WB COACHING INDIV F-UP [id number] [id number] Diagnos is: ICD-10- CM Z71.9 Ring Sorter ing, unspeci fied
FAUSTINA VELASCO ICA D 07/16 [facility] IS [facility] SELF-MGMT EDUC & TRAIN 1 [place] [id number] Diagnos is: ICD-10- CM Z73.3 Stress, not elsewhe re classif ied<br/ > LAURA VALDEZ E 07/23 [facility] PSYTX W PT 45 MINUTES 16053-3.61 [id number] Diagnos is: ICD-10- CM F33.8 Other recurre nt depress kylie disorde rs
BARBARA OLEARY 08/06 [facility] IS [facility] PSYTX W PT 45 MINUTES 63354-9.61 [id number] Diagnos is: ICD-10- CM F33.8 Other recurre nt depress kylie disorde rs
BARBARA OLEARY 08/25 [facility] ACUPUNCT W/O STIMUL 15 MIN 21181-3.61 [id number] Diagnos is: ICD-10- CM F41.9 Anxiety disorde r, unspeci fied
DM ORELLANALETeodoro [facility] IS [facility] COACHING INDIV F-UP [id number] [id number] Diagnos is: ICD-10- CM Z71.9 Ring Sorter ing, unspeci fied
FAUSTINA VELASCO ICA D 09/02 [facility] PSYTX W PT 45 MINUTES 30102-5.61 [id number] Diagnos is: ICD-10- CM F33.8 Other recurre nt depress kylie disorde rs
BARBARA OLEARY 09/02 [facility] IS [facility] Outpatient Encounter [id number] JASON HARVEY 09/02 [facility] IS [facility] ACUPUNCT W/O STIMUL ADDL 15M [id number] Diagnos is: ICD-10- CM F41.9 Anxiety disorde r, unspeci fied
DM ORELLANA 09/15 [facility] IS [facility] Outpatient Encounter [id number] JOSELITO VALDEZ 09/19 [facility] IS [facility] FAMILY PSYTX W/PT 50 MIN 91597-1.61 [id number] Diagnos is: ICD-10- CM Z63.0 Problem s in relatio nship with spouse or partner
JOSELITO VALDEZ 09/19 [facility] PSYTX W PT 45 MINUTES [id number] Diagnos is: ICD-10- CM F33.8 Other recurre nt depress kylie disorde rs
BARBARA OLEARY 09/21 [facility] Ambulator y Pharmacy Lifetime Pharmacy [id number] 420 09/22 Ambulat ory Pharmac y No Facility Access History [id number] 09/22 No Facilit y Access [facility] IS [facility] COACHING INDIV F-UP 31123-7.61 [id number] Diagnos is: ICD-10- CM Z71.9 Ring Sorter ing, unspeci fied
FAUSTINA VELASCO ICA D 09/26 [facility] Outpatient Encounter [id number] [id number] JOSELITO VALDEZ 09/29 [facility] PSYTX W PT 60 MINUTES 03036-1.61 [id number] Diagnos is: ICD-10- CM Z63.0 Problem s in relatio nship with spouse or partner
JOSELITO VALDEZ 09/29 [facility] ACUPUNCT W/O STIMUL 15 MIN 96791-6.61 [id number] Diagnos is: ICD-10- CM Z73.3 Stress, not elsewhe re classif ied<br/ > DM ORELLANA NDA NADEEMJALETeodoro 10/06 [facility] IS [facility] FAMILY PSYTX W/O PT 50 MIN 96103-7.61 [id number] Diagnos is: ICD-10- CM Z63.0 Problem s in relatio nship with spouse or partner
JOSELITO VALDEZ 10/06 [facility] IS [facility] FAMILY PSYTX W/PT 50 MIN 37410-1.61 [id number] Diagnos is: ICD-10- CM Z63.0 Problem s in relatio nship with spouse or partner
JOSELITO VALDEZ 10/13 [facility] Outpatient Encounter [id number] [id number] JOSELITO VALDEZ 10/21 [facility] FAMILY PSYTX W/PT 50 MIN 91490-1.61 [id number] Diagnos is: ICD-10- CM Z63.0 Problem s in relatio nship with spouse or partner
JOSELITO VALDEZ 10/21 [facility] COACHING INDIV F-UP 92355-0.61 [id number] Diagnos is: ICD-10- CM Z71.9 Ring Sorter ing, unspeci fied
FAUSTINA VELASCO 10/26 [facility] ACUPUNCT W/O STIMUL ADDL 15M 35972-5.61 [id number] Diagnos is: ICD-10- CM Z73.3 Stress, not elsewhe re classif ied<br/ > DM ORELLANA 10/27 [facility] Outpatient Encounter [id number] [id number] JOSELITO VALDEZ 10/28 [facility] PSYTX W PT 45 MINUTES 50749-2.61 [id number] Diagnos is: ICD-10- CM F41.9 Anxiety disorde r, unspeci fied
KINGBARBARA VARGAS 10/28 [facility] FAMILY PSYTX W/PT 50 MIN 86076-8.61 [id number] Diagnos is: ICD-10- CM Z63.0 Problem s in relatio nship with spouse or partner
JOSELITO VALDEZ 10/28 [facility] Outpatient Encounter [id number] [id number] JOSELITO VALDEZ 11/04 [facility] FAMILY PSYTX W/PT 50 MIN 23160-3.61 [id number] Diagnos is: ICD-10- CM Z63.0 Problem s in relatio nship with spouse or partner
JOSELITO VALDEZ 11/04 [facility] ACUPUNCT W/O STIMUL 15 MIN 99588-7.61 [id number] Diagnos is: ICD-10- CM Z73.3 Stress, not elsewhe re classif ied<br/ > DM ORELLANA 11/17 [facility] HLTH[facility] COACHING INDIV F-UP 28368-7.61 [id number] Diagnos is: ICD-10- CM Z71.9 Ring Sorter ing, unspeci fied
FUASTINA VELASCO ICA D 11/23 [facility] PSYTX W PT 45 MINUTES 28704-1.61 [id number] Diagnos is: ICD-10- CM F33.8 Other recurre nt depress kylie disorde rs
BARBARA OLEARY 11/30 [facility] Outpatient Encounter [phone] VALDEZMARY GRACEJOSEFINA OVIEDO 12/02 [facility] FAMILY PSYTX W/PT 50 MIN 37188-7.61 [id number] Diagnos is: ICD-10- CM Z63.0 Problem s in relatio nship with spouse or partner
COURTNEYJOSELITO Shamar OVIEDO 12/02 [facility] ACUPUNCT W/O STIMUL 15 MIN 65464-5.61 [id number] Diagnos is: ICD-10- CM Z73.3 Stress, not elsewhe re classif ied<br/ > DM ORELLANA 12/08 [facility] COACHING INDIV F-UP 99871-9.61 [id number] Diagnos is: ICD-10- CM Z71.9 Ring Sorter ing, unspeci fied
FAUSTINA VELASCO ICA D 12/28 [facility] PSYTX W PT 45 MINUTES 32571-8.61 [id number] Diagnos is: ICD-10- CM F33.8 Other recurre nt depress kylie disorde rs
BARBARA OLEARY 12/28 [facility] ACUPUNCT W/O STIMUL 15 MIN 90321-4.61 [id number] Diagnos is: ICD-10- CM Z73.3 Stress, not elsewhe re classif ied<br/ > DM ORELLANA NADEEMJALEE 12/29 [facility] Procedures Combined list of: 1) Procedures from Department of Veterans Affairs facilities going back up to thelast 18 months, not all [place] non-surgical procedures are included; 2) All procedures from the Department of Defense facilities. Procedure Procedure Type Code Date Perfomer Comments [facility] e Preventive Medicine Administration Of Health Risk Questionnaire Patient-Focused Preventive Medicine Administration Of Health Risk Questionnaire Patient-Focused 14684 019 OLGA VENEGAS [facility] Threshold Audiogram (Pure Tone) Automated Threshold Audiogram (Pure Tone) Automated 0208T 019 PHU ZAIDI I [facility] Patient education, not otherwise cla ified, non-physician provider, group, per se ion 019 PHU ZAIDI I [facility] Screening Test Of Visual Acuity, Quantitative, Bilateral Screening Test Of Visual Acuity, Quantitative, Bilateral 03014 019 AUGUSTA CHOPRA [facility] Psychiatric Diagnostic Evaluation Psychiatric Diagnostic Evaluation 70981 018 ANA MONTALVO [facility] Preventive Medicine Administration Of Health Risk Questionnaire Patient-Focused Preventive Medicine Administration Of Health Risk Questionnaire Patient-Focused 21699 018 TRINIDAD WILSON [facility] Physical Therapy Service Re-Evaluation Physical Therapy Service Re-Evaluation 31738 016 TL LOZANO [facility] Modalities Cryotherapy Cold Packs Modalities Cryotherapy Cold Packs 29938 016 CAITIE WILKINSON [facility] Physical Medicine - Group Physical Therapy Se ion Physical Medicine - Group Physical Therapy Session 34104 016 CAITIE WILKINSON [facility] Physical Therapy Neuromuscular Re-education Physical Therapy Neuromuscular Re-education 01769 016 CAITIE WILKINSON [facility] Modalities Cryotherapy Cold Packs Modalities Cryotherapy Cold Packs 97333 016 CAITIE WILKINSON [facility] Physical Therapy Neuromuscular Re-education Physical Therapy Neuromuscular Re-education 81115 016 CAITIE WILKINSON [facility] Physical Medicine - Group Physical Therapy Se ion Physical Medicine - Group Physical Therapy Session 08842 016 CAITIE WILKINSON Modalities Cryotherapy Cold Packs Modalities Cryotherapy Cold Packs 11418 016 CAITIE WILKINSON [facility] A isted Exercises For ROM Assisted Exercises [place] ROM 40224 016 CAITIE WILKINSON [facility] Physical Therapy Neuromuscular Re-education Physical Therapy Neuromuscular Re-education 34182 016 CAITIE WILKINSON Athletic Training Evaluation Athletic Training Evaluation 00049 016 CAITIE WILKINSON A isted Exercises For ROM Assisted Exercises For ROM 90578 016 SILKE SKY [facility] Physical Therapy Service Evaluation Physical Therapy Service Evaluation 48698 016 SILKE SKY [facility] Osteopathic Manip Treatment (OMT) 1-2 Body Regions Involved Osteopathic Manip Treatment (OMT) 1-2 Body Regions Involved 79821 016 GREG NEVILLE [facility] Physical Therapy: ___ Se ion Segments, 15 Minutes Each Physical Therapy: ___ Session Segments, 15 Minutes Each 13562 016 GREG NEVILLE Physical Therapy Service Evaluation Physical Therapy Service Evaluation 09969 016 GREG NEVILLE Athletic Training Evaluation Athletic Training Evaluation 68624 016 AVERY BLAIR [facility] Meningococcal Conjugate Vaccine Quadrivalent Serogroups A, C, Y, W-135 SUKUMAR SPAIN [facility] Influenza Split Virus Vaccine IM Preserv Free 0.5mL Dosage Quadrivalent SUKUMAR S[place]IN Influenza Seasonal, injectable quadrivalent - preservative free; Series #: 1; .5 mL; IM; Left Arm; [facility]: [employer] Lot: [id number]; VIS given (Hayley: 02/08/2015). [facility] Immunization Administration By Injection, One Vaccine Immunization Administration By Injection, One Vaccine 28919 SUKUMAR SPAIN [facility] Immunization Administration By Injection, Each Additional Vaccine Immunization Administration By Injection, Each Additional Vaccine 51596 016 PEEL, SUKUMAR L [facility] Immunization Admin By Intranasal / Oral Route One Vaccine Immunization Admin By Intranasal / Oral Route One Vaccine 87195 016 PEEL, SUKUMAR L DoD Hepatitis A Vaccine Adult Dosage (Intramuscular Use) Hepatitis A Vaccine Adult Dosage (Intramuscular Use) 32678 016 PEEL, SUKUMAR L Hep A (Adult); Series #: 1; 1.0 mL; IM; Left Arm; Mfg: [employer]; Lot: [id number]; VIS given (Hayley: 04/28/11). [facility] Vaccines Vaccines 67297 016 PEEL, USKUMAR L Adenovirus Type 4 and 7; Series #: 1; 2 caps; PO; Oral; Mfg: [employer]; Lot: [id number]; VIS given (Hayley: 12/13/13). [facility] Vaccines Viral Polio, Inactivated Vaccines Viral Polio, Inactivated 77591 016 PEEL, SUKUMAR L IPV; Series #: 1; .5 mL; IM; Left Arm; Mfg: [employer]; Lot: [id number]; VIS given (Hayley: 05/12/11). [facility] Vaccines Viral Measles, Mumps and Rubella, Live Vaccines Viral Measles, Mumps and Rubella, Live 33836 016 PEEL, SUKUMAR L MMR; Series #: 1; .5 mL; SC; Left Arm; Mfg: [employer]ck; Lot: [id number]; VIS given (Hayley: 10/23/11). [facility] No data available for this section Ambulato ry Pharmacy Social History Combined list of available smoking, tobacco, and other social history from Department of Defense and Veterans Affairs facilities. Social History Type Response Date Comment Sourc e Tobacco smoking status [facility] VA-TOBACCO NEVER USED 12/02/2022 [facility] History of tobacco use LIFETIME NON-SMOKER 02/23/2022 [facility] History of tobacco use LIFETIME NON-SMOKER 02/20/2022 [facility] History of tobacco use VA-TOBACCO NEVER USED 07/23/2021 [facility] History of tobacco use VA-TOBACCO NEVER USED 06/19/2019 RUDI STEARNS This section is an empty social history section. [facility] Assessment and Plan Combined list of future care activities from Department of Defense and Veterans Affairs facilities (e.g., assessment and plan notes, appointments, orders, and referrals). Additional future care activities may be listed in the Plan of Care section. Result Assessment and Plan Date Source Assessment and Plan No data available for this section 01/03/2024 Ambulatory Pharmacy Plan of Care List of future care activities from [facility] facilities. Additional future care activities may be listed in the Assessment and Plan section. Date/Time Care Activity Care Activity Detail Facili ty 01/19/2024 AMBULATORY - MEDICINE AMBULATORY - MEDICI NE [facility] 01/27/2024 AMBULATORY - REHAB MEDICINE AMBULATORY - REHAB MEDICINE [facility] 02/02/2024 AMBULATORY - NONE AMBULATORY - NONE [place] [facility] 02/04/2024 AMBULATORY - PSYCHIATRY AMBULATORY - PSYC HIATRY [facility] 02/09/2024 Laboratory - Chemistry Order CBC BLOOD SP ONCE [facility] Functional Status Combined list of recent functional and cognitive assessments recorded at [facility] Defense and [facility] [place] Functional Esmeralda Measurement (FIM) Scale: 1 = Total Assistance (Subject = 0% +), 2 = Maximal Assistance (Subject = 25% +), 3 = Moderate Assistance (Subject = 50% +), 4 = Minimal Assistance (Subject = 75% +), 5 = Supervision, 6 = Modified Esmeralda (Device), 7 = Complete Esmeralda (Timely, Safely). Assessment Date/Time Source Assessment Type Assessment Skill Assessment Score Assessment Details No data available for this section
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
--- OUTSIDE RECORDS SUMMARY | 2024-01-03 09:29 | XMS_ITS | Encounter Summary ---
Author Name Department [place]) Organization Department [place] Address [address] [place] [id number] Care Team Providers Care Educational Paraprofessional Name Role Phone ANITA HARVEY Primary Care Provider [facility] Insurance Providers: All historical and current [...] Name Patient's Relationship to Policy Dick [facility] CE ORGANIZAT ION W/OUT OF NETWORK BENEFITS FED EMP OPEN ACCES S Jan 04, 2022 [id number] [phone] JELENA COVINGTON PATIENT [facility] g2One [facility] CE ORGANIZAT ION W/OUT OF NETWORK BENEFITS FED EMP OPEN ACCES S Jan 04, 2022 [id number] JELENA COVINGTON PATIENT MEDIMPACT RX PRESCRIPT ION HEALT H PART WANDA AL Jul 05, 2023 [facility] [id number] 1 JELENA COVINGTON PATIENT Selected Encounter This section includes the information on record at [place] for the Encounter. Date/Time Encounter Type Encounter Description Reason Provider Source Oct 28, 2023 07:45 AM ACUPUNCT W/O STIMUL ADDL 15M [facility] TREATMENT ICD-10-CM Z73.3 Stress, not elsewhere classified SAV ORELLANA [facility] Encounter Template Text not used by [place] Assessments - Encounter Diagnoses This section includes the primary and secondary diagnoses documented for the Encounter. Date/Time Primary/Secondary Diagnosis Diagnosis Name Provider Source November 10, 2023 12:37 PM PRIMARY Stress, not elsewhere classified SAV ORELLANA [facility] November 10, 2023 12:37 PM SECONDARY Low back pain, unspecified SAV ORELLANA [facility] Plan of Treatment: Future Appointments (+ 6 months) and Future Tests (+/- 45 days) The Plan of Treatment section includes future care activities for the patient from all [place] [facility]. This section includes future appointments and future orders which are active, pending or scheduled. Future Appointments This section includes appointments that were scheduled to occur 6 months from the date of the Encounter, up to a maximum of 20 appointments. The data comes from all [facility]. Appointment Date/Time Appointment Type Appointme nt Facility Name Oct 29, 2023 11:00 AM AMBULATORY [place]RY [place] [facility] Oct 29, 2023 12:00 PM [place] [facility] November 05, 2023 12:00 PM [place] [facility] November 18, 2023 07:45 AM AMBULATORY - REHAB MEDICIN E [facility] November 24, 2023 09:00 AM [place] [facility] December 01, 2023 11:00 AM AMBULATORY [place]RY [place] [facility] December 03, 2023 12:00 PM [place] [facility] Dec 09, 2023 07:45 AM AMBULATORY - REHAB MEDICIN E [facility] Dec 29, 2023 09:00 AM [place] [facility] Dec 29, 2023 11:00 AM [place] [facility] Dec 30, 2023 07:45 AM AMBULATORY - REHAB MEDICIN E [facility] Jan 19, 2024 04:00 PM [facility] Jan 27, 2024 07:45 AM AMBULATORY - REHAB MEDICIN E [facility] Feb 02, 2024 10:00 AM [place] [facility] Feb 04, 2024 11:00 AM AMBULATORY - PS[place]ATRY [place] [facility] Social History: Smoking Status (Most current) and Tobacco Use (All prior to encounter date) This section includes the most current, and the historical, smoking and tobacco- related health factors from the [place] facility where the Encounter took place. Current Smoking Status This section includes the most current smoking, or tobacco-related health factor, from the [facility] where the Encounter took place. Date/Time Current Smoking Status Comment Yasmeen nazario December 02, 2022 03:30 PM VA-TOBACCO NEVER USED [facility] Tobacco Use History This section includes a history of the smoking, or tobacco-related health factors, that were collected on or before the date of the Encounter. The data comes from the [facility] where the Encounter took place. Date/Time Smoking Status/Tobacco Use Comment F acility Feb 23, 2022 08:19 AM LIFETIME NON-SMOKER [facility] Feb 20, 2022 02:22 PM LIFETIME NON-SMOKER [facility] Jul 23, 2021 02:30 PM VA-TOBACCO NEVER USED [facility] Encounter Notes: All associated encounter notes This section contains the clinical notes associated to the Encounter. Date/Time Encounter Note(s) Provider Source Oct 28, 2023 09:00 AM PHYSICAL MEDICINE REHAB NOTE: LOCAL TITLE: [facility] WELLNESS NOTE STANDARD TITLE: PHYSICAL MEDICINE REHAB NOTE DATE OF NOTE: OCT 28, 2023@09:00 ENTRY DATE: OCT 28, 2023@09:00:16 AUTHOR: SAV ORELLANA EXP COSIGNER: URGENCY: STATUS: COMPLETED [facility] INTEGRATIVE GROUP ACUPUNCTURE FOLLOW-UP NOTE Number of [facility] group acupuncture visit 3 Treatment course:1 SUBJECTIVE: Grinnell reported wwanted to release stuck emotion. Chief Concern: relaxation and pain relief (back). OBJECTIVE Active problems - Computerized Problem List is the source for the followin. Depression ([facility] [id number]) 2. Headache ([facility] [id number]) 3. Anxiety ([facility] [id number]) 4. Hip pain 5. Recurrent depression 6. Closed fracture of left clavicle 7. Constipation 8. Cancer cervix screening status - No hx KATELYNN 2-3 - 03/03/21 Colposcopy KATELYNN 1/ECC neg - 02/13/2022 NILM/HPV neg. Next co-test due in 3 years (02/2025). TCM Examination: Traditional Fijian Medicine Diagnosis of: Qi and Blood Stagnation. Grinnell completed [facility] group acupuncture intake form, with the following responses: Recent surgeries: No Pain injections within the last two weeks: No Emotional status: tired Current Pain Level: 2 Pain Quality: dull Exam: Grinnell presents to [facility] Acupuncture staff alert, appropriate and engaged in conversation. Assessment: Verbal informed consent obtained or remains in place from initial visit. Grinnell was seated in chair, fully clothed, except for removal of shoes and socks, if comfortable. Clean needle technique was used. Pre-sterilized, stainless steel acupuncture needles were inserted into selected acupuncture points. Body points selected: Bilateral or Bimodal DU20,SSC,HT7,PC8,ST40,SP6 ,LV3,KD1 Press Needle Tacks GB21 Number of needles inserted: 18 Number of needles removed: 18 Number of needles disposed: 18 Tolerated group acupuncture well: YES was provided with information about semi-permanent needle locations placed the ears or body, in addition to home-care instructions for safe handling, retention time, removal, and disposal according to local ordinances. TREATMENT PLAN was encouraged to continue Group Acupuncture course of 3 additional visit out of a total of 6 visits. Time of one-on-one contact with : 45 minutes. /wally/ SAV ORELLANA ADVANCED MANAGER ADOBE Signed: 10/28/2023 09:04 SAV ORELLANA [facility]
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
--- OUTSIDE RECORDS SUMMARY | 2024-01-03 09:43 | XMS_ITS | Encounter Summary ---
Author Name [facility] [place] Address [address] [place] [address] Care Team Providers Care Disaster Recovery Specialist Name Role Phone ANITA HARVEY Primary Care Provider [facility] Insurance Providers: All historical and current [...] Dick's Name Patient's Relationship to Policy Dick [facility] W/OUT OF NETWORK BENEFITS FED EMP OPEN ACCES S Jan 04, 2022 [facility] [id number] JELENA COVINGTON GALVAN PATIENT [facility]ON W/OUT OF NETWORK BENEFITS FED EMP OPEN ACCES S Jan 04, 2022 [id number] [phone] ADRIAJELENA PATIENT MEDIMPACT RX PRESCRIPT ION HEALT H PART WANDA AL Jul 05, 2023 [facility] [id number] ADRIAJELENA GALVAN PATIENT Selected Encounter This section includes the information on record at [place] for the Encounter. Date/Time Encounter Type Encounter Description Reason Provider Source Dec 29, 2023 11:00 AM PSYTX W PT 45 MINUTES [facility] - IND ICD-10-CM F33.8 Other recurrent depressive disorders [facility] Encounter Template Text not used by [place] Assessments - Encounter Diagnoses This section includes the primary and secondary diagnoses documented for the Encounter. Date/Time Primary/Secondary Diagnosis Diagnosis Name Provider Source Dec 30, 2023 09:55 AM PRIMARY Other recurrent depressive disorders ROBLES OLEARY [facility] Dec 30, 2023 09:55 AM SECONDARY Anxiety disorder, unspecified ROBLES OLEARY [facility] Dec 30, 2023 09:55 AM SECONDARY Reaction to severe stress, unspecified [facility] Plan of Treatment: Future Appointments (+ 6 months) and Future Tests (+/- 45 days) The Plan of Treatment section includes future care activities for the patient from all [place] [facility]. This section includes future appointments and future orders which are active, pending or scheduled. Future Appointments This section includes appointments that were scheduled to occur 6 months from the date of the Encounter, up to a maximum of 20 appointments. The data comes from all [facility]. Appointment Date/Time Appointment Type Appointme nt Facility Name Dec 30, 2023 07:45 AM AMBULATORY - REHAB MEDICIN E [facility] Jan 19, 2024 04:00 PM [facility] Jan 27, 2024 07:45 AM AMBULATORY - REHAB MEDICIN [facility] Feb 02, 2024 10:00 AM AMBULATORY - NONE [facility] Feb 04, 2024 11:00 AM AMBULATORY - PSYCHIATRY [facility] Active, Pending, and Scheduled Orders This section includes a listing of several types of active, pending, and scheduled orders, including clinic medications orders, diagnostic test orders, procedure orders and consult orders; where the start date of the order is 45 days before the date of the Encounter or 45 days after the date of theEncounter. The data comes from all [facility]. Test Date/Time Test Type Test Details Facility Name Feb 09, 2024 12:00 AM Laboratory - Chemi stry Order CBC BLOOD SP ONCE [facility] Social History: Smoking Status (Most current) and Tobacco Use (All prior to encounter date) This section includes the most current, and the historical, smoking and tobacco- related health factors from the [place] facility where the Encounter took place. Current Smoking Status This section includes the most current smoking, or tobacco-related health factor, from the [place] facility where the Encounter took place. Date/Time Current Smoking Status Comment Facil ity December 02, 2022 03:30 PM VA-TOBACCO NEVER USED [facility] Tobacco Use History This section includes a history of the smoking, or tobacco-related health factors, that were collected on or before the date of the Encounter. The data comes from the [place] facility where the Encounter took place. Date/Time Smoking Status/Tobacco Use Comment F acility Feb 23, 2022 08:19 AM LIFETIME NON-SMOKER [facility] Feb 20, 2022 02:22 PM LIFETIME NON-SMOKER [facility] Jul 23, 2021 02:30 PM VA-TOBACCO NEVER USED [facility] Encounter Notes: All associated encounter notes This section contains the clinical notes associated to the Encounter. Date/Time Encounter Note(s) Provider Source Dec 29, 2023 11:00 AM MENTAL HEALTH NOTE : LOCAL TITLE: MH PROGRESS NOTE STANDARD TITLE: MENTAL HEALTH NOTE DATE OF NOTE: DEC 29, 2023@11:00 ENTRY DATE: DEC 30, 2023@09:50:44 AUTHOR: ROBLES OLEARY COSIGNER: URGENCY: STATUS: COMPLETED INFORMED CONSENT: Patient and provider reviewed confidentiality and privacy, as well as limitations to privacy. Limits and benefits of treatment were reviewed. We reviewed purpose of this meeting and patient rights. Visit conducted by synchronous telehealth. At the beginning of the session, [place] verbal consent was obtained. Location/emergency number confirmed. Environment surveyed and all participants identified. Virtual conference room locked. Undersigned radio script writer answered any questions patient had about using this technology for individual therapy and indicated acceptance and understanding of steps to protect confidentiality and limitations as reasonable. consented to meet for the purpose of therapy. I met with [place] for 60 minutes of psychotherapy using ACT by [facility].Amboy doing well. Returned from annual training. Discussed mild anxiety upon returning to house. discussed awareness of thoughts, intense emotions, and making effective choices when at AT. discussed overall satisfaction with multiple areas of her life. Discussed how this is normal life when most things are good, despite mild anxiety about various issues or mild dissatisfaction with some things (e.g., current job). reports she and spouse ended/paused couples tx due to doing fairly well and scheduling issues. Going to work on relationship on their own for a while. supported her efforts across multiple areas to manage emotions effectively, engaged in valued actions. Mental Status: Session/visit location: home Presentation: casually dressed and neatly groomed Orientation/cognition/memory: WNL, not formally assessed Motor: Normal Mood: good, mild anxiety Affect: congruent with conversation topics Speech/Communication: Speech was normal in rate, rhythm, and tone Thought Process: Clear, logical, and goal-directed Thought Content: No evidence of A/V hallucinations, flight of ideas, loose associations, or delusions. Suicidality: [place] denied current SI, plan, and intent. Homicidally: denied HI, plan, or intent. Judgment: Good Insight: Good RISK ASSESSMENT: Known suicide risks: fleeting SI, hx of urges to cut, depression and anxiety, family history of depression (multiple) and schizophrenia (grandfather), family hx of suicide (grandfather) distant hx of suicidal ideation, trauma hx, lack of social support Possible suicide protective factors: Denies SI intent, denies plan, no hx of suicide attempts, treatment seeking, concern for family, children in home, future oriented, problem solving ability Determination of Risk: Acute Risk - Low (No SI, plan, intent, or preparatory behaviors) Chronic Risk - Low Other safety issues: Denied self-injurious behaviors Related to: Service Connected Condition, MST, Combat [place] Related Diagnoses: Recurrent depression (SCT 549360070) - Other recurrent depressive disorders (ICD-10-CM F33.8) (Primary) Anxiety (SCT 12099475) - Anxiety disorder, unspecified (ICD-10-CM F41.9) Reaction to Severe Stress, unspecified (ICD-10-CM F43.9) Procedures: 38-52 minutes Plan: F/U on February 03 at 11 a.m. [place] has this providers' contact number, [facility] number, and the [facility]. /wally/ ROBLES O[facility]ARY, PHD, STAFF PSYCHOLOGIST Signed: 12/30/2023 09:55 [facility]
--- OUTSIDE RECORDS SUMMARY | 2024-01-03 09:44 | XMS_ITS | Clinical Summary ---
Author Organization [facility] Address [place], [place] [address] Care Team Providers Care Staff Physical Therapy Assistant Name Role Phone Clayton Bee MD Primary Care Provider [phone] Allergies Active Allergy Reactions Criticality Noted Date Comments Latex Rash 05/08/2019 Social History Tobacco Use Types Packs/Day Years Used Date Smoking Tobacco: Never Assessed Sex and Gender Information Value Date Recorded Sex Assigned at Not on file Gender Identity Not on file Sexual Orientation Not on file Last Filed Vital Signs Vital Sign Reading Time Taken Comments Blood Pressure 101/59 05/08/2019 2:26 PM [employer]CH[employer]ECT Pulse 77 05/08/2019 2:26 PM [employer] Temperature 36.7 ??C (98 ??F) 05/08/2019 2:00 PM [employer] ARCH[employer]ECT Respiratory Rate 18 05/08/2019 2:00 PM [employer] ARCHITECT Oxygen Saturation 99% 05/08/2019 2:26 PM [employer] ARCHITECT Inhaled Oxygen Concentration - - Weight 66.5 kg (146 lb 11.2 oz) 05/08/2019 2:00 PM [employer]CH[employer] Height 162.6 cm (5' 4) 05/08/2019 2:00 PM [employer]CH[employer] Body Mass Index 25.18 05/08/2019 2:00 PM [employer]CH[employer] Plan of Treatment Not on file Care Teams Staff Physical Therapy Assistant Relationship Specialty Start Date End Date Clayton Bee MD [address] [id number] PCP - General Obstetrics and Gynecology 05/08/19
--- OUTSIDE RECORDS SUMMARY | 2024-01-03 09:44 | XMS_ITS | Encounter Summary ---
Author Name [place] Address [address] [place] [id number] Care Team Providers Care Farmworkers Name Role Phone ANITA HARVEY Primary Care Provider [facility] Insurance Providers: All historical and current Section Date Range: From patient's date of to the date document was created. This section includes the names of all active insurance providers for the patient. Insurance Provider Type of Coverage Plan Name Start of Policy Coverage End of Policy Coverage Group Number Member ID Insurance Provider's Telephone Number Policy Dick's Name Patient's Relationship to Policy Dick [facility] CE ORGANIZAT ION W/OUT OF NETWORK BENEFITS FED EMP OPEN ACCES S Jan 04, 2022 [facility] [id number] JELENA COVINGTON PATIENT [facility] CE ORGANIZAT ION W/OUT OF NETWORK BENEFITS FED EMP OPEN ACCES S Jan 04, 2022 [id number] JELENA COVINGTON PATIENT MEDIMPACT RX PRESCRIPT ION HEALT H PART WANDA AL Jul 05, 2023 [id number] [phone] JELENA COVINGTON PATIENT Selected Encounter This section includes the information on record at [place] for the Encounter. Date/Time Encounter Type Encounter Description Reason Provider Source Dec 30, 2023 07:45 AM ACUPUNCT W/O STIMUL 15 MIN [facility] TREATMENT ICD-10-CM Z73.3 Stress, not elsewhere classified SAV ORELLANA [facility] Encounter Template Text not used by [place] Assessments - Encounter Diagnoses This section includes the primary and secondary diagnoses documented for the Encounter. Date/Time Primary/Secondary Diagnosis Diagnosis Name Provider Source Dec 30, 2023 10:48 AM PRIMARY Stress, not elsewhere classified SAV ORELLANA [facility] Dec 30, 2023 10:48 AM SECONDARY Anxiety disorder, unspecified SAV ORELLANA [facility] Plan of Treatment: Future Appointments (+ 6 months) and Future Tests (+/- 45 days) The Plan of Treatment section includes future care activities for the patient from all [place] [facility]. This section includes future appointments and future orders which are active, pending or scheduled. Future Appointments This section includes appointments that were scheduled to occur 6 months from the date of the Encounter, up to a maximum of 20 appointments. The data comes from all [facility]. Appointment Date/Time Appointment Type Appointme nt Facility Name Jan 19, 2024 04:00 PM [facility] Jan 27, 2024 07:45 AM AMBULATORY - REHAB MEDICIN E [facility] Feb 02, 2024 10:00 AM [facility] - [facility]ONE [facility] Feb 04, 2024 11:00 AM [facility] Active, Pending, and Scheduled Orders This section includes a listing of several types of active, pending, and scheduled orders, including clinic medications orders, diagnostic test orders, procedure orders and consult orders; where the start date of the order is 45 days before the date of the Encounter or 45 days after the date of theEncounter. The data comes from all [facility]. Test Date/Time Test Type Test Details Facility Name Feb 09, 2024 12:00 AM Laboratory - Chemi stry Order CBC BLOOD SP ONCE [facility] Social History: Smoking Status (Most current) and Tobacco Use (All prior to encounter date) This section includes the most current, and the historical, smoking and tobacco- related health factors from the [place] facility where the Encounter took place. Current Smoking Status This section includes the most current smoking, or tobacco-related health factor, from the [place] facility where the Encounter took place. Date/Time Current Smoking Status Comment Yasmeen itbaldev December 02, 2022 03:30 PM VA-TOBACCO NEVER USED [facility] Tobacco Use History This section includes a history of the smoking, or tobacco-related health factors, that were collected on or before the date of the Encounter. The data comes from the [place] facility where the Encounter took place. Date/Time Smoking Status/Tobacco Use Comment F chrissie Feb 23, 2022 08:19 AM LIFETIME NON-SMOKER [facility] Feb 20, 2022 02:22 PM LIFETIME NON-SMOKER [facility] Jul 23, 2021 02:30 PM VA-TOBACCO NEVER USED [facility] Encounter Notes: All associated encounter notes This section contains the clinical notes associated to the Encounter. Date/Time Encounter Note(s) Provider Source Dec 30, 2023 10:45 AM PHYSICAL MEDICINE REHAB NOTE: LOCAL TITLE: [facility] WELL[facility] NOTE STANDARD TITLE: PHYSICAL MEDICINE REHAB NOTE DATE OF NOTE: DEC 30, 2023@10:45 ENTRY DATE: DEC 30, 2023@10:45:55 AUTHOR: SAV ORELLANA EXP COSIGNER: URGENCY: STATUS: COMPLETED [facility] INTEGRATIVE GROUP ACUPUNCTURE FOLLOW-UP NOTE Number of [facility] group acupuncture visit 6 Treatment course:1 SUBJECTIVE: Chief Concern: relaxation, stress, and anxiety relief. OBJECTIVE Active problems - Computerized Problem List is the source for the followin. Depression ([facility] [id number]) 2. Headache ([facility] [id number]) 3. Anxiety ([facility] [id number]) 4. Hip pain 5. Recurrent depression 6. Closed fracture of left clavicle 7. Constipation 8. Cancer cervix screening status - No hx KATELYNN 2-3 - 03/03/21 Colposcopy KATELYNN 1/ECC neg - 02/13/2022 NILM/HPV neg. Next co-test due in 3 years (02/2025). TCM Examination: Traditional [place]ian Medicine Diagnosis of: Qi and Blood Stagnation. [place] completed [facility] group acupuncture intake form, with the following responses: Recent surgeries: No Pain injections within the last two weeks: No Emotional status: stressed, anxious, tired Current Pain Level: 0 Pain Quality: no pain reported today Exam: presents to [facility] Acupuncture staff alert, appropriate and engaged in conversation. Assessment: Verbal informed consent obtained or remains in place from initial visit. [place] was seated in chair, fully clothed, except for removal of shoes and socks, if comfortable. Clean needle technique was used. Pre-sterilized, stainless steel acupuncture needles were inserted into selected acupuncture points. Body points selected: Bilateral or Bimodal DU20,YT,SSC,HT7,LI11,ST36 ,ST40,SP6,LV3 Auricular points selected: None Number of needles inserted: 18 Number of needles removed: 18 Number of needles disposed: 18 Tolerated group acupuncture well: YES TREATMENT PLAN was encouraged to continue Group Acupuncture course of 6 additional visit out of a total of 6 visits. Time of one-on-one contact with : 45 minutes. /wally/ SAV ORELLANA [employer] PATCH WORKER Signed: 12/30/2023 10:48 SAV ORELLANA [facility]
[2024-01-03 17:42] LABS: Chlamydia DNA Amplified* NOT DETECTED (No Detected); GC DNA Amplified* NOT DETECTED (No Detected)
== END 2024-01-03 09:09 | disposition home or self-care (01) ==
LOC: NFLDUCREF 09:09
PROVIDERS: PCP Family Medicine; Visit Provider Nurse Practitioner
DX: Z11.3 Encounter for screening for infections with a predominantly sexual mode of transmission (principal)
CPT/HCPCS: 87491; 87591

== ENCOUNTER 2024-05-17 00:18 | Emergency (ER) | payer OTHER, SELFPAY ==
[2024-05-17 00:24] VITALS: BP 112/68; PULSE 85; RESP 20; TEMP 36.7; O2SAT 99; BMI 21.8
[2024-05-17 01:26] VITALS: BP 114/70; PULSE 81; RESP 20; TEMP 36.7; O2SAT 99
--- OUTSIDE RECORDS SUMMARY | 2024-05-17 01:26 | XMS_ITS | Continuity of Care Document ---
Author Name [facility] Organization [facility] Care Team Providers Care Public Weigher Name Role Phone [facility] Unavailable Unavailable Problems Combined list of problems [...] joint Active 06/16/20 18 Condition DoD Anxiety (SCT [id number]) Active Condition [facility] Cancer cervix screening status Active Condition Feb 20 Entered By: ANITA HARVEY Comment: No hx KATELYNN 2-3Aug 2021 Entered By: ANITA HARVEY Comment: 03/03/21 Colposcopy KATELYNN 1/ECC negAug 2021 Entered By: ANITA HARVEY Comment: 02/13/2022 NILM/HPV neg. Next co-test due in 3 years (02/2025). [facility] Closed fracture of left clavicle Active Condition [place] [facility] Constipation Active Condition [facility] Depression (SCT [id number]) Active Condition [facility] Headache (SCT [id number]) Active Condition [facility] Hip pain Active Condition [facility] Migraine without aura Active Condition [facility] Recurrent depression Active Condition [facility] Diagnosis: ICD-10-CM F33.8 Other recurrent depressive disorders Active Diagnosis [facility] Diagnosis: ICD-10-CM F41.9 Anxiety disorder, unspecified Active Diagnosis [facility] Diagnosis: ICD-10-CM Z71.9 Counseling, unspecified Active Diagnosis [facility] Diagnosis: ICD-10-CM Z73.3 Stress, not elsewhere classified Active Diagnosis [facility] Diagnosis: ICD-10-CM 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, non-neoplastic Active Diagnosis [facility] Aníbal [facility] Diagnosis: ICD-10-CM R87.9 Unsp abnormal finding in specmn from female genital organs Active [facility] Diagnosis: ICD-10-CM M25.519 Pain in unspecified shoulder Active Diagnosis [facility] Diagnosis: ICD-10-CM Z00.01 Encounter for general adult medical exam w abnormal findings Active Diagnosis [facility] Diagnosis: ICD-10-CM Z63.0 Problems in relationship with spouse or partner Active Diagnosis [facility] Diagnosis: ICD-10-CM Z13.6 Encounter for screening for cardiovascular disorders Active Diagnosis [facility] Diagnosis: ICD-10-CM R06.00 Dyspnea, unspecified Active Diagnosis [facility] Diagnosis: ICD-10-CM Z71.89 Other specified counseling Active Diagnosis [facility] Diagnosis: ICD-10-CM Z73.2 Lack of relaxation and leisure Active Diagnosis [facility] Medications Combined list of outpatient medications from [facility] of [facility] and [facility] facilities.Medications provided include 1) outpatient medications from the last 15 months, and 2) patient-reported medications. Medication Details Route Status Patient Instructions Prescription Expires Prescription Number Last Dispense Date Ordering Provider Order Date Order Qty Source SUMATRIPTAN SUCCINATE 50MG TAB TAKE ONE TABLET BY MOUTH EVERY DAY NEEDED TO TREAT MIGRAINE ORAL ACTIVE 01/19/2025 [id number] 4 LI HARVEY SA 2023 9 [facility] Allergies, Adverse Reactions, Alerts Combined list of allergies from Department of Defense and Veterans Affairs facilities. It does not include entries that were removed or entered in error. Substance Category Reaction Severity Reaction type Status Date Reported Comments Source DOXYCYCLINE Drug allergy (disorder) Generalized aches and pains active 2 [facility] doxycycline Propensity to adverse reactions to drug Generalized aches and pains Active 2 [facility] Propensity to adverse reactions to drug (finding) Eruption active 9 [facility] Immunizations Combined list of available immunizations from the Department of [facility] and Veterans Affairs facilities. Immunization Series Date Given Administered By Site Reaction Lot Number CVX Code Drug Stranding Supervisor Status Comments Source influenza, injectable, quadrivalent- pf 2022 [id number] Seqirus complet ed influenza , injectabl e, quadrival ent-pf 03/28/23 Given Ambulat ory Pharmac y INFLUENZA, UNSPECIFIED FORMULATION 2022 88 complet ed Lot#: [id number] [facility] INFLUENZA, UNSPECIFIED FORMULATION 2021 88 complet ed [facility] influenza, injectable, quadrivalent- pf 2021 [id number] [employer] comple t ed influenza , injectabl e, quadrival ent-pf 04/19/22 Given Ambulat ory Pharmac y INFLUENZA, UNSPECIFIED FORMULATION 2020 88 complet ed [facility] influenza virus vaccine, inactivated 2020 [id number] Unknown complet ed influenza virus vaccine, inactivat ed 05/09/21 Given Ambulat ory Pharmac y COVID Vaccine Moderna 2020 [id number] 207 complet ed COVID Vaccine Moderna 09/26/20 Given Ambulat ory Pharmac y COVID-19 (MODERNA), MRNA, LNP-S, PF, 100 MCG OR 50 MCG DOSE 2 2020 207 complet ed [facility] COVID Vaccine Moderna 2020 [id number] 207 complet ed COVID Vaccine Moderna 08/29/20 Given Ambulat ory Pharmac y COVID-19 (MODERNA), MRNA, LNP-S, PF, 100 MCG/0.5 ML DOSE 1 2020 207 complet ed [facility] influenza, injectable, quadrivalent- pf 2020 [id number] 150 [employer] complet ed influenza , injectabl e, quadrival ent-pf 07/13/20 Given Ambulat ory Pharmac y INFLUENZA, INJECTABLE, QUADRIVALENT, PRESERVATIVE FREE 2019 150 complet ed [facility] influenza, injectable, quadrivalent- pf 2018 [id number] 150 [employer] complet ed influenza , injectabl e, quadrival ent-pf 05/06/19 Given Ambulat ory Pharmac y INFLUENZA, SEASONAL, INJECTABLE 2018 141 complet ed [employer] anthrax vaccine 2018 [id number] [employer] complet ed anthrax vaccine 08/27/18 Given Ambulat ory Pharmac y anthrax vaccine 2 2018 [id number] 24 [employer] [place] (MIP) complet ed anthrax vaccine DoD hepatitis A adult vaccine 2017 [id number] GlaxoSmithKli ne complet ed hepatitis A adult vaccine 03/28/18 Given Ambulat ory Pharmac y typhoid Vi capsular polysaccharid e vac 2017 [id number] sanofi pasteur complet ed typhoid Vi capsular polysacch aride vac 03/28/18 Given Ambulat ory Pharmac y anthrax vaccine 2017 [id number] 24 [employer] complet ed anthrax vaccine 03/28/18 Given Ambulat ory Pharmac y anthrax vaccine 1 2017 [id number] [employer] [place] (MIP) complet ed anthrax vaccine DoD hepatitis A vaccine, adult dosage 3 2017 [id number] [employer] (SKB) complet ed hepatitis A vaccine, adult dosage DoD typhoid Vi capsular polysaccharid e vaccine 1 2017 [id number] Sanofi Pasteur (PMC) complet ed typhoid Vi capsular polysacch aride vaccine DoD influenza, injectable, quadrivalent- pf 2017 [id number] 150 Se[employer] complet ed influenza , injectabl e, quadrival ent-pf 03/27/18 Given Ambulat ory Pharmac y Influenza, injectable, quadrivalent, preservative free 1 2017 [id number] 150 [employer] (SEQ) comple t ed Influenza , injectabl e, quadrival ent, preservat kylie free DoD measles/mumps /rubella virus vaccine 2017 [id number] 03 Unknown complet ed measles/m umps/rube lla virus vaccine 07/24/17 Given Ambulat ory Pharmac y measles, mumps and rubella virus vaccine 2 2017 [id number] 03 Unknown (UNK) comple t ed measles, mumps and rubella virus vaccine DoD measles/mumps /rubella virus vaccine 2017 [id number] 03 Unknown complet ed measles/m umps/rube lla virus vaccine 07/23/17 Given Ambulat ory Pharmac y measles, mumps and rubella virus vaccine 2 2017 [id number] 03 Unknown (UNK) comple t ed measles, mumps and rubella virus vaccine DoD hepatitis A-hepatitis B vaccine 2017 [id number] GlaxoSmithKli ne complet ed hepatitis A-hepatit is B vaccine 07/10/17 Given Ambulat ory Pharmac y hepatitis A and hepatitis B vaccine 2 2017 [id number] [facility] (SKB) complet ed hepatitis A and hepatitis B vaccine DoD INFLUENZA, INJECTABLE, QUADRIVALENT, PRESERVATIVE FREE 2016 150 complet ed [facility] tetanus-dipht h toxoids (Td) adult/adol 2016 [id number] 09 Unknown complet ed tetanus-d iphth toxoids (Td) adult/ado l 01/14/17 Given Ambulat ory Pharmac y TDAP 2016 115 complet ed [facility] HEP B, ADULT 2015 43 complet ed [facility] influenza, injectable, quadrivalent- pf 2015 [id number] 150 Unknown complet ed influenza , injectabl e, quadrival ent-pf 05/09/16 Given Ambulat ory Pharmac y Influenza, injectable, quadrivalent, preservative free 1 2015 [id number] 150 Unknown (UNK) comple t ed Influenza , injectabl e, quadrival ent, preservat kylie free DoD INFLUENZA, UNSPECIFIED FORMULATION 2015 88 complet ed [facility] adenovirus vaccine, live 2015 [id number] 143 Teva Pharmaceut[employer] ls complet ed adenoviru s vaccine, live 09/20/15 Given Ambulat ory Pharmac y poliovirus vaccine, inactivated 2015 zzLef t Arm [id number] 10 sanofi pasteur complet ed polioviru s vaccine, inactivat ed 09/20/15 Given Ambulat ory Pharmac y hepatitis A adult vaccine 2015 zzLef t Arm [id number] 52 GlaxoSmithKli ne complet ed hepatitis A adult vaccine 09/20/15 Given Ambulat ory Pharmac y meningococcal polysaccharid e (MPSV4) 2015 zzLef t Arm [id number] 32 sanofi pasteur complet ed meningoco ccal polysacch aride (MPSV4) 09/20/15 Given Ambulat ory Pharmac y influenza, injectable, quadrivalent- pf 2015 zzLef t Arm [id number] 150 CSL Behring complet ed influenza , injectabl e, quadrival ent-pf 09/20/15 Given Ambulat ory Pharmac y measles/mumps /rubella virus vaccine 2015 zzLef t Arm [id number] Merck & Company Inc complet ed measles/m umps/rube lla virus vaccine 09/20/15 Given Ambulat ory Pharmac y measles, mumps and rubella virus vaccine 1 2015 Unknown, Provider [id number] Merck (MSD) complet ed measles, mumps and rubella virus vaccine DoD poliovirus vaccine, inactivated 1 2015 Unknown, Provider [id number] 10 Sanofi Pasteur (PMC) complet ed polioviru s vaccine, inactivat ed DoD meningococcal polysaccharid e vaccine (MPSV4) 1 2015 Unknown, Provider [id number] 32 Sanofi Pasteur (PMC) complet ed meningoco ccal polysacch aride vaccine (MPSV4) DoD hepatitis A vaccine, adult dosage 1 2015 Unknown, Provider [id number] [employer] (SKB) complet ed hepatitis A vaccine, adult dosage DoD Adenovirus, type 4 and type 7, live, oral 1 2015 Unknown, Provider [id number] 143 [employer] ([facility]) complet ed Adenoviru s, type 4 and type 7, live, oral DoD Influenza, injectable, quadrivalent, preservative free 1 2015 Unknown, Provider [id number] 150 CS [employer] (CSL) complet ed Influenza , injectabl e, quadrival ent, preservat kylie free DoD varicella virus vaccine 1 2015 UNK 21 Unknown (UNK) Not Given varicella virus vaccine DoD hepatitis B vaccine, adult dosage 1 2015 UNK 43 Unknown (UNK) Not Given hepatitis B vaccine, adult dosage DoD influenza, seasonal, injectable 2014 [id number] 1A 141 Unknown complet ed influenza , seasonal, injectabl e 05/26/15 Given Ambulat ory Pharmac y Influenza, seasonal, injectable 1 2014 [id number] 141 Unknown (UNK) complet ed Influenza , seasonal, injectabl e DoD Human Papillomaviru s,quadrivalen t(HPV4) 2013 UNK 62 Unknown complet ed Human Papilloma virus,babs drivalent (HPV4) 11/02/13 Given Ambulat ory Pharmac y human papilloma virus vaccine, quadrivalent 3 2013 UNK 62 Unknown (UNK) comple t ed human papilloma virus vaccine, quadrival ent DoD HPV, QUADRIVALENT 3 2013 62 complet ed [facility] INFLUENZA, UNSPECIFIED FORMULATION 2012 88 complet ed [facility] INFLUENZA, UNSPECIFIED FORMULATION 2010 88 complet ed [facility] tetanus, diphtheria, acellular pertu is 2010 UNK 115 Unknown complet ed tetanus, diphtheri a, acellular pertussis 02/17/11 Given Ambulat ory Pharmac y tetanus toxoid, reduced diphtheria toxoid, and acellular pertu is vaccine, adsorbed 1 2010 UNK 115 Unknown (UNK) comple t ed tetanus toxoid, reduced diphtheri a toxoid, and acellular pertussis vaccine, adsorbed DoD TDAP 2010 115 complet ed [facility] Human Papillomaviru s,quadrivalen t(HPV4) 2009 UNK 62 Unknown complet ed Human Papilloma virus,babs drivalent (HPV4) 08/07/09 Given Ambulat ory Pharmac y human papilloma virus vaccine, quadrivalent 2 2009 UNK 62 Unknown (UNK) comple t ed human papilloma virus vaccine, quadrival ent DoD HPV, QUADRIVALENT 2 2009 62 complet ed [facility] Human Papillomaviru s,quadrivalen t(HPV4) 2008 UNK 62 Unknown complet ed Human Papilloma virus,babs drivalent (HPV4) 05/21/09 Given Ambulat ory Pharmac y human papilloma virus vaccine, quadrivalent 1 2008 UNK 62 Unknown (UNK) comple t ed human papilloma virus vaccine, quadrival ent DoD HPV, QUADRIVALENT 1 2008 62 complet ed [facility] Results Combined list of recent chemistry, hematology and other laboratory results from Department of Defense and Veterans Affairs, ranging from 15 months to all on record, depending upon the facility. Order Name Results Value Reference Range Date Interpretation Specimen Comments Source URINALYS IS COLOR OF URINE COLORLES S 01/30 Specimen Type: URINE No comment entered. Ordering Provider: VIELKA CRUZ Report Released Date/Time: Jan 28, 2024 03:31 PM Reporting Lab: [facility] [phone] Performing Lab: [facility] [address] [place] [facility] URINALYS IS SPECIFIC GRAVITY OF URINE 1.003 1.003 - 1.035 01/30 Specimen Type: URINE No comment entered. Ordering Provider: VIELKA CRUZ Report Released Date/Time: Jan 28, 2024 03:31 PM Reporting Lab: [facility] [address] Performing Lab: [facility] [address] [place] [facility] URINALYS IS BILIRUBIN. TOTAL [PRESENCE] IN URINE BY TEST STRIP NEGATIVE 01/30 Specimen Type: URINE No comment entered. Ordering Provider: VIELKA CRUZ Report Released Date/Time: Jan 28, 2024 03:31 PM Reporting Lab: [facility] [address] Performing Lab: [facility] [address] [place] [facility] URINALYS IS KETONES [MASS/VOLU ME] IN URINE BY TEST STRIP NEGATIVE 01/30 Specimen Type: URINE No comment entered. Ordering Provider: VIELKA CRUZ Report Released Date/Time: Jan 28, 2024 03:31 PM Reporting Lab: [facility] [address] Performing Lab: [facility] [address] [place] [facility] URINALYS IS GLUCOSE [MASS/VOLU ME] IN URINE BY TEST STRIP NEGATIVE mg/dL 01/30 Specimen Type: URINE No comment entered. Ordering Provider: VIELKA CRUZ Report Released Date/Time: Jan 28, 2024 03:31 PM Reporting Lab: [facility] [address] Performing Lab: [facility] [address] [place] [facility] URINALYS IS PROTEIN [MASS/VOLU ME] IN URINE BY TEST STRIP NEGATIVE mg/dL 01/30 Specimen Type: URINE No comment entered. Ordering Provider: VIELKA CRUZ Report Released Date/Time: Jan 28, 2024 03:31 PM Reporting Lab: [facility] [address] Performing Lab: [facility] [address] [place] [facility] URINALYS IS PH OF URINE BY TEST STRIP 7.0 5.0 - 8.0 01/30 Specimen Type: URINE No comment entered. Ordering Provider: VIELKA CRUZ Report Released Date/Time: Jan 28, 2024 03:31 PM Reporting Lab: [facility] [address] Performing Lab: [facility] [address] [place] [facility] URINALYS IS LEUKOCYTES [#/AREA] IN URINE SEDIMENT BY MICROSCOPY HIGH POWER FIELD NONE SEEN/[HP F] 0 - 7 01/30 Specimen Type: URINE No comment entered. Ordering Provider: VIELKA CRUZ Report Released Date/Time: Jan 28, 2024 03:31 PM Reporting Lab: [facility] [address] Performing Lab: [facility] [phone] [place] [facility] URINALYS IS BACTERIA [PRESENCE] IN URINE SEDIMENT BY LIGHT MICROSCOPY NONE SEEN 01/30 Specimen Type: URINE No comment entered. Ordering Provider: VIELKA CRUZ Report Released Date/Time: Jan 28, 2024 03:31 PM Reporting Lab: [facility] [address] Performing Lab: [facility] [address] [place] [facility] URINALYS IS ERYTHROCYT ES [#/AREA] IN URINE SEDIMENT BY MICROSCOPY HIGH POWER FIELD <1/[HPF] 0 - 3 01/30 Specimen Type: URINE No comment entered. Ordering Provider: VIELKA CRUZ Report Released Date/Time: Jan 28, 2024 03:31 PM Reporting Lab: [facility] [phone] Performing Lab: [facility] [address] [place] [facility] URINALYS IS APPEARANCE OF URINE CLEAR 01/30 Specimen Type: URINE No comment entered. Ordering Provider: VIELKA CRUZ Report Released Date/Time: Jan 28, 2024 03:31 PM Reporting Lab: [facility] [address] Performing Lab: [facility] [address] [place] [facility] URINALYS IS EPITHELIAL CELLS.SQUA MOUS [#/AREA] IN URINE SEDIMENT BY MICROSCOPY HIGH POWER FIELD <1/[HPF] 01/30 Specimen Type: URINE No comment entered. Ordering Provider: VIELKA CRUZ Report Released Date/Time: Jan 28, 2024 03:31 PM Reporting Lab: [facility] [address] Performing Lab: [facility] [address] [place] [facility] URINALYS IS HEMOGLOBIN [PRESENCE] IN URINE BY TEST STRIP NEGATIVE 01/30 Specimen Type: URINE No comment entered. Ordering Provider: VIELKA CRUZ Report Released Date/Time: Jan 28, 2024 03:31 PM Reporting Lab: [facility] [address] Performing Lab: [facility] [address] [place] [facility] URINALYS IS NITRITE [PRESENCE] IN URINE BY TEST STRIP NEGATIVE 01/30 Specimen Type: URINE No comment entered. Ordering Provider: VIELKA CRUZ Report Released Date/Time: Jan 28, 2024 03:31 PM Reporting Lab: [facility] [address] Performing Lab: [facility] [address] [place] [facility] URINALYS IS LEUKOCYTE ESTERASE [PRESENCE] IN URINE BY TEST STRIP NEGATIVE 01/30 Specimen Type: URINE No comment entered. Ordering Provider: VIELKA CRUZ Report Released Date/Time: Jan 28, 2024 03:31 PM Reporting Lab: [facility] [address] Performing Lab: [facility] [address] [place] [facility] BASIC METABOLI C PANEL+MG CREATININE [MASS/VOLU ME] IN SERUM OR PLASMA 0.9 mg/dL 0.5 - 1.0 01/18 Specimen Type: PLASMA No comment entered. Ordering Provider: ANITA HARVEY Report Released Date/Time: Jan 19, 2024 04:43 PM Reporting Lab: [facility] [address] Performing Lab: [facility] [address] [place] [facility] BASIC METABOLI C PANEL+MG UREA NITROGEN [MASS/VOLU ME] IN SERUM OR PLASMA 15 mg/dL 7 - 20 01/18 Specimen Type: PLASMA No comment entered. Ordering Provider: ANITA HARVEY Report Released Date/Time: Jan 19, 2024 04:43 PM Reporting Lab: [facility] [phone] Performing Lab: [facility] [address] [place] [facility] BASIC METABOLI C PANEL+MG GLUCOSE [MASS/VOLU ME] IN SERUM OR PLASMA 86 mg/dL 70 - 100 01/18 Specimen Type: PLASMA No comment entered. Ordering Provider: ANITA HARVEY Report Released Date/Time: Jan 19, 2024 04:43 PM Reporting Lab: [facility] [phone] Performing Lab: [facility] [address] [place] [facility] BASIC METABOLI C PANEL+MG SODIUM [MOLES/VOL UME] IN SERUM OR PLASMA 139 mmol/L 136 - 145 01/18 Specimen Type: PLASMA No comment entered. Ordering Provider: ANITA HARVEY Report Released Date/Time: Jan 19, 2024 04:43 PM Reporting Lab: [facility] [address] Performing Lab: [facility] [address] [place] [facility] BASIC METABOLI C PANEL+MG POTASSIUM [MOLES/VOL UME] IN SERUM OR PLASMA 3.5 mmol/L 3.5 - 5.1 01/18 Specimen Type: PLASMA No comment entered. Ordering Provider: ANITA HARVEY Report Released Date/Time: Jan 19, 2024 04:43 PM Reporting Lab: [facility] [address] Performing Lab: [facility] [address] [place] [facility] BASIC METABOLI C PANEL+MG CHLORIDE [MOLES/VOL UME] IN SERUM OR PLASMA 105 mmol/L 98 - 107 01/18 Specimen Type: PLASMA No comment entered. Ordering Provider: ANITA HARVEY Report Released Date/Time: Jan 19, 2024 04:43 PM Reporting Lab: [facility] [address] Performing Lab: [facility] [address] [place] [facility] BASIC METABOLI C PANEL+MG CARBON DIOXIDE, TOTAL [MOLES/VOL UME] IN SERUM OR PLASMA 27 mmol/L 22 - 29 01/18 Specimen Type: PLASMA No comment entered. Ordering Provider: ANITA HARVEY Report Released Date/Time: Jan 19, 2024 04:43 PM Reporting Lab: [facility] [address] Performing Lab: [facility] [address] [place] [facility] BASIC METABOLI C PANEL+MG CALCIUM [MASS/VOLU ME] IN SERUM OR PLASMA 9.6 mg/dL 8.4 - 10.2 01/18 Specimen Type: PLASMA No comment entered. Ordering Provider: ANITA HARVEY Report Released Date/Time: Jan 19, 2024 04:43 PM Reporting Lab: [facility] [address] Performing Lab: [facility] [address] [place] [facility] BASIC METABOLI C PANEL+MG MAGNESIUM [MASS/VOLU ME] IN SERUM OR PLASMA 1.9 mg/dL 1.6 - 2.6 01/18 Specimen Type: PLASMA No comment entered. Ordering Provider: ANITA HARVEY Report Released Date/Time: Jan 19, 2024 04:43 PM Reporting Lab: [facility] [address] Performing Lab: [facility] [address] [place] [facility] BASIC METABOLI C PANEL+MG ANION GAP IN SERUM OR PLASMA 7 mmol/L 5 - 15 01/18 Specimen Type: PLASMA No comment entered. Ordering Provider: ANITA HARVEY Report Released Date/Time: Jan 19, 2024 04:43 PM Reporting Lab: [facility] [address] Performing Lab: [facility] [address] [place] [facility] BASIC METABOLI C PANEL+MG GLOMERULAR FILTRATION RATE/1.73 SQ M.PREDICTE D [VOLUME RATE/AREA] IN SERUM, PLASMA OR BLOOD BY CREATININE -BASED FORMULA (CKD-EPI 2020) 87 60 01/18 Specimen Type: PLASMA No comment entered. Ordering Provider: ANITA HARVEY Report Released Date/Time: Jan 19, 2024 04:43 PM Reporting Lab: [facility] [address] Performing Lab: [facility] [address] [place] [facility] CBC & DIFF LEUKOCYTES [#/VOLUME] IN BLOOD BY AUTOMATED COUNT 8.32 10*3/uL 4.0 - 11.0 01/18 Specimen Type: BLOOD Comment: Automated Differentia l Performed Ordering Provider: ANITA HARVEY Report Released Date/Time: Jan 19, 2024 04:43 PM Reporting Lab: [facility] [address] Performing Lab: [facility] [address] [place] [facility] CBC & DIFF ERYTHROCYT ES [#/VOLUME] IN BLOOD BY AUTOMATED COUNT 4.02 10*6/uL 4.0 - 5.4 01/18 Specimen Type: BLOOD Comment: Automated Differentia l Performed Ordering Provider: ANITA HARVEY Report Released Date/Time: Jan 19, 2024 04:43 PM Reporting Lab: [facility] [address] Performing Lab: [facility] [address] [place] [facility] CBC & DIFF HEMOGLOBIN [MASS/VOLU ME] IN BLOOD 12.4 g/dL 11.5 - 16 01/18 Specimen Type: BLOOD Comment: Automated Differentia l Performed Ordering Provider: ANITA HARVEY Report Released Date/Time: Jan 19, 2024 04:43 PM Reporting Lab: [facility] [address] Performing Lab: [facility] [address] [place] [facility] CBC & DIFF HEMATOCRIT [VOLUME FRACTION] OF BLOOD BY AUTOMATED COUNT 37.0 34.5 - 48 01/18 Specimen Type: BLOOD Comment: Automated Differentia l Performed Ordering Provider: ANITA HARVEY Report Released Date/Time: Jan 19, 2024 04:43 PM Reporting Lab: [facility] [facility] [address] Performing Lab: [facility] [address] [place] [facility] CBC & DIFF MCV [ENTITIC VOLUME] BY AUTOMATED COUNT 92.0 fL 80 - 100 01/18 Specimen Type: BLOOD Comment: Automated Differentia l Performed Ordering Provider: ANITA HARVEY Report Released Date/Time: Jan 19, 2024 04:43 PM Reporting Lab: [facility] [address] Performing Lab: [facility] [address] [place] [facility] CBC & DIFF MCH [ENTITIC MASS] BY AUTOMATED COUNT 30.8 pg 27 - 33 01/18 Specimen Type: BLOOD Comment: Automated Differentia l Performed Ordering Provider: ANITA HARVEY Report Released Date/Time: Jan 19, 2024 04:43 PM Reporting Lab: [facility] [address] Performing Lab: [facility] [address] [place] [facility] CBC & DIFF MCHC [MASS/VOLU ME] BY AUTOMATED COUNT 33.5 g/dL 32.0 - 37.5 01/18 Specimen Type: BLOOD Comment: Automated Differentia l Performed Ordering Provider: ANITA HARVEY Report Released Date/Time: Jan 19, 2024 04:43 PM Reporting Lab: [facility] [address] Performing Lab: [facility] [address] [place] [facility] CBC & DIFF PLATELETS [#/VOLUME] IN BLOOD BY AUTOMATED COUNT 415 10*3/uL 150 - 400 01/18 H Specimen Type: BLOOD Comment: Automated Differentia l Performed Ordering Provider: ANITA HARVEY Report Released Date/Time: Jan 19, 2024 04:43 PM Reporting Lab: [facility] [address] Performing Lab: [facility] [address] [place] [facility] CBC & DIFF PLATELET MEAN VOLUME [ENTITIC VOLUME] IN BLOOD BY AUTOMATED COUNT 9.8 fL 7.4 - 10.4 01/18 Specimen Type: BLOOD Comment: Automated Differentia l Performed Ordering Provider: ANITA HARVEY Report Released Date/Time: Jan 19, 2024 04:43 PM Reporting Lab: [facility] [address] Performing Lab: [facility] [address] [place] [facility] CBC & DIFF NEUTROPHIL S/100 LEUKOCYTES IN BLOOD BY MANUAL COUNT 70.1 40.0 - 80.0 01/18 Specimen Type: BLOOD Comment: Automated Differentia l Performed Ordering Provider: ANITA HARVEY Report Released Date/Time: Jan 19, 2024 04:43 PM Reporting Lab: [facility] [address] Performing Lab: [facility] [address] [place] [facility] CBC & DIFF LYMPHOCYTE S/100 LEUKOCYTES IN BLOOD BY MANUAL COUNT 19.1 15.0 - 45.0 01/18 Specimen Type: BLOOD Comment: Automated Differentia l Performed Ordering Provider: ANITA HARVEY Report Released Date/Time: Jan 19, 2024 04:43 PM Reporting Lab: [facility] [address] Performing Lab: [facility] [address] [place] [facility] CBC & DIFF MONOCYTES/ 100 LEUKOCYTES IN BLOOD BY AUTOMATED COUNT 7.8 2.0 - 12.0 01/18 Specimen Type: BLOOD Comment: Automated Differentia l Performed Ordering Provider: ANITA HARVEY Report Released Date/Time: Jan 19, 2024 04:43 PM Reporting Lab: [facility] [address] Performing Lab: [facility] [address] [place] [facility] CBC & DIFF EOSINOPHIL S/100 LEUKOCYTES IN BLOOD BY AUTOMATED COUNT 1.7 0.0 - 6.0 01/18 Specimen Type: BLOOD Comment: Automated Differentia l Performed Ordering Provider: ANITA HARVEY Report Released Date/Time: Jan 19, 2024 04:43 PM Reporting Lab: [facility] [address] Performing Lab: [facility] [address] [place] [facility] CBC & DIFF BASOPHILS/ 100 LEUKOCYTES IN BLOOD BY MANUAL COUNT 0.8 0.0 - 2.0 01/18 Specimen Type: BLOOD Comment: Automated Differentia l Performed Ordering Provider: ANITA HARVEY Report Released Date/Time: Jan 19, 2024 04:43 PM Reporting Lab: [facility] [address] Performing Lab: [facility] [address] [place] [facility] CBC & DIFF ERYTHROCYT E DISTRIBUTI ON WIDTH [RATIO] BY AUTOMATED COUNT 12.7 11.5 - 14.5 01/18 Specimen Type: BLOOD Comment: Automated Differentia l Performed Ordering Provider: ANITA HARVEY Report Released Date/Time: Jan 19, 2024 04:43 PM Reporting Lab: [facility] [address] Performing Lab: [facility] [address] [place] [facility] CBC & DIFF LYMPHOCYTE S [#/VOLUME] IN BLOOD BY AUTOMATED COUNT 1.59 10*3/uL 1.0 - 4.0 01/18 Specimen Type: BLOOD Comment: Automated Differentia l Performed Ordering Provider: ANITA HARVEY Report Released Date/Time: Jan 19, 2024 04:43 PM Reporting Lab: [facility] [address] Performing Lab: [facility] [address] [place] [facility] CBC & DIFF MONOCYTES [#/VOLUME] IN BLOOD BY AUTOMATED COUNT 0.65 10*3/uL 0.1 - 1.0 01/18 Specimen Type: BLOOD Comment: Automated Differentia l Performed Ordering Provider: ANITA HARVEY Report Released Date/Time: Jan 19, 2024 04:43 PM Reporting Lab: [facility] [address] Performing Lab: [facility] [address] [place] [facility] CBC & DIFF NEUTROPHIL S [#/VOLUME] IN BLOOD BY AUTOMATED COUNT 5.83 10*3/uL 2.0 - 7.7 01/18 Specimen Type: BLOOD Comment: Automated Differentia l Performed Ordering Provider: ANITA HARVEY Report Released Date/Time: Jan 19, 2024 04:43 PM Reporting Lab: [facility] [address] Performing Lab: [facility] [address] [place] [facility] CBC & DIFF EOSINOPHIL S [#/VOLUME] IN BLOOD BY AUTOMATED COUNT 0.14 10*3/uL 0 - 0.5 01/18 Specimen Type: BLOOD Comment: Automated Differentia l Performed Ordering Provider: ANITA HARVEY Report Released Date/Time: Jan 19, 2024 04:43 PM Reporting Lab: [facility] [address] Performing Lab: [facility] [address] [place] [facility] CBC & DIFF BASOPHILS [#/VOLUME] IN BLOOD BY AUTOMATED COUNT 0.07 10*3/uL 0 - 0.2 01/18 Specimen Type: BLOOD Comment: Automated Differentia l Performed Ordering Provider: ANITA HARVEY Report Released Date/Time: Jan 19, 2024 04:43 PM Reporting Lab: [facility] [address] Performing Lab: [facility] [address] [place] [facility] CBC & DIFF IG(META,MY QAMAR,PRO) 0.5 01/18 Specimen Type: BLOOD Comment: Automated Differentia l Performed Ordering Provider: ANITA HARVEY Report Released Date/Time: Jan 19, 2024 04:43 PM Reporting Lab: [facility] [address] Performing Lab: [facility] [address] [place] [facility] CBC & DIFF IMMATURE GRANULOCYT ES [PRESENCE] IN BLOOD BY AUTOMATED COUNT 0.04 10*3/uL 0 - 0.1 01/18 Specimen Type: BLOOD Comment: Automated Differentia l Performed Ordering Provider: ANITA HARVEY Report Released Date/Time: Jan 19, 2024 04:43 PM Reporting Lab: [facility] [address] Performing Lab: [facility] [address] [place] [facility] BNP NATRIURETI C PEPTIDE B [MASS/VOLU ME] IN SERUM OR PLASMA <10pg/mL <99 - 99 05/11 Specimen Type: PLASMA No comment entered. Ordering Provider: RELL BARRAGAN Report Released Date/Time: May 11, 2023 02:24 PM Reporting Lab: [facility] [address] Performing Lab: [facility] [address] [place] [facility] TSH W/REFLEX TO FREE T4 THYROTROPI N [UNITS/VOL UME] IN SERUM OR PLASMA 1.15 u[IU]/mL 0.35 - 4.94 05/11 Specimen Type: PLASMA No comment entered. Ordering Provider: RELL BARRAGAN Report Released Date/Time: May 11, 2023 02:24 PM Reporting Lab: [facility] [address] Performing Lab: [facility] [address] [facility] IS [facility] CBC LEUKOCYTES [#/VOLUME] IN BLOOD BY AUTOMATED COUNT 6.36 10*3/uL 4.0 - 11.0 05/11 Specimen Type: BLOOD No comment entered. Ordering Provider: RELL BARRAGAN Report Released Date/Time: May 11, 2023 02:24 PM Reporting Lab: [facility] [address] Performing Lab: [facility] [address] [facility] CBC ERYTHROCYT ES [#/VOLUME] IN BLOOD BY AUTOMATED COUNT 4.08 10*6/uL 4.0 - 5.4 05/11 Specimen Type: BLOOD No comment entered. Ordering Provider: RELL BARRAGAN Report Released Date/Time: May 11, 2023 02:24 PM Reporting Lab: [facility] [address] Performing Lab: [facility] [address] [facility] IS [facility] CBC HEMOGLOBIN [MASS/VOLU ME] IN BLOOD 12.3 g/dL 11.5 - 16 05/11 Specimen Type: BLOOD No comment entered. Ordering Provider: RELL BARRAGAN Report Released Date/Time: May 11, 2023 02:24 PM Reporting Lab: [facility] [address] Performing Lab: [facility] [address] [facility] IS [facility] CBC HEMATOCRIT [VOLUME FRACTION] OF BLOOD BY AUTOMATED COUNT 37.3 34.5 - 48 05/11 Specimen Type: BLOOD No comment entered. Ordering Provider: RELL BARRAGAN Report Released Date/Time: May 11, 2023 02:24 PM Reporting Lab: [facility] [address] Performing Lab: [facility] [address] [place] [facility] CBC MCV [ENTITIC VOLUME] BY AUTOMATED COUNT 91.4 fL 80 - 100 05/11 Specimen Type: BLOOD No comment entered. Ordering Provider: RELL BARRAGAN Report Released Date/Time: May 11, 2023 02:24 PM Reporting Lab: [facility] [address] Performing Lab: [facility] [address] [place] [facility] CBC MCH [ENTITIC MASS] BY AUTOMATED COUNT 30.1 pg 27 - 33 05/11 Specimen Type: BLOOD No comment entered. Ordering Provider: RELL BARRAGAN Report Released Date/Time: May 11, 2023 02:24 PM Reporting Lab: [facility] [address] Performing Lab: [facility] [address] [place] [facility] CBC MCHC [MASS/VOLU ME] BY AUTOMATED COUNT 33.0 g/dL 32.0 - 37.5 05/11 Specimen Type: BLOOD No comment entered. Ordering Provider: RELL BARRAGAN Report Released Date/Time: May 11, 2023 02:24 PM Reporting Lab: [facility] [address] Performing Lab: [facility] [address] [place] [facility] CBC PLATELETS [#/VOLUME] IN BLOOD BY AUTOMATED COUNT 372 10*3/uL 150 - 400 05/11 Specimen Type: BLOOD No comment entered. Ordering Provider: RELL BARRAGAN Report Released Date/Time: May 11, 2023 02:24 PM Reporting Lab: [facility] [address] Performing Lab: [facility] [address] [place] [facility] CBC PLATELET MEAN VOLUME [ENTITIC VOLUME] IN BLOOD BY AUTOMATED COUNT 9.5 fL 7.4 - 10.4 05/11 Specimen Type: BLOOD No comment entered. Ordering Provider: RELL BARRAGAN Report Released Date/Time: May 11, 2023 02:24 PM Reporting Lab: [facility] [address] Performing Lab: [facility] [address] [place] [facility] CBC ERYTHROCYT E DISTRIBUTI ON WIDTH [RATIO] BY AUTOMATED COUNT 13.0 11.5 - 14.5 05/11 Specimen Type: BLOOD No comment entered. Ordering Provider: RELL BARRAGAN Report Released Date/Time: May 11, 2023 02:24 PM Reporting Lab: [facility] [address] Performing Lab: [facility] [address] [place] [facility] D-DIMER FIBRIN D-DIMER FEU [MASS/VOLU ME] IN PLATELET POOR PLASMA <215 0 - 500 05/11 Specimen Type: PLASMA No comment entered. Ordering Provider: RELL BARRAGAN Report Released Date/Time: May 11, 2023 02:24 PM Reporting Lab: [facility] [address] Performing Lab: [facility] [address] [place] [facility] COMPREHE NSIVE METABOLI C PANEL+MG CREATININE [MASS/VOLU ME] IN SERUM OR PLASMA 0.8 mg/dL 0.5 - 1.0 05/11 Specimen Type: PLASMA No comment entered. Ordering Provider: RELL BARRAGAN Report Released Date/Time: May 11, 2023 02:24 PM Reporting Lab: [facility] [address] Performing Lab: [facility] [address] [place] [facility] COMPREHE NSIVE METABOLI C PANEL+MG UREA NITROGEN [MASS/VOLU ME] IN SERUM OR PLASMA 16 mg/dL 7 - 20 05/11 Specimen Type: PLASMA No comment entered. Ordering Provider: RELL BARRAGAN Report Released Date/Time: May 11, 2023 02:24 PM Reporting Lab: [facility] [address] Performing Lab: [facility] [address] [place] [facility] COMPREHE NSIVE METABOLI C PANEL+MG GLUCOSE [MASS/VOLU ME] IN SERUM OR PLASMA 112 mg/dL 70 - 100 05/11 H Specimen Type: PLASMA No comment entered. Ordering Provider: RELL BARRAGAN Report Released Date/Time: May 11, 2023 02:24 PM Reporting Lab: [facility] [address] Performing Lab: [facility] [address] [place] [facility] COMPREHE NSIVE METABOLI C PANEL+MG SODIUM [MOLES/VOL UME] IN SERUM OR PLASMA 141 mmol/L 136 - 145 05/11 Specimen Type: PLASMA No comment entered. Ordering Provider: RELL BARRAGAN Report Released Date/Time: May 11, 2023 02:24 PM Reporting Lab: [facility] [address] Performing Lab: [facility] [address] [place] [facility] COMPREHE NSIVE METABOLI C PANEL+MG POTASSIUM [MOLES/VOL UME] IN SERUM OR PLASMA 3.7 mmol/L 3.5 - 5.1 05/11 Specimen Type: PLASMA No comment entered. Ordering Provider: RELL BARRAGAN Report Released Date/Time: May 11, 2023 02:24 PM Reporting Lab: [facility] [address] Performing Lab: [facility] [address] [place] [facility] COMPREHE NSIVE METABOLI C PANEL+MG CHLORIDE [MOLES/VOL UME] IN SERUM OR PLASMA 107 mmol/L 98 - 107 05/11 Specimen Type: PLASMA No comment entered. Ordering Provider: RELL BARRAGAN Report Released Date/Time: May 11, 2023 02:24 PM Reporting Lab: [facility] [address] Performing Lab: [facility] [address] [place] [facility] COMPREHE NSIVE METABOLI C PANEL+MG CARBON DIOXIDE, TOTAL [MOLES/VOL UME] IN SERUM OR PLASMA 26 mmol/L 22 - 29 05/11 Specimen Type: PLASMA No comment entered. Ordering Provider: RELL BARRAGAN Report Released Date/Time: May 11, 2023 02:24 PM Reporting Lab: [facility] [address] Performing Lab: [facility] [address] [place] [facility] COMPREHE NSIVE METABOLI C PANEL+MG CALCIUM [MASS/VOLU ME] IN SERUM OR PLASMA 9.3 mg/dL 8.4 - 10.2 05/11 Specimen Type: PLASMA No comment entered. Ordering Provider: RELL BARRAGAN Report Released Date/Time: May 11, 2023 02:24 PM Reporting Lab: [facility] [address] Performing Lab: [facility] [address] [place] [facility] COMPREHE NSIVE METABOLI C PANEL+MG PROTEIN [MASS/VOLU ME] IN SERUM OR PLASMA 7.5 g/dL 6.0 - 8.3 05/11 Specimen Type: PLASMA No comment entered. Ordering Provider: RELL BARRAGAN Report Released Date/Time: May 11, 2023 02:24 PM Reporting Lab: [facility] [address] Performing Lab: [facility] [address] [place] [facility] COMPREHE NSIVE METABOLI C PANEL+MG ALBUMIN [MASS/VOLU ME] IN SERUM OR PLASMA 4.7 g/dL 3.5 - 5.2 05/11 Specimen Type: PLASMA No comment entered. Ordering Provider: RELL BARRAGAN Report Released Date/Time: May 11, 2023 02:24 PM Reporting Lab: [facility] [address] Performing Lab: [facility] [address] [place] [facility] COMPREHE NSIVE METABOLI C PANEL+MG BILIRUBIN. TOTAL [MASS/VOLU ME] IN SERUM OR PLASMA 0.3 mg/dL 0.2 - 1.2 05/11 Specimen Type: PLASMA No comment entered. Ordering Provider: RELL BARRAGAN Report Released Date/Time: May 11, 2023 02:24 PM Reporting Lab: [facility] [address] Performing Lab: [facility] [address] [place] [facility] COMPREHE NSIVE METABOLI C PANEL+MG MAGNESIUM [MASS/VOLU ME] IN SERUM OR PLASMA 2.0 mg/dL 1.6 - 2.6 05/11 Specimen Type: PLASMA No comment entered. Ordering Provider: RELL BARRAGAN Report Released Date/Time: May 11, 2023 02:24 PM Reporting Lab: [facility] [address] Performing Lab: [facility] [address] [place] [facility] COMPREHE NSIVE METABOLI C PANEL+MG ANION GAP IN SERUM OR PLASMA 8 mmol/L 5 - 15 05/11 Specimen Type: PLASMA No comment entered. Ordering Provider: RELL BARRAGAN Report Released Date/Time: May 11, 2023 02:24 PM Reporting Lab: [facility] [address] Performing Lab: [facility] [address] [place] [facility] COMPREHE NSIVE METABOLI C PANEL+MG ALKALINE PHOSPHATAS E [ENZYMATIC ACTIVITY/V OLUME] IN SERUM OR PLASMA 47 U/L 40 - 150 05/11 Specimen Type: PLASMA No comment entered. Ordering Provider: RELL BARRAGAN Report Released Date/Time: May 11, 2023 02:24 PM Reporting Lab: [facility] [address] Performing Lab: [facility] [address] [place] [facility] COMPREHE NSIVE METABOLI C PANEL+MG ALANINE AMINOTRANS FERASE [ENZYMATIC ACTIVITY/V OLUME] IN SERUM OR PLASMA 21 U/L <55 - 55 05/11 Specimen Type: PLASMA No comment entered. Ordering Provider: RELL BARRAGAN Report Released Date/Time: May 11, 2023 02:24 PM Reporting Lab: [facility] [address] Performing Lab: [facility] [address] [place] [facility] COMPREHE NSIVE METABOLI C PANEL+MG ASPARTATE AMINOTRANS FERASE [ENZYMATIC ACTIVITY/V OLUME] IN SERUM OR PLASMA 16 U/L <34 - 34 05/11 Specimen Type: PLASMA No comment entered. Ordering Provider: RELL BARRAGAN Report Released Date/Time: May 11, 2023 02:24 PM Reporting Lab: [facility] [address] Performing Lab: [facility] [address] [place] [facility] COMPREHE NSIVE METABOLI C PANEL+MG GLOMERULAR FILTRATION RATE/1.73 SQ M.PREDICTE D [VOLUME RATE/AREA] IN SERUM, PLASMA OR BLOOD BY CREATININE -BASED FORMULA (CKD-EPI 2020) >90 60 05/11 Specimen Type: PLASMA No comment entered. Ordering Provider: RELL BARRAGAN Report Released Date/Time: May 11, 2023 02:24 PM Reporting Lab: [facility] [address] Performing Lab: [facility] [address] [place] [facility] TSH W/REFLEX TO FREE T4 THYROTROPI N [UNITS/VOL UME] IN SERUM OR PLASMA 1.26 u[IU]/mL 0.35 - 4.94 12/02 Specimen Type: PLASMA No comment entered. Ordering Provider: ANITA HARVEY Report Released Date/Time: December 02, 2022 04:05 PM Reporting Lab: [facility] [address] Performing Lab: [facility] [address] [facility] IS [facility] CBC LEUKOCYTES [#/VOLUME] IN BLOOD BY AUTOMATED COUNT 10.80 10*3/uL 4.0 - 11.0 12/02 Specimen Type: BLOOD No comment entered. Ordering Provider: ANITA HARVEY Report Released Date/Time: December 02, 2022 04:05 PM Reporting Lab: [facility] [address] Performing Lab: [facility] [address] [place] [facility] CBC ERYTHROCYT ES [#/VOLUME] IN BLOOD BY AUTOMATED COUNT 3.98 10*6/uL 4.0 - 5.4 12/02 L Specimen Type: BLOOD No comment entered. Ordering Provider: ANITA HARVEY Report Released Date/Time: December 02, 2022 04:05 PM Reporting Lab: [facility] [address] Performing Lab: [facility] [address] [place] [facility] CBC HEMOGLOBIN [MASS/VOLU ME] IN BLOOD 12.2 g/dL 11.5 - 16 12/02 Specimen Type: BLOOD No comment entered. Ordering Provider: ANITA HARVEY Report Released Date/Time: December 02, 2022 04:05 PM Reporting Lab: [facility] [address] Performing Lab: [facility] [address] [place] [facility] CBC HEMATOCRIT [VOLUME FRACTION] OF BLOOD BY AUTOMATED COUNT 36.4 34.5 - 48 12/02 Specimen Type: BLOOD No comment entered. Ordering Provider: ANITA HARVEY Report Released Date/Time: December 02, 2022 04:05 PM Reporting Lab: [facility] [address] Performing Lab: [facility] [address] [place] [facility] CBC MCV [ENTITIC VOLUME] BY AUTOMATED COUNT 91.5 fL 80 - 100 12/02 Specimen Type: BLOOD No comment entered. Ordering Provider: ANITA HARVEY Report Released Date/Time: December 02, 2022 04:05 PM Reporting Lab: [facility] [address] Performing Lab: [facility] [address] [place] [facility] CBC MCH [ENTITIC MASS] BY AUTOMATED COUNT 30.7 pg 27 - 33 12/02 Specimen Type: BLOOD No comment entered. Ordering Provider: ANITA HARVEY Report Released Date/Time: December 02, 2022 04:05 PM Reporting Lab: [facility] [address] Performing Lab: [facility] [address] [place] [facility] CBC MCHC [MASS/VOLU ME] BY AUTOMATED COUNT 33.5 g/dL 32.0 - 37.5 12/02 Specimen Type: BLOOD No comment entered. Ordering Provider: ANITA HARVEY Report Released Date/Time: December 02, 2022 04:05 PM Reporting Lab: [facility] [address] Performing Lab: [facility] [address] [place] [facility] CBC PLATELETS [#/VOLUME] IN BLOOD BY AUTOMATED COUNT 361 10*3/uL 150 - 400 12/02 Specimen Type: BLOOD No comment entered. Ordering Provider: ANITA HARVEY Report Released Date/Time: December 02, 2022 04:05 PM Reporting Lab: [facility] [address] Performing Lab: [facility] [address] [place] [facility] CBC PLATELET MEAN VOLUME [ENTITIC VOLUME] IN BLOOD BY AUTOMATED COUNT 10.1 fL 7.4 - 10.4 12/02 Specimen Type: BLOOD No comment entered. Ordering Provider: ANITA HARVEY Report Released Date/Time: December 02, 2022 04:05 PM Reporting Lab: [facility] [address] Performing Lab: [facility] [address] [facility] CBC ERYTHROCYT E DISTRIBUTI ON WIDTH [RATIO] BY AUTOMATED COUNT 13.2 11.5 - 14.5 12/02 Specimen Type: BLOOD No comment entered. Ordering Provider: ANITA HARVEY Report Released Date/Time: December 02, 2022 04:05 PM Reporting Lab: [facility] [address] Performing Lab: [facility] [address] [place] [facility] Vital Signs Combined list of inpatient and outpatient Vital Signs from Department of Defense and Veterans Affairs, ranging from 12 months to all on record, depending upon the facility. Vital Sign Value Date Comments Source No data available for this section Ambulatory Pharm acy SYSTOLIC BLOOD PRESSURE 121 01/31/2024 14:21:11 [facility] DIASTOLIC BLOOD PRESSURE 77 01/31/2024 14:21:11 [facility] PULSE OXIMETRY 96 01/31/2024 14:21:11 [facility] WEIGHT 126.6 01/31/2024 14:21:11 [facility] BMI 22kg/m2 01/31/2024 14:21:11 [facility] PAIN 0 01/31/2024 14:21:11 [facility] PULSE 87 01/31/2024 14:21:11 [facility] RESPIRATION 16 01/31/2024 14:21:11 [facility] SYSTOLIC BLOOD PRESSURE 113 01/19/2024 16:00:43 [facility] DIASTOLIC BLOOD PRESSURE 76 01/19/2024 16:00:43 [facility] PULSE OXIMETRY 98 01/19/2024 16:00:43 [facility] WEIGHT 126.3 01/19/2024 16:00:43 [facility] BMI 22kg/m2 01/19/2024 16:00:43 [facility] PAIN 0 01/19/2024 16:00:43 [facility] HEIGHT 64 01/19/2024 16:00:43 [facility] PULSE 87 01/19/2024 16:00:43 [facility] RESPIRATION 16 01/19/2024 16:00:43 [facility] Encounters Combined list of: 1) Encounters from Department of Veterans Affairs facilities going back up to thelast 18 months. 2) Encounters from the Department of Defense facilities going back up to 280 months. Location Location Details Encounter Type Encounter Number Reason For Visit Attending Provider ADM Date DC Date Status Disposition Source [facility] Immunizat ions (Post)) OUTPATIENT [id number] IET PPD KHOA BARNES 09/19 Released w/o Limitations [facility] Immuniz ations (Post)) [facility] Immunizat ions (Post)) OUTPATIENT [id number] iet immuniz ations SUKUMAR MARQUEZ 09/19 Released w/o Limitations [facility] Immuniz ations (Post)) [facility] Ambulator y) OUTPATIENT [id number] Notes Entered by: DOUG MCALLISTER 30 Sep 2015 0558 ------- ------- ------- ------- -- Blister s JAG LENTZ 09/29 Released w/o Limitations [facility] Ambulat ory) [facility] Ambulator y) OUTPATIENT [id number] Notes Entered by: DOUG MCALLISTER 28 Oct 2015 0811 ------- ------- ------- ------- -- Hip pain JAG LENTZ 10/27 Released with Work/Duty Limitations [facility] Ambulat ory) [facility] Physical Therapy) OUTPATIENT [id number] Notes Entered by: AVERY BLAIR 28 Oct 2015 1024 ------- ------- ------- ------- -- Bilat Knee/Hi p AVERY BLAIR 10/27 Immediate Referral [facility] Physica l Therapy ) [facility] Ambulator y) OUTPATIENT [id number] Notes Entered by: DOUG MCALLISTER 30 Oct 2015 0534 ------- ------- ------- ------- -- JAG JAQUEZ 10/29 Released with Work/Duty Limitations [employer]([facility] Ambulat ory) [facility] Physical Therapy BAS) OUTPATIENT [id number] Notes Entered by: TEMITOPE BARNHART 30 Oct 2015 0602 ------- ------- ------- ------- -- hip and knee pain GREG NEVILLE 10/29 Released with Work/Duty Limitations [facility] Physica l Therapy BAS) [facility] Physical Therapy) OUTPATIENT [id number] Left Thigh-- -(ref: SILKE Morrissey 12/03 Released with Work/Duty Limitations [facility] Physica [facility] Therapy ) [facility] Physical Therapy) OUTPATIENT [id number] Notes Entered by: SHAISTA LAYTON 13 Dec 2015 1545 ------- ------- ------- ------- -- right hip and knee pain CAITIE WILKINSON 12/12 Released w/o Limitations [facility] Physica l Therapy ) [facility] Ambulator y) OUTPATIENT [id number] Notes Entered by: ELIUD JACKSON 30 Dec 2015 0608 ------- ------- ------- ------- -- LANRE Mckeon 12/29 Released w/o Limitations [employer]([facility] Ambulat ory) [facility] Physical Therapy) OUTPATIENT [id number] Notes Entered by: SHAISTA LAYTON 21 Jan 2016 1525 ------- ------- ------- ------- -- Right Hip ST irritia tion - rehab pt [place] 01/20 Released w/o Limitations [facility] [employer] [facility] ) [facility] Physical Therapy) OUTPATIENT [id number] Notes Entered by: SHAISTA LAYTON 24 Jan 2016 1605 ------- ------- ------- ------- -- right hip pain - antalgi c gait [place] 01/23 Immediate Referral [facility]ica [facility] Therapy ) [facility] Physical Therapy) OUTPATIENT [id number] Follow up--(Dr Tamia Sky ) TL LOZANO 01/26 Released w/o Limitations [address] [place] [address]([facility] Physica l Therapy ) [place] [address]) OUTPATIENT [id number] Notes Entered by: Tonya GREENBERG 29 Mar 2018 0934 ------- ------- ------- ------- -- TRINIDAD MERCADO 03/29 Released w/o Limitations [place] [address]) [place] [address]) OUTPATIENT [id number] Notes Entered by: JOSH MAR 29 Mar 2018 1242 ------- ------- ------- ------- -- KAILA IRAHETA 03/29 Released w/o Limitations [place] [address]) [place] [address]) OUTPATIENT [id number] Notes Entered by: JOSH MAR 29 Mar 2018 1336 ------- ------- ------- ------- -- KAILA IRAHETA 03/29 Released w/o Limitations [place] [address]) Theater Facility OUTPATIENT [id number] Theater Provider 06/16 Released with Work/Duty Limitations [facility] Theater Facility OUTPATIENT [id number] Theater Provider 08/18 Released w/o Limitations [facility] OUTPATIENT [id number] Theater Provider 08/25 Released w/o Limitations [facility] OUTPATIENT [id number] Theater Provider 09/01 Released w/o Limitations [facility] OUTPATIENT [id number] Theater Provider 09/07 Released w/o Limitations [facility] OUTPATIENT [id number] Theater Provider 09/13 Released w/o Limitations [facility] OUTPATIENT [id number] Theater Provider 09/29 Released w/o Limitations [facility] OUTPATIENT [id number] 5 Theater Provider 10/06 Released w/o Limitations [facility] Theater Facility OUTPATIENT [id number] Theater Provider 10/13 Released w/o Limitations [facility] Theater Facility OUTPATIENT [id number] Theater Provider 10/20 Released w/o Limitations [facility] Theater Facility OUTPATIENT [id number] 3 Theater Provider 11/12 Released w/o Limitations Theater Facilit [place] [address]) OUTPATIENT [id number] Notes Entered by: GABBIE FONTENOT 16 Jan 2019 1629 ------- ------- ------- ------- -- AUGUSTA VILLALOBOS 01/16 Released w/o Limitations [place] Bldg [address]) [place] Hearing Conservat ion) OUTPATIENT [id number] Notes Entered by: YA TOLBERT 17 Jan 2019 1008 ------- ------- ------- ------- -- post YA TOLBERT 01/17 Released w/o Limitations [place] Hearing Conserv ation) [place] Physical Exam Clinic) OUTPATIENT [id number] Notes Entered by: Teodoro SULLIVAN 17 Jan 2019 1453 ------- ------- ------- ------- -- SHPE-34 TH OLGA VENEGAS 01/17 Released w/o Limitations [place] Physica l Exam Clinic) [facility] Outpatient Encounter [id number] 11/17 [facility] PT EDUCATION NOC GROUP [id number] Diagnos is: ICD-10- CM Z73.2 Lack of relaxat ion and leisure
BRIGETTE ISABELBETH 11/17 [facility] PT EDUCATION NOC GROUP [id number] Diagnos is: ICD-10- CM Z73.2 Lack of relaxat ion and leisure
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
BRIGETTE ISABEL 11/27 [facility] OFFICE O/P EST HI 40-54 MIN 49281-8.61 [id number] Diagnos is: ICD-10- CM F41.9 Anxiety disorde r, unspeci fied
JASON HARVEY 12/02 [facility] Outpatient Encounter [id number] 12/04 [facility] OFF/OP EST MAY X REQ PHY/QHP 78649-2.61 [id number] Diagnos is: ICD-10- CM Z73.2 Lack of relaxat ion and leisure
CHELSEA BARKSDALE EEN S 12/10 [place] [facility] [place] [facility] PSYTX W PT 45 MINUTES 86494-5.61 [id number] Diagnos is: ICD-10- CM F33.8 Other recurre nt depress kylie disorde rs
BARBARA OLEARY 12/11 [place] [facility] [place] [facility] Outpatient Encounter [id number] [id number] 12/14 [place] [facility] [place] [facility] OFF/OP EST MAY X REQ PHY/QHP 71544-4.61 [id number] Diagnos is: ICD-10- CM Z73.2 Lack of relaxat ion and leisure
BRIGETTE ISABEL 12/17 [place] [facility] [place] [facility] OFF/OP EST MAY X REQ PHY/QHP 91984-9.61 [id number] Diagnos is: ICD-10- CM Z73.2 Lack of relaxat ion and leisure
APOLONIACHELSEA EEN S 12/31 [place] [facility] [place] [facility] OFF/OP EST MAY X REQ PHY/QHP 19108-2.61 [id number] Diagnos is: ICD-10- CM Z73.2 Lack of relaxat ion and leisure
APOLONIA,CHELSEA EEN S 01/07 [place] [facility] [place] [facility] PSYTX W PT 45 MINUTES 18569-9.61 [id number] Diagnos is: ICD-10- CM F41.9 Anxiety disorde r, unspeci fied
BARBARA OLEARY 01/08 [place] [facility] [place] [facility] OFF/OP EST MAY X REQ PHY/QHP 07654-3.61 [id number] Diagnos is: ICD-10- CM Z73.2 Lack of relaxat ion and leisure
APOLONIA,CHELSEA EEN S 01/14 [facility] OFF/OP EST MAY X REQ PHY/QHP 85714-2.61 [id number] Diagnos is: ICD-10- CM Z73.2 Lack of relaxat ion and leisure
BRIGETTE ISABEL AMANDA 01/21 [facility] [id number] [id number] Diagnos is: ICD-10- CM Z73.2 Lack of relaxat ion and leisure
CAMCHULA,CHELSEA EEN S 01/28 [facility] OFF/OP EST MAY X REQ PHY/QHP [id number] [id number] Diagnos is: ICD-10- CM Z73.2 Lack of relaxat ion and leisure
BRIGETTE ISABEL AMANDA 02/04 [facility] PSYTX W PT 45 MINUTES 67084-5 [id number] Diagnos is: ICD-10- CM F33.8 Other recurre nt depress kylie disorde rs
BARBARA OLEARY 02/05 [facility] Outpatient Encounter [id number] Diagnos is: ICD-10- CM F41.9 Anxiety disorde r, unspeci fied
JASON HARVEY 02/09 [facility] Outpatient Encounter [id number] JASON HARVEY 02/09 [facility] 75678-2.61 [id number] Diagnos is: ICD-10- CM Z73.2 Lack of relaxat ion and leisure
APOLONIACHELSEA RITAN S 03/04 [facility] PSYTX W PT 45 MINUTES 99156-1.61 [id number] Diagnos is: ICD-10- CM F33.8 Other recurre nt depress kylie disorde rs
MAMTABARBARA TIE 03/05 [facility] INDIV 1ST 26424-0.61 [id number] Diagnos is: ICD-10- CM Z71.89 Other specifi ed treatment counselor ing<br/ > FAUSTINA VELASCO ICA D 03/09 [facility] OFF/OP EST MAY X REQ PHY/QHP 45964-0.61 [id number] Diagnos is: ICD-10- CM Z71.9 Psychologist Industrial Organizational ing, unspeci fied
FAUSTINA VELASCO ICA D 03/16 [facility] Outpatient Encounter [id number] [id number] 03/25 [facility] Outpatient Encounter 99690-7.61 [id number] 03/28 [facility] OFF/OP EST MAY X REQ PHY/QHP 81276-7.61 [id number] Diagnos is: ICD-10- CM Z71.9 Psychologist Industrial Organizational ing, unspeci fied
FAUSTINA VELASCO ICA D 03/29 [facility] Outpatient Encounter 84323-4.61 [id number] JOHAN ASTORGA 03/31 [facility] PSYTX W PT 45 MINUTES 41970-1.61 [id number] Diagnos is: ICD-10- CM F33.8 Other recurre nt depress kylie disorde rs
MAMTABARBARA ALICIA 04/02 [facility] OFF/OP EST MAY X REQ PHY/QHP 19118-2.61 [id number] Diagnos is: ICD-10- CM Z71.9 Psychologist Industrial Organizational ing, unspeci fied
FAUSTINA VELASCO ICA D 04/13 [facility] PSYTX W PT 45 MINUTES 09129-3.61 [id number] Diagnos is: ICD-10- CM F33.8 Other recurre nt depress kylie disorde rs
BARBARA OLEARY ALICIA 04/30 [facility] Outpatient Encounter [id number] [id number] ALETHA HYDE N W 05/03 [facility] OFF/OP EST MAY X REQ PHY/QHP 90512-0.61 [id number] Diagnos is: ICD-10- CM Z71.9 Psychologist Industrial Organizational ing, unspeci fied
FAUSTINA VELASCO ICA D 05/04 [facility] ELECTROCAR DIOGRAM COMPLETE 06025-6.61 [id number] Diagnos is: ICD-10- CM Z13.6 Encount er for screeni ng for cardiov ascular disorde rs
Christa HUBBARD O 05/11 [facility] OFFICE O/P EST HI 40-54 MIN 37782-2.61 [id number] Diagnos is: ICD-10- CM R06.00 Dyspnea , unspeci fied
LAURELRELL John 05/11 [facility] OFF/OP EST MAY X REQ PHY/QHP 39723-3.61 [id number] Diagnos is: ICD-10- CM Z71.9 Psychologist Industrial Organizational ing, unspeci fied
FAUSTINA VELASCO ICA D 05/18 [facility] Outpatient Encounter [id number] [id number] DONATO PHAN 05/21 [facility] PSYTX W PT 45 MINUTES 21004-1.61 [id number] Diagnos is: ICD-10- CM F33.8 Other recurre nt depress kylie disorde rs
BARBARA OLEARY TIE 06/01 [facility] Outpatient Encounter [id number] CLEMENTE ALMAGUER 06/05 [facility] OFF/OP EST NOVEMBER X REQ PHY/QHP 77035-261 [id number] Diagnos is: ICD-10- CM Z71.9 Psychologist Industrial Organizational ing, unspeci fied
FAUSTINA VELASCO [facility]CA D 06/07 [facility] 45 MINUTES 15022-2.61 [id number] Diagnos is: ICD-10- CM F33.8 Other recurre nt depress kylie disorde rs
BARBARA OLEARY TIE 06/11 [facility] Outpatient Encounter 54736-3.61 [id number] 06/17 [facility] Outpatient Encounter [id number] 06/22 [facility] INDIV F-UP 11248-7.61 [id number] Diagnos is: ICD-10- CM Z71.9 Psychologist Industrial Organizational ing, unspeci fied
FAUSTINA VELASCO ICA D 06/25 [facility] EXT ECG>48HR<7 D REV&INTERP J 02537-7 [id number] Diagnos is: ICD-10- CM Z13.6 Encount er for screeni ng for cardiov ascular disorde rs
Christa HUBBARD 07/06 [facility] Outpatient Encounter [id number] 07/07 [facility] PS[facility] W PT 45 MINUTES 59741-4.61 [id number] Diagnos is: ICD-10- CM F41.9 Anxiety disorde r, unspeci fied
BARBARA OLEARY ALICAI 07/09 [facility] INDIV F-UP 86147-161 [id number] Diagnos is: ICD-10- CM Z71.9 Psychologist Industrial Organizational ing, unspeci fied
FAUSTINA VELASCO ICA D 07/16 [facility] SELF-MGMT EDUC & TRAIN 1 PT [id number] Diagnos is: ICD-10- CM Z73.3 Stress, not elsewhe re classif ied<br/ > LAURA VALDEZ E 07/23 [facility] PSYTX W PT 45 MINUTES 18282-3.61 [id number] Diagnos is: ICD-10- CM F33.8 Other recurre nt depress kylie disorde rs
BARBARA OLEARY TIE 08/06 [facility] PSYTX W PT 45 MINUTES 35060-7.61 [id number] Diagnos is: ICD-10- CM F33.8 Other recurre nt depress kylie disorde rs
BARBARA OLEARY TIE 08/25 [facility] ACUPUNCT W/O STIMUL 15 MIN 64718-5.61 [id number] Diagnos is: ICD-10- CM F41.9 Anxiety disorde r, unspeci fied
DM ORELLANA [facility] INDIV F-UP 94159-261 [id number] Diagnos is: ICD-10- CM Z71.9 Psychologist Industrial Organizational ing, unspeci fied
FAUSTINA VELASCO ICA D 09/02 [facility] PSYTX W PT 45 MINUTES 30441-8.61 [id number] Diagnos is: ICD-10- CM F33.8 Other recurre nt depress kylie disorde rs
BARBARA OLEARY 09/02 [facility] Outpatient Encounter [id number] [id number] JASON HARVEY 09/02 [facility] ACUPUNCT W/O STIMUL ADDL 15M [id number] Diagnos is: ICD-10- CM F41.9 Anxiety disorde r, unspeci fied
DM ORELLANA 09/15 [facility] Outpatient Encounter [id number] JOSELITO VALDEZ 09/19 [facility] FAMILY PSYTX W/PT 50 MIN 99121-3.61 [id number] Diagnos is: ICD-10- CM Z63.0 Problem s in relatio nship with spouse or partner
JOSELITO VALDEZ 09/19 [facility] PSYTX W PT 45 MINUTES 85951-9.61 [id number] Diagnos is: ICD-10- CM F33.8 Other recurre nt depress kylie disorde rs
BARBARA OLEARY 09/21 [facility] Ambulator y Pharmacy Lifetime Pharmacy [id number] 09/22 Ambulat ory Pharmac y No Facility Access History [id number] 09/22 No Facilit y Access [facility] INDIV F-UP 86217-4.61 [id number] Diagnos is: ICD-10- CM Z71.9 Psychologist Industrial Organizational ing, unspeci fied
FAUSTINA VELASCO 09/26 [facility] Outpatient Encounter 16195-7.61 [id number] JOSELITO VALDEZ 09/29 [facility] PSYTX W PT 60 MINUTES 44603-2.61 [id number] Diagnos is: ICD-10- CM Z63.0 Problem s in relatio nship with spouse or partner
JOSELITO VALDEZ 09/29 [facility] ACUPUNCT W/O STIMUL 15 MIN 48839-7.61 [id number] Diagnos is: ICD-10- CM Z73.3 Stress, not elsewhe re classif ied<br/ > REYNADM PALMA 10/06 [facility] FAMILY PSYTX W/O PT 50 MIN 84619-4.61 [id number] Diagnos is: ICD-10- CM Z63.0 Problem s in relatio nship with spouse or partner
JOSELITO VALDEZ IVELISSE 10/06 [facility] FAMILY PSYTX W/PT 50 MIN 82225-6.61 [id number] Diagnos is: ICD-10- CM Z63.0 Problem s in relatio nship with spouse or partner
JOSELITO VALDEZ 10/13 [facility] Outpatient Encounter 31194-3.61 [id number] JOSELITO VALDEZ IVELISSE 10/21 [facility] FAMILY PSYTX W/PT 50 MIN 16937-2.61 [id number] Diagnos is: ICD-10- CM Z63.0 Problem s in relatio nship with spouse or partner
JOSELITO VALDEZ IVELISSE 10/21 [facility] INDIV F-UP 11246-0.61 [id number] Diagnos is: ICD-10- CM Z71.9 Psychologist Industrial Organizational ing, unspeci fied
FAUSTINA VELASCO ICA D 10/26 [facility] ACUPUNCT W/O STIMUL ADDL 15M 87294-9.61 [id number] Diagnos is: ICD-10- CM Z73.3 Stress, not elsewhe re classif ied<br/ > DM ORELLANA 10/27 [facility] Outpatient Encounter 11134-8.61 [id number] JOSELITO VALDEZ 10/28 [facility] PSYTX W PT 45 MINUTES 28262-0.61 [id number] Diagnos is: ICD-10- CM F41.9 Anxiety disorde r, unspeci fied
BARBARA OLEARY ALICIA 10/28 [facility] FAMILY PSYTX W/PT 50 MIN 16670-1.61 [id number] Diagnos is: ICD-10- CM Z63.0 Problem s in relatio nship with spouse or partner
JOSELITO VALDEZ 10/28 [facility] Outpatient Encounter [id number] [id number] JOSELITO VALDEZ 11/04 [facility] FAMILY PSYTX W/PT 50 MIN 25666-8.61 [id number] Diagnos is: ICD-10- CM Z63.0 Problem s in relatio nship with spouse or partner
JOSELITO VALDEZ 11/04 [facility] ACUPUNCT W/O STIMUL 15 MIN 33311-0.61 [id number] Diagnos is: ICD-10- CM Z73.3 Stress, not elsewhe re classif ied<br/ > DM ORELLANA 11/17 [facility]DIV F-UP 17433-9.61 [id number] Diagnos is: ICD-10- CM Z71.9 Psychologist Industrial Organizational ing, unspeci fied
FAUSTINA VELASCO 11/23 [facility] PSYTX W PT 45 MINUTES 48531-0.61 [id number] Diagnos is: ICD-10- CM F33.8 Other recurre nt depress kylie disorde rs
BARBARA OLEARY TIE 11/30 [facility] Outpatient Encounter 27382-9.61 [id number] JOSELITO VALDEZ 12/02 [facility] FAMILY PSYTX W/PT 50 MIN 11241-2.61 [id number] Diagnos is: ICD-10- CM Z63.0 Problem s in relatio nship with spouse or partner
JOSELITO VALDEZ 12/02 [facility] ACUPUNCT W/O STIMUL 15 MIN 77821-7.61 [id number] Diagnos is: ICD-10- CM Z73.3 Stress, not elsewhe re classif ied<br/ > DM ORELLANA 12/08 [facility] INDIV F-UP 51774-5.61 [id number] Diagnos is: ICD-10- CM Z71.9 Psychologist Industrial Organizational ing, unspeci fied
FAUSTINA VELASCO 12/28 [facility] PSYTX W PT 45 MINUTES 04084-6.61 [id number] Diagnos is: ICD-10- CM F33.8 Other recurre nt depress kylie disorde rs
BARBARA OLEARY ALICIA 12/28 [facility] ACUPUNCT W/O STIMUL 15 MIN 43638-0.61 [id number] Diagnos is: ICD-10- CM Z73.3 Stress, not elsewhe re classif ied<br/ > DM ORELLANA 12/29 [facility] Outpatient Encounter 24549-9.61 [id number] 01/18 [facility] OFFICE O/P EST LOW 20 MIN 63178-3.61 [id number] Diagnos is: ICD-10- CM Z00.01 Encount er for general adult medical exam w abnorma l finding s
JASON HARVEY 01/18 [facility] Outpatient Encounter [id number] 01/20 [facility] Outpatient Encounter [id number] 01/24 [facility] ACUPUNCT W/O STIMUL 15 MIN [id number] Diagnos is: ICD-10- CM M25.519 Pain in unspeci fied shoulde r
DM ORELLANALETeodoro 01/26 [facility] IS [facility] OFFICE O/P NEW LOW 30 MIN [id number] Diagnos is: ICD-10- CM R87.9 Unsp abnorma l finding in specmn from female genital organs< br/> ROSAS CRUZ HLBRYNN 01/30 [facility] Outpatient Encounter [id number] JASON HARVEY 01/30 [facility] [employer] INDIV F-UP [id number] Diagnos is: ICD-10- CM Z71.9 Psychologist Industrial Organizational ing, unspeci fied
FAUSTINA VELASCO ICA D 02/01 [facility] PSYTX W PT 45 MINUTES [id number] Diagnos is: ICD-10- CM F33.8 Other recurre nt depress kylie disorde rs
BARBARA OLEARY 02/03 [facility] [employer] INDIV F-UP [id number] Diagnos is: ICD-10- CM Z71.9 Psychologist Industrial Organizational ing, unspeci fied
FAUSTINA VELASCO ICA D 02/13 [facility] OFFICE O/P NEW MOD 45 MIN [id number] Diagnos is: ICD-10- CM I78.1 Nevus, non-maría plastic
BRUNO,NO RA HAMILTON 02/15 [facility] ACUPUNCT W/O STIMUL 15 MIN [id number] Diagnos is: ICD-10- CM Z73.3 Stress, not elsewhe re classif ied<br/ > DM ORELLANA NDTonya WALTERSLETeodoro 03/02 [facility] Outpatient Encounter [id number] LESTER HARKINS 03/14 [facility] [employer] INDIV F-UP [id number] Diagnos is: ICD-10- CM Z71.9 Psychologist Industrial Organizational ing, unspeci fied
FAUSTINA VELASCO ICA D 03/17 [facility] ACUPUNCT W/O STIMUL 15 MIN [id number] Diagnos is: ICD-10- CM Z73.3 Stress, not elsewhe re classif ied<br/ > DM ORELLANALETeodoro 03/23 [facility] IS [facility] HLTH&WB COACHING INDIV F-UP [id number] [phone] Diagnos is: ICD-10- CM Z71.9 Psychologist Industrial Organizational ing, unspeci fied
DONATO VELASCOSS ICA D 04/13 [facility] IS [facility] PSYTX W PT 45 MINUTES [id number] Diagnos is: ICD-10- CM F33.8 Other recurre nt depress kylie disorde rs
BARBARA OLEARY 04/14 [facility] IS [facility] ACUPUNCT W/O STIMUL 15 MIN [id number] Diagnos is: ICD-10- CM F41.9 Anxiety disorde r, unspeci fied
DM ORELLANA MINERVA 04/19 [facility] NI IS [facility] Outpatient Encounter [id number] 05/09 [facility] NI IS [facility] PSYTX W PT 45 MINUTES [id number] Diagnos is: ICD-10- CM F33.8 Other recurre nt depress kylie disorde rs
BARBARA OLEARY ALICIA Joseph 05/12 [facility] Procedures Combined list of: 1) Procedures from Department of Veterans Affairs facilities going back up to thelast 18 months, not all [place] non-surgical procedures are included; 2) All procedures from the Department of Defense facilities. Procedure Procedure Type Code Date Perfomer Comments Sourc e No data available for this section [facility] ADMINISTRATION OF PATIENT-FOCUSED HEALTH RISK ASSESSMENT INSTRUMENT (EG, HEALTH HAZARD APPRAISAL) WITH SCORING AND DOCUMENTATION, PER STANDARDIZED INSTRUMENT [facility] PATIENT EDUCATION, NOT OTHERWISE CLASSIFIED, NON-PHYSICIAN PROVIDER, GROUP, PER SESSION [facility] SCREENING TEST OF VISUAL ACUITY, QUANTITATIVE, BILATERAL [facility] PSYCHIATRIC DIAGNOSTIC EVALUATION [facility] ADMINISTRATION OF PATIENT-FOCUSED HEALTH RISK ASSESSMENT INSTRUMENT (EG, HEALTH HAZARD APPRAISAL) WITH SCORING AND DOCUMENTATION, PER STANDARDIZED INSTRUMENT [facility] IMMUNIZATION ADMINISTRATION (INCLUDES PERCUTANEOUS, INTRADERMAL, SUBCUTANEOUS, OR INTRAMUSCULAR INJECTIONS); EACH ADDITIONAL VACCINE (SINGLE OR COMBINATION VACCINE/TOXOID) 018 [facility] PHYSICAL THERAPY RE-EVALUATION 016 [facility] APPLICATION OF A MODALITY TO 1 OR MORE AREAS; HOT OR COLD PACKS 016 [facility] APPLICATION OF A MODALITY TO 1 OR MORE AREAS; HOT OR COLD PACKS 016 [facility] APPLICATION OF A MODALITY TO 1 OR MORE AREAS; HOT OR COLD PACKS 016 [facility] THERAPEUTIC PROCEDURE, 1 OR MORE AREAS, EACH 15 MINUTES; THERAPEUTIC EXERCISES TO DEVELOP STRENGTH AND ENDURANCE, RANGE OF MOTION AND FLEXIBILITY [facility] OSTEOPATHIC MANIPULATIVE TREATMENT (OMT); 1-2 BODY REGIONS INVOLVED 016 [facility] ATHLETIC TRAINING EVALUATION 016 [facility] IMMUNIZATION ADMINISTRATION BY INTRANASAL OR ORAL ROUTE; 1 VACCINE (SINGLE OR COMBINATION VACCINE/TOXOID) 016 [facility] EAR MOLD/INSERT, NOT DISPOSABLE, ANY TYPE 016 [facility] Preventive Medicine Administration Of Health Risk Questionnaire Patient-Focused Preventive Medicine Administration Of Health Risk Questionnaire Patient-Focused 22018 019 OLGA VENEGAS [facility] Threshold Audiogram (Pure Tone) Automated Threshold Audiogram (Pure Tone) Automated [id number] 019 PHU ZAIDI I [facility] Patient education, not otherwise cla ified, non-physician provider, group, per se ion 019 PHU ZAIDI I [facility] Screening Test Of Visual Acuity, Quantitative, Bilateral Screening Test Of Visual Acuity, Quantitative, Bilateral 51559 019 AUGUSTA CHOPRA [facility] Psychiatric Diagnostic Evaluation Psychiatric Diagnostic Evaluation 44318 018 ANA MONTALVO [facility] Preventive Medicine Administration Of Health Risk Questionnaire Patient-Focused Preventive Medicine Administration Of Health Risk Questionnaire Patient-Focused 12703 018 TRINIDAD WILSON [facility] Physical Therapy Service Re-Evaluation Physical Therapy Service Re-Evaluation 29421 016 TL LOZANO [facility] Modalities Cryotherapy Cold Packs Modalities Cryotherapy Cold Packs 98370 016 CAITIE WILKINSON [facility] Physical Medicine - Group Physical Therapy Se ion Physical Medicine - Group Physical Therapy Session 88536 016 CAITIE WILKINSON [facility] Physical Therapy Neuromuscular Re-education Physical Therapy Neuromuscular Re-education 98843 016 CAITIE WILKINSON [facility] Modalities Cryotherapy Cold Packs Modalities Cryotherapy Cold Packs 89017 016 CAITIE WILKINSON [facility] Physical Therapy Neuromuscular Re-education Physical Therapy Neuromuscular Re-education 93778 016 CAITIE WILKINSON [facility] Physical Medicine - Group Physical Therapy Se ion Physical Medicine - Group Physical Therapy Session 03752 016 CAITIE WILKINSON [facility] Modalities Cryotherapy Cold Packs Modalities Cryotherapy Cold Packs 11379 016 CAITIE WILKINSON [facility] A isted Exercises For ROM Assisted Exercises For ROM 96513 016 CAITIE WILKINSON [facility] Physical Therapy Neuromuscular Re-education Physical Therapy Neuromuscular Re-education 32247 016 CAITIE WILKINSON [facility] Athletic Training Evaluation Athletic Training Evaluation 22537 016 CAITIE WILKINSON [facility] A isted Exercises For ROM Assisted Exercises For ROM 26832 016 SILKE SKY [facility] Physical Therapy Service Evaluation Physical Therapy Service Evaluation 83654 016 SILKE SKY [facility] Osteopathic Manip Treatment (OMT) 1-2 Body Regions Involved Osteopathic Manip Treatment (OMT) 1-2 Body Regions Involved 79221 016 GREG NEVILLE Physical Therapy: ___ Se ion Segments, 15 Minutes Each Physical Therapy: ___ Session Segments, 15 Minutes Each 86631 016 GREG NEVILLE Physical Therapy Service Evaluation Physical Therapy Service Evaluation 67332 016 GREG NEVILLE Athletic Training Evaluation Athletic Training Evaluation 49693 016 AVERY BLAIR [facility] Meningococcal Conjugate Vaccine Quadrivalent Serogroups A, C, Y, W-135 016 PEYURIY, SUKUMAR L [facility] Influenza Split Virus Vaccine IM Preserv Free 0.5mL Dosage Quadrivalent 016 PEEL SUKUMAR L Influenza Seasonal, injectable quadrivalent - preservative free; Series #: 1; .5 mL; IM; Left Arm; [facility] [place]: [employer] Lot: [id number]; VIS given (Hayley: 02/08/2015). [facility] Immunization Administration By Injection, One Vaccine Immunization Administration By Injection, One Vaccine 54261 016 PEEL, SUKUMAR L [facility] Immunization Administration By Injection, Each Additional Vaccine Immunization Administration By Injection, Each Additional Vaccine 21442 016 PEEL, SUKUMAR L DoD Immunization Admin By Intranasal / Oral Route One Vaccine Immunization Admin By Intranasal / Oral Route One Vaccine 58408 016 PEEL, SUKUMAR L [facility] Hepatitis A Vaccine Adult Dosage (Intramuscular Use) Hepatitis A Vaccine Adult Dosage (Intramuscular Use) 30862 016 PEEL, SUKUMAR L Hep A (Adult); Series #: 1; 1.0 mL; IM; Left Arm; [facility] [place]: [employer]; Lot: [id number]; VIS given (Hayley: 04/28/11). [facility] Vaccines Vaccines 44326 016 PEEL, SUKUMAR L Adenovirus Type 4 and 7; Series #: 1; 2 caps; PO; Oral; Mfg: [employer]; Lot: [id number]; VIS given (Hayley: 12/13/13). [facility] Vaccines Viral Polio, Inactivated Vaccines Viral Polio, Inactivated 42539 016 PEEL, SUKUMAR L IPV; Series #: 1; .5 mL; IM; Left Arm; Mfg: [employer]; Lot: [id number]; VIS given (Hayley: 05/12/11). [facility] Vaccines Viral Measles, Mumps and Rubella, Live Vaccines Viral Measles, Mumps and Rubella, Live 88924 016 PEEL, SUKUMAR L MMR; Series #: 1; .5 mL; SC; Left Arm; Mfg: [employer]; Lot: [id number]; VIS given (Hayley: 10/23/11). [facility] Social History Combined list of available smoking, tobacco, and other social history from Department of Defense and Veterans Affairs facilities. Social History Type Response Date Comment Sour e Tobacco smoking status [facility] VA-TOBACCO NEVER USED 01/19/2024 [facility] History of tobacco use VA-TOBACCO NEVER USED 12/02/2022 [facility] History of tobacco use LIFETIME NON-SMOKER 02/23/2022 [facility] History of tobacco use LIFETIME NON-SMOKER 02/20/2022 [facility] History of tobacco use VA-TOBACCO NEVER USED 07/23/2021 [facility] History of tobacco use VA-TOBACCO NEVER USED 06/19/2019 [facility] This section is an empty social history section. DoD Assessment and Plan Combined list of future care activities from Department of Defense and Veterans Affairs facilities (e.g., assessment and plan notes, appointments, orders, and referrals). Additional future care activities may be listed in the Plan of Care section. Result Assessment and Plan Date Source Assessment and Plan No data available for this section 05/17/2024 Ambulatory Pharmacy Plan of Care List of future care activities from Department of Veterans Affairs facilities. Additional future care activities may be listed in the Assessment and Plan section. Date/Time Care Activity Care Activity Detail Facili ty 05/18/2024 AMBULATORY - SURGERY AMBULATORY - SURGERY [facility] 05/22/2024 AMBULATORY - NONE AMBULATORY - NONE [facility] 06/07/2024 [facility] Functional Status Combined list of recent functional and cognitive assessments recorded at Department of Defense and [facility] [place] Functional [place] Measurement (FIM) Scale: 1 = Total Assistance (Subject = 0% +), 2 = Maximal Assistance (Subject = 25% +), 3 = Moderate Assistance (Subject = 50% +), 4 = Minimal Assistance (Subject = 75% +), 5 = Supervision, 6 = Modified [place] (Device), 7 = Complete [place] (Timely, Safely). Assessment Date/Time Source Assessment Type Assessment Skill Assessment Score Assessment Details No data available for this section
--- OUTSIDE RECORDS SUMMARY | 2024-05-17 01:27 | XMS_ITS | Encounter Summary ---
Author Name [facility] ([place] [facility] Address [address] [place] [id number] Care Team Providers Care Mentally Retarded Teacher Name Role Phone ANITA HARVEY Primary Care Provider [facility] Insurance Providers: All historical and current [...] Name Patient's Relationship to Policy Dick [facility]GAN[facility] W/OUT OF NETWORK BENEFITS FED EMP OPEN ACCES S Jan 04, 2022 [id number] JELENA COVINGTON PATIENT [facility] ORGANIZAT ION W/OUT OF NETWORK BENEFITS FED EMP OPEN ACCES S Jan 04, 2022 [id number] MIRIAMJELENA JORDAN PATIENT [employer] RX PRESCRIPT ION HEALT H PART WANDA AL Jul 05, 2023 [id number] ADRIAJELENA GALVAN PATIENT Selected Encounter This section includes the information on record at [place] for the Encounter. Date/Time Encounter Type Encounter Description Reason Provider Source Mar 17, 2024 10:00 AM HLTH&WB COACHING INDIV [facility] ICD-10-CM Z71.9 Counseling, unspecified HANS VELASCO D IHE Encounter Template Text not used by [place] Assessments - Encounter Diagnoses This section includes the primary and secondary diagnoses documented for the Encounter. Date/Time Primary/Secondary Diagnosis Diagnosis Name Provider Source Mar 17, 2024 11:03 AM PRIMARY Counselingirineo JESSICA D [facility] Plan of Treatment: Future Appointments (+ 6 months) and Future Tests (+/- 45 days) The Plan of Treatment section includes future care activities for the patient from all [place] [facility] This section includes future appointments and future orders which are active, pending or scheduled. Future Appointments This section includes appointments that were scheduled to occur 6 months from the date of the Encounter, up to a maximum of 20 appointments. The data comes from all [facility]. Appointment Date/Time Appointment Type Appointme nt Facility Name Mar 23, 2024 08:00 AM AMBULATORY - REHAB [facility] Apr 13, 2024 09:00 AM AMBULATORY - NONE [facility] Apr 14, 2024 11:00 AM AMBULATORY - PSYCHIATRY [facility] Apr 19, 2024 07:45 AM AMBULATORY - REHAB [facility] May 12, 2024 11:00 AM AMBULATORY - PSYCHIATRY [facility] May 18, 2024 08:20 AM AMBULATORY - SURGERY [facility] May 22, 2024 10:00 AM AMBULATORY - NONE [facility] Jun 07, 2024 03:30 PM AMBULATORY - PSYCHIATRY [facility] Aug 18, 2024 11:00 AM AMBULATORY - PSYCHIATRY [facility] Active, Pending, and Scheduled Orders This section includes a listing of several types of active, pending, and scheduled orders, including clinic medications orders, diagnostic test orders, procedure orders and consult orders; where the start date of the order is 45 days before the date of the Encounter or 45 days after the date of theEncounter. The data comes from all [facility]. Test Date/Time Test Type Test Details Facility Name Feb 09, 2024 12:00 AM Laboratory - Chemi stry Order CBC BLOOD SP ONCE [facility] Social History: Smoking Status (Most current) and Tobacco Use (All prior to encounter date) This section includes the most current, and the historical, smoking and tobacco- related health factors from the [place] facility where the Encounter took place. Current Smoking Status This section includes the most current smoking, or tobacco-related health factor, from the [place] facility where the Encounter took place. Date/Time Current Smoking Status Comment Yasmeen nazario Jan 19, 2024 04:00 PM VA-TOBACCO NEVER USED [facility] Tobacco Use History This section includes a history of the smoking, or tobacco-related health factors, that were collected on or before the date of the Encounter. The data comes from the [place] facility where the Encounter took place. Date/Time Smoking Status/Tobacco Use Comment Omar dickens December 02, 2022 03:30 PM VA-TOBACCO NEVER USED [facility] Feb 23, 2022 08:19 AM LIFETIME NON-SMOKER [facility] Feb 20, 2022 02:22 PM LIFETIME NON-SMOKER [facility] Jul 23, 2021 02:30 PM VA-TOBACCO NEVER USED [facility] Encounter Notes: All associated encounter notes This section contains the clinical notes associated to the Encounter. Date/Time Encounter Note(s) Provider Source Mar 17, 2024 10:57 AM [facility] NOTE: LOCAL TITLE: WHOLE HEALTH COACHING STANDARD TITLE: [facility] NOTE DATE OF NOTE: MAR 17, 2024@10:57 ENTRY DATE: MAR 17, 2024@10:57:19 AUTHOR: HANS VELASCO COSIGNER: URGENCY: STATUS: COMPLETED Health and Wellness Coaching HEALTH AND WELLNESS COACHING VISIT --------- *Type of Visit: contacted using Video Telehealth. Patient Contact Details: Best contact number for backup/emergency communication with patient: Patient Location/Surroundings During Visit: Patient location during visit: Home [address] [place] [address] [place], [place] [address] Patient confirms location is safe and private for visit. Telehealth Disclosure: Visit conducted by synchronous telehealth. Patient verbal consent obtained. Location/emergency number confirmed. Environment surveyed and all participants identified. Virtual conference room locked. *Session number: 17 Time spent with [place]: 30-60 minutes was seen for Health and Wellness Coaching related to: Personal Development Power of the Mind Other: Mindfulness [employer] GOALS --------- Long-Term Whole Health Goals: Walworth confirmed no changes to previously set long-term Whole Health goal (s). Short-Term S.M.A.R.T. Goals: 's S.M.A.R.T. goal(s): set a new S.M.A.R.T. goal(s) of: Goal 1: try mindful moment before getting out of bed via meditation emil and/or breathing to reduce anxiety ADDITIONAL SESSION INFORMATION --------- Terrence has been utilizing mindfulness skills but will try in the morning to combat anxiety throughout the day. Terrence did take a self-care half day a few weeks ago and reports it took until about 3 miles of my hike to feel relaxed but it worked. Terrence plans on taking a half day for self care p5ilryt. She's got the next 2-3 on her clarisa and will request leave. PLAN --------- Plan: Arranged follow-up with : agreed to follow-up by: Kristyn /wally/ HANS VELASCO STAFF NURSE Signed: 03/17/2024 11:03 HANS VELASCO [facility]
--- OUTSIDE RECORDS SUMMARY | 2024-05-17 01:27 | XMS_ITS | Encounter Summary ---
Author Name Department [place] Organization [place] Address [address] [place] [id number] Care Team Providers Care Tracer Bullet Section Supervisor Name Role Phone ANITA HARVEY Primary Care [...] Dick's Name Patient's Relationship to Policy Dick [facility] CE ORGANIZAT ION W/OUT OF NETWORK BENEFITS FED EMP OPEN ACCES S Jan 04, 2022 [facility] [id number] [phone] JELENA COVINGTON PATIENT [facility] CE ORGAN[facility] ION W/OUT OF NETWORK BENEFITS FED EMP OPEN ACCES S Jan 04, 2022 [id number] [phone] JELENA COVINGTON PATIENT [employer] RX PRESCRIPT ION HEALT H PART [place] Jul 05, 2023 [facility] [id number] [phone] ADRIAJELENA GALVAN PATIENT Selected Encounter This section includes the information on record at [place] for the Encounter. Date/Time Encounter Type Encounter Description Reason Provider Source Apr 14, 2024 11:00 AM PSYTX W PT 45 MINUTES [facility] - IND ICD-10-CM F33.8 Other recurrent depressive disorders [facility] Encounter Template Text not used by [place] Assessments - Encounter Diagnoses This section includes the primary and secondary diagnoses documented for the Encounter. Date/Time Primary/Secondary Diagnosis Diagnosis Name Provider Source Apr 28, 2024 10:36 AM PRIMARY Other recurrent depressive disorders [place] [facility] Apr 28, 2024 10:36 AM SECONDARY Anxiety disorder, unspecified ROBLES OLEARY [facility] Plan of Treatment: Future Appointments (+ 6 months) and Future Tests (+/- 45 days) The Plan of Treatment section includes future care activities for the patient from all [place]. This section includes future appointments and future orders which are active, pending or scheduled. Future Appointments This section includes appointments that were scheduled to occur 6 months from the date of the Encounter, up to a maximum of 20 appointments. The data comes from all [place] treatment facilities. Appointment Date/Time Appointment Type Appointme nt Facility Name Apr 19, 2024 07:45 AM AMBULATORY - REHAB MEDICIN E [facility] May 12, 2024 11:00 AM AMBULATORY - PSYCHIATRY PR [facility] May 18, 2024 08:20 AM AMBULATORY - SURGERY [facility] May 22, 2024 10:00 AM [facility] Jun 07, 2024 03:30 PM AMBULAT[facility] - [facility] Aug 18, 2024 11:00 AM AMBULATORY - PSYCHIATRY [facility] Social History: Smoking Status (Most current) and Tobacco Use (All prior to encounter date) This section includes the most current, and the historical, smoking and tobacco- related health factors from the [place] facility where the Encounter took place. Current Smoking Status This section includes the most current smoking, or tobacco-related health factor, from the [place] facility where the Encounter took place. Date/Time Current Smoking Status Comment Yasmeen nazaroi Jan 19, 2024 04:00 PM VA-TOBACCO NEVER USED [facility] Tobacco Use History This section includes a history of the smoking, or tobacco-related health factors, that were collected on or before the date of the Encounter. The data comes from the [place] facility where the Encounter took place. Date/Time Smoking Status/Tobacco Use Comment Omar dickens December 02, 2022 03:30 PM [place]-TOBACCO NEVER USED [facility] Feb 23, 2022 08:19 AM LIFETIME NON-SMOKER [facility] Feb 20, 2022 02:22 PM LIFETIME NON-SMOKER [facility] Jul 23, 2021 02:30 PM VA-TOBACCO NEVER USED [facility] Encounter Notes: All associated encounter notes This section contains the clinical notes associated to the Encounter. Date/Time Encounter Note(s) Provider Source Apr 14, 2024 12:45 PM MENTAL HEALTH NOTE : LOCAL TITLE: MEASUREMENT BASED CARE STANDARD TITLE: MENTAL HEALTH NOTE DATE OF NOTE: APR 14, 2024@12:45:55 ENTRY DATE: APR 14, 2024@12:45:55 AUTHOR: ROBLES OLEARY COSIGNER: URGENCY: STATUS: COMPLETED Assessments were sent to the [place] via text/email. These assessments were completed by JASMIN COVINGTON on their own device on 04/14/2024 11:49:19 AM. PATIENT HEALTH QUESTIONNAIRE-9 (PHQ-9) The patient reported some symptoms of depression; symptoms are not consistent with a major depressive episode. Patient reported being bothered by the following over the last 2 weeks: 1. Little interest or pleasure: Several Days 2. Feeling down, depressed or hopeless: Several Days 3. Trouble sleeping: More than half the days 4. Tired, low energy: More than half the days 5. Poor appetite, over-eating: Several Days 6. Feelings of failure, guilt: Not at all 7. Trouble concentrating: Several Days 8. Motor retardation, agitation: Not at all 9. Thoughts better off /hurting self: Not at all PHQ-9 total score = 8 1-4 = minimal symptoms 5-9= mild symptoms 10-14= moderate symptoms 15-19= moderately severe symptoms 20-27= severe depressive symptoms The patient stated that the depressive symptoms made it somewhat difficult to work, take care of things at home, or get along with others. GENERAL ANXIETY DISORDER-7 (YOGESH-7) Patient reported being bothered by the following over the last two weeks: 1. Feeling nervous, anxious or on edge: More than half the days 2. Not being able to stop or control worrying: More than half the days 3. Worrying too much about different things: More than half the days 4. Trouble relaxing: More than half the days 5. Feeling restless (hard to sit still): More than half the days 6. Becoming easily annoyed or irritable: Several days 7. Afraid as if something awful might happen: Not at all YOGESH-7 total score = 11 0-4=minimal symptoms 5-9=mild symptoms 10-14=moderate symptoms 15-21=severe symptoms The patient stated that the anxiety symptoms made it somewhat difficult to work, take care of things at home, or get along with others. THE ACCEPTANCE AND ACTION QUESTIONNAIRE-II (AAQ-II) The patient rated how true each statement is for them as follows: 1. It's OK if I remember something unpleasant: Sometimes 2. My painful experiences and memories make it difficult for me to live a life that I would value: Very seldom true 3. I am afraid of my feelings: Sometimes 4. I worry about not being able to control my worries and feelings: Sometimes 5. My painful memories prevent me from having a fulfilling life: Very seldom true 6. I am in control of my life: Frequently true 7. Emotions cause problems in my life: Seldom true 8. It seems like most people are handling their lives better than I am: Sometimes 9. Worries get in the way of my success: Sometimes 10. My thoughts and feelings do not get in the way of how I want to live my life: Sometimes Total Score: 46 Scores range from 10 to 70 with higher scores indicating greater psychological flexibility. /es/ ROBLES M MAMTA STAFF PSYCHOLOGIST Signed: 04/14/2024 14:12 ROBLES OELARY [facility] Apr 14, 2024 11:00 AM MENTAL HEALTH NOTE : LOCAL TITLE: MH PROGRESS NOTE STANDARD TITLE: MENTAL HEALTH NOTE DATE OF NOTE: APR 14, 2024@11:00 ENTRY DATE: APR 14, 2024@11:01:04 AUTHOR: [facility] O[facility] EXP COSIGNER: URGENCY: STATUS: COMPLETED MH TX PLAN: Aug 25, 2023 (due 2024) PHQ9: 8 (apr 14, 2024) GAD7: 11 (Apr 14, 2024) INFORMED CONSENT: Patient and provider reviewed confidentiality and privacy, as well as limitations to privacy. Limits and benefits of treatment were reviewed. We reviewed purpose of this meeting and patient rights. Visit conducted by synchronous telehealth. At the beginning of the session, [place] verbal consent was obtained. Location/emergency number confirmed. Environment surveyed and all participants identified. Virtual conference room locked. Undersigned abstract writer answered any questions patient had about using this technology for individual therapy and [place] indicated acceptance and understanding of steps to protect confidentiality and limitations as reasonable. consented to meet for the purpose of therapy. I met with [place] for 60 minutes of psychotherapy using ACT by [facility].[place] doing well. Reports that she had been given orders to work FT for [employer] at [employer] for 3 months during other people's absences. She will go up 3 days a week and [facility] 2 days a week. States this will be a good break b/c she has been getting a bit bored at work. Discussed some stressful encounters with her father. Marriage is going well and her wants to pursue a [employer] business half time next year. Discussed her ongoing ability to balance her desire for achievement, having challenge/interest in her life, busy family, with her need to manage self-criticism/anxiety. [place] generally doing well with this. Mental Status: Session/visit location: home Presentation: casually dressed and neatly groomed Orientation/cognition/memory : WNL, not formally assessed Motor: Normal Mood: good, mild anxiety Affect: congruent with conversation topics Speech/Communication: Speech was normal in rate, rhythm, and tone Thought Process: Clear, logical, and goal-directed Thought Content: No evidence of A/V hallucinations, flight of ideas, loose associations, or delusions. Suicidality: denied current SI, plan, and intent. Homicidally: [place] denied HI, plan, or intent. Judgment: Good [...] Related to: Service Connected Condition, MST, Combat Related Diagnoses: Recurrent depression (SCT 229361016) - Other recurrent depressive disorders (ICD-10-CM F33.8) (Primary) Anxiety (SCT 22812806) - Anxiety disorder, unspecified (ICD-10-CM F41.9) Reaction to Severe Stress, unspecified (ICD-10-CM F43.9) Procedures: 38-52 minutes Plan: F/U in August after she is done with orders. [place] will contact me sooner if needs arise. has this providers' contact number, [place] number, and the [facility]. /wally/ ROBLES OLEARY STAFF PSYCHOLOGIST Signed: 04/14/2024 14:16 ROBLES OLEARY [facility]
--- OUTSIDE RECORDS SUMMARY | 2024-05-17 01:27 | XMS_ITS | Encounter Summary ---
Author Name Department of Veter[place] Affairs ([place]) Organization [place] Address [address] [place] [address] Care Team Providers Care Gas Prover Name Role Phone ANITA HARVEY Primary Care Provider [facility] Insurance Providers: All [...] Dick's Name Patient's Relationship to Policy Dick [facility] CE ORGANIZAT ION W/OUT OF NETWORK BENEFITS FED EMP OPEN ACCES S Jan 04, 2022 [facility] [id number] [phone] JELENA COVINGTON PATIENT [facility] CE ORGANIZAT ION W/OUT OF NETWORK BENEFITS FED EMP OPEN ACCES S Jan 04, 2022 [id number] JELENA COVINGTON PATIENT [employer] RX PRESCRIPT ION HEALT H PART [place] Jul 05, 2023 [facility] [id number] [phone] MIRIAMJULIANJELENA PATIENT Selected Encounter This section includes the information on record at [place] for the Encounter. Date/Time Encounter Type Encounter Description Reason Provider Source Apr 19, 2024 07:45 AM ACUPUNCT W/O STIMUL 15 MIN CIH TREATMENT ICD-10-CM F41.9 Anxiety disorder, unspecified SAV ORELLANA [facility] Encounter Template Text not used by [place] Assessments - Encounter Diagnoses This section includes the primary and secondary diagnoses documented for the Encounter. Date/Time Primary/Secondary Diagnosis Diagnosis Name Provider Source Apr 19, 2024 09:05 AM PRIMARY Anxiety disorder, unspecified SAV ORELLANA [facility] Apr 19, 2024 09:05 AM SECONDARY Migraine, unsp, not intractable, without status migrainosus SAV ORELLANA [facility] Apr 19, 2024 09:05 AM SECONDARY Stress, not elsewhere classified [facility] Plan of Treatment: Future Appointments (+ 6 months) and Future Tests (+/- 45 days) The Plan of Treatment section includes future care activities for the patient from all [place] [facility]. This section includes future appointments and future orders which are active, pending or scheduled. Future Appointments This section includes appointments that were scheduled to occur 6 months from the date of the Encounter, up to a maximum of 20 appointments. The data comes from all [place] treatment facilities. Appointment Date/Time Appointment Type Appointme nt Facility Name May 12, 2024 11:00 AM AMBULATORY - PSYCHIATRY [facility] May 18, 2024 08:20 AM AMBULATORY - SURGERY [facility] May 22, 2024 10:00 AM AMBULATORY - NONE [facility] Jun 07, 2024 03:30 PM AMBULATORY - PSYCHIATRY [facility] Aug 18, 2024 11:00 AM AMBULATORY - PSYCHIATRY [facility] Social History: Smoking Status (Most current) and Tobacco Use (All prior to encounter date) This section includes the most current, and the historical, smoking and tobacco- related health factors from the [place] facility where the Encounter took place. Current Smoking Status This section includes the most current smoking, or tobacco-related health factor, from the [place] facility where the Encounter took place. Date/Time Current Smoking Status Comment Yasmeen nazario Jan 19, 2024 04:00 PM VA-TOBACCO NEVER USED [facility] Tobacco Use History This section includes a history of the smoking, or tobacco-related health factors, that were collected on or before the date of the Encounter. The data comes from the [place] facility where the Encounter took place. Date/Time Smoking Status/Tobacco Use Comment F acemily December 02, 2022 03:30 PM VA-TOBACCO NEVER USED [facility] Feb 23, 2022 08:19 AM LIFETIME NON-SMOKER [facility] Feb 20, 2022 02:22 PM LIFETIME NON-SMOKER [facility] Jul 23, 2021 02:30 PM VA-TOBACCO NEVER USED [facility] Encounter Notes: All associated encounter notes This section contains the clinical notes associated to the Encounter. Date/Time Encounter Note(s) Provider Source Apr 19, 2024 09:02 AM PHYSICAL MEDICINE REHAB NOTE: LOCAL TITLE: [facility] WELLNESS NOTE STANDARD TITLE: PHYSICAL MEDICINE REHAB NOTE DATE OF NOTE: APR 19, 2024@09:02 ENTRY DATE: APR 19, 2024@09:02:41 AUTHOR: SAV ORELLANA EXP COSIGNER: URGENCY: STATUS: COMPLETED [facility] INTEGRATIVE GROUP ACUPUNCTURE FOLLOW-UP NOTE Number of [facility] group acupuncture visit 3 Treatment course:2 SUBJECTIVE: Chief Concern: relaxation and stress relief OBJECTIVE: problem list was evaluated. TCM Examination: Traditional Tanzanian Medicine Diagnosis of: Qi and Blood Stagnation. completed [facility] group acupuncture intake form, with the following responses: Recent surgeries: No Pain injections within the last two weeks: No Emotional status: tired Current Pain Level: 3 Pain Quality: dull, headache and cramps Exam: presents to [facility] Acupuncture staff alert, appropriate and engaged in conversation. Assessment: Verbal informed consent obtained or remains in place from initial visit. Crapo was seated in chair, fully clothed, except for removal of shoes and socks, if comfortable. Clean needle technique was used. Pre-sterilized, stainless steel acupuncture needles were inserted into selected acupuncture points. Body points selected: Bilateral or Bimodal: DU20,YT,ST36,SP9,GB34,ST4 0,SP6,LV3 Auricular points selected: NADA Number of needles inserted: 24 Number of needles removed: 24 Number of needles disposed: 24 Tolerated group acupuncture well: YES TREATMENT PLAN Crapo was encouraged to continue Group Acupuncture course of 3 additional visit out of a total of 6 visits. Time of one-on-one contact with : 45 minutes. /wally/ SAV ORELLANA [employer] D[employer] CUTTER DIAMOND Signed: 04/19/2024 09:05 SAV ORELLANA [facility]
--- OUTSIDE RECORDS SUMMARY | 2024-05-17 01:27 | XMS_ITS | Encounter Summary ---
Author Name Department [place] Address [address] [place] [address] Care Team Providers Care Grinding Room Supervisor Name Role Phone ANITA HARVEY Primary Care Provider [facility] Insurance Providers: All historical and [...] Dick's Name Patient's Relationship to Policy Dick [facility] CE ORGANIZAT ION W/OUT OF NETWORK BENEFITS FED EMP OPEN ACCES S Jan 04, 2022 [facility] [id number] JELENA COVINGTON PATIENT [facility] CE ORGANIZAT ION W/OUT OF NETWORK BENEFITS FED EMP OPEN ACCES S Jan 04, 2022 [id number] [phone] JELENA COVINGTON GALVAN PATIENT [employer] RX PRESCRIPT ION HEALT H PART WANDA [place] Jul 05, 2023 [facility] [id number] [phone] JELENA COVINGTON PATIENT Selected Encounter This section includes the information on record at [place] for the Encounter. Date/Time Encounter Type Encounter Description Reason Provider Source Mar 23, 2024 08:00 AM ACUPUNCT W/O STIMUL 15 MIN CIH TREATMENT ICD-10-CM Z73.3 Stress, not elsewhere classified SAV ORELLANA [facility] Encounter Template Text not used by [place] Assessments - Encounter Diagnoses This section includes the primary and secondary diagnoses documented for the Encounter. Date/Time Primary/Secondary Diagnosis Diagnosis Name Provider Source Apr 04, 2024 08:13 AM PRIMARY Stress, not elsewhere classified SVA ORELLANA [facility] Apr 04, 2024 08:13 AM SECONDARY Pain in right hip SAV ORELLANA [facility] Plan of Treatment: Future Appointments (+ 6 months) and Future Tests (+/- 45 days) The Plan of Treatment section includes future care activities for the patient from all [place] [facility]. This section includes future appointments and future orders which are active, pending or scheduled. Future Appointments This section includes appointments that were scheduled to occur 6 months from the date of the Encounter, up to a maximum of 20 appointments. The data comes from all [facility]. Appointment Date/Time Appointment Type Appointme nt Facility Name Apr 13, 2024 09:00 AM AMBULATORY - NONE [facility] Apr 14, 2024 11:00 AM AMBULATORY - PSYCHIATRY [facility] Apr 19, 2024 07:45 AM AMBULATORY - REHAB MEDICIN E [facility] May 12, 2024 11:00 AM AMBULATORY - PSYCHIATRY [facility] May 18, 2024 08:20 AM AMBULATORY - SURGERY [facility] May 22, 2024 10:00 AM AMBULATORY - NONE [facility] Jun 07, 2024 03:30 PM AMBULATORY - PSYCHIATRY [facility] Aug 18, 2024 11:00 AM AMBULATORY - PSYCHIATRY [facility] Active, Pending, and Scheduled Orders This section includes a listing of several types of active, pending, and scheduled orders, including clinic medications orders, diagnostic test orders, procedure orders and consult orders; where the start date of the order is 45 days before the date of the Encounter or 45 days after the date of theEncounter. The data comes from all [facility]. Test Date/Time Test Type Test Details Facility Name Feb 09, 2024 12:00 AM Laboratory - Chemi stry Order CBC BLOOD SP ONCE [facility] Social History: Smoking Status (Most current) and Tobacco Use (All prior to encounter date) This section includes the most current, and the historical, smoking and tobacco- related health factors from the [facility] where the Encounter took place. Current Smoking Status This section includes the most current smoking, or tobacco-related health factor, from the [facility] where the Encounter took place. Date/Time Current Smoking Status Comment Yasmeen nazario Jan 19, 2024 04:00 PM VA-TOBACCO NEVER USED [facility] Tobacco Use History This section includes a history of the smoking, or tobacco-related health factors, that were collected on or before the date of the Encounter. The data comes from the [place] facility where the Encounter took place. Date/Time Smoking Status/Tobacco Use Comment Omar dickens December 02, 2022 03:30 PM VA-TOBACCO NEVER USED [facility] Feb 23, 2022 08:19 AM LIFETIME NON-SMOKER [facility] Feb 20, 2022 02:22 PM LIFETIME NON-SMOKER [facility] Jul 23, 2021 02:30 PM VA-TOBACCO NEVER USED [facility] Encounter Notes: All associated encounter notes This section contains the clinical notes associated to the Encounter. Date/Time Encounter Note(s) Provider Source Mar 23, 2024 09:07 AM PHYSICAL MEDICINE REHAB NOTE: LOCAL TITLE: [facility] WELLNESS NOTE STANDARD TITLE: PHYSICAL MEDICINE REHAB NOTE DATE OF NOTE: MAR 23, 2024@09:07 ENTRY DATE: MAR 23, 2024@09:07:06 AUTHOR: SAV ORELLANA EXP COSIGNER: URGENCY: STATUS: COMPLETED [facility] INTEGRATIVE GROUP ACUPUNCTURE FOLLOW-UP NOTE Number of [facility] group acupuncture visit 2 Treatment course:2 SUBJECTIVE: Chief Concern: relaxation and stress relief OBJECTIVE: problem list was evaluated. TCM Examination: Traditional Kiswahili Medicine Diagnosis of: Qi and Blood Stagnation. Larose completed [facility] group acupuncture intake form, with the following responses: Recent surgeries: No Pain injections within the last two weeks: No Emotional status: tired Current Pain Level: 3 Pain Quality: dull, right hip Exam: Larose presents to [facility] Acupuncture staff alert, appropriate and engaged in conversation. Assessment: Verbal informed consent obtained or remains in place from initial visit. was seated in chair, fully clothed, except for removal of shoes and socks, if comfortable. Clean needle technique was used. Pre-sterilized, stainless steel acupuncture needles were inserted into selected acupuncture points. Body points selected: Bilateral or Bimodal: DU20,HT7,ST40,SP6,KD3,KD6 ,LV3 Auricular points selected: NADA Number of needles inserted: 23 Number of needles removed: 23 Number of needles disposed: 23 Tolerated group acupuncture well: YES TREATMENT PLAN was encouraged to continue Group Acupuncture course of 4 additional visit out of a total of 6 visits. Time of one-on-one contact with : 45 minutes. /wally/ SAV ORELLANA ADVANCED TRAVELING AUDITOR Signed: 03/23/2024 09:09 SAV ORELLANA [facility]
--- OUTSIDE RECORDS SUMMARY | 2024-05-17 01:27 | XMS_ITS | Encounter Summary ---
Author Name Department [place] ([place]) Organization Department of [facility] Affairs ([place]) Address [address] [place] [address] Care Team Providers Care Dictionary Editor Name Role Phone ANITA HARVEY Primary Care [...] to Policy Dick [facility] CE ORGANIZAT ION W/OUT OF NETWORK BENEFITS FED EMP OPEN ACCES S Jan 04, 2022 [id number] JELENA COVINGTON PATIENT [facility] CE ORGANIZAT ION W/OUT OF NETWORK BENEFITS FED EMP OPEN ACCES S Jan 04, 2022 [id number] MIRIAMJELENA JORDAN PATIENT MEDIMPACT RX PRESCRIPT ION HEALT H PART WANDA AL Jul 05, 2023 [id number] [phone] ADRIAJELENA GALVAN PATIENT Selected Encounter This section includes the information on record at [place] for the Encounter. Date/Time Encounter Type Encounter Description Reason Provider Source Apr 13, 2024 09:00 AM HLTH&WB COACHING INDIV [facility] ICD-10-CM Z71.9 Counseling, unspecified HANS VELASCO D IHE Encounter Template Text not used by [place] Assessments - Encounter Diagnoses This section includes the primary and secondary diagnoses documented for the Encounter. Date/Time Primary/Secondary Diagnosis Diagnosis Name Provider Source Apr 14, 2024 12:13 PM PRIMARY Counselingirineo JESSICA D [facility] Plan of Treatment: Future Appointments (+ 6 months) and Future Tests (+/- 45 days) The Plan of Treatment section includes future care activities for the patient from all [place] [facility]. This section includes future appointments and future orders which are active, pending or scheduled. Future Appointments This section includes appointments that were scheduled to occur 6 months from the date of the Encounter, up to a maximum of 20 appointments. The data comes from all [place] treatment facilities. Appointment Date/Time Appointment Type Appointme nt Facility Name Apr 14, 2024 11:00 AM AMBULATORY - [facility]ATRY [facility] Apr 19, 2024 07:45 AM AMBULATORY - REHAB MEDICIN E [facility] May 12, 2024 11:00 AM AMBULATORY [facility] PS[facility]CHIATRY [facility] May 18, 2024 08:20 AM AMBUL[facility]ORY - SUR[facility]ERY [facility] May 22, 2024 10:00 AM AMBULATORY - NONE [facility] Jun 07, 2024 03:30 PM AMBULATORY - PS[facility]CHIATRY [facility] Aug 18, 2024 11:00 AM AMBULATORY - PS[facility]CHIATRY [facility] Social History: Smoking Status (Most current) and Tobacco Use (All prior to encounter date) This section includes the most current, and the historical, smoking and tobacco- related health factors from the [place] facility where the Encounter took place. Current Smoking Status This section includes the most current smoking, or tobacco-related health factor, from the [place] facility where the Encounter took place. Date/Time Current Smoking Status Comment Yasmeen nazario Jan 19, 2024 04:00 PM VA-TOBACCO NEVER USED [facility] Tobacco Use History This section includes a history of the smoking, or tobacco-related health factors, that were collected on or before the date of the Encounter. The data comes from the [place] facility where the Encounter took place. Date/Time Smoking Status/Tobacco Use Comment F acility December 02, 2022 03:30 PM VA-TOBACCO NEVER USED [facility] Feb 23, 2022 08:19 AM LIFETIME NON-SMOKER [facility] Feb 20, 2022 02:22 PM LIFETIME NON-SMOKER [facility] Jul 23, 2021 02:30 PM VA-TOBACCO NEVER USED [facility] Encounter Notes: All associated encounter notes This section contains the clinical notes associated to the Encounter. Date/Time Encounter Note(s) Provider Source Apr 13, 2024 09:40 AM INTEGRATIVE HEALTH NOTE: LOCAL TITLE: WHOLE HEALTH COACHING STANDARD TITLE: INTEGRATIVE HEALTH NOTE DATE OF NOTE: APR 13, 2024@09:40 ENTRY DATE: APR 13, 2024@09:42:07 AUTHOR: HANS VELASCO: URGENCY: STATUS: COMPLETED Health and Wellness Coaching HEALTH AND WELLNESS COACHING VISIT --------- *Type of Visit: [place] contacted using Video Telehealth. Patient Contact Details: Best contact number for backup/emergency communication with patient: Patient Location/Surroundings During Visit: Patient location during visit: [address] [place] [address] Patient confirms location is safe and private for visit. Telehealth Disclosure: Visit conducted by synchronous telehealth. Patient verbal consent obtained. Location/emergency number confirmed. Environment surveyed and all participants identified. Virtual conference room locked. *Session number: 18 Time spent with [place]: 30-60 minutes was seen for Health and Wellness Coaching related to: Personal Development Power of the Mind Other: Mindfulness VETERANS GOALS --------- Long-Term Whole Health Goals: confirmed no changes to previously set long-term Whole Health goal (s). Short-Term S.M.A.R.T. Goals: 's S.M.A.R.T. goal(s): [place] set a new S.M.A.R.T. goal(s) of: Goal 1: work on boundaries with ppl in her life, not being heard, being interrupted, boundaries with her Dad - work on speaking up and also, when she is not able to intervene, not ruminate on it speak up next time. 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 Terrence feels as though it'll be a break from some other day to day responsibilities and a bigger paycheck. Terrence looking forward to Holiday Markets this winter: [place] [employer] [facility] [employer]. [place] [employer]. has [employer] business. Terrence has self-care days scheduled - will take time off work. Important to take time for herself. PLAN --------- Plan: Arranged follow-up with : [place] agreed to follow-up by: Kristyn /wally/ HANS VELASCO STAFF NURSE Signed: 04/14/2024 12:[address] [facility]
--- OUTSIDE RECORDS SUMMARY | 2024-05-17 01:28 | XMS_ITS | Encounter Summary ---
Author Name Department [place] Organization [place] Address [address] [place] [address] Care Team Providers Care Performance Test Architect Name Role Phone ANITA HARVEY Primary Care Provider [facility] Insurance Providers: All historical and [...] Dick's Name Patient's Relationship to Policy Dick [facility]ON W/OUT OF NETWORK BENEFITS FED EMP OPEN ACCES S Jan 04, 2022 [facility] [id number] JELENA COVINGTON PATIENT [facility] ORGANIZAT ION W/OUT OF NETWORK BENEFITS FED EMP OPEN ACCES S Jan 04, 2022 [id number] JELENA COVINGTON PATIENT MEDIMPACT RX PRESCRIPT ION HEALT H PART WANDA AL Jul 05, 2023 [id number] [phone] ADRIAJELENA GALVAN PATIENT Selected Encounter This section includes the information on record at [place] for the Encounter. Date/Time Encounter Type Encounter Description Reason Provider Source May 12, 2024 11:00 AM PSYTX W PT 45 MINUTES [facility] - IND ICD-10-CM F33.8 Other recurrent depressive disorders [facility] Encounter Template Text not used by [place] Assessments - Encounter Diagnoses This section includes the primary and secondary diagnoses documented for the Encounter. Date/Time Primary/Secondary Diagnosis Diagnosis Name Provider Source May 12, 2024 04:20 PM PRIMARY Other recurrent depressive disorders [facility] May 12, 2024 04:20 PM SECONDARY Anxiety disorder, unspecified [facility] May 12, 2024 04:20 PM SECONDARY Reaction to severe stress, unspecified [facility] Plan of Treatment: Future Appointments (+ 6 months) and Future Tests (+/- 45 days) The Plan of Treatment section includes future care activities for the patient from all [place] [facility]. This section includes future appointments and future orders which are active, pending or scheduled. Future Appointments This section includes appointments that were scheduled to occur 6 months from the date of the Encounter, up to a maximum of 20 appointments. The data comes from all [place] treatment facilities. Appointment Date/Time Appointment Type Appointme nt Facility Name May 18, 2024 08:20 AM AMBULATORY - SURGERY [facility] May 22, 2024 10:00 AM AMBULATORY - NONE [facility] Jun 07, 2024 03:30 PM AMBULATORY - PSYCHIATRY [facility] Aug 18, 2024 11:00 AM AMBULATORY - PSYCHIATRY [facility] Social History: Smoking Status (Most current) and Tobacco Use (All prior to encounter date) This section includes the most current, and the historical, smoking and tobacco- related health factors from the [place] facility where the Encounter took place. Current Smoking Status This section includes the most current smoking, or tobacco-related health factor, from the [place] facility where the Encounter took place. Date/Time Current Smoking Status Comment Yasmeen nazario Jan 19, 2024 04:00 PM VA-TOBACCO NEVER USED [facility] Tobacco Use History This section includes a history of the smoking, or tobacco-related health factors, that were collected on or before the date of the Encounter. The data comes from the [place] facility where the Encounter took place. Date/Time Smoking Status/Tobacco Use Comment Omar dickens December 02, 2022 03:30 PM VA-TOBACCO NEVER USED [facility] Feb 23, 2022 08:19 AM LIFETIME NON-SMOKER [facility] Feb 20, 2022 02:22 PM LIFETIME NON-SMOKER [facility] Jul 23, 2021 02:30 PM VA-TOBACCO NEVER USED [facility] Encounter Notes: All associated encounter notes This section contains the clinical notes associated to the Encounter. Date/Time Encounter Note(s) Provider Source May 12, 2024 11:00 AM MENTAL HEALTH NOTE : LOCAL TITLE: MH PROGRESS NOTE STANDARD TITLE: MENTAL HEALTH NOTE DATE OF NOTE: MAY 12, 2024@11:00 ENTRY DATE: MAY 12, 2024@15:21:27 AUTHOR: [facility] COSIGNER: URGENCY: STATUS: COMPLETED MH TX PLAN: [...] telehealth. At the beginning of the session, verbal consent was obtained. Location/emergency number confirmed. Environment surveyed and all participants identified. Virtual conference room locked. Undersigned fha underwriter answered any questions patient had about using this technology for individual therapy and [place]ow indicated acceptance and understanding of steps to protect confidentiality and limitations as reasonable. Bolckow consented to meet for the purpose of therapy. I met with Bolckow for 60 minutes of psychotherapy using [facility]. Shares that she and her are . He has moved to [place] with kids and switched them to a new school. This happened suddenly. shares details of how this came about. She expressed feelings of guilt, feels she doesn't deserve some of good things happening in other parts of her life (e.g., promotions in [employer] and work). She and spouse having lots of conflicted conversation, he is often wanting her to emotionally support him through this. she is torn between accepting finality of decision and being connected to him. They are both in agreement about being good coparents for 2 sons. discussed self care strategies. She has limited social supports. Discussed some things she is looking forward to. She is being cautious about overspending as this happens when she is distressed. Mental Status: Session/visit location: home Presentation: casually dressed and neatly groomed Orientation/cognition/memory : WNL, not formally assessed Motor: Normal Mood:depressed, tearful Affect: congruent with conversation topics Speech/Communication: Speech [...] MST, Combat Related Diagnoses: Recurrent depression (SCT 435866245) - Other recurrent depressive disorders (ICD-10-CM F33.8) (Primary) Anxiety (SCT 31989122) - Anxiety disorder, unspecified (ICD-10-CM F41.9) Reaction to Severe Stress, unspecified (ICD-10-CM F43.9) Procedures: 38-52 minutes Plan:F/U on Jun 07 at 3:30 by [facility]. Bol[place]ow has this providers' contact number, [place] number, and the L. /wally/ [facility] STAFF PSYCHOLOGIST Signed: 05/12/2024 16:20 [facility]
--- OUTSIDE RECORDS SUMMARY | 2024-05-17 01:28 | XMS_ITS | Encounter Summary ---
Author Name [place] Organization [place] Address [address] [place] [address] Care Team Providers Care Lunchroom Monitor Name Role Phone ANITA HARVEY Primary Care [...] Dick's Name Patient's Relationship to Policy Dick [facility] CE ORGANIZAT ION W/OUT OF NETWORK BENEFITS FED EMP OPEN ACCES S Jan 04, 2022 [id number] JELENA COVINGTON PATIENT [facility] CE ORGANIZAT ION W/OUT OF NETWORK BENEFITS FED EMP OPEN ACCES S Jan 04, 2022 [id number] [phone] JELENA COVINGTON GALVAN PATIENT MEDIMPACT RX PRESCRIPT ION HEALT H PART WANDA AL Jul 05, 2023 [id number] ADRIAJELENA PATIENT Selected Encounter This section includes the information on record at [place] for the Encounter. Date/Time Encounter Type Encounter Description Reason Pro vider Source May 09, 2024 03:43 PM Outpatient [facility] Encounter Template Text not used by [place] Plan of Treatment: Future Appointments (+ 6 months) and Future Tests (+/- 45 days) The Plan of Treatment section includes future care activities for the patient from all [place] [facility]. This section includes future appointments and future orders which are active, pending or scheduled. Future Appointments This section includes appointments that were scheduled to occur 6 months from the date of the Encounter, up to a maximum of 20 appointments. The data comes from all [facility] facilities. Appointment Date/Time Appointment Type Appointme nt Facility Name May 12, 2024 11:00 AM AMBULATORY - PSYCHIATRY [facility] May 18, 2024 08:20 AM AMBULATORY - SURGERY [facility] May 22, 2024 10:00 AM [facility] Jun 07, 2024 03:30 PM AMBULATORY - PSYCHIATRY [facility] Aug 18, 2024 11:00 AM AMBULATORY - PSYCHIATRY [facility] Social History: Smoking Status (Most current) and Tobacco Use (All prior to encounter date) This section includes the most current, and the historical, smoking and tobacco- related health factors from the [place] facility where the Encounter took place. Current Smoking Status This section includes the most current smoking, or tobacco-related health factor, from the [place] facility where the Encounter took place. Date/Time Current Smoking Status Comment Yasmeen ity Jan 19, 2024 04:00 PM [place]-TOBACCO NEVER USED [facility] Tobacco Use History This section includes a history of the smoking, or tobacco-related health factors, that were collected on or before the date of the Encounter. The data comes from the [place] facility where the Encounter took place. Date/Time Smoking Status/Tobacco Use Comment F acility December 02, 2022 03:30 PM VA-TOBACCO NEVER USED [facility] Feb 23, 2022 08:19 AM LIFETIME NON-SMOKER [facility] Feb 20, 2022 02:22 PM LIFETIME NON-SMOKER [facility] Jul 23, 2021 02:30 PM VA-TOBACCO NEVER USED [facility] Encounter Notes: All associated encounter notes This section contains the clinical notes associated to the Encounter. Date/Time Encounter Note(s) Provider Source May 09, 2024 03:43 PM REPORT OF CONTACT: LOCAL TITLE: PATIENT CONTACT NOTE STANDARD TITLE: REPORT OF CONTACT DATE OF NOTE: MAY 09, 2024@15:43 ENTRY DATE: MAY 09, 2024@15:43:56 AUTHOR: MIGUEL ESCALANTE COSIGNER: URGENCY: STATUS: COMPLETED Patient contact Name of [place]: JASMIN COVINGTON Name/Relationship of Contact if other than [place]: Date & Time of Contact: May@15:44 Type of Contact: Telephone Reason for Contact: Pt would like to be called to schedule an appt with Haily Gamez. Pt phone number is [phone].; /wally/ MIGUEL ESCALANTE FORMING AND ASSEMBLING SUPERVISOR Signed: 05/09/2024 15:44 Receipt Acknowledged By: 05/10/2024 09:22 /wally/ HAILY GAMEZ STAFF PSYCHOLOGIST MIGUEL ESCALANTE [facility]
--- OUTSIDE RECORDS SUMMARY | 2024-05-17 01:28 | XMS_ITS | Clinical Summary ---
Author Organization [facility] Address [place], [place] [address] Care Team Providers Care Power And Recovery Superintendent Name Role Phone Clayton Bee MD Primary Care Provider [phone] Allergies Active Allergy Reactions Criticality Noted Date Comments Latex Rash 05/08/2019 Social History Tobacco Use Types Packs/Day Years Used Date Smoking Tobacco: Never Assessed Sex and Gender Information Value Date Recorded Sex Assigned at Not on file Gender Identity Not on file Sexual Orientation Not on file Last Filed Vital Signs Vital Sign Reading Time Taken Comments Blood Pressure 101/59 05/08/2019 2:26 PM GEAR TOOTH LAPPING MACHINE OPERATOR Pulse 77 05/08/2019 2:26 PM GEAR TOOTH LAPPING MACHINE OPERATOR Temperature 36.7 ??C (98 ??F) 05/08/2019 2:00 PM GEAR TOOTH LAPPING MACHINE OPERATOR Respiratory Rate 18 05/08/2019 2:00 PM GEAR TOOTH LAPPING MACHINE OPERATOR Oxygen Saturation 99% 05/08/2019 2:26 PM GEAR TOOTH LAPPING MACHINE OPERATOR Inhaled Oxygen Concentration - - Weight 66.5 kg (146 lb 11.2 oz) 05/08/2019 2:00 PM GEAR TOOTH LAPPING MACHINE OPERATOR Height 162.6 cm (5' 4) 05/08/2019 2:00 PM GEAR TOOTH LAPPING MACHINE OPERATOR Body Mass Index 25.18 05/08/2019 2:00 PM GEAR TOOTH LAPPING MACHINE OPERATOR Plan of Treatment Not on file Care Teams Power And Recovery Superintendent Relationship Specialty Start Date End Date Clayton Bee MD [address] [phone] PCP - General Obstetrics and Gynecology 05/08/19
[2024-05-17 01:31] VITALS: BP 114/70; PULSE 81; RESP 20; TEMP 36.7
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
== END 2024-05-17 01:32 | disposition home or self-care (01) ==
LOC: ED 01:24
PROVIDERS: Emergency Provider Family Medicine; PCP Family Medicine
DX: F43.29 Adjustment disorder with other symptoms (principal)
CPT/HCPCS: 99284

== ENCOUNTER 2024-05-22 16:50 | Outpatient (CLI) | payer OTHER, SELFPAY ==
--- OUTSIDE RECORDS SUMMARY | 2024-05-22 16:53 | XMS_ITS | Continuity of Care Document ---
Author Name [facility] Organization [facility] Care Team Providers Care Doorkeeper Name Role Phone [facility] Unavailable Unavailable Problems [...] Active 06/16/20 18 Condition DoD Anxiety (SCT [id number]) Active Condition [facility] Cancer cervix screening status Active Condition Feb 20 Entered By: ANITA HARVEY Comment: No hx KTAELYNN 2-3Aug 2021 Entered By: ANITA HARVEY Comment: 03/03/21 Colposcopy KATELYNN 1/ECC negAug 2021 Entered By: ANITA HARVEY Comment: 02/13/2022 NILM/HPV neg. Next co-test due in 3 years (02/2025). [facility] Closed fracture of left clavicle Active Condition [facility] Constipation Active Condition [facility] Depression (SCT [id number]) Active Condition [facility] Headache (SCT [id number]) Active Condition [facility] Hip pain Active Condition [facility] Migraine without aura Active Condition [facility] Recurrent depression Active Condition [facility] Diagnosis: ICD-10-CM F32.9 Major depressive disorder, single episode, unspecified Active Diagnosis [facility] Diagnosis: ICD-10-CM F33.9 Major depressive disorder, recurrent, unspecified Active Diagnosis [facility] Diagnosis: ICD-10-CM F33.8 Other recurrent depressive disorders Active Diagnosis [facility] Diagnosis: ICD-10-CM F41.9 Anxiety disorder, unspecified Active Diagnosis [facility] Diagnosis: ICD-10-CM Z71.9 Counseling, unspecified Active Diagnosis [facility] Diagnosis: ICD-10-CM Z73.3 Stress, not elsewhere classified Active Diagnosis [facility] Diagnosis: ICD-10-CM 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, non-neoplastic Active Diagnosis [facility] Diagnosis: ICD-10-CM R87.9 Unsp abnormal finding in specmn from female genital organs Active Diagnosis [facility] Diagnosis: ICD-10-CM M25.519 Pain in unspecified shoulder Active Diagnosis [facility] Diagnosis: ICD-10-CM Z00.01 Encounter for general adult medical exam w abnormal findings Active Diagnosis [facility] Diagnosis: ICD-10-CM Z63.0 Problems in relationship with spouse or partner Active Diagnosis [facility] Diagnosis: ICD-10-CM Z13.6 Encounter for screening for cardiovascular disorders Active Diagnosis [facility] Diagnosis: ICD-10-CM R06.00 Dyspnea, unspecified Active Diagnosis [facility] Diagnosis: ICD-10-CM Z71.89 Other specified counseling Active Diagnosis [facility] Diagnosis: ICD-10-CM Z73.2 Lack of relaxation and leisure Active Diagnosis [facility] Medications Combined list of outpatient medications from [...] NEEDED TO TREAT MIGRAINE ORAL ACTIVE 01/19/2025 [id number] HARVEY,ALI SA 2023 9 [facility] Allergies, Adverse Reactions, Alerts Combined list of allergies from Department of Defense and Veterans Affairs facilities. It does not include entries that were removed or entered in error. Substance Category Reaction Severity Reaction type Status Date Reported Comments Source DOXYCYCLINE Drug allergy (disorder) Generalized aches and pains active 2 [place] [facility] doxycycline Propensity to adverse reactions to drug Generalized aches and pains Active 2 [facility] Propensity to adverse reactions to drug (finding) Eruption active 9 [facility] Immunizations Combined list of available immunizations from the Department of Defense and Veterans Affairs facilities. Immunization Series Date Given Administered By Site Reaction Lot Number CVX Code Drug [facility] Professor Status Comments Source influenza, injectable, quadrivalent- pf 2022 [id number] 150 Seqirus complet ed influenza , injectabl e, quadrival ent-pf 03/28/23 Given Ambulat ory Pharmac y INFLUENZA, UNSPECIFIED FORMULATION 2022 88 complet ed Lot#: [id number] [facility] INFLUENZA, UNSPECIFIED FORMULATION 2021 88 complet ed [facility] influenza, injectable, quadrivalent- pf 2021 [id number] 150 [employer] comple t ed influenza , injectabl e, quadrival ent-pf 04/19/22 Given Ambulat ory Pharmac y INFLUENZA, UNSPECIFIED FORMULATION 2020 88 complet ed [facility] influenza virus vaccine, inactivated 2020 [id number] Unknown complet ed influenza virus vaccine, inactivat ed 05/09/21 Given Ambulat ory Pharmac y COVID Vaccine Moderna 2020 [id number] 207 complet ed COVID Vaccine Moderna 09/26/20 Given Ambulat ory Pharmac y COVID-19 (MODERNA), MRNA, LNP-S, PF, 100 MCG OR 50 MCG DOSE 2 2020 207 complet ed [facility] COVID Vaccine Moderna 2020 [id number] 207 complet ed COVID Vaccine Moderna 08/29/20 Given Ambulat ory Pharmac y COVID-19 (MODERNA), MRNA, LNP-S, PF, 100 MCG/0.5 ML DOSE 1 2020 207 complet ed [facility] influenza, injectable, quadrivalent- pf 2020 [id number] 150 [employer] complet ed influenza , injectabl e, quadrival ent-pf 07/13/20 Given Ambulat ory Pharmac y INFLUENZA, INJECTABLE, QUADRIVALENT, PRESERVATIVE FREE 2019 150 complet ed [facility] influenza, injectable, quadrivalent- pf 2018 [id number] 150 [employer] complet ed influenza , injectabl e, quadrival ent-pf 05/06/19 Given Ambulat ory Pharmac y INFLUENZA, SEASONAL, INJECTABLE 2018 141 complet ed [employer] anthrax vaccine 2018 [id number] Emergent Biosolutions complet ed anthrax vaccine 08/27/18 Given Ambulat ory Pharmac y anthrax vaccine 2 2018 [id number] 24 [employer] [place] (MIP) complet ed anthrax vaccine DoD hepatitis A adult vaccine 2017 [id number] GlaxoSmithKli ne complet ed hepatitis A adult vaccine 03/28/18 Given Ambulat ory Pharmac y typhoid Vi capsular polysaccharid e vac 2017 [id number] 101 sanofi pasteur complet ed typhoid Vi capsular polysacch aride vac 03/28/18 Given Ambulat ory Pharmac y anthrax vaccine 2017 [id number] 24 [employer] complet ed anthrax vaccine 03/28/18 Given Ambulat ory Pharmac y anthrax vaccine 1 2017 [id number] 24 [employer] [place] (MIP) complet ed anthrax vaccine DoD hepatitis A vaccine, adult dosage 3 2017 [id number] 52 SmithKline (SKB) complet ed hepatitis A vaccine, adult dosage DoD typhoid Vi capsular polysaccharid e vaccine 1 2017 [id number] 101 Sanofi Pasteur (PMC) complet ed typhoid Vi capsular polysacch aride vaccine DoD influenza, injectable, quadrivalent- pf 2017 [id number] 150 Seqirus complet ed influenza , injectabl e, quadrival ent-pf 03/27/18 Given Ambulat ory Pharmac y Influenza, injectable, quadrivalent, preservative free 1 2017 [id number] 150 Seqirus (SEQ) comple t ed Influenza , injectabl e, quadrival ent, preservat kylie free DoD measles/mumps /rubella virus vaccine 2017 [id number] 03 Unknown complet ed measles/m umps/rube lla virus vaccine 07/24/17 Given Ambulat ory Pharmac y measles, mumps and rubella virus vaccine 2 2017 [id number] 03 Unknown (UNK) comple t ed measles, mumps and rubella virus vaccine DoD measles/mumps /rubella virus vaccine 2017 [id number] 03 Unknown complet ed measles/m umps/rube lla virus vaccine 07/23/17 Given Ambulat ory Pharmac y measles, mumps and rubella virus vaccine 2 2017 [id number] 03 Unknown (UNK) comple t ed measles, mumps and rubella virus vaccine DoD hepatitis A-hepatitis B vaccine 2017 [id number] GlaxoSmithKli ne complet ed hepatitis A-hepatit is B vaccine 07/10/17 Given Ambulat ory Pharmac y hepatitis A and hepatitis B vaccine 2 2017 [id number] Pipelinefx (SKB) complet ed hepatitis A and hepatitis B vaccine DoD INFLUENZA, INJECTABLE, QUADRIVALENT, PRESERVATIVE FREE 2016 150 complet ed [facility] tetanus-dipht h toxoids (Td) adult/adol 2016 [id number] 09 Unknown complet ed tetanus-d iphth toxoids (Td) adult/ado l 01/14/17 Given Ambulat ory Pharmac y TDAP 2016 115 complet ed [facility] HEP B, ADULT 2015 43 complet ed [facility] influenza, injectable, quadrivalent- pf 2015 [id number] 150 Unknown complet ed influenza , injectabl e, quadrival ent-pf 05/09/16 Given Ambulat ory Pharmac y Influenza, injectable, quadrivalent, preservative free 1 2015 [id number] 150 Unknown (UNK) comple t ed Influenza , injectabl e, quadrival ent, preservat kylie free [facility] INFLUENZA, UNSPECIFIED FORMULATION 2015 88 complet ed [facility] adenovirus vaccine, live 2015 [id number] 143 Teva Pharmaceutica ls complet ed adenoviru s vaccine, live 09/20/15 Given Ambulat ory Pharmac y poliovirus vaccine, inactivated 2015 zAdalberto mireles Arm [id number] 10 sanofi pasteur complet ed polioviru s vaccine, inactivat ed 09/20/15 Given Ambulat ory Pharmac y hepatitis A adult vaccine 2015 Waqar mireles Arm [id number] 52 GlaxoSmithKli ne complet ed hepatitis A adult vaccine 09/20/15 Given Ambulat ory Pharmac y meningococcal polysaccharid e (MPSV4) 2015 zzLef t Arm [id number] 32 sanofi pasteur complet ed meningoco ccal polysacch aride (MPSV4) 09/20/15 Given Ambulat ory Pharmac y influenza, injectable, quadrivalent- pf 2015 zzLef t Arm [id number] 150 CSL Behring complet ed influenza , injectabl e, quadrival ent-pf 09/20/15 Given Ambulat ory Pharmac y measles/mumps /rubella virus vaccine 2015 zzLef t Arm [id number] 03 Merck & Company Inc complet ed measles/m umps/rube lla virus vaccine 09/20/15 Given Ambulat ory Pharmac y measles, mumps and rubella virus vaccine 1 2015 Unknown, Provider [id number] Merck (MSD) complet ed measles, mumps and rubella virus vaccine DoD poliovirus vaccine, inactivated 1 2015 Unknown, Provider [id number] Sanofi Pasteur (PMC) complet ed polioviru s vaccine, inactivat ed DoD meningococcal polysaccharid e vaccine (MPSV4) 1 2015 Unknown, Provider [id number] Sanofi Pasteur (PMC) complet ed meningoco ccal polysacch aride vaccine (MPSV4) DoD hepatitis A vaccine, adult dosage 1 2015 Unknown, Provider [id number] [employer] (SKB) complet ed hepatitis A vaccine, adult dosage DoD Adenovirus, type 4 and type 7, live, oral 1 2015 Unknown, Provider [id number] 2 143 [facility] complet ed Adenoviru s, type 4 and type 7, live, oral DoD Influenza, injectable, quadrivalent, preservative free 1 2015 Unknown, Provider [id number] 150 [employer] (CSL) complet ed Influenza , injectabl e, quadrival ent, preservat kylie free DoD varicella virus vaccine 1 2015 UNK 21 Unknown (UNK) Not Given varicella virus vaccine DoD hepatitis B vaccine, adult dosage 1 2015 UNK 43 Unknown (UNK) Not Given hepatitis B vaccine, adult dosage DoD influenza, seasonal, injectable 2014 [id number] 1A 141 Unknown complet ed influenza , seasonal, injectabl e 05/26/15 Given Ambulat ory Pharmac y Influenza, seasonal, injectable 1 2014 [id number] 1A 141 Unknown (UNK) complet ed Influenza , seasonal, injectabl e DoD Human Papillomaviru s,quadrivalen t(HPV4) 2013 UNK 62 Unknown complet ed Human Papilloma virus,babs drivalent (HPV4) 11/02/13 Given Ambulat ory Pharmac y human papilloma virus vaccine, quadrivalent 3 2013 UNK 62 Unknown (UNK) comple t ed human papilloma virus vaccine, quadrival ent DoD HPV, QUADRIVALENT 3 2013 62 complet ed [place] [facility] INFLUENZA, UNSPECIFIED FORMULATION 2012 88 complet ed [place] [facility] INFLUENZA, UNSPECIFIED FORMULATION 2010 88 complet ed [place] [facility] tetanus, diphtheria, acellular pertu is 2010 UNK 115 Unknown complet ed tetanus, diphtheri a, acellular pertussis 02/17/11 Given Ambulat ory Pharmac y tetanus toxoid, reduced diphtheria toxoid, and acellular pertu is vaccine, adsorbed 1 2010 UNK 115 Unknown (UNK) comple t ed tetanus toxoid, reduced diphtheri a toxoid, and acellular pertussis vaccine, adsorbed DoD TDAP 2010 115 complet ed [place] [facility] Human Papillomaviru s,quadrivalen t(HPV4) 2009 UNK 62 Unknown complet ed Human Papilloma virus,babs drivalent (HPV4) 08/07/09 Given Ambulat ory Pharmac y human papilloma virus vaccine, quadrivalent 2 2009 UNK 62 Unknown (UNK) comple t ed human papilloma virus vaccine, quadrival ent DoD HPV, QUADRIVALENT 2 2009 62 complet ed [place] [facility] Human Papillomaviru s,quadrivalen t(HPV4) 2008 UNK 62 Unknown complet ed Human Papilloma virus,babs drivalent (HPV4) 05/21/09 Given Ambulat ory Pharmac y human papilloma virus vaccine, quadrivalent 1 2008 UNK 62 Unknown (UNK) comple t ed human papilloma virus vaccine, quadrival ent DoD HPV, QUADRIVALENT 1 2008 62 complet ed [place] [facility] Results Combined list of recent chemistry, [...] Jan 28, 2024 03:31 PM Reporting Lab: [facility] [address] Performing Lab: [facility] [address] [facility] URINALYS IS SPECIFIC GRAVITY OF URINE 1.003 1.003 - 1.035 01/30 Specimen Type: URINE No comment entered. Ordering Provider: VIELKA CRUZ Report Released Date/Time: Jan 28, 2024 03:31 PM Reporting Lab: [facility] [address] Performing Lab: [facility] [address] [facility] URINALYS IS BILIRUBIN. TOTAL [PRESENCE] IN URINE BY TEST STRIP NEGATIVE 01/30 Specimen Type: URINE No comment entered. Ordering Provider: VIELKA CRUZ Report Released Date/Time: Jan 28, 2024 03:31 PM Reporting Lab: [facility] [address] Performing Lab: [facility] [phone] [facility] URINALYS IS KETONES [MASS/VOLU ME] IN URINE BY TEST STRIP NEGATIVE 01/30 Specimen Type: URINE No comment entered. Ordering Provider: VIELKA RCUZ Report Released Date/Time: Jan 28, 2024 03:31 PM Reporting Lab: [facility] [address] Performing Lab: [facility] [address] [facility] URINALYS IS GLUCOSE [MASS/VOLU ME] IN URINE BY TEST STRIP NEGATIVE mg/dL 01/30 Specimen Type: URINE No comment entered. Ordering Provider: VIELKA CRUZ Report Released Date/Time: Jan 28, 2024 03:31 PM Reporting Lab: [facility] [phone] Performing Lab: [facility] [address] [place] [facility] URINALYS IS PROTEIN [MASS/VOLU ME] IN URINE BY TEST STRIP NEGATIVE mg/dL 01/30 Specimen Type: URINE No comment entered. Ordering Provider: VIELKA CRUZ Report Released Date/Time: Jan 28, 2024 03:31 PM Reporting Lab: [facility] [address] Performing Lab: [facility] [address] [place] [facility] URINALYS IS PH OF URINE BY TEST STRIP 7.0 5.0 - 8.0 01/30 Specimen Type: URINE No comment entered. Ordering Provider: VIELKA CRUZ Report Released Date/Time: Jan 28, 2024 03:31 PM Reporting Lab: [facility] [address] Performing Lab: [facility] [address] [facility] URINALYS IS LEUKOCYTES [#/AREA] IN URINE SEDIMENT BY MICROSCOPY HIGH POWER FIELD NONE SEEN/[HP F] 0 - 7 01/30 Specimen Type: URINE No comment entered. Ordering Provider: VIELKA CRUZ Report Released Date/Time: Jan 28, 2024 03:31 PM Reporting Lab: [facility] [address] Performing Lab: [facility] [address] [facility] URINALYS IS BACTERIA [PRESENCE] IN URINE SEDIMENT BY LIGHT MICROSCOPY NONE SEEN 01/30 Specimen Type: URINE No comment entered. Ordering Provider: VIELKA CRUZ Report Released Date/Time: Jan 28, 2024 03:31 PM Reporting Lab: [facility] [phone] Performing Lab: [facility] [address] [place] [facility] URINALYS IS ERYTHROCYT ES [#/AREA] IN URINE SEDIMENT BY MICROSCOPY HIGH POWER FIELD <1/[HPF] 0 - 3 01/30 Specimen Type: URINE No comment entered. Ordering Provider: VIELKA CRUZ Report Released Date/Time: Jan 28, 2024 03:31 PM Reporting Lab: [facility] [address] Performing Lab: [facility] [address] [place] [facility] URINALYS IS APPEARANCE OF URINE CLEAR 01/30 Specimen Type: URINE No comment entered. Ordering Provider: VIELKA CRUZ Report Released Date/Time: Jan 28, 2024 03:31 PM Reporting Lab: [facility] [address] Performing Lab: [facility] [address] [place] [facility] URINALYS IS EPITHELIAL CELLS.SQUA MOUS [#/AREA] IN URINE SEDIMENT BY MICROSCOPY HIGH POWER FIELD <1/[HPF] 01/30 Specimen Type: URINE No comment entered. Ordering Provider: VIELKA CRUZ Report Released Date/Time: Jan 28, 2024 03:31 PM Reporting Lab: [facility] [address] Performing Lab: [facility] [address] [place] [facility] URINALYS IS HEMOGLOBIN [PRESENCE] IN URINE BY TEST STRIP NEGATIVE 01/30 Specimen Type: URINE No comment entered. Ordering Provider: VIELKA CRUZ Report Released Date/Time: Jan 28, 2024 03:31 PM Reporting Lab: [facility] [address] Performing Lab: [facility] [address] [place] [facility] URINALYS IS NITRITE [PRESENCE] IN URINE BY TEST STRIP NEGATIVE 01/30 Specimen Type: URINE No comment entered. Ordering Provider: VIELKA CRUZ Report Released Date/Time: Jan 28, 2024 03:31 PM Reporting Lab: [facility] [phone] Performing Lab: [facility] [address] [place] [facility] URINALYS IS LEUKOCYTE ESTERASE [PRESENCE] IN URINE BY TEST STRIP NEGATIVE 01/30 Specimen Type: URINE No comment entered. Ordering Provider: VIELKA CRUZ Report Released Date/Time: Jan 28, 2024 03:31 PM Reporting Lab: [facility] [address] Performing Lab: [facility] [address] [place] [facility] BASIC METABOLI C PANEL+MG CREATININE [MASS/VOLU ME] IN SERUM OR PLASMA 0.9 mg/dL 0.5 - 1.0 01/18 Specimen Type: PLASMA No comment entered. Ordering Provider: ANITA HARVEY Report Released Date/Time: Jan 19, 2024 04:43 PM Reporting Lab: [facility] [address] Performing Lab: [facility] [address] [place] [facility] BASIC METABOLI C PANEL+MG UREA NITROGEN [MASS/VOLU ME] IN SERUM OR PLASMA 15 mg/dL 7 - 20 01/18 Specimen Type: PLASMA No comment entered. Ordering Provider: ANITA HARVEY Report Released Date/Time: Jan 19, 2024 04:43 PM Reporting Lab: [facility] [address] Performing Lab: [facility] [address] [place] [facility] BASIC METABOLI C PANEL+MG GLUCOSE [MASS/VOLU ME] IN SERUM OR PLASMA 86 mg/dL 70 - 100 01/18 Specimen Type: PLASMA No comment entered. Ordering Provider: ANITA HARVEY Report Released Date/Time: Jan 19, 2024 04:43 PM Reporting Lab: [facility] [address] Performing Lab: [facility] [address] [place] [facility] BASIC METABOLI C PANEL+MG SODIUM [MOLES/VOL UME] IN SERUM OR PLASMA 139 mmol/L 136 - 145 01/18 Specimen Type: PLASMA No comment entered. Ordering Provider: ANITA HARVEY Report Released Date/Time: Jan 19, 2024 04:43 PM Reporting Lab: [facility] [address] Performing Lab: [facility] [address] [place] [facility] BASIC METABOLI C PANEL+MG POTASSIUM [MOLES/VOL UME] IN SERUM OR PLASMA 3.5 mmol/L 3.5 - 5.1 01/18 Specimen Type: PLASMA No comment entered. Ordering Provider: ANITA HARVEY Report Released Date/Time: Jan 19, 2024 04:43 PM Reporting Lab: [facility] [address] Performing Lab: [facility] [address] [place] [facility] BASIC METABOLI C PANEL+MG CHLORIDE [MOLES/VOL UME] IN SERUM OR PLASMA 105 mmol/L 98 - 107 01/18 Specimen Type: PLASMA No comment entered. Ordering Provider: ANITA HARVEY Report Released Date/Time: Jan 19, 2024 04:43 PM Reporting Lab: [facility] [address] Performing Lab: [facility] [address] [place] [facility] BASIC METABOLI C PANEL+MG CARBON DIOXIDE, TOTAL [MOLES/VOL UME] IN SERUM OR PLASMA 27 mmol/L 22 - 29 01/18 Specimen Type: PLASMA No comment entered. Ordering Provider: ANITA HARVEY Report Released Date/Time: Jan 19, 2024 04:43 PM Reporting Lab: [facility] [address] Performing Lab: [facility] [address] [place] [facility] BASIC METABOLI C PANEL+MG CALCIUM [MASS/VOLU ME] IN SERUM OR PLASMA 9.6 mg/dL 8.4 - 10.2 01/18 Specimen Type: PLASMA No comment entered. Ordering Provider: ANITA HARVEY Report Released Date/Time: Jan 19, 2024 04:43 PM Reporting Lab: [facility] [address] Performing Lab: [facility] [address] [place] [facility] BASIC METABOLI C PANEL+MG MAGNESIUM [MASS/VOLU ME] IN SERUM OR PLASMA 1.9 mg/dL 1.6 - 2.6 01/18 Specimen Type: PLASMA No comment entered. Ordering Provider: ANITA HARVEY Report Released Date/Time: Jan 19, 2024 04:43 PM Reporting Lab: [facility] [address] Performing Lab: [facility] [address] [place] [facility] BASIC METABOLI C PANEL+MG ANION GAP IN SERUM OR PLASMA 7 mmol/L 5 - 15 01/18 Specimen Type: PLASMA No comment entered. Ordering Provider: ANITA HARVEY Report Released Date/Time: Jan 19, 2024 04:43 PM Reporting Lab: [facility] [address] Performing Lab: [facility] [address] [place] [facility] BASIC METABOLI C PANEL+MG GLOMERULAR FILTRATION RATE/1.73 SQ M.PREDICTE D [VOLUME RATE/AREA] IN SERUM, PLASMA OR BLOOD BY CREATININE -BASED FORMULA (CKD-EPI 2020) 87 60 01/18 Specimen Type: PLASMA No comment entered. Ordering Provider: ANITA HARVEY Report Released Date/Time: Jan 19, 2024 04:43 PM Reporting Lab: [facility] [address] Performing Lab: [facility] [address] [place] [facility] CBC & DIFF LEUKOCYTES [#/VOLUME] IN BLOOD BY AUTOMATED COUNT 8.32 10*3/uL 4.0 - 11.0 01/18 Specimen Type: BLOOD Comment: Automated Differentia l Performed Ordering Provider: ANITA HARVEY Report Released Date/Time: Jan 19, 2024 04:43 PM Reporting Lab: [facility] [address] Performing Lab: [facility] [address] [place] [facility] CBC & DIFF ERYTHROCYT ES [#/VOLUME] IN BLOOD BY AUTOMATED COUNT 4.02 10*6/uL 4.0 - 5.4 01/18 Specimen Type: BLOOD Comment: Automated Differentia l Performed Ordering Provider: ANITA HARVEY Report Released Date/Time: Jan 19, 2024 04:43 PM Reporting Lab: [facility] [address] Performing Lab: [facility] [address] [place] [facility] CBC & DIFF HEMOGLOBIN [MASS/VOLU ME] IN BLOOD 12.4 g/dL 11.5 - 16 01/18 Specimen Type: BLOOD Comment: Automated Differentia l Performed Ordering Provider: ANITA HARVEY Report Released Date/Time: Jan 19, 2024 04:43 PM Reporting Lab: [facility] [address] Performing Lab: [facility] [address] [place] [facility] CBC & DIFF HEMATOCRIT [VOLUME FRACTION] OF BLOOD BY AUTOMATED COUNT 37.0 34.5 - 48 01/18 Specimen Type: BLOOD Comment: Automated Differentia l Performed Ordering Provider: ANITA HARVEY Report Released Date/Time: Jan 19, 2024 04:43 PM Reporting Lab: [facility] [address] Performing Lab: [facility] [address] [place] [facility] CBC & DIFF MCV [ENTITIC VOLUME] BY AUTOMATED COUNT 92.0 fL 80 - 100 01/18 Specimen Type: BLOOD Comment: Automated Differentia l Performed Ordering Provider: ANITA HARVEY Report Released Date/Time: Jan 19, 2024 04:43 PM Reporting Lab: [facility] [address] Performing Lab: [facility] [address] [place] [facility] CBC & DIFF MCH [ENTITIC MASS] BY AUTOMATED COUNT 30.8 pg 27 - 33 01/18 Specimen Type: BLOOD Comment: Automated Differentia l Performed Ordering Provider: ANITA HARVEY Report Released Date/Time: Jan 19, 2024 04:43 PM Reporting Lab: [facility] [address] Performing Lab: [facility] [address] [place] [facility] CBC & DIFF MCHC [MASS/VOLU ME] BY AUTOMATED COUNT 33.5 g/dL 32.0 - 37.5 01/18 Specimen Type: BLOOD Comment: Automated Differentia l Performed Ordering Provider: ANITA HARVEY Report Released Date/Time: Jan 19, 2024 04:43 PM Reporting Lab: [facility] [address] Performing Lab: [facility] [address] [place] [facility] CBC & DIFF PLATELETS [#/VOLUME] IN BLOOD BY AUTOMATED COUNT 415 10*3/uL 150 - 400 01/18 H Specimen Type: BLOOD Comment: Automated Differentia l Performed Ordering Provider: ANITA HARVEY Report Released Date/Time: Jan 19, 2024 04:43 PM Reporting Lab: [facility] [address] Performing Lab: [facility] [address] [place] [facility] CBC & DIFF PLATELET MEAN VOLUME [ENTITIC VOLUME] IN BLOOD BY AUTOMATED COUNT 9.8 fL 7.4 - 10.4 01/18 Specimen Type: BLOOD Comment: Automated Differentia l Performed Ordering Provider: ANITA HARVEY Report Released Date/Time: Jan 19, 2024 04:43 PM Reporting Lab: [facility] [address] Performing Lab: [facility] [address] [place] [facility] CBC & DIFF NEUTROPHIL S/100 LEUKOCYTES IN BLOOD BY MANUAL COUNT 70.1 40.0 - 80.0 01/18 Specimen Type: BLOOD Comment: Automated Differentia l Performed Ordering Provider: ANITA HAREVY Report Released Date/Time: Jan 19, 2024 04:43 PM Reporting Lab: [facility] [address] Performing Lab: [facility] [address] [place] [facility] CBC & DIFF LYMPHOCYTE S/100 LEUKOCYTES IN BLOOD BY MANUAL COUNT 19.1 15.0 - 45.0 01/18 Specimen Type: BLOOD Comment: Automated Differentia l Performed Ordering Provider: ANITA HARVEY Report Released Date/Time: Jan 19, 2024 04:43 PM Reporting Lab: [facility] [address] Performing Lab: [facility] [address] [place] [facility] CBC & DIFF MONOCYTES/ 100 LEUKOCYTES IN BLOOD BY AUTOMATED COUNT 7.8 2.0 - 12.0 01/18 Specimen Type: BLOOD Comment: Automated Differentia l Performed Ordering Provider: ANITA HARVEY Report Released Date/Time: Jan 19, 2024 04:43 PM Reporting Lab: [facility] [address] Performing Lab: [facility] [address] [place] [facility] CBC & DIFF EOSINOPHIL S/100 LEUKOCYTES IN BLOOD BY AUTOMATED COUNT 1.7 0.0 - 6.0 01/18 Specimen Type: BLOOD Comment: Automated Differentia l Performed Ordering Provider: ANITA HARVEY Report Released Date/Time: Jan 19, 2024 04:43 PM Reporting Lab: [facility] [address] Performing Lab: [facility] [address] [place] [facility] CBC & DIFF BASOPHILS/ 100 LEUKOCYTES IN BLOOD BY MANUAL COUNT 0.8 0.0 - 2.0 01/18 Specimen Type: BLOOD Comment: Automated Differentia l Performed Ordering Provider: ANITA HARVEY Report Released Date/Time: Jan 19, 2024 04:43 PM Reporting Lab: [facility] [address] Performing Lab: [facility] [address] [place] [facility] CBC & DIFF ERYTHROCYT E DISTRIBUTI ON WIDTH [RATIO] BY AUTOMATED COUNT 12.7 11.5 - 14.5 01/18 Specimen Type: BLOOD Comment: Automated Differentia l Performed Ordering Provider: ANITA HARVEY Report Released Date/Time: Jan 19, 2024 04:43 PM Reporting Lab: [facility] [address] Performing Lab: [facility] [address] [place] [facility] CBC & DIFF LYMPHOCYTE S [#/VOLUME] IN BLOOD BY AUTOMATED COUNT 1.59 10*3/uL 1.0 - 4.0 01/18 Specimen Type: BLOOD Comment: Automated Differentia l Performed Ordering Provider: ANITA HARVEY Report Released Date/Time: Jan 19, 2024 04:43 PM Reporting Lab: [facility] [address] Performing Lab: [facility] [address] [place] [facility] CBC & DIFF MONOCYTES [#/VOLUME] IN BLOOD BY AUTOMATED COUNT 0.65 10*3/uL 0.1 - 1.0 01/18 Specimen Type: BLOOD Comment: Automated Differentia l Performed Ordering Provider: ANITA HARVEY Report Released Date/Time: Jan 19, 2024 04:43 PM Reporting Lab: [facility] [address] Performing Lab: [facility] [address] [place] [facility] CBC & DIFF NEUTROPHIL S [#/VOLUME] IN BLOOD BY AUTOMATED COUNT 5.83 10*3/uL 2.0 - 7.7 01/18 Specimen Type: BLOOD Comment: Automated Differentia l Performed Ordering Provider: ANITA HARVEY Report Released Date/Time: Jan 19, 2024 04:43 PM Reporting Lab: [facility] [address] Performing Lab: [facility] [address] [place] [facility] CBC & DIFF EOSINOPHIL S [#/VOLUME] IN BLOOD BY AUTOMATED COUNT 0.14 10*3/uL 0 - 0.5 01/18 Specimen Type: BLOOD Comment: Automated Differentia l Performed Ordering Provider: ANITA HARVEY Report Released Date/Time: Jan 19, 2024 04:43 PM Reporting Lab: [facility] [address] Performing Lab: [facility] [address] [place] [facility] CBC & DIFF BASOPHILS [#/VOLUME] IN BLOOD BY AUTOMATED COUNT 0.07 10*3/uL 0 - 0.2 01/18 Specimen Type: BLOOD Comment: Automated Differentia l Performed Ordering Provider: ANITA HARVEY Report Released Date/Time: Jan 19, 2024 04:43 PM Reporting Lab: [facility] [address] Performing Lab: [facility] [address] [place] [facility] CBC & DIFF IG(META,MY QAMAR,PRO) 0.5 01/18 Specimen Type: BLOOD Comment: Automated Differentia l Performed Ordering Provider: ANITA HARVEY Report Released Date/Time: Jan 19, 2024 04:43 PM Reporting Lab: [facility] [address] Performing Lab: [facility] [address] [place] [facility] CBC & DIFF IMMATURE GRANULOCYT ES [PRESENCE] IN BLOOD BY AUTOMATED COUNT 0.04 10*3/uL 0 - 0.1 01/18 Specimen Type: BLOOD Comment: Automated Differentia l Performed Ordering Provider: ANITA HARVEY Report Released Date/Time: Jan 19, 2024 04:43 PM Reporting Lab: [facility] [address] Performing Lab: [facility] [address] [place] [facility] BNP NATRIURETI C PEPTIDE B [MASS/VOLU ME] IN SERUM OR PLASMA <10pg/mL <99 - 99 05/11 Specimen Type: PLASMA No comment entered. Ordering Provider: RELL BARRAGAN Report Released Date/Time: May 11, 2023 02:24 PM Reporting Lab: [facility] [address] Performing Lab: [facility] [address] [place] [facility] CBC LEUKOCYTES [#/VOLUME] IN BLOOD BY AUTOMATED COUNT 6.36 10*3/uL 4.0 - 11.0 05/11 Specimen Type: BLOOD No comment entered. Ordering Provider: RELL BARRAGAN Report Released Date/Time: May 11, 2023 02:24 PM Reporting Lab: [facility] [address] Performing Lab: [facility] [address] [place] [facility] CBC ERYTHROCYT ES [#/VOLUME] IN BLOOD BY AUTOMATED COUNT 4.08 10*6/uL 4.0 - 5.4 05/11 Specimen Type: BLOOD No comment entered. Ordering Provider: RELL BARRAGAN Report Released Date/Time: May 11, 2023 02:24 PM Reporting Lab: [facility] [address] Performing Lab: [facility] [address] [place] [facility] CBC HEMOGLOBIN [MASS/VOLU ME] IN BLOOD 12.3 g/dL 11.5 - 16 05/11 Specimen Type: BLOOD No comment entered. Ordering Provider: RELL BARRAGAN Report Released Date/Time: May 11, 2023 02:24 PM Reporting Lab: [facility] [address] Performing Lab: [facility] [address] [place] [facility] CBC HEMATOCRIT [VOLUME FRACTION] OF BLOOD BY AUTOMATED COUNT 37.3 34.5 - 48 05/11 Specimen Type: BLOOD No comment entered. Ordering Provider: RELL BARRAGAN Report Released Date/Time: May 11, 2023 02:24 PM Reporting Lab: [facility] [address] Performing Lab: [facility] [address] [place] [facility] CBC MCV [ENTITIC VOLUME] BY AUTOMATED COUNT 91.4 fL 80 - 100 05/11 Specimen Type: BLOOD No comment entered. Ordering Provider: RELL BARRAGAN Report Released Date/Time: May 11, 2023 02:24 PM Reporting Lab: [facility] [address] Performing Lab: [facility] [address] [place] [facility] CBC MCH [ENTITIC MASS] BY AUTOMATED COUNT 30.1 pg 27 - 33 05/11 Specimen Type: BLOOD No comment entered. Ordering Provider: RELL BARRAGAN Report Released Date/Time: May 11, 2023 02:24 PM Reporting Lab: [facility] [address] Performing Lab: [facility] [address] [place] [facility] CBC MCHC [MASS/VOLU ME] BY AUTOMATED COUNT 33.0 g/dL 32.0 - 37.5 05/11 Specimen Type: BLOOD No comment entered. Ordering Provider: RELL BARRAGAN Report Released Date/Time: May 11, 2023 02:24 PM Reporting Lab: [facility] [address] Performing Lab: [facility] [address] [place] [facility] CBC PLATELETS [#/VOLUME] IN BLOOD BY AUTOMATED COUNT 372 10*3/uL 150 - 400 05/11 Specimen Type: BLOOD No comment entered. Ordering Provider: RELL BARRAGAN Report Released Date/Time: May 11, 2023 02:24 PM Reporting Lab: [facility] [address] Performing Lab: [facility] [address] [place] [facility] CBC PLATELET MEAN VOLUME [ENTITIC VOLUME] IN BLOOD BY AUTOMATED COUNT 9.5 fL 7.4 - 10.4 05/11 Specimen Type: BLOOD No comment entered. Ordering Provider: RELL BARRAGAN Report Released Date/Time: May 11, 2023 02:24 PM Reporting Lab: [facility] [address] Performing Lab: [facility] [address] [place] [facility] CBC ERYTHROCYT E DISTRIBUTI ON WIDTH [RATIO] BY AUTOMATED COUNT 13.0 11.5 - 14.5 05/11 Specimen Type: BLOOD No comment entered. Ordering Provider: RELL BARRAGAN Report Released Date/Time: May 11, 2023 02:24 PM Reporting Lab: [facility] [address] Performing Lab: [facility] [address] [place] [facility] COMPREHE NSIVE METABOLI C PANEL+MG CREATININE [MASS/VOLU ME] IN SERUM OR PLASMA 0.8 mg/dL 0.5 - 1.0 05/11 Specimen Type: PLASMA No comment entered. Ordering Provider: RELL BARRAGAN Report Released Date/Time: May 11, 2023 02:24 PM Reporting Lab: [facility] [address] Performing Lab: [facility] [address] [place] [facility] COMPREHE NSIVE METABOLI C PANEL+MG UREA NITROGEN [MASS/VOLU ME] IN SERUM OR PLASMA 16 mg/dL 7 - 20 05/11 Specimen Type: PLASMA No comment entered. Ordering Provider: RELL BARRAGAN Report Released Date/Time: May 11, 2023 02:24 PM Reporting Lab: [facility] [address] Performing Lab: [facility] [address] [place] [facility] COMPREHE NSIVE METABOLI C PANEL+MG GLUCOSE [MASS/VOLU ME] IN SERUM OR PLASMA 112 mg/dL 70 - 100 05/11 H Specimen Type: PLASMA No comment entered. Ordering Provider: RELL BARRAGAN Report Released Date/Time: May 11, 2023 02:24 PM Reporting Lab: [facility] [address] Performing Lab: [facility] [address] [place] [facility] COMPREHE NSIVE METABOLI C PANEL+MG SODIUM [MOLES/VOL UME] IN SERUM OR PLASMA 141 mmol/L 136 - 145 05/11 Specimen Type: PLASMA No comment entered. Ordering Provider: RELL BARRAGAN Report Released Date/Time: May 11, 2023 02:24 PM Reporting Lab: [facility] [address] Performing Lab: [facility] [address] [place] [facility] COMPREHE NSIVE METABOLI C PANEL+MG POTASSIUM [MOLES/VOL UME] IN SERUM OR PLASMA 3.7 mmol/L 3.5 - 5.1 05/11 Specimen Type: PLASMA No comment entered. Ordering Provider: RELL BARRAGAN Report Released Date/Time: May 11, 2023 02:24 PM Reporting Lab: [facility] [address] Performing Lab: [facility] [address] [place] [facility] COMPREHE NSIVE METABOLI C PANEL+MG CHLORIDE [MOLES/VOL UME] IN SERUM OR PLASMA 107 mmol/L 98 - 107 05/11 Specimen Type: PLASMA No comment entered. Ordering Provider: RELL BARRAGAN Report Released Date/Time: May 11, 2023 02:24 PM Reporting Lab: [facility] [address] Performing Lab: [facility] [address] [place] [facility] COMPREHE NSIVE METABOLI C PANEL+MG CARBON DIOXIDE, TOTAL [MOLES/VOL UME] IN SERUM OR PLASMA 26 mmol/L 22 - 29 05/11 Specimen Type: PLASMA No comment entered. Ordering Provider: RELL BARRAGAN Report Released Date/Time: May 11, 2023 02:24 PM Reporting Lab: [facility] [address] Performing Lab: [facility] [address] [place] [facility] COMPREHE NSIVE METABOLI C PANEL+MG CALCIUM [MASS/VOLU ME] IN SERUM OR PLASMA 9.3 mg/dL 8.4 - 10.2 05/11 Specimen Type: PLASMA No comment entered. Ordering Provider: RELL BARRAGAN Report Released Date/Time: May 11, 2023 02:24 PM Reporting Lab: [facility] [address] Performing Lab: [facility] [address] [place] [facility] COMPREHE NSIVE METABOLI C PANEL+MG PROTEIN [MASS/VOLU ME] IN SERUM OR PLASMA 7.5 g/dL 6.0 - 8.3 05/11 Specimen Type: PLASMA No comment entered. Ordering Provider: RELL BARRAGAN Report Released Date/Time: May 11, 2023 02:24 PM Reporting Lab: [facility] [address] Performing Lab: [facility] [address] [place] [facility] COMPREHE NSIVE METABOLI C PANEL+MG ALBUMIN [MASS/VOLU ME] IN SERUM OR PLASMA 4.7 g/dL 3.5 - 5.2 05/11 Specimen Type: PLASMA No comment entered. Ordering Provider: RELL BARRAGAN Report Released Date/Time: May 11, 2023 02:24 PM Reporting Lab: [facility] [address] Performing Lab: [facility] [address] [place] [facility] COMPREHE NSIVE METABOLI C PANEL+MG BILIRUBIN. TOTAL [MASS/VOLU ME] IN SERUM OR PLASMA 0.3 mg/dL 0.2 - 1.2 05/11 Specimen Type: PLASMA No comment entered. Ordering Provider: RELL BARRAGAN Report Released Date/Time: May 11, 2023 02:24 PM Reporting Lab: [facility] [address] Performing Lab: [facility] [address] [place] [facility] COMPREHE NSIVE METABOLI C PANEL+MG MAGNESIUM [MASS/VOLU ME] IN SERUM OR PLASMA 2.0 mg/dL 1.6 - 2.6 05/11 Specimen Type: PLASMA No comment entered. Ordering Provider: RELL BARRAGAN Report Released Date/Time: May 11, 2023 02:24 PM Reporting Lab: [facility] [address] Performing Lab: [facility] [address] [place] [facility] COMPREHE NSIVE METABOLI C PANEL+MG ANION GAP IN SERUM OR PLASMA 8 mmol/L 5 - 15 05/11 Specimen Type: PLASMA No comment entered. Ordering Provider: RELL BARRAGAN Report Released Date/Time: May 11, 2023 02:24 PM Reporting Lab: [facility] [address] Performing Lab: [facility] [address] [place] [facility] COMPREHE NSIVE METABOLI C PANEL+MG ALKALINE PHOSPHATAS E [ENZYMATIC ACTIVITY/V OLUME] IN SERUM OR PLASMA 47 U/L 40 - 150 05/11 Specimen Type: PLASMA No comment entered. Ordering Provider: RELL BARRAGAN Report Released Date/Time: May 11, 2023 02:24 PM Reporting Lab: [facility] [address] Performing Lab: [facility] [address] [place] [facility] COMPREHE NSIVE METABOLI C PANEL+MG ALANINE AMINOTRANS FERASE [ENZYMATIC ACTIVITY/V OLUME] IN SERUM OR PLASMA 21 U/L <55 - 55 05/11 Specimen Type: PLASMA No comment entered. Ordering Provider: RELL BARRAGAN Report Released Date/Time: May 11, 2023 02:24 PM Reporting Lab: [facility] [address] Performing Lab: [facility] [address] [facility] IS [facility] COMPREHE NSIVE METABOLI C PANEL+MG ASPARTATE AMINOTRANS FERASE [ENZYMATIC ACTIVITY/V OLUME] IN SERUM OR PLASMA 16 U/L <34 - 34 05/11 Specimen Type: PLASMA No comment entered. Ordering Provider: RELL BARRAGAN Report Released Date/Time: May 11, 2023 02:24 PM Reporting Lab: [facility] [address] Performing Lab: [facility] [address] [facility] IS [facility] COMPREHE NSIVE METABOLI C PANEL+MG GLOMERULAR FILTRATION RATE/1.73 SQ M.PREDICTE D [VOLUME RATE/AREA] IN SERUM, PLASMA OR BLOOD BY CREATININE -BASED FORMULA (CKD-EPI 2020) >90 60 05/11 Specimen Type: PLASMA No comment entered. Ordering Provider: RELL BARRAGAN Report Released Date/Time: May 11, 2023 02:24 PM Reporting Lab: [facility] [address] Performing Lab: [facility] [address] [facility] IS [facility] D-DIMER FIBRIN D-DIMER FEU [MASS/VOLU ME] IN PLATELET POOR PLASMA <215 0 - 500 05/11 Specimen Type: PLASMA No comment entered. Ordering Provider: RELL BARRAGAN Report Released Date/Time: May 11, 2023 02:24 PM Reporting Lab: [facility] [address] Performing Lab: [facility] [address] [place] [facility] TSH W/REFLEX TO FREE T4 THYROTROPI N [UNITS/VOL UME] IN SERUM OR PLASMA 1.15 u[IU]/mL 0.35 - 4.94 05/11 Specimen Type: PLASMA No comment entered. Ordering Provider: RELL BARRAGAN Report Released Date/Time: May 11, 2023 02:24 PM Reporting Lab: [facility] [address] Performing Lab: [facility] [address] [facility] IS [facility] CBC LEUKOCYTES [#/VOLUME] IN BLOOD BY AUTOMATED COUNT 10.80 10*3/uL 4.0 - 11.0 12/02 Specimen Type: BLOOD No comment entered. Ordering Provider: ANITA HARVEY Report Released Date/Time: December 02, 2022 04:05 PM Reporting Lab: [facility] [address] Performing Lab: [facility] [address] [facility] IS [facility] CBC ERYTHROCYT ES [#/VOLUME] IN BLOOD BY AUTOMATED COUNT 3.98 10*6/uL 4.0 - 5.4 12/02 L Specimen Type: BLOOD No comment entered. Ordering Provider: ANITA HARVEY Report Released Date/Time: December 02, 2022 04:05 PM Reporting Lab: [facility] [address] Performing Lab: [facility] [address] [facility] IS [facility] CBC HEMOGLOBIN [MASS/VOLU ME] IN BLOOD 12.2 g/dL 11.5 - 16 12/02 Specimen Type: BLOOD No comment entered. Ordering Provider: ANITA HARVEY Report Released Date/Time: December 02, 2022 04:05 PM Reporting Lab: [facility] [address] Performing Lab: [facility] [address] [facility] IS [facility] CBC HEMATOCRIT [VOLUME FRACTION] OF BLOOD BY AUTOMATED COUNT 36.4 34.5 - 48 12/02 Specimen Type: BLOOD No comment entered. Ordering Provider: ANITA HARVEY Report Released Date/Time: December 02, 2022 04:05 PM Reporting Lab: [facility] [address] Performing Lab: [place] [phone] [place] [facility] CBC MCV [ENTITIC VOLUME] BY AUTOMATED COUNT 91.5 fL 80 - 100 12/02 Specimen Type: BLOOD No comment entered. Ordering Provider: ANITA HARVEY Report Released Date/Time: December 02, 2022 04:05 PM Reporting Lab: [facility] [address] Performing Lab: [facility] [address] [place] [facility] CBC MCH [ENTITIC MASS] BY AUTOMATED COUNT 30.7 pg 27 - 33 12/02 Specimen Type: BLOOD No comment entered. Ordering Provider: ANITA HARVEY Report Released Date/Time: December 02, 2022 04:05 PM Reporting Lab: [facility] [address] Performing Lab: [facility] [address] [place] [facility] CBC MCHC [MASS/VOLU ME] BY AUTOMATED COUNT 33.5 g/dL 32.0 - 37.5 12/02 Specimen Type: BLOOD No comment entered. Ordering Provider: ANITA HARVEY Report Released Date/Time: December 02, 2022 04:05 PM Reporting Lab: [facility] [address] Performing Lab: [facility] [address] [place] [facility] CBC PLATELETS [#/VOLUME] IN BLOOD BY AUTOMATED COUNT 361 10*3/uL 150 - 400 12/02 Specimen Type: BLOOD No comment entered. Ordering Provider: ANITA HARVEY Report Released Date/Time: December 02, 2022 04:05 PM Reporting Lab: [facility] [address] Performing Lab: [facility] [address] [place] [facility] CBC PLATELET MEAN VOLUME [ENTITIC VOLUME] IN BLOOD BY AUTOMATED COUNT 10.1 fL 7.4 - 10.4 12/02 Specimen Type: BLOOD No comment entered. Ordering Provider: ANITA HARVEY Report Released Date/Time: December 02, 2022 04:05 PM Reporting Lab: [facility] [address] Performing Lab: [facility] [address] [facility] CBC ERYTHROCYT E DISTRIBUTI ON WIDTH [RATIO] BY AUTOMATED COUNT 13.2 11.5 - 14.5 12/02 Specimen Type: BLOOD No comment entered. Ordering Provider: ANITA HARVEY Report Released Date/Time: December 02, 2022 04:05 PM Reporting Lab: [facility] [address] Performing Lab: [facility] [address] [facility] TSH W/REFLEX TO FREE T4 THYROTROPI N [UNITS/VOL UME] IN SERUM OR PLASMA 1.26 u[IU]/mL 0.35 - 4.94 12/02 Specimen Type: PLASMA No comment entered. Ordering Provider: ANITA HARVEY Report Released Date/Time: December 02, 2022 04:05 PM Reporting Lab: [facility] [id number] Performing Lab: [facility] [id number] [facility] Vital Signs Combined list of inpatient and outpatient Vital Signs from Department of Defense and Veterans Affairs, ranging from 12 months to all on record, depending upon the facility. Vital Sign Value Date Comments Source SYSTOLIC BLOOD PRESSURE 121 01/31/2024 14:21:11 [facility] DIASTOLIC BLOOD PRESSURE 77 01/31/2024 14:21:11 [facility] PULSE OXIMETRY 96 01/31/2024 14:21:11 [facility] WE[facility] 126.6 01/31/2024 14:21:11 [facility] BMI 22kg/m2 01/31/2024 14:21:11 [facility] PAIN 0 01/31/2024 14:21:11 [facility] PULSE 87 01/31/2024 14:21:11 [facility] RESPIRATION 16 01/31/2024 14:21:11 [facility] SYSTOLIC BLOOD PRESSURE 113 01/19/2024 16:00:43 [facility] DIASTOLIC BLOOD PRESSURE 76 01/19/2024 16:00:43 [facility] PULSE OXIMETRY 98 01/19/2024 16:00:43 M SHE[facility] WEIGHT 126.3 01/19/2024 16:00:43 [facility] BMI 22kg/m2 01/19/2024 16:00:43 [facility] PAIN 0 01/19/2024 16:00:43 [facility] HEIGHT 64 01/19/2024 16:00:43 [facility] P[facility] 87 01/19/2024 16:00:43 [facility] RESPIRATION 16 01/19/2024 16:00:43 TOSHA BECERRA [facility] No data available for this section Ambulatory Pharm acy Encounters Combined list of: 1) Encounters from Department of Veterans Affairs facilities going back up to thelast 18 months. 2) Encounters from the Department of Defense facilities going back up to 280 months. Location Location Details Encounter Type Encounter Number Reason For Visit Attending Provider ADM Date DC Date Status Disposition Source [facility] C Immunizat ions (Post)) OUTPATIENT [id number] IET PPD KHOA BARNES 09/19 Released w/o Limitations [facility] Immuniz ations (Post)) [facility] Immunizat ions (Post)) OUTPATIENT [id number] iet immuniz ations SUKUMAR MARQUEZ 09/19 Released w/o Limitations [facility] Immuniz ations (Post)) [facility] [place] OUTPATIENT [id number] Notes Entered by: DOUG MCALLISTER 30 Sep 2015 0558 ------- ------- ------- ------- -- Blister s JAG LENTZ 09/29 Released w/o Limitations [facility] Ambulat ory) [facility] Ambulator [facility]) OUTPATIENT [id number] Notes Entered by: DOUG MCALLISTER 28 Oct 2015 0811 ------- ------- ------- ------- -- Hip pain JAG LENTZ 10/27 Released with Work/Duty Limitations [facility]( [facility] Ambulat ory) [facility]) OUTPATIENT [id number] Notes Entered by: AVERY BLAIR 28 Oct 2015 1024 ------- ------- ------- ------- -- Bilat Knee/Hi p AVERY BLAIR 10/27 Immediate Referral [facility] Physica l Therapy ) [facility] Ambulator y) OUTPATIENT [id number] Notes Entered by: DOUG MCALLISTER 30 Oct 2015 0534 ------- ------- ------- ------- -- JAG JAQUEZ 10/29 Released with Work/Duty Limitations [facility] Ambulat ory) [facility]) OUTPATIENT [id number] Notes Entered by: TEMITOPE BARNHART 30 Oct 2015 0602 ------- ------- ------- ------- -- hip and knee pain GREG NEVILLE 10/29 Released with Work/Duty Limitations [facility]ica [facility] BAS) [facility]) OUTPATIENT [id number] Left Thigh-- -(ref: SILKE Morrissey 12/03 Released with Work/Duty Limitations [facility]ica [facility] ) [facility]) OUTPATIENT [id number] Notes Entered by: SHAISTA LAYTON 13 Dec 2015 1545 ------- ------- ------- ------- -- right hip and knee pain CAITIE WILKINSON 12/12 Released w/o Limitations [facility] Physica [facility] Therapy ) [facility] Ambulator y) OUTPATIENT [id number] Notes Entered by: ELIUD JACKSON 30 Dec 2015 0608 ------- ------- ------- ------- -- LANRE Mckeon 12/29 Released w/o Limitations [facility] Ambulat ory) [facility]) OUTPATIENT [id number] Notes Entered by: SHAISTA LAYTON 21 Jan 2016 1525 ------- ------- ------- ------- -- Right Hip ST irritia tion - rehab pt CAITIE WILKINSON 01/20 Released w/o Limitations [facility] Physica [facility] Therapy ) [facility]) OUTPATIENT [id number] Notes Entered by: SHASITA LAYTON 24 Jan 2016 1605 ------- ------- ------- ------- -- right hip pain - antalgi c gait CAITIE WILKINSON 01/23 Immediate Referral [facility] Physica l Therapy ) [facility]) OUTPATIENT [id number] Follow up--(Dr Tamia Sky ) TL LOZANO 01/26 Released w/o Limitations [address] [place] [address](T Physica l Therapy ) [place] [address]) OUTPATIENT [id number] Notes Entered by: Tonya GREENBERG 29 Mar 2018 0934 ------- ------- ------- ------- -- TRINIDAD MERCADO 03/29 Released w/o Limitations [place] [address]) [place] [address]) OUTPATIENT [id number] Notes Entered by: JOSH MAR 29 Mar 2018 1242 ------- ------- ------- ------- -- KAILA IRAHETA 03/29 Released w/o Limitations [place] [address]) [place] [address]) OUTPATIENT [id number] Notes Entered by: JOSH MAR 29 Mar 2018 1336 ------- ------- ------- ------- -- KAILA IRAHETA 03/29 Released w/o Limitations [place] [address]) Theater Facility OUTPATIENT [id number] Theater Provider 06/16 Released with Work/Duty Limitations [facility] OUTPATIENT [id number] Theater Provider 08/18 Released w/o Limitations [facility] OUTPATIENT [id number] Theater Provider 08/25 Released w/o Limitations [facility] OUTPATIENT [id number] Theater Provider 09/01 Released w/o Limitations [facility] OUTPATIENT [id number] Theater Provider 09/07 Released w/o Limitations [facility] OUTPATIENT [id number] Theater Provider 09/13 Released w/o Limitations [facility] OUTPATIENT [id number] Theater Provider 09/29 Released w/o Limitations [facility] OUTPATIENT [id number] Theater Provider 10/06 Released w/o Limitations [facility] OUTPATIENT [id number] Theater Provider 10/13 Released w/o Limitations [facility] OUTPATIENT [id number] Theater Provider 10/20 Released w/o Limitations [facility] OUTPATIENT [id number] Theater Provider 11/12 Released w/o Limitations Theater [facility]ilit [place] [address]) OUTPATIENT [id number] Notes Entered by: GABBIE FONTENOT 16 Jan 2019 1629 ------- ------- ------- ------- -- AUGUSTA VILLALOBOS 01/16 Released w/o Limitations [place] [address]) [place] Hearing Conservat ion) OUTPATIENT [id number] Notes Entered by: YA TOLBERT 17 Jan 2019 1008 ------- ------- ------- ------- -- post YA TOLBERT 01/17 Released w/o Limitations [place] Hearing Conserv ation) [place] Physical Exam Clinic) OUTPATIENT [id number] Notes Entered by: Teodoro SULLIVAN 17 Jan 2019 1453 ------- ------- ------- ------- -- SHPE-34 TH OLGA VENEGAS 01/17 Released w/o Limitations [place] Physica l Exam Clinic) [facility] PRO PHONE CALL 11-20 MIN 63816-9.61 [id number] Diagnos is: ICD-10- CM Z71.9 Ferruler ing, unspeci fied
BRIGETTE ISABEL 11/27 [facility] OFFICE O/P EST HI 40-54 MIN 15056-6.61 [id number] Diagnos is: ICD-10- CM F41.9 Anxiety disorde r, unspeci fied
JASON HARVEY 12/02 [facility] Outpatient Encounter [id number] [id number] 12/04 [facility] OFF/OP EST MAY X REQ PHY/QHP 72492-6.61 [id number] Diagnos is: ICD-10- CM Z73.2 Lack of relaxat ion and leisure
CHELSEA BARKSDALE 12/10 [facility] PSYTX W PT 45 MINUTES 48192-6.61 [id number] Diagnos is: ICD-10- CM F33.8 Other recurre nt depress kylie disorde rs
BARBARA OLEARY TIE 12/11 [place] [facility] [place] [facility] Outpatient Encounter [id number] [id number] 12/14 [place] [facility] [place] [facility] OFF/OP EST MAY X REQ PHY/QHP 59366-2.61 [id number] Diagnos is: ICD-10- CM Z73.2 Lack of relaxat ion and leisure
BRIGETTE ISABEL 12/17 [place] [facility] [place] [facility] OFF/OP EST MAY X REQ PHY/QHP 41864-5.61 [id number] Diagnos is: ICD-10- CM Z73.2 Lack of relaxat ion and leisure
KRAFT,CHELSEA EEN S 12/31 [place] [facility] [place] [facility] OFF/OP EST MAY X REQ PHY/QHP 12435-7.61 [id number] Diagnos is: ICD-10- CM Z73.2 Lack of relaxat ion and leisure
KRAFT,CHELSEA EEN S 01/07 [place] [facility] PSYTX W PT 45 MINUTES 83648-0.61 [id number] Diagnos is: ICD-10- CM F41.9 Anxiety disorde r, unspeci fied
BARBARA OLEARY TIE 01/08 [place] [facility] [place] [facility] OFF/OP EST MAY X REQ PHY/QHP 98975-0.61 [id number] Diagnos is: ICD-10- CM Z73.2 Lack of relaxat ion and leisure
KRAFT,CHELSEA EEN S 01/14 [place] [facility] [place] [facility] OFF/OP EST MAY X REQ PHY/QHP 01408-6.61 [id number] Diagnos is: ICD-10- CM Z73.2 Lack of relaxat ion and leisure
BRIGETTE ISABEL 01/21 [place] [facility] [place] [facility] 71098-7.61 [id number] Diagnos is: ICD-10- CM Z73.2 Lack of relaxat ion and leisure
CHELSEA BARKSDALE S 01/28 [facility] OFF/OP EST MAY X REQ PHY/QHP 27754-0 [id number] Diagnos is: ICD-10- CM Z73.2 Lack of relaxat ion and leisure
BRIGETTE ISABEL 02/04 [facility] PSYTX W PT 45 MINUTES 06760-6.61 [id number] Diagnos is: ICD-10- CM F33.8 Other recurre nt depress kylie disorde rs
BARBARA OLEARY 02/05 [facility] Outpatient Encounter [id number] Diagnos is: ICD-10- CM F41.9 Anxiety disorde r, unspeci fied
JASON HARVEY 02/09 [facility] Outpatient Encounter [id number] JASON HARVEY 02/09 [facility] 30772-0.61 [id number] Diagnos is: ICD-10- CM Z73.2 Lack of relaxat ion and leisure
CHELSEA BARKSDALE S 03/04 [facility] PSYTX W PT 45 MINUTES 54408-6 [id number] Diagnos is: ICD-10- CM F33.8 Other recurre nt depress kylie disorde rs
BARBARA OLEARY 03/05 [facility] 1ST 73304-3.61 [id number] Diagnos is: ICD-10- CM Z71.89 Other specifi ed chief counsel ing<br/ > FAUSTINA VELASCO ICA Sue 03/09 [facility] [place] [facility] OFF/OP EST MAY X REQ PHY/QHP 90088-3.61 [id number] Diagnos is: ICD-10- CM Z71.9 Ferruler ing, unspeci fied
FAUSTINA VELASCO ICA D 03/16 [place] [facility] [place] [facility] Outpatient Encounter [id number] [id number] 03/25 [place] [facility] [place] [facility] Outpatient Encounter [id number] [id number] 03/28 [place] [facility] [place] [facility] OFF/OP EST MAY X REQ PHY/QHP 76618-6.61 [id number] Diagnos is: ICD-10- CM Z71.9 Ferruler ing, unspeci fied
FAUSTINA VELASCO ICA D 03/29 [place] [facility] [place] [facility] Outpatient Encounter [id number] [id number] JOHAN ASTORGA 03/31 [place] [facility] [place] [facility] PSYTX W PT 45 MINUTES 75802-9.61 [id number] Diagnos is: ICD-10- CM F33.8 Other recurre nt depress kylie disorde rs
BARBARA OLEARY 04/02 [place] [facility] [place] [facility] OFF/OP EST MAY X REQ PHY/QHP 29694-4.61 [id number] Diagnos is: ICD-10- CM Z71.9 Ferruler ing, unspeci fied
FAUSTINA VELASCO ICA D 04/13 [place] [facility] [place] [facility] PSYTX W PT 45 MINUTES 32046-3.61 [id number] Diagnos is: ICD-10- CM F33.8 Other recurre nt depress kylie disorde rs
BARBARA OLEARY TIE 04/30 [place] [facility] [place] [facility] Outpatient Encounter [id number] [id number] ALETHA HYDE 05/03 [facility] OFF/OP EST MAY X REQ PHY/QHP 69059-5.61 [id number] Diagnos is: ICD-10- CM Z71.9 Ferruler ing, unspeci fied
FAUSTINA VELASCO ICA D 05/04 [facility] ELECTROCAR DIOGRAM COMPLETE [id number] Diagnos is: ICD-10- CM Z13.6 Encount er for screeni ng for cardiov ascular disorde rs
Christa HUBBARD O 05/11 [facility] OFFICE O/P EST HI 40-54 MIN 31667-3.61 [id number] Diagnos is: ICD-10- CM R06.00 Dyspnea , unspeci fied
LAURELRELL J 05/11 [facility] OFF/OP EST MAY X REQ PHY/QHP 03744-5.61 [id number] Diagnos is: ICD-10- CM Z71.9 Ferruler ing, unspeci fied
FAUSTINA VELASCO ICA D 05/18 [facility] Outpatient Encounter [id number] DONATO PHAN 05/21 [facility] PSYTX W PT 45 MINUTES 22727-2.61 [id number] Diagnos is: ICD-10- CM F33.8 Other recurre nt depress kylie disorde rs
BARBARA OLEARY 06/01 [facility] Outpatient Encounter [id number] [id number] CLEMENTE ALMAGUER 06/05 [facility] OFF/OP EST MAY X REQ PHY/QHP 61508-5.61 [id number] Diagnos is: ICD-10- CM Z71.9 Ferruler ing, unspeci fied
FAUSTINA VELASCO ICA D 06/07 [facility] PSYTX W PT 45 MINUTES 20649-1.61 [id number] Diagnos is: ICD-10- CM F33.8 Other recurre nt depress kylie disorde rs
KINGBARBARA TIE 06/11 [facility] Outpatient Encounter [id number] [id number] 06/17 [facility] Outpatient Encounter [id number] 06/22 [facility] F-UP [id number] Diagnos is: ICD-10- CM Z71.9 Ferruler ing, unspeci fied
FAUSTINA VELASCO ICA D 06/25 [facility] EXT ECG>48HR<7 D REV&INTERP J [id number] Diagnos is: ICD-10- CM Z13.6 Encount er for screeni ng for cardiov ascular disorde rs
Christa HUBBARD 07/06 [facility] Outpatient Encounter [id number] [id number] 07/07 [facility] PSYTX W PT 45 MINUTES 78526-6.61 [id number] Diagnos is: ICD-10- CM F41.9 Anxiety disorde r, unspeci fied
BARBARA OLEARY TIE 07/09 [facility] F-UP [id number] Diagnos is: ICD-10- CM Z71.9 Ferruler ing, unspeci fied
FAUSTINA VELASCO ICA D 07/16 [facility] SELF-MGMT EDUC & TRAIN 1 [place] [address]-7.61 [id number] Diagnos is: ICD-10- CM Z73.3 Stress, not elsewhe re classif ied<br/ > LAURA VALDEZ E 07/23 [facility] PSYTX W PT 45 MINUTES 21157-3.61 [id number] Diagnos is: ICD-10- CM F33.8 Other recurre nt depress kylie disorde rs
BARBARA OLEARY TIE 08/06 [facility] PSYTX W PT 45 MINUTES 89195-0.61 [id number] Diagnos is: ICD-10- CM F33.8 Other recurre nt depress kylie disorde rs
BARBARA OLEARY TIE 08/25 [facility] ACUPUNCT W/O STIMUL 15 MIN 00911-4.61 [id number] Diagnos is: ICD-10- CM F41.9 Anxiety disorde r, unspeci fied
DM ORELLANA [facility] INDIV F-UP 04317-361 [id number] Diagnos is: ICD-10- CM Z71.9 Ferruler ing, unspeci fied
FAUSTINA VELASCO 09/02 [facility] PSYTX W PT 45 MINUTES 52749-9.61 [id number] Diagnos is: ICD-10- CM F33.8 Other recurre nt depress kylie disorde rs
BARBARA OLEARY TIE 09/02 [facility] Outpatient Encounter [id number] JASON HARVEY 09/02 [facility] ACUPUNCT W/O STIMUL ADDL 15M [id number] [id number] Diagnos is: ICD-10- CM F41.9 Anxiety disorde r, unspeci fied
DM ORELLANA NDA BOKJALETeodoro 09/15 [facility] Outpatient Encounter [id number] [id number] JOSELITO VALDEZ IVELISSE 09/19 [facility] FAMILY PSYTX W/PT 50 MIN 69705-9.61 [id number] Diagnos is: ICD-10- CM Z63.0 Problem s in relatio nship with spouse or partner
JOSELITO VALDEZNE 09/19 [facility] PSYTX W PT 45 MINUTES 36702-1.61 [id number] Diagnos is: ICD-10- CM F33.8 Other recurre nt depress kylie disorde rs
BARBARA OLEARY 09/21 [facility] Ambulator y Pharmacy Lifetime Pharmacy [id number] 09/22 Ambulat ory Pharmac y No Facility Access History [id number] 09/22 No Facilit y Access [facility] F-UP 15278-4.61 [id number] Diagnos is: ICD-10- CM Z71.9 Ferruler ing, unspeci fied
FAUSTINA VELASCO ICA D 09/26 [facility] Outpatient Encounter 62680-9.61 [id number] JOSELITO VALDEZ IVELISSE 09/29 [facility] PSYTX W PT 60 MINUTES 81667-4.61 [id number] Diagnos is: ICD-10- CM Z63.0 Problem s in relatio nship with spouse or partner
JOSELITO VALDEZ IVELISSE 09/29 [facility] ACUPUNCT W/O STIMUL 15 MIN 69345-9.61 [id number] Diagnos is: ICD-10- CM Z73.3 Stress, not elsewhe re classif ied<br/ > DM ORELLANA 10/06 [facility] FAMILY PSYTX W/O PT 50 MIN 69042-5.61 [id number] Diagnos is: ICD-10- CM Z63.0 Problem s in relatio nship with spouse or partner
JOSELITO VALDEZ IVELISSE 10/06 [facility] FAMILY PSYTX W/PT 50 MIN 42041-9.61 [id number] Diagnos is: ICD-10- CM Z63.0 Problem s in relatio nship with spouse or partner
JOSELITO VALDEZ IVELISSE 10/13 [facility] Outpatient Encounter [id number] JOSELITO VALDEZ IVELISSE 10/21 [facility] FAMILY PSYTX W/PT 50 MIN 25451-0.61 [id number] Diagnos is: ICD-10- CM Z63.0 Problem s in relatio nship with spouse or partner
JOSELITO VALDEZ IVELISSE 10/21 [facility] F-UP [id number] Diagnos is: ICD-10- CM Z71.9 Ferruler ing, unspeci fied
FAUSTINA VELASCO ICA D 10/26 [facility] ACUPUNCT W/O STIMUL ADDL 15M [id number] [id number] Diagnos is: ICD-10- CM Z73.3 Stress, not elsewhe re classif ied<br/ > DM ORELLANA NDTonya SILVERJALEE 10/27 [facility] Outpatient Encounter [id number] JOSELITO VALDEZ IVELISSE 10/28 [facility] PSYTX W PT 45 MINUTES 22861-4.61 [id number] Diagnos is: ICD-10- CM F41.9 Anxiety disorde r, unspeci fied
BARBARA OLEARY ALICIA 10/28 [facility] FAMILY PSYTX W/PT 50 MIN 87562-7.61 [id number] Diagnos is: ICD-10- CM Z63.0 Problem s in relatio nship with spouse or partner
JOSELITO VALDEZ IVELISSE 10/28 [facility] Outpatient Encounter [id number] JOSELITO VALDEZ IVELISSE 11/04 [facility] FAMILY PSYTX W/PT 50 MIN 53539-4.61 [id number] Diagnos is: ICD-10- CM Z63.0 Problem s in relatio nship with spouse or partner
JOSELITO VALDEZ IVELISSE 11/04 [facility] ACUPUNCT W/O STIMUL 15 MIN 77774-7.61 [id number] Diagnos is: ICD-10- CM Z73.3 Stress, not elsewhe re classif ied<br/ > DM ORELLANA 11/17 [facility] F-UP 43271-8.61 [id number] Diagnos is: ICD-10- CM Z71.9 Ferruler ing, unspeci fied
FAUSTINA VELASCO ICA D 11/23 [facility] PSYTX W PT 45 MINUTES 94896-6.61 [id number] Diagnos is: ICD-10- CM F33.8 Other recurre nt depress kylie disorde rs
BARBARA OLEARY ALICIA 11/30 [facility] Outpatient Encounter [id number] [id number] JOSELITO VALDEZ IVELISSE 12/02 [facility] FAMILY PSYTX W/PT 50 MIN 03450-7.61 [id number] Diagnos is: ICD-10- CM Z63.0 Problem s in relatio nship with spouse or partner
JOSELITO VALDEZ 12/02 [facility] ACUPUNCT W/O STIMUL 15 MIN 55164-5.61 [id number] Diagnos is: ICD-10- CM Z73.3 Stress, not elsewhe re classif ied<br/ > DM ORELLANA 12/08 [facility]DIV F-UP 53027-0.61 [id number] Diagnos is: ICD-10- CM Z71.9 Ferruler ing, unspeci fied
FAUSTINA VELASCO ICA D 12/28 [facility] PSYTX W PT 45 MINUTES 21167-6.61 [id number] Diagnos is: ICD-10- CM F33.8 Other recurre nt depress kylie disorde rs
BARBARA OLEARY 12/28 [facility] ACUPUNCT W/O STIMUL 15 MIN [id number] [id number] Diagnos is: ICD-10- CM Z73.3 Stress, not elsewhe re classif ied<br/ > DM ORELLANA 12/29 [facility] Outpatient Encounter [id number] 01/18 [facility] OFFICE O/P EST LOW 20 MIN 33067-7.61 [id number] Diagnos is: ICD-10- CM Z00.01 Encount er for general adult medical exam w abnorma l finding s
JASON HARVEY 01/18 [facility] Outpatient Encounter [id number] 01/20 [facility] Outpatient Encounter [id number] 01/24 [facility] ACUPUNCT W/O STIMUL 15 MIN [id number] [id number] Diagnos is: ICD-10- CM M25.519 Pain in unspeci fied shoulde r
DM ORELLANA MINERVA 01/26 [facility] OFFICE O/P NEW LOW 30 MIN [id number] [phone] Diagnos is: ICD-10- CM R87.9 Unsp abnorma l finding in specmn from female genital organs< br/> NANCYROSAS HLEEN 01/30 [facility] Outpatient Encounter [id number] JASON HARVEY 01/30 [facility] INDIV F-UP 76029-6.61 [id number] Diagnos is: ICD-10- CM Z71.9 Ferruler ing, unspeci fied
FAUSTINA VELASCO ICA D 02/01 [facility] PSYTX W PT 45 MINUTES 29586-5.61 [id number] Diagnos is: ICD-10- CM F33.8 Other recurre nt depress kylie disorde rs
BARBARA OLEARY ALICIA Ruiz 02/03 [facility] INDIV F-UP 27270-1.61 [id number] Diagnos is: ICD-10- CM Z71.9 Ferruler ing, unspeci fied
FAUSTINA VELASCO ICA D 02/13 [facility] OFFICE O/P NEW MOD 45 MIN 27512-7.61 [id number] Diagnos is: ICD-10- CM I78.1 Nevus, non-maría plastic
BRUNO,NO RA HAMILTON 02/15 [facility] ACUPUNCT W/O STIMUL 15 MIN 19952-3.61 [id number] Diagnos is: ICD-10- CM Z73.3 Stress, not elsewhe re classif ied<br/ > DM [facility]LLANA [facility] [facility] Outpatient Encounter [id number] LESTER HARKINS [place] 03/14 [facility] HLTH&WB COACHING INDIV F-UP [id number] Diagnos is: ICD-10- CM Z71.9 Ferruler ing, unspeci fied
FAUSTINA VELASCO ICA D 03/17 [facility] ACUPUNCT W/O STIMUL 15 MIN [id number] Diagnos is: ICD-10- CM Z73.3 Stress, not elsewhe re classif ied<br/ > DM ORELLANA 03/23 [facility] HLTH&WB COACHING INDIV F-UP [id number] Diagnos is: ICD-10- CM Z71.9 Ferruler ing, unspeci fied
FAUSTINA VELASCO ICA D 04/13 [facility] PSYTX W PT 45 MINUTES [id number] Diagnos is: ICD-10- CM F33.8 Other recurre nt depress kylie disorde rs
BARBARA OLEARY 04/14 [facility] ACUPUNCT W/O STIMUL 15 MIN [phone] Diagnos is: ICD-10- CM F41.9 Anxiety disorde r, unspeci fied
DM ORELLANALETeodoro 04/19 [facility] Outpatient Encounter [id number] 05/09 [facility] PSYTX W PT 45 MINUTES [id number] Diagnos is: ICD-10- CM F33.8 Other recurre nt depress kylie disorde rs
BARBARA OLEARY 05/12 [facility] PSYTX CRISIS INITIAL 60 MIN [id number] Diagnos is: ICD-10- CM F33.9 Major depress kylie disorde r, recurre nt, unspeci fied
BARBARA OLEARY 05/17 [facility] OFFICE O/P NEW LOW 30 MIN [id number] Diagnos is: ICD-10- CM F32.9 Major depress kylie disorde r, single episode , unspeci fied
IRALESTER TIAN Ibanez 05/19 [facility] Outpatient Encounter [id number] ROSAS CRUZ 05/22 [facility] Outpatient Encounter [id number] 05/22 [facility] Procedures Combined list of: 1) Procedures from Department of Veterans Affairs facilities going back up to thelast 18 months, not all [place] non-surgical procedures are included; 2) All procedures from the Department of Defense facilities. Procedure Procedure Type Code Date Perfomer Comments [facility] e ADMINISTRATION OF PATIENT-FOCUSED HEALTH RISK ASSESSMENT INSTRUMENT (EG, HEALTH HAZARD APPRAISAL) WITH SCORING AND DOCUMENTATION, PER STANDARDIZED INSTRUMENT [facility] PATIENT EDUCATION, NOT OTHERWISE CLASSIFIED, NON-PHYSICIAN PROVIDER, GROUP, PER SESSION [facility] SCREENING TEST OF VISUAL ACUITY, QUANTITATIVE, BILATERAL [facility] PSYCHIATRIC DIAGNOSTIC EVALUATION [facility] ADMINISTRATION OF PATIENT-FOCUSED HEALTH RISK ASSESSMENT INSTRUMENT (EG, HEALTH HAZARD APPRAISAL) WITH SCORING AND DOCUMENTATION, PER STANDARDIZED INSTRUMENT [facility] IMMUNIZATION ADMINISTRATION (INCLUDES PERCUTANEOUS, INTRADERMAL, SUBCUTANEOUS, OR INTRAMUSCULAR INJECTIONS); EACH ADDITIONAL VACCINE (SINGLE OR COMBINATION VACCINE/TOXOID) [facility] PHYSICAL THERAPY RE-EVALUATION DoD APPLICATION OF A MODALITY TO 1 OR MORE AREAS; HOT OR COLD PACKS [facility] APPLICATION OF A MODALITY TO 1 OR MORE AREAS; HOT OR COLD PACKS 016 [facility] APPLICATION OF A MODALITY TO 1 OR MORE AREAS; HOT OR COLD PACKS 016 [facility] THERAPEUTIC PROCEDURE, 1 OR MORE AREAS, EACH 15 MINUTES; THERAPEUTIC EXERCISES TO DEVELOP STRENGTH AND ENDURANCE, RANGE OF MOTION AND FLEXIBILITY 016 [facility] OSTEOPATHIC MANIPULATIVE TREATMENT (OMT); 1-2 BODY REGIONS INVOLVED 016 [facility] ATHLETIC TRAINING EVALUATION 016 [facility] IMMUNIZATION ADMINISTRATION BY INTRANASAL OR ORAL ROUTE; 1 VACCINE (SINGLE OR COMBINATION VACCINE/TOXOID) 016 [facility] EAR MOLD/INSERT, NOT DISPOSABLE, ANY TYPE 016 [facility] Preventive Medicine Administration Of Health Risk Questionnaire Patient-Focused Preventive Medicine Administration Of Health Risk Questionnaire Patient-Focused [id number] [id number] OLGA VENEGAS [facility] Threshold Audiogram (Pure Tone) Automated Threshold Audiogram (Pure Tone) Automated 0208T 019 PHU ZAIDI I [facility] Patient education, not otherwise cla ified, non-physician provider, group, per se ion 019 PHU ZAIDI I [facility] Screening Test Of Visual Acuity, Quantitative, Bilateral Screening Test Of Visual Acuity, Quantitative, Bilateral 25717 019 AUGUSTA CHOPRA [facility] Psychiatric Diagnostic Evaluation Psychiatric Diagnostic Evaluation 25232 018 ANA MONTALVO [facility] Preventive Medicine Administration Of Health Risk Questionnaire Patient-Focused Preventive Medicine Administration Of Health Risk Questionnaire Patient-Focused 43148 018 TRINIDAD WILSON [facility] Physical Therapy Service Re-Evaluation Physical Therapy Service Re-Evaluation 47067 016 TL LOZANO [facility] Modalities Cryotherapy Cold Packs Modalities Cryotherapy Cold Packs 72551 016 CAITIE WILKINSON [facility] Physical Medicine - Group Physical Therapy Se ion Physical Medicine - Group Physical Therapy Session 35190 016 CAITIE WILKINSON Physical Therapy Neuromuscular Re-education Physical Therapy Neuromuscular Re-education 49541 016 CAITIE WILKINSON Modalities Cryotherapy Cold Packs Modalities Cryotherapy Cold Packs 74027 016 CAITIE WILKINSON Physical Therapy Neuromuscular Re-education Physical Therapy Neuromuscular Re-education 63610 016 CAITIE WILKINSON [facility] Physical Medicine - Group Physical Therapy Se ion Physical Medicine - Group Physical Therapy Session 61008 016 CAITIE WILKINSON Modalities Cryotherapy Cold Packs Modalities Cryotherapy Cold Packs 22045 016 CAITIE WILKINSON A isted Exercises For ROM Assisted Exercises [place] ROM 34770 016 CAITIE WILKINSON Physical Therapy Neuromuscular Re-education Physical Therapy Neuromuscular Re-education 20767 016 CAITIE WILKINSON Athletic Training Evaluation Athletic Training Evaluation 97720 016 CAITIE WILKINSON A isted Exercises For ROM Assisted Exercises For ROM 40346 016 SILKE SKY [facility] Physical Therapy Service Evaluation Physical Therapy Service Evaluation 12679 016 SILKE SKY [facility] Osteopathic Manip Treatment (OMT) 1-2 Body Regions Involved Osteopathic Manip Treatment (OMT) 1-2 Body Regions Involved 46492 016 GREG NEVILLE Physical Therapy: ___ Se ion Segments, 15 Minutes Each Physical Therapy: ___ Session Segments, 15 Minutes Each 12078 016 GREG NEVILLE Physical Therapy Service Evaluation Physical Therapy Service Evaluation 75063 016 GREG NEVILLE Athletic Training Evaluation Athletic Training Evaluation 84307 016 AVERY BLAIR [facility] Meningococcal Conjugate Vaccine Quadrivalent Serogroups A, C, Y, W-135 SUKUMAR SPAIN [facility] Influenza Split Virus Vaccine IM Preserv Free 0.5mL Dosage Quadrivalent SUKUMAR [place] Influenza Seasonal, injectable quadrivalent - preservative free; Series #: 1; .5 mL; IM; Left Arm; [facility]: [employer] Lot: [id number]; VIS given (Hayley: 02/08/2015). [facility] Immunization Administration By Injection, One Vaccine Immunization Administration By Injection, One Vaccine 31531 SUKUMAR SPAIN [facility] Immunization Administration By Injection, Each Additional Vaccine Immunization Administration By Injection, Each Additional Vaccine 85911 016 PEEL, SUKUMAR L DoD Immunization Admin By Intranasal / Oral Route One Vaccine Immunization Admin By Intranasal / Oral Route One Vaccine 54502 016 PEEL, SUKUMAR L DoD Hepatitis A Vaccine Adult Dosage (Intramuscular Use) Hepatitis A Vaccine Adult Dosage (Intramuscular Use) 90734 016 PEEL, SUKUMAR L Hep A (Adult); Series #: 1; 1.0 mL; IM; Left Arm; Mfg: [employer]; Lot: [id number]; VIS given (Hayley: 04/28/11). DoD Vaccines Vaccines 24532 016 PEEL, SUKUMAR L Adenovirus Type 4 and 7; Series #: 1; 2 caps; PO; Oral; Mfg: [employer]; Lot: [id number]; VIS given (Hayley: 12/13/13). [facility] Vaccines Viral Polio, Inactivated Vaccines Viral Polio, Inactivated 81455 016 PEEL, SUKUMAR L IPV; Series #: 1; .5 mL; IM; Left Arm; Mfg: [employer]; Lot: [id number]; VIS given (Hayley: 05/12/11). [facility] Vaccines Viral Measles, Mumps and Rubella, Live Vaccines Viral Measles, Mumps and Rubella, Live 14657 016 PEEL, SUKUMAR L MMR; Series #: 1; .5 mL; SC; Left Arm; Mfg: [employer]; Lot: [id number]; VIS given (Hayley: 10/23/11). [facility] No data available for this section Ambulato ry Pharmacy Social History Combined list of available smoking, tobacco, and other social history from Department of Defense and Veterans Affairs facilities. Social History Type Response Date Comment Sour e Tobacco smoking status [facility] VA-TOBACCO NEVER USED 01/19/2024 [facility] History of tobacco use VA-TOBACCO NEVER USED 12/02/2022 [facility] History of tobacco use LIFETIME NON-SMOKER 02/23/2022 [facility] History of tobacco use LIFETIME NON-SMOKER 02/20/2022 [facility] History of tobacco use VA-TOBACCO NEVER USED 07/23/2021 [facility] History of tobacco use VA-TOBACCO NEVER USED [...] Plan No data available for this section 05/22/2024 Ambulatory Pharmacy Plan of Care List of future care activities from [facility] facilities. Additional future care activities may be listed in the Assessment and Plan section. Date/Time Care Activity Care Activity Detail Facili ty 05/22/2024 AMBULATORY - NONE AMBULATORY - NONE [facility] 05/24/2024 AMBULATORY - PSYCHIATRY AMBULATORY - PSYC [facility]ATRY [facility] 05/25/2024 AMBULATORY - PSYCHIATRY AMBULATORY - PSYC WAATRY [facility] 06/07/2024 AMBULATORY - PSYCHIATRY AMBULATORY - PSYC [facility]RY [facility] 07/13/2024 AMBULATORY - SURGERY AMBULATORY - SURGERY [facility] 08/18/2024 AMBULATORY - PSYCHIATRY [facility]ATORY - [facility] 05/17/2024 Consult Order WILIAM WAKEFIELD WITH IN TEAM OUTPT Cons Tank [employer] [facility] Functional Status Combined list of recent functional and cognitive assessments recorded at Department of Defense and [facility] Affairs ([place] Functional [place] Measurement (FIM) Scale: 1 = Total Assistance (Subject = 0% +), 2 = Maximal Assistance (Subject = 25% +), 3 = Moderate Assistance (Subject = 50% +), 4 = Minimal Assistance (Subject = 75% +), 5 = Supervision, 6 = Modified [place] (Device), 7 = Complete [place] (Timely, Safely). Assessment Date/Time Source Assessment Type Assessment Skill Assessment Score Assessment Details No data available for this section
--- OUTSIDE RECORDS SUMMARY | 2024-05-22 16:55 | XMS_ITS | Clinical Summary ---
Author Organization [employer] [facility] Address [place], [place] [address] Care Team Providers Care Brush Or Broom Cutter Name Role Phone Clayton Bee MD Primary Care Provider [phone] Allergies Active Allergy Reactions Criticality Noted Date Comments Latex Rash 05/08/2019 Social History Tobacco Use Types Packs/Day Years Used Date Smoking Tobacco: Never Assessed Sex and Gender Information Value Date Recorded Sex Assigned at Not on file Gender Identity Not on file Sexual Orientation Not on file Last Filed Vital Signs Vital Sign Reading Time Taken Comments Blood Pressure 101/59 05/08/2019 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 Pulse 77 05/08/2019 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 Temperature 36.7 C (98 F) 05/08/2019 2:00 PM REEL SYSTEM OPERATOR Respiratory Rate 18 05/08/2019 2:00 PM REEL SYSTEM OPERATOR Oxygen Saturation 99% 05/08/2019 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 Inhaled Oxygen Concentration - - Weight 66.5 kg (146 lb 11.2 oz) 05/08/2019 2:00 PM REEL SYSTEM OPERATOR Height 162.6 cm (5' 4) 05/08/2019 2:00 PM REEL SYSTEM OPERATOR Body Mass Index 25.18 05/08/2019 2:00 PM REEL SYSTEM OPERATOR Plan of Treatment Not on file Care Teams Brush Or Broom Cutter Relationship Specialty Start Date End Date Clayton Bee MD [address] [place] [phone] PCP - General Obstetrics and Gynecology 05/08/19
== END 2024-05-22 16:51 | disposition home or self-care (01) ==
LOC: NFLDUCREF 16:51
PROVIDERS: PCP Family Medicine; Visit Provider Physician Assistant
DX: K13.79 Other lesions of oral mucosa (principal)
CPT/HCPCS: 86592